=== PATIENT | female | born 1950 | race Caucasian/White ===

== ENCOUNTER 2020-04-13 10:09 | Outpatient (REF) | payer MEDICARE, SELFPAY ==
--- NOTE | 2020-04-13 10:16 | XR_ITS ---
EXAMINATION: KNEE X-RAY CLINICAL INFORMATION: Knee pain COMPARISON: Previous x-ray most recent June 2019 TECHNIQUE: Standing AP view of both knees and standing lateral view of the left knee FINDINGS: Left knee: There is a 3 component left knee replacement in satisfactory position. No fracture or dislocation is seen. There is a small joint effusion. There is a small soft tissue calcification over the inferior patella that is stable. Right knee: There is a right knee replacement in satisfactory position. XR/XR knee standing BI IMPRESSION: Left knee: Satisfactory appearance of knee replacement. Small joint effusion. Satisfactory appearance of right knee replacement.
--- NOTE | 2020-04-13 10:16 | XR_ITS ---
EXAMINATION: KNEE X-RAY CLINICAL INFORMATION: Knee pain COMPARISON: Previous x-ray most recent June 2019 TECHNIQUE: Standing AP view of both knees and standing lateral view of the left knee FINDINGS: Left knee: There is a 3 component left knee replacement in satisfactory position. No fracture or dislocation is seen. There is a small joint effusion. There is a small soft tissue calcification over the inferior patella that is stable. Right knee: There is a right knee replacement in satisfactory position. XR/XR knee LT 2V IMPRESSION: Left knee: Satisfactory appearance of knee replacement. Small joint effusion. Satisfactory appearance of right knee replacement.
== END 2020-04-13 10:10 | disposition home or self-care (01) ==
LOC: HO.HOSX 10:09
PROVIDERS: Visit Provider Orthopaedic Surgery
DX: M25.562 Pain in left knee (principal); M25.561 Pain in right knee
CPT/HCPCS: 73560; 73565; 99212

== ENCOUNTER 2020-12-09 06:40 | Emergency (ER) | payer MEDICARE, SELFPAY ==
--- NOTE | 2020-12-09 | ECG_ITS ---
Test Reason : CHEST PAIN Blood Pressure : / mmHG Vent. Rate : 052 BPM Atrial Rate : 052 BPM P-R Int : 168 ms QRS Dur : 084 ms QT Int : 448 ms P-R-T Axes : 057 020 056 degrees QTc Int : 416 ms Sinus bradycardia with Premature ventricular complexes Possible Anterior infarct (cited on or before 02-NOV-2018) Abnormal ECG When compared with ECG of 02-NOV-2018 13:35, Vent. rate has decreased BY 32 BPM QT has shortened Referred By: Generic ED Physician Electronically Signed By:MELCHOR AUSTIN MD
--- NOTE | ~2020-12-09 | XR_ITS ---
EXAMINATION: XR CHEST CLINICAL INFORMATION: Chest pain COMPARISON: None TECHNIQUE: 2 views of the chest were obtained. FINDINGS: There are patchy, streaky opacities in the left lower lobe or lingula with a trace left pleural effusion. Right lung appears clear. No pulmonary edema. Normal cardiomediastinal silhouette. XR/XR chest 2V IMPRESSION: Possible left lower lobe or lingular pneumonia with a trace left pleural effusion. Recommend short-term radiographic follow-up.
--- NOTE | ~2020-12-09 | CT_ITS ---
EXAMINATION: CT ANGIOGRAM OF THE CHEST WITH AND WITHOUT CONTRAST (CT PULMONARY ANGIOGRAM FOR PE) CLINICAL INFORMATION: Reason for Exam chest pain, elevated D-dimer, rule out PE COMPARISON: None TECHNIQUE: Prior to contrast administration, noncontrast localization images were obtained. Subsequently, multidetector volumetric imaging was performed from the thoracic inlet to below the diaphragms following the administration of 80 mL Omnipaque 350 intravenous contrast. No contrast reaction reported Sagittal, coronal, and MIP oblique sagittal reformatted images were obtained on the CT workstation, uploaded to PACS, and reviewed. This CT examination was performed using dose optimization techniques as appropriate, variously including the following: *Automated exposure control *Adjustment of mA and/or kV according to patient size (this includes techniques or standardized protocols for targeted exams where dose is matched to indication/reason for exam; i.e. extremities or head) *Use of iterative reconstruction technique Total exam dose-length product 247 mGy-cm FINDINGS: QUALITY OF STUDY/CONTRAST BOLUS: Satisfactory. PULMONARY ARTERIES: No central or segmental pulmonary emboli. THORACIC AORTA: There is no evidence of aneurysm. LUNG: There are reticular nodular changes and linear streaky changes in the right lower lobe. There is 8 mm nodule in the lingula axial image 32/6. Mild atelectatic changes seen in the anterobasal segment left lower lobe. There are multiple lung nodules seen largest measuring 6 mm right middle lobe axial image 28/5, 4 mm left lingula axial image 27/5. PLEURA: No pleural effusion or pneumothorax. MEDIASTINUM: Normal heart size. No pericardial effusion. No hilar or mediastinal lymphadenopathy. No evidence of septal bowing or right heart strain. CHEST WALL/AXILLA: No axillary or internal mammary lymphadenopathy. OSSEOUS STRUCTURES: There are multiple sclerotic lesions seen sternum, ribs and throughout dorsal spine involving T2, T4, T5 T9, T10 vertebra. UPPER ABDOMEN: There are small hypodense areas seen in the left hepatic lobe measuring 1.9 and 1.5 cm on axial image 46/5 and 48/5. No reflux of contrast into the hepatic veins to suggest elevated right heart pressures. CT/CT angio chest PE protocol IMPRESSION: No evidence of PE. No evidence aortic aneurysm. Multiple pulmonary nodules scattered throughout both lungs. In addition there is reticular nodular changes in the right lower lobe. Multiple sclerotic metastatic disease involving thoracic spine, sternum and ribs. VTE: negative
[2020-12-09 07:27] VITALS: BP 142/74; PULSE 55; RESP 18; TEMP 36.6; O2SAT 96; BMI 27.4
--- NOTE | 2020-12-09 08:08 | ED.CHESTPAIN ---
HPI - Chest Pain General Chief Complaint: Chest Pain Stated Complaint: chest pain Time Seen by Provider: 12/09/20 07:46 Source: patient Mode of arrival: ambulatory Limitations: no limitations History of Present Illness HPI narrative: 70-year-old female who presents emergency department for evaluation of chest pain. She states that the chest pain began yesterday at around 3:00 p.m. after she woke up from a nap. She states she fell asleep in a reclining chair and then woke up and had pain and the anterior chest. She points to her sternum and left chest when asked to localize the pain. She states the pain initially was mild and got worse early this morning. She describes the pain as a constant, dull ache which is currently 8/10. The pain is worse if she moves her left arm. She states she has some mild associated shortness of breath and did get clammy last night but attributes that to the heat. She states that she has had a cough for a couple of weeks secondary to pollen exposure. She denied radiation of the pain to her neck, jaw or back. She denied fever, chills, abdominal pain. She denied lightheadedness or dizziness. This is her 1st episode of this type of pain. She did not take any medications for the pain. The patient has not had a COVID-19 infection during this pandemic. She completed her 2 shot vaccination for COVID-19 (D-ÉG Thermoset) and received her 2nd vaccination in September 2020. Related Data Home Medications Medication Instructions Recorded Confirmed amlodipine 5 mg tablet 5 mg PO DAILY 04/13/20 atorvastatin 20 mg tablet 20 mg PO DAILY 04/13/20 hydrochlorothiazide 25 mg tablet 25 mg PO DAILY 04/13/20 metoprolol succinate 25 mg 12.5 mg PO DAILY 04/13/20 tablet,extended release 24 hr Previous Rx's Medication Instructions Recorded amoxicillin 500 mg tablet 2,000 mg PO ONCE 1 Days #4 tab 10/13/20 Allergies Allergy/AdvReac Type Severity Reaction Status Date / Time No Known Allergies Allergy Unverified 02/26/20 15:08 [No Known Allergies*] Review of Systems Review of Systems: Yes all other systems are reviewed and are negative [facility] Past Medical History [facility] Narrative: Past medical history: Hypertension, hyperlipidemia, right sided breast cancer 15 years prior treated with partial mastectomy and radiation therapy, skin cancer. Past surgical history: Bilateral knee replacements, x3, 2 hernia repairs, 1 ovary removed, right partial mastectomy, urethral cyst removed. Social history: The patient is a former smoker and quit in 1985, she smoked for 20 years, she drinks alcohol 2 times a month, she denies drug use. She is and her , Jose Raul, is here in the emergency department with her. Surgical History (Updated 04/13/20 @ 12:03 by Tiny Bunch MD) History of ovarian resection History of partial mastectomy History of tonsillectomy Social History Social History (Updated 04/12/20 @ 10:53 by Nata Bender CMA) Advance Directives: Yes Advance Directives Information Provided: Yes Advance Directives on File: No 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al status: retired 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: Right Handed Physical Exam Vital Signs: Vital Signs: Last Vital Signs Temp 98.4 F 12/09/20 08:57 Pulse 50 12/09/20 10:21 Resp 18 12/09/20 10:21 BP 166/58 H 12/09/20 10:21 Pulse Ox 96 12/09/20 10:21 Body Mass Index 27.4 Const: General: cooperative and healthy appearing Orientation/consciousness: oriented to person and oriented to place Limitations: no limitations HENMT: Head: Yes normal to inspection, Yes normocephalic and Yes atraumatic Ears: external ears normal General nose exam: Normal external nose present Face and sinus: Yes normal facial exam Mouth: Normal oral and palatal mucosa present Throat: Yes posterior oropharynx normal Eyes: Periorbital: periorbital findings normal Eyelids: Yes eyelids normal Conjunctivae: conjunctivae normal Sclerae: sclerae normal Corneas: corneas normal Pupils: Equal, round and reactive pupils present Direct Ophthalmoscopy: normal light reflex Neck: Neck: Yes full ROM, Yes no lymphadenopathy, Yes no meningeal signs, Yes trachea midline and Yes supple Chest: Chest palpation & inspection: normal inspection of the chest and tenderness ( [id number] tender sternum and left costal chondral joints) Resp: Effort & Inspection: normal respiratory effort and able to speak in complete sentences Auscultation: clear to auscultation bilaterally Cardio: Rate: regular rate Rhythm: regular rhythm Heart sounds: S1 normal heart sound present, S2 normal heart sound present and no murmurs GI: Inspection: Yes normal to inspection Palpation (GI): Soft to palpation, nontender, no guarding, not rigid and No hepatosplenomegaly present : General: Yes no CVA tenderness Back/Spine/Pelvis: Back: no CVA tenderness Cervical Spine: normal cervical lordosis Thoracic/Lumbar Spine: thoracic and lumbar spine normal to inspection Skin: Lesions: no lesions Rashes: no rashes Wounds: no wounds Neuro: General: oriented to person, oriented to place and no meningeal signs Cranial nerves: Yes CN's II-XII intact bilaterally and Yes Equal, round and reactive pupils present Cognition (Neuro): normal cognition Motor exam (neuro): 5/5 motor strength present throughout Extrem: General: Yes normal to inspection and Yes full ROM Psych: Appearance: well kempt Mental Status: mental status grossly normal Speech and movement: Normal speech and movement present Affect: normal affect Attitude: cooperative Thought process: Normal thought process present Thought content: Normal thought content present Course Course Course Narrative: 70-year-old female who presents emergency department for evaluation of gradual onset of left-sided chest pain which started around 3:00 p.m. yesterday after she woke up from a nap. The pain is been constant in got worse overnight and is currently 8/10. Vital signs revealed a slight elevation of blood pressure of 142/74 otherwise were unremarkable. Physical examination did reveal midsternal and left-sided chest wall tenderness. Differential includes but is not limited to acute coronary syndrome, costochondritis, pulmonary embolism, pneumothorax. Laboratory evaluation, chest x-ray and EKG will be obtained. Patient's pain will be treated with Toradol 30 mg IV. 1245: The patient's pain improved after receiving IV Toradol.The patient's initial high sensitivity troponin was detectable but not elevated, repeat high sensitivity troponin did not demonstrate a greater than 50% increased suggesting that she does not have myocardial injury is the cause of her pain. CT scan pulmonary angiogram of the chest to rule out pulmonary embolism revealed no PE however the patient does have reticulonodular changes of her lungs and several pulmonary nodules. Patient also has multiple sclerotic lesions involving her sternum, ribs and spine. The patient has a remote history of breast cancer, 15 years prior and was being treated by Dr. Tyler Camara at [facility]. I will contact Dr. Camara to discuss this incidental finding. MDM - Chest Pain Lab Data Result diagrams: 12/09/20 08:23 12/09/20 08:23 Labs: Lab Results 12/09/20 12/09/20 12/09/20 Range/Units 08:23 08:23 08:23 WBC 7.9 (4.8-10.8) X10*3/uL RBC 3.92 L (4.20-5.50) X10*6/uL Hgb 11.3 L (12.0-16.0) g/dl Hct 35.1 L (37-47) % MCV 89.5 (80-98) fL MCH 28.8 (27.0-33.0) pg MCHC 32.2 (31.0-35.0) g/dl RDW 12.9 (11.0-16.0) % Plt Count 249 (160-400) X10*3/uL MPV 10.3 (9.4-12.3) fL Immature Gran % (Auto) 0.4 (0.0-0.4) % Neut % (Auto) 71.5 (45-73) % Lymph % (Auto) 12.5 L (20-40) % Harlan % (Auto) 8.1 (2-11) % Eos % (Auto) 7.0 H (0-4) % Baso % (Auto) 0.5 (0-2) % Lymph # (Auto) 1.0 L (1.2-4.9) X10*3/uL Harlan # (Auto) 0.6 (0.1-1.2) X10*3/uL Eos # (Auto) 0.6 H (0.0-0.4) X10*3/uL Baso # (Auto) 0.0 (0.0-0.2) X10*3/uL Abs Immat Gran (auto) 0.03 (0.00-0.03) X10*3/uL Absolute Neuts (auto) 5.7 (2.0-8.3) X10*3/uL Absolute Nucleated RBC 0.000 (0.0-0.012) X10*3/uL Nucleated RBC % (auto) 0.0 (0.0-0.2) /100WBC D-Dimer 535 NG/ML Sodium 142 (135-145) mmol/L Potassium 3.6 (3.3-5.1) mmol/L Chloride 105 (96-108) mmol/L Carbon Dioxide 30 H (22-29) mmol/L Anion Gap 11 L (12-20) BUN 19 H (9-16) mg/dL Creatinine 1.27 (0.5-1.4) mg/dL Estim Creat Clear Calc 42.6 Estimated GFR 41 Random Glucose 109 (60-115) mg/dL Calcium 10.3 H (8.4-10.2) mg/dL Total Bilirubin 0.9 (0.0-1.0) mg/dL AST 22 (5-31) U/L ALT 10 (0-31) U/L Alkaline Phosphatase 124 H (39-117) U/L Troponin I High Sens (<3.5-17.0) ng/L Total Protein 6.5 (6.5-8.0) g/dL Albumin 3.9 (3.5-5.0) g/dL 12/09/20 12/09/20 Range/Units 08:23 11:37 WBC (4.8-10.8) X10*3/uL RBC (4.20-5.50) X10*6/uL Hgb (12.0-16.0) g/dl Hct (37-47) % MCV (80-98) fL MCH (27.0-33.0) pg MCHC (31.0-35.0) g/dl RDW (11.0-16.0) % Plt Count (160-400) X10*3/uL MPV (9.4-12.3) fL Immature Gran % (Auto) (0.0-0.4) % Neut % (Auto) (45-73) % Lymph % (Auto) (20-40) % Harlan % (Auto) (2-11) % Eos % (Auto) (0-4) % Baso % (Auto) (0-2) % Lymph # (Auto) (1.2-4.9) X10*3/uL Harlan # (Auto) (0.1-1.2) X10*3/uL Eos # (Auto) (0.0-0.4) X10*3/uL Baso # (Auto) (0.0-0.2) X10*3/uL Abs Immat Gran (auto) (0.00-0.03) X10*3/uL Absolute Neuts (auto) (2.0-8.3) X10*3/uL Absolute Nucleated RBC (0.0-0.012) X10*3/uL Nucleated RBC % (auto) (0.0-0.2) /100WBC D-Dimer NG/ML Sodium (135-145) mmol/L Potassium (3.3-5.1) mmol/L Chloride (96-108) mmol/L Carbon Dioxide (22-29) mmol/L Anion Gap (12-20) BUN (9-16) mg/dL Creatinine (0.5-1.4) mg/dL Estim Creat Clear Calc Estimated GFR Random Glucose (60-115) mg/dL Calcium (8.4-10.2) mg/dL Total Bilirubin (0.0-1.0) mg/dL AST (5-31) U/L ALT (0-31) U/L Alkaline Phosphatase (39-117) U/L Troponin I High Sens 6.4 6.9 (<3.5-17.0) ng/L Total Protein (6.5-8.0) g/dL Albumin (3.5-5.0) g/dL ABG Data Interpretation: 0734: Sinus bradycardia with a rate of 52, normal [place] interval, QRS duration and QTC interval, no ST segment elevation, no ST segment depression, no Q-waves, no PACs, no PVCs, no T-wave abnormalities, except for the bradycardia, this is a normal EKG. Discharge Plan Discharge Prescriptions: No Action amoxicillin 500 mg tablet 2,000 mg PO ONCE 1 Days Qty: 4 RF: 3
[2020-12-09 08:27] LABS: MANUAL DIFF FLAG NO
[2020-12-09 08:29] LABS: Basophils Percent Auto 0.5 % (0-2); Eosinophils Absolute Auto 0.6 X10*3/uL (0.0-0.4); Hematocrit 35.1 % (37-47); Hemoglobin 11.3 g/dl (12.0-16.0); Imm Gran Abs Auto 0.03 X10*3/uL (0.00-0.03); Imm Gran Pct Auto 0.4 % (0.0-0.4); Lymphocytes Percent Auto 12.5 % (20-40); Mean Corpuscular HGB Conc 32.2 g/dl (31.0-35.0); Mean Corpuscular Hemoglobin 28.8 pg (27.0-33.0); Mean Corpuscular Volume 89.5 fL (80-98); Mean Platelet Volume 10.3 fL (9.4-12.3); Monocytes Absolute Auto 0.6 X10*3/uL (0.1-1.2); Monocytes Percent Auto 8.1 % (2-11); Neutrophils Absolute Auto 5.7 X10*3/uL (2.0-8.3); Neutrophils Percent Auto 71.5 % (45-73); Platelet Count 249 X10*3/uL (160-400); Red Blood Count 3.92 X10*6/uL (4.20-5.50); Red Cell Distribution Width 12.9 % (11.0-16.0); White Blood Count 7.9 X10*3/uL (4.8-10.8)
[2020-12-09] MEDS: Ketorolac Tromethamine 30 MG/ML VIAL IVPUSH (08:29)
[2020-12-09 08:39] LABS: D Dimer 535 NG/ML
[2020-12-09 08:57] VITALS: BP 150/62; PULSE 45; RESP 17; TEMP 36.9; O2SAT 97
[2020-12-09 08:58] LABS: Alanine Aminotransferase 10 U/L (0-31); Albumin Level 3.9 g/dL (3.5-5.0); Alkaline Phosphatase 124 U/L (39-117); Anion Gap 11 (12-20); Aspartate Amino Transferase 22 U/L (5-31); Bilirubin Total 0.9 mg/dL (0.0-1.0); Blood Urea Nitrogen 19 mg/dL (9-16); Calcium 10.3 mg/dL (8.4-10.2); Carbon Dioxide 30 mmol/L (22-29); Chloride 105 mmol/L (96-108); Creatinine Clr Calc Pharmacy 42.6; Estimated Glomerular Filt Rate 41; Glucose Random 109 mg/dL (60-115); Potassium 3.6 mmol/L (3.3-5.1); Sodium 142 mmol/L (135-145); Total Protein 6.5 g/dL (6.5-8.0)
[2020-12-09 09:02] LABS: Troponin-I High Sensitivity 6.4 ng/L (<3.5-17.0)
[2020-12-09] MEDS: 0.9 % Sodium Chloride 1,000 ML 999 ML IV (10:12)
[2020-12-09 10:21] VITALS: BP 166/58; PULSE 50; RESP 18; O2SAT 96
[2020-12-09] MEDS: iohexoL 350 MG/ML 100 ML INFUS..BTL 63 ML IV (10:39)
[2020-12-09 12:14] LABS: Troponin-I High Sensitivity 6.9 ng/L (<3.5-17.0)
== END 2020-12-09 13:58 | disposition home or self-care (01) ==
PROVIDERS: Emergency Provider Emergency Medicine Emergency Medical Services; PCP Internal Medicine
DX: R07.9 Chest pain, unspecified (principal); I10 Essential (primary) hypertension; Z85.3 Personal history of malignant neoplasm of breast
CPT/HCPCS: 36415; 71046; 71275; 80053; 84484; 85025; 85379; 93005; 96361; 96374; 99285; J1885; Q9967

== ENCOUNTER → 2021-03-07 13:52 | Outpatient (BNV) | payer MEDICARE, SELFPAY | PROVIDERS: Visit Provider Internal Medicine | DX: C50.911 Malignant neoplasm of unspecified site of right female breast (principal); C79.51 Secondary malignant neoplasm of bone | CPT/HCPCS: 99204; 99213; 99214; 99215; G2211 ==

== ENCOUNTER 2021-03-15 11:34 | Outpatient (REF) | payer MEDICARE, SELFPAY ==
--- NOTE | ~2021-03-15 | PE_ITS ---
EXAMINATION: Fluorine-18 FDG PET/CT Scan CLINICAL INDICATION: Initial treatment management. Right lung nodule, history of right breast cancer. PROCEDURE: 58 minutes following the intravenous administration of 16.0 mCi of fluorine 18 FDG, images from the base of the skull to the mid thighs were obtained using a combined PET/CT scanner with CT scan based attenuation correction. No oral contrast was administered. No intravenous contrast was administered. Transverse, coronal, sagittal, and volume reconstruction projections were obtained. The patient's blood glucose as determined by a finger stick, was 90 mg/dl immediately prior to injection. Total CT exam dose-length product 506.68 mGy-cm * These CT images were obtained using dose optimization techniques as appropriate, variously including the following: Automated exposure control * Adjustment of mA and/or kV according to patient size (this includes techniques or standardized protocols for targeted exams where dose is matched to indication/reason for exam; i.e. extremities or head) * Use of iterative reconstruction technique COMPARISON: No previous PET/CT scan is available for comparison. CT angiogram of the chest dated 12/09/[address] scan of the abdomen done pelvis dated 11/02/2018 are available for comparison. FINDINGS: (Slice numbers described in this report are numbered superiorly to inferiorly with slice #1 in the head) NECK AND VISUALIZED HEAD: Other than osseous lesions subsequently described, there are no foci of abnormal FDG activity in the neck or visualized head. There is no cervical lymphadenopathy. Mild mucosal thickening in the right maxillary sinus is noted with no associated abnormal FDG activity. THORAX: Multiple FDG avid osseous lesions are subsequently discussed. There is an FDG avid 0.7 cm anterior pleural-based right middle lobe pulmonary nodule showing SUVmax 3.6, slice 101/311. There is mild FDG activity associated with a lingular opacity showing SUVmax 3.2, slice 122/311 and measuring approximately 2.0 x 1.0 cm in largest transverse mentions. There is an additional focus of mild FDG activity present in the right lower lobe showing SUVmax 2.5, slice 111/311. A nodular opacities probably present at this site but is not easily on these nondiagnostic CT images from adjacent vascular structures. No additional well delineated foci of abnormal FDG activity are present in the chest. Multiple additional pulmonary nodules visualized on the prior diagnostic CT angiogram of the chest dated 12/09/2020 are not as well delineated on these nondiagnostic CT images, and all of those nodules are too small to be characterized on the FDG PET images. There is no pleural or pericardial fluid, or pneumothorax. There is no mediastinal, supraclavicular, or axillary lymphadenopathy. ABDOMEN AND PELVIS: There is a focus of intense abnormal FDG activity present in liver Couinaud segment 7, SUVmax 11.0, slice 134/311. This corresponds to poorly delineated hypodensity on the corresponding CT images that was better visualized on the 12/09/[address] scan and measured approximately 2.8 cm on that study. There is an additional suspicious focus of increased FDG activity at the junctions of liver Couinaud segments 2 and 3 showing SUVmax 6.5, slice 143/311. This may represent physiological activity in the adjacent distal stomach. No definite additional foci of abnormal FDG activity are present in the liver. Several hypodensities are present in the liver and appear unchanged from prior studies and do not show abnormal FDG activity. The gallbladder and spleen are unremarkable. There is a hypodense cyst in the upper pole of the right kidney which is markedly FDG photopenic. There is an additional hypodense cysts medially in the upper pole of the left kidney. This is also FDG photopenic. The kidneys are otherwise unremarkable. The adrenal glands and pancreas are unremarkable. There is no retroperitoneal, mesenteric, pelvic or inguinal lymphadenopathy. There is diverticulosis without evidence of diverticulitis. The hollow viscera are otherwise unremarkable. There is a focus of intense FDG activity in the region of the cervix, SUVmax 10.4, slice 230/311. There are some soft tissue calcifications in this region but CT abnormality is otherwise not present. The pelvic organs are otherwise unremarkable. MUSCULOSKELETAL: Extensive FDG avid osseous lesions are present. P[employer] are extensive pelvic abnormalities, the most intense of which is in the posterior column of the left acetabulum showing SUVmax 10.1 associated with a mixed sclerotic and lytic focus at this site on the CT images, a lesion in the subtrochanteric proximal right femur showing SUVmax 7.5, slice 226/311 associated with subtle sclerotic changes on the CT images, and a focus in the L3 vertebral body showing SUVmax 7.9, slice 161/311 also associated with mixed sclerotic and lytic lesions on the CT images. The abnormalities are extensive throughout the spine the proximal humeri bilaterally in the glenoid fossa regions of both scapula. FDG avid mixed sclerotic and lytic lesions are also present in the sternum. VASCULAR: Diffuse vascular calcifications including coronary are noted. PET/PET CT fusion skull to thigh IMPRESSION: Widespread FDG avid metastatic lesions are present as described above. These are most extensive in the osseous structures, but FDG avid liver lesions and small FDG avid pulmonary lesions are also noted.
== END 2021-03-15 11:35 | disposition home or self-care (01) ==
LOC: HO.PET 11:34
PROVIDERS: Visit Provider Internal Medicine
DX: Z13.89 Encounter for screening for other disorder (principal)

== ENCOUNTER 2021-04-04 11:46 | Day surgery (SDC) | payer MEDICARE, SELFPAY ==
--- NOTE | ~2021-04-04 | CT_ITS ---
EXAMINATION: CT BONE MARROW ASPIRATION AND BIOPSY CLINICAL INFORMATION: Breast cancer, bone metastases. COMPARISON: None. TECHNIQUE: Following explaining CT-guided bone marrow biopsy and aspiration procedure, benefits and risks, a written consent was obtained. Patient was placed prone on fluoroscopy table and preliminary CT imaging was obtained through the pelvis. Lead markers were placed along the posterior skin and repeat CT imaging was performed. An optimal marker was selected and marked on the skin. The marked area was then cleaned and draped in the usual sterile manner. 1% lidocaine was injected at the puncture site. A spinal needle was then inserted from the skin to the posterior iliac spine and 1% lidocaine injected around the periosteum. Through a small skin incision, a 14-gauge guide needle was advanced from the skin to the posterior iliac spine. Coaxially, a 14-gauge needle attached to the drill was inserted into the right iliac bone marrow and a bone marrow biopsy was performed. Subsequently, bone marrow aspirations are performed with heparin and EDTA in two different syringes. After achieving adequate amount of biopsy material and bone marrow aspiration, the guide needle was withdrawn and complete hemostasis was achieved at the puncture site. Patient tolerated procedure extremely well. Conscious sedation and patient monitoring was performed during the exam. FINDINGS: On previous CT imaging, there are sclerotic bony changes involving both iliac bones and lower lumbar spine as well as sacrum. Unremarkable. The uterus is anteverted and appears unremarkable. The bowel gas pattern is nonspecific. CT fluoroscopy-guided left posterior iliac crest bone marrow biopsy, aspiration of bone marrow with heparin and EDTA were performed in separate syringes and sent to lab. CT/CT biopsy aspirate bone marrow IMPRESSION: Successful CT fluoroscopy-guided bone marrow biopsy and aspiration was performed of the left iliac bone.
[2021-04-04 12:23] LABS: MANUAL DIFF FLAG NO
[2021-04-04 12:26] LABS: Basophils Absolute Auto 0.1 X10*3/uL (0.0-0.2); Basophils Percent Auto 0.6 % (0-2); Eosinophils Absolute Auto 0.3 X10*3/uL (0.0-0.4); Eosinophils Percent Auto 2.6 % (0-4); Hematocrit 34.7 % (37-47); Hemoglobin 11.5 g/dl (12.0-16.0); Imm Gran Abs Auto 0.04 X10*3/uL (0.00-0.03); Imm Gran Pct Auto 0.4 % (0.0-0.4); Lymphocytes Absolute Auto 1.2 X10*3/uL (1.2-4.9); Lymphocytes Percent Auto 11.6 % (20-40); Mean Corpuscular HGB Conc 33.1 g/dl (31.0-35.0); Mean Corpuscular Hemoglobin 29.4 pg (27.0-33.0); Mean Corpuscular Volume 88.7 fL (80-98); Mean Platelet Volume 10.7 fL (9.4-12.3); Monocytes Absolute Auto 0.9 X10*3/uL (0.1-1.2); Monocytes Percent Auto 8.8 % (2-11); Neutrophils Absolute Auto 7.6 X10*3/uL (2.0-8.3); Platelet Count 282 X10*3/uL (160-400); Red Blood Count 3.91 X10*6/uL (4.20-5.50); Red Cell Distribution Width 12.9 % (11.0-16.0)
[2021-04-04 12:31] LABS: Prothrombin Time 11.8 SEC (9.9-13.0)
[2021-04-04 12:34] LABS: Partial Thromboplastin Time 32.9 SEC (24.1-38.0)
[2021-04-04 13:09] VITALS: BMI 29.0
[2021-04-04 15:45] VITALS: BP 117/57; PULSE 64; RESP 17; TEMP 37.2; O2SAT 98
[2021-04-04] MEDS: Lidocaine HCl 1 % MPF 5 ML VIAL 10 ML SUBCUT (15:59)
[2021-04-04 16:00] VITALS: BP 129/56; PULSE 71; RESP 18; O2SAT 98
[2021-04-04 16:15] VITALS: BP 132/54; PULSE 62; RESP 18; O2SAT 98
[2021-04-04 16:45] VITALS: BP 112/52; PULSE 68; RESP 18; O2SAT 97
[2021-04-04 17:00] VITALS: TEMP 36.8
== END 2021-04-04 17:13 | disposition home or self-care (01) ==
PROVIDERS: Radiology Diagnostic Radiology; PCP Internal Medicine; Visit Provider Internal Medicine
DX: C79.51 Secondary malignant neoplasm of bone (principal); Z85.3 Personal history of malignant neoplasm of breast; I10 Essential (primary) hypertension; Z87.891 Personal history of nicotine dependence
CPT/HCPCS: 36415; 38222; 85025; 85610; 85730; 88305; 88311; 88313; 88341; 88342; 88360; 99152; J1642; J2250; J3010

== ENCOUNTER 2021-04-13 09:57 | Outpatient (REF) | payer MEDICARE, SELFPAY ==
--- NOTE | ~2021-04-13 | XR_ITS ---
EXAMINATION: XR KNEE, RIGHT XR KNEE, LEFT XR KNEE STANDING, BILATERAL INDICATION: Pain. COMPARISON: Comparison is made to previous exam dated 06/25/2019, 01/29/2019 TECHNIQUE: Standing image of the knees with detailed imaging of the right and left knee. FINDINGS: The standing image shows no change from previous. Prosthesis bilaterally. No evidence for hardware failure. Two detailed images of the right knee are compared to previous dated 01/29/2019. Again no evidence for hardware failure. Alignment is felt to be within normal limits. Two detailed images of the left knee demonstrate again prosthesis in place. No acute finding. No evidence for hardware failure. XR/XR knee standing BI IMPRESSION: Hardware involving the right and left knee. No evidence for hardware failure. No acute finding. No bony erosion.
--- NOTE | ~2021-04-13 | XR_ITS ---
EXAMINATION: XR KNEE, RIGHT XR KNEE, LEFT XR KNEE STANDING, BILATERAL INDICATION: Pain. COMPARISON: Comparison is made to previous exam dated 06/25/2019, 01/29/2019 TECHNIQUE: Standing image of the knees with detailed imaging of the right and left knee. FINDINGS: The standing image shows no change from previous. Prosthesis bilaterally. No evidence for hardware failure. Two detailed images of the right knee are compared to previous dated 01/29/2019. Again no evidence for hardware failure. Alignment is felt to be within normal limits. Two detailed images of the left knee demonstrate again prosthesis in place. No acute finding. No evidence for hardware failure. XR/XR knee RT 2V IMPRESSION: Hardware involving the right and left knee. No evidence for hardware failure. No acute finding. No bony erosion.
--- NOTE | ~2021-04-13 | XR_ITS ---
EXAMINATION: XR KNEE, RIGHT XR KNEE, LEFT XR KNEE STANDING, BILATERAL INDICATION: Pain. COMPARISON: Comparison is made to previous exam dated 06/25/2019, 01/29/2019 TECHNIQUE: Standing image of the knees with detailed imaging of the right and left knee. FINDINGS: The standing image shows no change from previous. Prosthesis bilaterally. No evidence for hardware failure. Two detailed images of the right knee are compared to previous dated 01/29/2019. Again no evidence for hardware failure. Alignment is felt to be within normal limits. Two detailed images of the left knee demonstrate again prosthesis in place. No acute finding. No evidence for hardware failure. XR/XR knee LT 2V IMPRESSION: Hardware involving the right and left knee. No evidence for hardware failure. No acute finding. No bony erosion.
== END 2021-04-13 09:58 | disposition home or self-care (01) ==
LOC: HO.HOSX 09:57
PROVIDERS: PCP Internal Medicine; Referring Provider Internal Medicine; Visit Provider Physician Assistant
DX: T84.84XA Pain due to internal orthopedic prosthetic devices, implants and grafts, initial encounter (principal); Z96.651 Presence of right artificial knee joint; Z96.652 Presence of left artificial knee joint
CPT/HCPCS: 73560; 73565; 99212

== ENCOUNTER 2021-05-10 11:52 | Outpatient (REF) | payer MEDICARE, SELFPAY ==
--- NOTE | ~2021-05-10 | XR_ITS ---
EXAMINATION: XR PELVIS AND BILATERAL FEMURS CLINICAL INFORMATION: Secondary malignant neoplasm of bone. COMPARISON: PET/CT 03/15/2021. TECHNIQUE: Single view pelvis with 2 additional views each femur. FINDINGS: Single view pelvis demonstrates extensive sclerotic changes in the left iliac bone consistent with bony metastatic disease. Similar changes are present on the prior PET/CT from 03/15/2021. Other sclerotic lesions are present in the right hemipelvis in the medial inferior pubic ramus, also present previously. No pathologic pelvic fracture is seen. Right femur demonstrates a total knee prosthesis distally. Proximally, in the intertrochanteric region, there is an ill-defined lytic area with some surrounding sclerosis which correlates with a lesion seen on the 03/15/2021 PET/CT. No pathologic fracture is seen. Right femur demonstrates a total knee prosthesis distally. The left femur shows a lytic area in the intertrochanteric area with some surrounding sclerosis. An area of activity was seen on the PET/CT previously and this is consistent with a metastatic lesion. A pathologic fracture is not seen. XR/XR femur LT 2V IMPRESSION: Bony metastatic disease as described above with no pathologic fracture seen.
--- NOTE | ~2021-05-10 | XR_ITS ---
EXAMINATION: XR PELVIS AND BILATERAL FEMURS CLINICAL INFORMATION: Secondary malignant neoplasm of bone. COMPARISON: PET/CT 03/15/2021. TECHNIQUE: Single view pelvis with 2 additional views each femur. FINDINGS: Single view pelvis demonstrates extensive sclerotic changes in the left iliac bone consistent with bony metastatic disease. Similar changes are present on the prior PET/CT from 03/15/2021. Other sclerotic lesions are present in the right hemipelvis in the medial inferior pubic ramus, also present previously. No pathologic pelvic fracture is seen. Right femur demonstrates a total knee prosthesis distally. Proximally, in the intertrochanteric region, there is an ill-defined lytic area with some surrounding sclerosis which correlates with a lesion seen on the 03/15/2021 PET/CT. No pathologic fracture is seen. Right femur demonstrates a total knee prosthesis distally. The left femur shows a lytic area in the intertrochanteric area with some surrounding sclerosis. An area of activity was seen on the PET/CT previously and this is consistent with a metastatic lesion. A pathologic fracture is not seen. XR/XR femur RT 2V IMPRESSION: Bony metastatic disease as described above with no pathologic fracture seen.
--- NOTE | ~2021-05-10 | XR_ITS ---
EXAMINATION: XR PELVIS AND BILATERAL FEMURS CLINICAL INFORMATION: Secondary malignant neoplasm of bone. COMPARISON: PET/CT 03/15/2021. TECHNIQUE: Single view pelvis with 2 additional views each femur. FINDINGS: Single view pelvis demonstrates extensive sclerotic changes in the left iliac bone consistent with bony metastatic disease. Similar changes are present on the prior PET/CT from 03/15/2021. Other sclerotic lesions are present in the right hemipelvis in the medial inferior pubic ramus, also present previously. No pathologic pelvic fracture is seen. Right femur demonstrates a total knee prosthesis distally. Proximally, in the intertrochanteric region, there is an ill-defined lytic area with some surrounding sclerosis which correlates with a lesion seen on the 03/15/2021 PET/CT. No pathologic fracture is seen. Right femur demonstrates a total knee prosthesis distally. The left femur shows a lytic area in the intertrochanteric area with some surrounding sclerosis. An area of activity was seen on the PET/CT previously and this is consistent with a metastatic lesion. A pathologic fracture is not seen. XR/XR pelvis 1-2V IMPRESSION: Bony metastatic disease as described above with no pathologic fracture seen.
== END 2021-05-10 11:53 | disposition home or self-care (01) ==
LOC: HO.XRAY 11:52
PROVIDERS: PCP Internal Medicine; Visit Provider Internal Medicine
DX: C79.51 Secondary malignant neoplasm of bone (principal)
CPT/HCPCS: 72170; 73552

== ENCOUNTER → 2021-05-23 09:50 | Outpatient (BNVA) | payer MEDICARE, SELFPAY | PROVIDERS: PCP Internal Medicine; Visit Provider Physician Assistant | DX: C79.51 Secondary malignant neoplasm of bone (principal) | CPT/HCPCS: 99212 ==

== ENCOUNTER 2021-06-07 07:49 | Day surgery (SDC) | payer MEDICARE, SELFPAY ==
[2021-05-26 11:18] VITALS: BMI 28.1
[2021-06-07] VITALS (13 sets, daily range): BP systolic 107–151; BP diastolic 51–72; PULSE 55–85; RESP 16–22; TEMP 36.6–36.9; O2SAT 94–100
--- NOTE | ~2021-06-07 | XR_ITS ---
EXAMINATION: XR CHEST CLINICAL INFORMATION: Shortness of breath COMPARISON: 12/09/2020 TECHNIQUE: Frontal view of the chest was obtained. FINDINGS: Lung volumes are symmetric. There are patchy regions of bibasilar opacity, left greater than right. Small left and trace right pleural effusions are noted. No appreciable pneumothorax. Cardiac size is within normal limits. Calcification is present at the aortic arch. Degenerative changes are noted in the spine. Right axillary clips noted. XR/XR chest 1V IMPRESSION: Mild patchy bibasilar opacities which may be infectious/inflammatory in nature, though underlying nodularity in the setting of metastatic disease is difficult to exclude radiographically. Small left and trace right pleural effusions.
--- NOTE | ~2021-06-07 | FL_ITS ---
EXAMINATION: FL C-ARM IMAGES TAKEN IN THE OPERATING ROOM CLINICAL INFORMATION: Right femoral IM nail. COMPARISON: CT of 04/04/2021 and femoral study of 05/10/2021 TECHNIQUE: Fluoroscopy performed by Dr. Elvis Lamar. Fluoroscopy time: 1.6 minutes DAP: 0.666 mGy-cm2 Images: 5 FINDINGS: Patient is status post right total knee arthroplasty. Imaging demonstrates placement of compression screw and long intramedullary zainab within the right femur. No definite fractures identified on provided imaging. The known metastatic lesions are not well seen on these plain film studies. The central portion of the intramedullary zainab and femur are not imaged on this study. FL/FL guidance in OR IMPRESSION: C-arm imaging demonstrating placement of compression screw and long intramedullary zainab within the right femur.
[2021-06-07 08:56] LABS: COVID-19 Test Negative (Negative); IDNOW Serial# 08D9AD1C
--- NOTE | 2021-06-07 09:56 | MHC.SHP ---
Pre-Procedural Eval Section A Date of Service: 06/07/21 The patient is an INPATIENT: No Changes since office visit: Yes Patient answered all questions; No Cold of Flu in the past 2 weeks, No New Medical Problems and No Changes in Medication The History & Physical has been completed within 30 days and I have reviewed it.: Yes Section B Chief Complaint: mets to the bone Allergies: Allergies Allergy/AdvReac Type Severity Reaction Status Date / Time No Known Allergies Allergy Verified 06/07/21 08:07 [No Known Allergies*] Plan I have reviewed the history and physical and performed a pertinent physical examination on my patient. No changes have occurred unless specified.
--- NOTE | 2021-06-07 10:25 | HO.ANESPROP2 ---
HPI - Anesthesia Eval Consult details Narrative: 70 F for IM nailing . PMFSH Active Problems Active Problems: All Active Problems (Updated 05/26/21 @ 11:18 by Jenna Kelley RN) History of total left knee replacement (TKR) (Acute) History of total right knee replacement (TKR) (Acute) Bone metastases (Acute) Past Medical History Medical History Anemia Arthritis Breast cancer Cancer, metastatic to bone COVID-19 vaccine series completed Elevated cholesterol HTN (hypertension) Kidney stones On beta vanessa at home Family History Family History Maternal Aunt Ovarian cancer Father Heart attack Maternal Aunt Stroke Family history of problems with anesthesia: No Surgical History Surgical History History of appendectomy History of lithotripsy History of ovarian resection History of partial mastectomy History of tonsillectomy and adenoidectomy History of total left knee replacement History of total right knee replacement (TKR) History of umbilical hernia repair History of vulvectomy Hx of section Hx of hernia repair History of Problems with Anesthesia: No Social History Social History Are you a primary caregiver assisted living to a significant other at home: No Do you presently have visiting nurse or other home services: No Alcohol intake: current Alcohol intake frequency: a few times a month Patient Tobacco Use Status: Former Tobacco user Quit Date: 1985 Tobacco use type: Cigarette Cigarette Packs Per Day: 1 Use of substances other than those prescribed or required for medical reasons: No Have you been hit, kicked, punched, or otherwise hurt by someone within the past year? 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: Right Handed Meds Allergies Allergy/AdvReac Type Severity Reaction Status Date / Time No Known Allergies Allergy Verified 06/07/21 08:07 [No Known Allergies*] Home Medications Medication Instructions Recorded Confirmed Last Taken Type amlodipine 5 mg tablet 5 mg PO DAILY 04/13/20 05/25/21 06/07/21 07:20 History atorvastatin 20 mg tablet 20 mg PO DAILY 04/13/20 05/25/21 Unknown History multivitamin 1 tab PO DAILY 03/07/21 05/25/21 Unknown History calcium 600 mg capsule 600 mg PO DAILY 05/09/21 05/25/21 Unknown History denosumab 60 mg/mL subcutaneous 60 mg SUBCUT QMONTH 05/26/21 05/26/21 05/09/21 History syringe (Prolia) metoprolol succinate 200 mg 200 mg PO BID 05/26/21 05/26/21 06/07/21 07:20 History tablet,extended release 24 hr Exam Exam Date and Time: June 07, 2021 1025 Height,Weight and Vital Signs: Height 5 ft 5.5 in Weight 78.018 kg Last Vital Signs Temp 97.8 F 06/07/21 08:29 Pulse 55 06/07/21 08:29 Resp 16 06/07/21 08:29 BP 150/51 H 06/07/21 08:29 Pulse Ox 99 06/07/21 08:29 Pertinent Lab Results Pertinent Lab Results: Laboratory Tests 06/07/21 06/07/21 08:15 08:35 COVID-19 ([facility]) Negative COVID-19 Clin Com See Note Blood Type A Positive Antibody Screen NEGATIVE Airway Mallampati Class: II TM Dist: >3cm Neck ROM: Full Loose/Missing/Broken Teeth: Yes (Bridge upper front , poor dentation ) Heart: rrr Lungs: bl breath sounds Assessment and Plan Assessment Anesthesia Assessment: Anesthesia Plan Discussed Final Anesthetic Review Family History of Problems with Anesthesia: No History of Problems with Anesthesia: No NPO: Yes ASA Class: III Final Preanesthetic Review: Anes Risks/Benef Reviewed Patient Risk: Intermediate Procedure Risk: Intermediate Anesthetic Plan Anesthetic Plan: GA Disposition: Standard PACU
[2021-06-07] MEDS: Lactated Ringers 1,000 ML 80 ML IVCONT (10:39)
--- NOTE | 2021-06-07 12:48 | PM.OP ---
Brief Operative Note Date of Service: 06/07/21 Pre-op diagnosis: right femoral metastatic lesion Post-op diagnosis: same Procedure: imn right femur Implants: Molly [id number] deg with 85 mm hip screw and 45 mm distal interlock Surgeon: Elvis Lamar MD Anesthesia: GETA and local Was an Manager Reimbursement used for this Procedure?: Yes Manager Reimbursement: Lisa Armando Estimated blood loss (mL): 150 IV fluids (mL): 1,100 Pathology: none sent Condition: stable Disposition: PACU
[2021-06-07] MEDS: HYDROmorphone HCl 0.5 MG/0.5 ML SYRINGE 0.25 MG IVPUSH ×2 (12:55→13:00)
--- NOTE | 2021-06-07 15:20 | P.OP_ITS ---
Operative Note Operative Note Date of Service: 06/07/21 Narrative: Date of Service: 06/07/21 Pre-op diagnosis: right femoral metastatic lesion Post-op diagnosis: same Procedure: imn right femur Implants: Molly [id number] deg with 85 mm hip screw and 45 mm distal interlock Surgeon: Elvis Lamar MD Anesthesia: GETA and local Was an Sales Solutions Associate used for this Procedure?: Yes Sales Solutions Associate: Lisa Armando Estimated blood loss (mL): 150 IV fluids (mL): 1,100 Pathology: none sent Condition: stable Disposition: PACU Procedure in detail: Patient was brought to the operating room and prepped and draped in standard sterile fashion. Time-out was called to identify proper site procedure proper surgeon and IV antibiotics per weight were administered. I then made a stab incision proximal to the greater trochanter in using a guidewire made a entry point just lateral to the tip of the greater trochanter and placed a guidewire into the femoral metadiaphysis. I initially used an awl but was unable to penetrate the neoplasm in the proximal femur. I then over- reamed with 15 mm Reamer placed my ball-tip guidewire down distally in the femur and measured my length. I selected a [id number] deg mm nail and reamed up to a 13. I attempted to place in without reaming but it was too tight and the areas of metastasis would not allow passage so I was fored to ream. The distal aspect of the nail was placed as far as possible to prevent stress riser with the TKA. I then placed the nail. I then turned my attention to the hip screw where I used a guidewire and a tip apex distance of less than 1.5 measured my hip screw. I then pre drilled and placed an 85 mm hip screw using biplanar fluoroscopy. Once I was satisfied with the position of the hip screw I turned my attention to the distal aspect of the nail. Using perfect [place] technique I placed 1 static distal interlocking screw in standard AO technique. I then removed all extraneous instrumentation. Final biplanar radiographs were taken. I was satisfied with the position of the hardware. I think copiously irrigated closed with absorbable sutures blaire and injected 30 mL of into the area of the incisions. Traction was let down patient was placed in sterile dressing awakened from anesthesia brought to recovery room stable condition there were no known complications.
[2021-06-07] MEDS: Dextrose 5 % and 0.45 % NaCl 1,000 ML 80 ML IVCONT (17:19)
[2021-06-07] MEDS: oxyCODONE HCl Immed Release 5 MG TABLET PO (20:20)
[2021-06-07] MEDS: Celecoxib 200 MG CAPSULE PO (20:20)
[2021-06-07] MEDS: Docusate Sodium 100 MG CAPSULE PO (20:20)
[2021-06-07] MEDS: 0.9 % Sodium Chloride Flush 3 ML SYRINGE IVFLUSH (20:21)
[2021-06-08] VITALS (8 sets, daily range): BP systolic 103–128; BP diastolic 51–61; PULSE 72–91; RESP 17–20; TEMP 36.2–37; O2SAT 90–98; BMI 28.1
[2021-06-08] MEDS: Dextrose 5 % and 0.45 % NaCl 1,000 ML 80 ML IVCONT ×2 (04:07→17:26)
[2021-06-08] MEDS: oxyCODONE HCl Immed Release 5 MG TABLET PO ×3 (04:22→21:23)
[2021-06-08 06:31] LABS: MANUAL DIFF FLAG NO
[2021-06-08 06:46] LABS: Basophils Percent Auto 0.6 % (0-2); Eosinophils Absolute Auto 0.2 X10*3/uL (0.0-0.4); Eosinophils Percent Auto 2.6 % (0-4); Hemoglobin 8.3 g/dl (12.0-16.0); Imm Gran Abs Auto 0.04 X10*3/uL (0.00-0.03); Imm Gran Pct Auto 0.6 % (0.0-0.4); Lymphocytes Absolute Auto 0.7 X10*3/uL (1.2-4.9); Lymphocytes Percent Auto 10.5 % (20-40); Mean Corpuscular HGB Conc 33.2 g/dl (31.0-35.0); Mean Corpuscular Hemoglobin 31.2 pg (27.0-33.0); Mean Platelet Volume 10.7 fL (9.4-12.3); Monocytes Absolute Auto 0.3 X10*3/uL (0.1-1.2); Monocytes Percent Auto 5.4 % (2-11); Neutrophils Percent Auto 80.3 % (45-73); Platelet Count 205 X10*3/uL (160-400); Red Blood Count 2.66 X10*6/uL (4.20-5.50); White Blood Count 6.3 X10*3/uL (4.8-10.8)
[2021-06-08 07:03] LABS: Anion Gap 11 (12-20); Blood Urea Nitrogen 20 mg/dL (9-16); Calcium 7.9 mg/dL (8.4-10.2); Carbon Dioxide 25 mmol/L (22-29); Chloride 103 mmol/L (96-108); Creatinine Clr Calc Pharmacy 48.4; Estimated Glomerular Filt Rate 49; Glucose Fasting 135 mg/dL (60-99); Potassium 3.8 mmol/L (3.3-5.1); Sodium 135 mmol/L (135-145)
[2021-06-08] MEDS: Celecoxib 200 MG CAPSULE PO ×2 (08:47→21:23)
[2021-06-08] MEDS: Docusate Sodium 100 MG CAPSULE PO ×2 (08:47→21:23)
--- NOTE | 2021-06-08 09:59 | PM.PNORT ---
Subjective Subjective Date of Service: 06/08/21 Interval history: POD 1 s/p Right hip IMN No overnight events resting in bed, comfortable with pain. Physical Exam Vital Signs: Vital Signs: Last Vital Signs Temp 98.5 F 06/08/21 08:00 Pulse 75 06/08/21 08:49 Resp 18 06/08/21 08:00 BP 103/58 L 06/08/21 08:49 Pulse Ox 94 06/08/21 08:49 BMI result Body Mass Index 28.1 Const: General: cooperative, healthy appearing and no acute distress Resp: Effort & Inspection: normal respiratory effort and able to speak in complete sentences Cardio: Rate: regular rate Peripheral pulses: Peripheral pulses 2+ throughout GI: Palpation (GI): Soft to palpation Skin: General skin exam: no rashes or lesions noted Extrem: Other: incision clean dry and intact. [place] intact. No erythema or effusion. Calf supple nontender. Neurovascularly intact. Procedures Date of Service Date of Service: 06/08/21 Progress Note: A&P Assessment and plan (1) Bone metastases: Status: Acute Assessment and Plan: Continue pain mgmnt Begin lovenox for dvt ppx begin PT /OT for RIght IMN Dispo planning-Pending PT eval, pain mgmnt Fall Risk Details Current Medications: Current Medications Acetaminophen (Acetaminophen 325 Mg Tablet) 650 mg PO Q6H PRN PRN Reason: Pain, Mild (Pain Scale 1-3) Celecoxib (Celecoxib 200 Mg Capsule) 200 mg PO BID [facility] Last Admin: 06/08/21 08:47 Dose: 200 mg Documented by: Docusate Sodium (Docusate Sodium 100 Mg Capsule) 100 mg PO BID [facility] Last Admin: 06/08/21 08:47 Dose: 100 mg Documented by: Enoxaparin Sodium (Enoxaparin Sodium 40 Mg/0.4 Ml Syringe) 40 mg SUBCUT Q24H [facility] Hydromorphone HCl (Hydromorphone Hcl 0.5 Mg/0.5 Ml Syringe) 0.5 mg IVPUSH Q5M PRN; Protocol PRN Reason: Pain, Severe (Pain Scale 7-10) Hydromorphone HCl (Hydromorphone Hcl 0.5 Mg/0.5 Ml Syringe) 0.25 mg IVPUSH Q4H PRN; Protocol PRN Reason: Pain, Severe (Pain Scale 7-10) Lactated Ringer's (Lr) 1,000 mls @ 80 mls/hr IVCONT .[id number] [facility] Last Admin: 06/08/21 00:15 Dose: Not Given Documented by: Dextrose/Sodium Chloride (D51/2ns) 1,000 mls @ 80 mls/hr IVCONT .[id number] [facility] Last Admin: 06/08/21 04:07 Dose: 80 mls/hr Documented by: Cefazolin Sodium/Dextrose (Ancef) 2 gm in 50 mls @ 100 mls/hr IV POSTOP PARVEEN Ondansetron HCl (Ondansetron Hcl 4 Mg/2 Ml Vial) 4 mg IVPUSH ONCE PRN PRN Reason: Nausea and Vomiting Ondansetron HCl (Ondansetron Hcl 4 Mg/2 Ml Vial) 4 mg IVPUSH Q8H PRN PRN Reason: Nausea and Vomiting Oxycodone HCl (Oxycodone Hcl Immed Release 5 Mg Tablet) 5 mg PO ONCE PRN PRN Reason: Pain, Severe (Pain Scale 7-10) Oxycodone HCl (Oxycodone Hcl Immed Release 5 Mg Tablet) 5 mg PO Q4H PRN PRN Reason: Pain, Moderate (Pain Scale 4-6 Last Admin: 06/08/21 08:47 Dose: 5 mg Documented by: Pharmacy Consult (Consult Rx Perform Med Rec) 1 each MISCELLANE ONCE PRN PRN Reason: Consult order Sodium Chloride (0.9 % Sodium Chloride Flush 3 Ml Syringe) 3 ml IVFLUSH QSHIFT [facility] Last Admin: 06/08/21 08:47 Dose: Not Given Documented by: Time Spent With Patient Time: Total time spent is greater than 50% in coordination of care (as documented) at patient's floor/unit and/or counseling patient: Time with patient: less than 15 minutes Quality Stroke Does the patient have a stroke diagnosis?: No VTE Prior VTE?: No VTE Risk Level:: Surgical - very high VTE Device Contraindication: N/A - Device Ordered VTE Drug Contraindication: N/A - Med Ordered
--- NOTE | 2021-06-08 10:03 | HO.POSTANES ---
Post Anesthesia Evaluation Post Anesthesia Evaluation Vital Signs: Vital Signs Temp Pulse Resp BP Pulse Ox 06/08/21 08:49 75 103/58 L 94 06/08/21 08:00 98.5 F 75 18 103/58 L 94 06/08/21 03:59 97.1 F 72 17 107/51 L 95 06/07/21 23:38 98.4 F 75 17 116/62 95 Anesthesia: General LMA Mental Status: Awake Pain Control: Satisfactory Nausea/Vomiting: None Hydration: Adequate Anesthesia-Related Issues: No Anes. Related Issues
[2021-06-08] MEDS: Enoxaparin Sodium 40 MG/0.4 ML SYRINGE SUBCUT (12:22)
--- NOTE | 2021-06-08 13:45 | MHC.CM.PN ---
Addendum entered by Anu Mcarthur 06/08/21 16:19: [facility] reviewing for Acute rehab. Original Note: IMM 06/08/21 Female 70 S/P BHUPINDER She lives with her . She has been using a walker for ambulation. She is independent with equipment ADLs. DP Acute rehab. Pt preferences ontained. The 3 acute rehab facilities have been referred. The Pts 1st choice is [facility]. She will transport via BLS.
[2021-06-09] VITALS (17 sets, daily range): BP systolic 105–141; BP diastolic 57–73; PULSE 76–98; RESP 18–20; TEMP 36–37.3; O2SAT 91–100
[2021-06-09] MEDS: 0.9 % Sodium Chloride Flush 3 ML SYRINGE IVFLUSH ×2 (01:58→17:09)
[2021-06-09] MEDS: oxyCODONE HCl Immed Release 5 MG TABLET PO ×3 (04:25→12:52)
[2021-06-09] MEDS: Dextrose 5 % and 0.45 % NaCl 1,000 ML 80 ML IVCONT (05:40)
--- NOTE | 2021-06-09 05:48 | P.DS_ITS ---
DS: Providers Provider Date of Service: 06/10/21 Primary care physician: Renny Chrisite MD DS: Diagnosis Discharge Diagnosis (1) Bone metastases: Status: Acute DS: Summary Hospital Course Hospital Course: Follow up with [facility] on 06/16/20 @ 11:30am The patient underwent a successful Right hip intramedullary nailing, was transferred to PACU and then to the floor to recover. During their stay, their vitals were stable, afebrile at 98.0. POD2 her h/h dropped to 7.9/23.8, she was transfused with 2 units of PRBCs and on POD 3 her h/h nichol to 10.0/28.8 . POD 1 she was started on lovenox for DVT ppx, she also received PT/OT services to work on gait training, glute strengthening and core stabilization. Prior to discharge, dressing clean dry and intact and the plan was to be discharged to Acute Rehab. Time Spent with Patient Time attestation: Total time spent providing and/or coordinating discharge services: Discharge coordination time: Less than 30 minutes Quality: Stroke Does the patient have a stroke diagnosis?: No Physical Exam Vital Signs: Vital Signs: Last Vital Signs Temp 97.6 F 06/09/21 04:00 Pulse 85 06/09/21 04:00 Resp 18 06/09/21 04:00 BP 127/61 06/09/21 04:00 Pulse Ox 97 06/09/21 05:13 Oxygen Flow Rate 8.0 06/08/21 13:05 BMI result Body Mass Index 28.1 Const: General: cooperative, healthy appearing and no acute distress Resp: Effort & Inspection: normal respiratory effort and able to speak in complete sentences Cardio: Rate: regular rate Peripheral pulses: Peripheral pulses 2+ throughout GI: Palpation (GI): Soft to palpation Skin: General skin exam: no rashes or lesions noted Extrem: Other: incision clean dry and intact. [place] intact. No erythema or effusion. Calf supple nontender. Neurovascularly intact. DS: Data Data Completed and Pending Labs on day of discharge: Laboratory Results - last 24 hr 06/08/21 06/08/21 05:48 05:48 WBC 6.3 RBC 2.66 L Hgb 8.3 L Hct 25.0 L MCV 94.0 MCH 31.2 MCHC 33.2 RDW 18.0 H Plt Count 205 MPV 10.7 Immature Gran % (Auto) 0.6 H Neut % (Auto) 80.3 H Lymph % (Auto) 10.5 L [place] % (Auto) 5.4 Eos % (Auto) 2.6 Baso % (Auto) 0.6 Lymph # (Auto) 0.7 L [place] # (Auto) 0.3 Eos # (Auto) 0.2 Baso # (Auto) 0.0 Abs Immat Gran (auto) 0.04 H Absolute Neuts (auto) 5.0 Absolute Nucleated RBC 0.000 Nucleated RBC % (auto) 0.0 Sodium 135 Potassium 3.8 Chloride 103 Carbon Dioxide 25 Anion Gap 11 L BUN 20 H Creatinine 1.10 Estim Creat Clear Calc 48.4 Estimated GFR 49 Fasting Glucose 135 H Calcium 7.9 L D Discharge Plan Discharge Patient Disposition: Home, Self-Care Referrals: Renny Christie MD [Primary Care Provider] - 1 Week Lisa Armando PA-C [Physician Tooth Cutter] - 06/16/21 11:30 am (06/16/21 11:30 [facility] [place] [facility] Lisa Armando PA-C[place] Discharge Medications: New oxycodone 5 mg Tablet 5 mg PO Q4H PRN (Reason: Pain, Moderate (Pain Scale 4-6) 7 Days Qty: 42 RF: 0 No Action multivitamin Tablet 1 tab PO DAILY RF: 0 Ibrance 125 mg Capsule 125 mg PO DAILY Qty: 21 RF: 6 ondansetron 4 mg Tablet,Disintegrating 4 mg PO Q6H PRN (Reason: Nausea) Qty: 30 RF: 3 calcium 600 mg Capsule 600 mg PO DAILY RF: 0 letrozole 2.5 mg Tablet 2.5 mg PO DAILY Qty: 30 RF: 3 tramadol 50 mg Tablet 50 mg PO Q8H PRN (Reason: Pain) Qty: 30 RF: 0 metoprolol succinate 200 mg Tablet Extended Release 24 Hr 200 mg PO BID RF: 0 irbesartan 300 mg tablet 1 tab PO DAILY RF: 0 Xgeva 120 mg/1.7 mL (70 mg/mL) Solution 120 mg SUBCUT Q4W RF: 0 amlodipine 5 mg tablet 5 mg PO DAILY RF: 0 atorvastatin 20 mg tablet 20 mg PO DAILY RF: 0 Activity Restrictions/Additional Instructions: Gait training, strengthening, ADLs Continue Lovenox for dvt ppx x6 weeks Keep dressing clean,dry and intact-no showering or tub baths Follow up with Orthopedics in 2 weeks-06/16/20 @ 11:30am
[2021-06-09 08:30] LABS: MANUAL DIFF FLAG NO
[2021-06-09 08:34] LABS: Basophils Absolute Auto 0.1 X10*3/uL (0.0-0.2); Basophils Percent Auto 1.1 % (0-2); Eosinophils Absolute Auto 0.4 X10*3/uL (0.0-0.4); Eosinophils Percent Auto 5.5 % (0-4); Hematocrit 23.8 % (37.0-47.0); Hemoglobin 7.9 g/dl (12.0-16.0); Imm Gran Abs Auto 0.06 X10*3/uL (0.00-0.03); Imm Gran Pct Auto 0.8 % (0.0-0.4); Lymphocytes Absolute Auto 1.4 X10*3/uL (1.2-4.9); Mean Corpuscular HGB Conc 33.2 g/dl (31.0-35.0); Mean Corpuscular Hemoglobin 31.2 pg (27.0-33.0); Mean Corpuscular Volume 94.1 fL (80.0-98.0); Mean Platelet Volume 10.9 fL (9.4-12.3); Monocytes Absolute Auto 0.6 X10*3/uL (0.1-1.2); Monocytes Percent Auto 8.2 % (2-11); Neutrophils Percent Auto 66.4 % (45-73); Platelet Count 163 X10*3/uL (160-400); Red Blood Count 2.53 X10*6/uL (4.20-5.50); Red Cell Distribution Width 17.9 % (11.0-16.0); White Blood Count 7.6 X10*3/uL (4.8-10.8)
[2021-06-09] MEDS: Celecoxib 200 MG CAPSULE PO ×2 (08:34→19:44)
[2021-06-09] MEDS: Docusate Sodium 100 MG CAPSULE PO ×2 (08:34→19:44)
--- NOTE | 2021-06-09 09:39 | P.CONHOSP_ITS ---
History of Present Illness Data of Consult Service Date: 06/09/21 Primary Care Provider: Renny Christie MD [facility] Reason for consult: Medical management 70 year old female with HTN that is controlled on meds, HLD on Lipitor, history of breat cancer with bony mets including right hip bone for which the patient underwent IM nailing of the right femur on 06/07. She presently complaining of normal pain in the area. She has some cough since the operation but no fever or sob, and normal WBC. She is more anemic than usual, her present hemoglobin is 7.9 and hematocrit is 23. Baseline h/h is around 04/09. Review of Systems Review of Systems: Gen: no fever, generalized fatigue Resp: no sob, + cough CV: no chest, no HARO, no leg edema GI: No n/v, no abd pain Neuro: No confusion Yes all other systems are reviewed and are negative [facility] Medical History (Updated 06/09/21 @ 10:03 by Stoney Amador MD) Anemia Arthritis Breast cancer Cancer, metastatic to bone COVID-19 vaccine series completed Elevated cholesterol HLD (hyperlipidemia) HTN (hypertension) Kidney stones On beta vanessa at home Family History Maternal Aunt Ovarian cancer Father Heart attack Maternal Aunt Stroke Surgical History History of appendectomy History of lithotripsy History of ovarian resection History of partial mastectomy History of tonsillectomy and adenoidectomy History of total left knee replacement History of total right knee replacement (TKR) History of umbilical hernia repair History of vulvectomy Hx of section Hx of hernia repair Social History Household Members: Spouse Housing: House Are you a primary medical care administrator to a significant other at home: No Do you presently have visiting nurse or other home services: No Alcohol intake: current Alcohol intake frequency: a few times a month Patient Tobacco Use Status: Former Tobacco user Quit Date: 1985 Tobacco use type: Cigarette Cigarette Packs Per Day: 1 Use of substances other than those prescribed or required for medical reasons: No Currently Displaying Signs/Symptoms of Drug Intoxication Withdrawal: No Have you been hit, kicked, punched, or otherwise hurt by someone within the past year? If so, by whom?: No Do you feel safe in your current relationship?: Yes Is there a partner from a previous relationship who is making you feel unsafe now?: No Are you made to feel afraid or neglected: No Are you DNR?: No Advance Directives: No Advance Directives Information Provided: Yes (Mailed to patient w/ pre-op instructions) Advance Directives on File: No Do you have thoughts of harming others: None Do you have a plan to hurt others: No Plan Recently lost weight without trying: No Eating poorly because of decreased appetite: No Nutrition Risks: No Nutritional Risk Patient : No service: No 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al status: retired 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: Right [employer] Allergies Allergy/AdvReac Type Severity Reaction Status Date / Time No Known Allergies Allergy Verified 06/07/21 08:07 [No Known Allergies*] Active Medications: Current Medications Acetaminophen (Acetaminophen 325 Mg Tablet) 650 mg PO Q6H PRN PRN Reason: Pain, Mild (Pain Scale 1-3) Celecoxib (Celecoxib 200 Mg Capsule) 200 mg PO BID [facility] Last Admin: 06/09/21 08:34 Dose: 200 mg Documented by: Docusate Sodium (Docusate Sodium 100 Mg Capsule) 100 mg PO BID [facility] Last Admin: 06/09/21 08:34 Dose: 100 mg Documented by: Enoxaparin Sodium (Enoxaparin Sodium 40 Mg/0.4 Ml Syringe) 40 mg SUBCUT Q24H [facility] Last Admin: 06/08/21 12:22 Dose: 40 mg Documented by: Hydromorphone HCl (Hydromorphone Hcl 0.5 Mg/0.5 Ml Syringe) 0.5 mg IVPUSH Q5M PRN; Protocol PRN Reason: Pain, Severe (Pain Scale 7-10) Hydromorphone HCl (Hydromorphone Hcl 0.5 Mg/0.5 Ml Syringe) 0.25 mg IVPUSH Q4H PRN; Protocol PRN Reason: Pain, Severe (Pain Scale 7-10) Dextrose/Sodium Chloride (D51/2ns) 1,000 mls @ 80 mls/hr IVCONT .[id number] [facility] Last Admin: 06/09/21 05:40 Dose: 80 mls/hr Documented by: Cefazolin Sodium/Dextrose (Ancef) 2 gm in 50 mls @ 100 mls/hr IV POSTOP [facility] Ondansetron HCl (Ondansetron Hcl 4 Mg/2 Ml Vial) 4 mg IVPUSH ONCE PRN PRN Reason: Nausea and Vomiting Ondansetron HCl (Ondansetron Hcl 4 Mg/2 Ml Vial) 4 mg IVPUSH Q8H PRN PRN Reason: Nausea and Vomiting Oxycodone HCl (Oxycodone Hcl Immed Release 5 Mg Tablet) 5 mg PO Q4H PRN PRN Reason: Pain, Moderate (Pain Scale 4-6 Last Admin: 06/09/21 04:25 Dose: 5 mg Documented by: Pharmacy Consult (Consult Rx Perform Med Rec) 1 each MISCELLANE ONCE PRN PRN Reason: Consult order Sodium Chloride (0.9 % Sodium Chloride Flush 3 Ml Syringe) 3 [facility] Last Admin: 06/09/21 08:35 Dose: Not Given Documented by: Home Medications Medication Instructions Recorded Confirmed Last Taken Type amlodipine 5 mg tablet 5 mg PO DAILY 04/13/20 05/25/21 06/07/21 07:20 History atorvastatin 20 mg tablet 20 mg PO DAILY 04/13/20 06/07/21 Unknown History multivitamin 1 tab PO DAILY 03/07/21 06/07/21 Unknown History calcium 600 mg capsule 600 mg PO DAILY 05/09/21 06/07/21 Unknown History denosumab 60 mg/mL subcutaneous 60 mg SUBCUT QMONTH 05/26/21 05/26/21 05/09/21 History syringe (Prolia) metoprolol succinate 200 mg 200 mg PO BID 05/26/21 05/26/21 06/07/21 07:20 History tablet,extended release 24 hr irbesartan 300 mg tablet 1 tab PO DAILY 06/07/21 06/07/21 Unknown History Physical Exam Vital Signs and Narrative: Vital Signs: Last Vital Signs Temp 96.8 F 06/09/21 07:28 Pulse 76 06/09/21 08:50 Resp 18 06/09/21 07:28 BP 130/65 06/09/21 08:50 Pulse Ox 95 06/09/21 08:50 Oxygen Flow Rate 8.0 06/08/21 13:05 BMI result Body Mass Index 28.1 Const: Other: Constitutional: Alert, in no distress Mental Status: Oriented to person, place and time. Eyes: Pupils are equal, round and reactive to light. Ear, Nose and Throat: Oropharynx clear, mucous membranes moist. Ears and nose without eformities. Trachea midline. Respiratory: Clear to auscultation. No wheezing, rales or rhonchi. Cardiovascular: S1 S2 regular. No murmurs, rubs or gallops. Gastrointestinal: Abdomen soft, non-tender, non-distended. Normal bowel sounds.? Neurologic: Cranial nerves II-XII grossly intact. No focal neurological de ficits. Moves all extremities spontaneously.? Skin: No rashes or lesions, incicision area is dry, clean and itact Musculoskeletal: No cyanosis or clubbing. Psychiatric: Normal mood and affect? Results Labs CBC and Chem 7: 06/09/21 07:43 06/08/21 05:48 Labs: Laboratory Results - last 24 hr 06/09/21 07:43 MCV 94.1 MCH 31.2 MCHC 33.2 RDW 17.9 H Plt Count 163 MPV 10.9 Immature Gran % (Auto) 0.8 H Neut % (Auto) 66.4 Lymph % (Auto) 18.0 L [place] % (Auto) 8.2 Eos % (Auto) 5.5 H Baso % (Auto) 1.1 Lymph # (Auto) 1.4 [place] # (Auto) 0.6 Eos # (Auto) 0.4 Baso # (Auto) 0.1 Abs Immat Gran (auto) 0.06 H Absolute Neuts (auto) 5.0 Absolute Nucleated RBC 0.000 Nucleated RBC % (auto) 0.0 Assessment and Plan (1) HLD (hyperlipidemia): Status: Acute (2) HTN (hypertension): Status: Acute 70 year female with HTN, HLD, history of breast cancer with bony mets including right femoral lesion for which she underwent IM nailing on 06/07 and is now more anemic than usual 1/HTN--her BP meds have been on hold and BP on lower side or normal, I suggest continue holding Norvasc and Irbersartan at this time. 2/HLD continue Lipitor 3/Chronic anemia with acute blood loss compoment, will probably benefit from tarnsfusion to improve her energy 4/Cough--suspect throat iritation, has no fever, and normal WBC and not hypoxic if hyoxic, fever or increasing WBC get xray 5/ Cancer--to follow up on outpatient basis
[2021-06-09] MEDS: Enoxaparin Sodium 40 MG/0.4 ML SYRINGE SUBCUT (11:28)
[2021-06-09] MEDS: Letrozole 2.5 MG TABLET PO (12:51)
[2021-06-09] MEDS: Acetaminophen 325 MG TABLET 650 MG PO (12:52)
--- NOTE | 2021-06-09 14:45 | MHC.CM.PN ---
PT WAS INFORMED BOTH [facility] ARE OFFERING BEDS AT DC SHE REPORTS SHE WOULD PREFER TO GO TO [facility] AR DC PLAN IS AR AT [facility] POSSIBLY TOMORROW PT WILL NEED A COVID TEST THE DAY OF DC
[2021-06-09] MEDS: Atorvastatin Calcium 20 MG TABLET PO (19:44)
[2021-06-10] VITALS (8 sets, daily range): BP systolic 137–148; BP diastolic 63–71; PULSE 68–99; RESP 16–18; TEMP 36.1–36.9; O2SAT 93–97
--- NOTE | 2021-06-10 02:00 | PC.NURSE ---
Pt received second unit of RBC's earlier in the shift and tolerated well. Around midnight, while getting up to use BSC, pt experienced an episode of OB that resolved on own. O2 sat at that time was 92-93% on 2L. Around 0130, pt c/o SOB. O2 sat 94% on 2L NC. Non-productive, wet cough. Audible wheezes and heard in LLL. Dr Saab notified. D/C'd IV fluids. Ordered chest X-ray, resp treatment, labs. Resp heard faint crackles BLL-gave treatment and increased O2 to 3L NC. After treatment, pt resting comfortably in bed with eyes closed. Will continue to monitor.
[2021-06-10] MEDS: Albuterol/Iprat 2.5/0.5MG 3 ML AMPUL.NEB INHALE (02:03)
[2021-06-10 02:29] LABS: B Type Natriuretic Peptide 674 pg/mL (<100)
[2021-06-10 06:24] LABS: MANUAL DIFF FLAG NO
[2021-06-10 06:38] LABS: Basophils Absolute Auto 0.1 X10*3/uL (0.0-0.2); Basophils Percent Auto 0.9 % (0-2); Eosinophils Absolute Auto 0.4 X10*3/uL (0.0-0.4); Eosinophils Percent Auto 5.4 % (0-4); Hematocrit 28.8 % (37.0-47.0); Imm Gran Pct Auto 1.4 % (0.0-0.4); Lymphocytes Absolute Auto 0.7 X10*3/uL (1.2-4.9); Lymphocytes Percent Auto 9.3 % (20-40); Mean Corpuscular HGB Conc 34.7 g/dl (31.0-35.0); Mean Corpuscular Hemoglobin 30.6 pg (27.0-33.0); Mean Corpuscular Volume 88.1 fL (80.0-98.0); Monocytes Absolute Auto 0.7 X10*3/uL (0.1-1.2); Monocytes Percent Auto 9.7 % (2-11); NRBC Pct Auto 0.3 /100WBC (0.0-0.2); Neutrophils Absolute Auto 5.1 x10*3/uL (2.0-8.3); Neutrophils Percent Auto 73.3 % (45-73); Platelet Count 167 X10*3/uL (160-400); Red Blood Count 3.27 X10*6/uL (4.20-5.50)
--- NOTE | 2021-06-10 08:17 | P.PNOP_ITS ---
Subjective Subjective Date of Service: 06/09/21 Interval history: POD 2 s/p Rt hip IMN no overnight events patient experiencin some weakness and a cough denies fever or sob denies palpitations Physical Exam Vital Signs: Vital Signs: Last Vital Signs Temp 98.0 F 06/10/21 07:52 Pulse 99 06/10/21 07:52 Resp 17 06/10/21 07:52 BP 145/69 H 06/10/21 07:52 Pulse Ox 94 06/10/21 07:52 Oxygen Flow Rate 8.0 06/08/21 13:05 BMI result Body Mass Index 28.1 Const: General: cooperative, healthy appearing and no acute distress Resp: Effort & Inspection: normal respiratory effort and able to speak in complete sentences Cardio: Rate: regular rate Peripheral pulses: Peripheral pulses 2+ throughout GI: Palpation (GI): Soft to palpation Skin: General skin exam: no rashes or lesions noted Extrem: Other: incision clean dry and intact. Dexter intact. No erythema or effusion. Calf supple nontender. Neurovascularly intact. Procedures Date of Service Date of Service: 06/09/21 Progress Note: A&P Assessment and plan (1) Bone metastases: Status: Acute Assessment and Plan: * Continue pain mgmnt * continue lovenox x 6 weeks * transfuse 2 units PRBCs and monitor h/h * Dispo planning-pending transfusion and medical clearance Fall Risk Details Current Medications: Current Medications Acetaminophen (Acetaminophen 325 Mg Tablet) 650 mg PO Q6H PRN PRN Reason: Pain, Mild (Pain Scale 1-3) Last Admin: 06/09/21 12:52 Dose: 650 mg Documented by: Albuterol/Ipratropium (Albuterol/Iprat 2.5/0.5mg 3 Ml Ampul.Neb) 3 ml INHALE RQ4H PRN PRN Reason: Shortness of Breath/Wheezing Last Admin: 06/10/21 02:03 Dose: 3 ml Documented by: Atorvastatin Calcium (Atorvastatin Calcium 20 Mg Tablet) 20 mg PO BEDTIME [facility] Last Admin: 06/09/21 19:44 Dose: 20 mg Documented by: Calcium Carbonate (Calcium Carbonate 500 Mg Tablet) 500 mg PO DAILY [facility] Last Admin: 06/09/21 11:28 Dose: 500 mg Documented by: Celecoxib (Celecoxib 200 Mg Capsule) 200 mg PO BID [facility] Last Admin: 06/09/21 19:44 Dose: 200 mg Documented by: Docusate Sodium (Docusate Sodium 100 Mg Capsule) 100 mg PO BID [facility] Last Admin: 06/09/21 19:44 Dose: 100 mg Documented by: Enoxaparin Sodium (Enoxaparin Sodium 40 Mg/0.4 Ml Syringe) 40 mg SUBCUT Q24H [facility] Last Admin: 06/09/21 11:28 Dose: 40 mg Documented by: Hydromorphone HCl (Hydromorphone Hcl 0.5 Mg/0.5 Ml Syringe) 0.5 mg IVPUSH Q5M PRN; Protocol PRN Reason: Pain, Severe (Pain Scale 7-10) Hydromorphone HCl (Hydromorphone Hcl 0.5 Mg/0.5 Ml Syringe) 0.25 mg IVPUSH Q4H PRN; Protocol PRN Reason: Pain, Severe (Pain Scale 7-10) Dextrose/Sodium Chloride (D51/2ns) 1,000 mls @ 80 mls/hr IVCONT .[id number] [facility] Last Admin: 06/09/21 05:40 Dose: 80 mls/hr Documented by: Cefazolin Sodium/Dextrose (Ancef) 2 gm in 50 mls @ 100 mls/hr IV POSTOP [facility] Letrozole (Letrozole 2.5 Mg Tablet) 2.5 mg PO DAILY [facility] Last Admin: 06/09/21 12:51 Dose: 2.5 mg Documented by: Metoprolol Succinate (Metoprolol Succinate Er 100 Mg Tab.Er.24h) 200 mg PO BID [facility]; Protocol Multivitamins/Vitamin C (Multivitamin Tablet) 1 tab PO DAILY [facility] Patient Own Med ( Palbociclib [Ibrance ] 125 Mg Capsule) 1 each PO DAILY [facility] Ondansetron HCl (Ondansetron Hcl 4 Mg/2 Ml Vial) 4 mg IVPUSH ONCE PRN PRN Reason: Nausea and Vomiting Ondansetron HCl (Ondansetron Hcl 4 Mg/2 Ml Vial) 4 mg IVPUSH Q8H PRN PRN Reason: Nausea and Vomiting Oxycodone HCl (Oxycodone Hcl Immed Release 5 Mg Tablet) 5 mg PO Q4H PRN PRN Reason: Pain, Moderate (Pain Scale 4-6 Last Admin: 06/09/21 12:52 Dose: 5 mg Documented by: Pharmacy Consult (Consult Rx Perform Med Rec) 1 each MISCELLANE ONCE PRN PRN Reason: Consult order Sodium Chloride (0.9 % Sodium Chloride Flush 3 Ml Syringe) 3 ml IVFLUSH [facility] Last Admin: 06/10/21 02:33 Dose: Not Given Documented by: Time Spent With Patient Time: Total time spent is greater than 50% in coordination of care (as documented) at patient's floor/unit and/or counseling patient: Time with patient: 15 - 24 minutes Quality Stroke Does the patient have a stroke diagnosis?: No VTE Prior VTE?: No VTE Risk Level:: Surgical - very high VTE Device Contraindication: N/A - Device Ordered VTE Drug Contraindication: N/A - Med Ordered
--- NOTE | 2021-06-10 08:21 | HO.PM.IMPN ---
Subjective Subjective Date of Service: 06/10/21 Interval History: Seen in f/u for med consult, HTN, anemia managment. Pt states that she was sob overnight, CXR show no infiltrate, she is more comfotable this morning. I suspect sob was due to fluid and blood Review of Systems gen weakness no sob no fever Physical Exam Vital Signs: Vital Signs: Last Vital Signs Temp 98.0 F 06/10/21 07:52 Pulse 99 06/10/21 07:52 Resp 17 06/10/21 07:52 BP 145/69 H 06/10/21 07:52 Pulse Ox 94 06/10/21 07:52 Oxygen Flow Rate 8.0 06/08/21 13:05 BMI result Body Mass Index 28.1 Const: Other: General: AO X 3, no acute distress Resp: rhonchi CVS: S1,S2,RRR GI: +BS, NT, no distention Skin: No rash Neuro: motor grossly intact Psych: appropriate affect Objective Data Active Medications Acetaminophen (Acetaminophen 325 Mg Tablet) 650 mg PO Q6H PRN PRN Reason: Pain, Mild (Pain Scale 1-3) Last Admin: 06/09/21 12:52 Dose: 650 mg Documented by: ALAN Albuterol/Ipratropium (Albuterol/Iprat 2.5/0.5mg 3 Ml Ampul.Neb) 3 ml INHALE RQ4H PRN PRN Reason: Shortness of Breath/Wheezing Last Admin: 06/10/21 02:03 Dose: 3 ml Documented by: JASE Atorvastatin Calcium (Atorvastatin Calcium 20 Mg Tablet) 20 mg PO BEDTIME [facility] Last Admin: 06/09/21 19:44 Dose: 20 mg Documented by: NELLI Calcium Carbonate (Calcium Carbonate 500 Mg Tablet) 500 mg PO DAILY [facility] Last Admin: 06/09/21 11:28 Dose: 500 mg Documented by: ALAN Celecoxib (Celecoxib 200 Mg Capsule) 200 mg PO BID [facility] Last Admin: 06/09/21 19:44 Dose: 200 mg Documented by: NELLI Docusate Sodium (Docusate Sodium 100 Mg Capsule) 100 mg PO BID [facility] Last Admin: 06/09/21 19:44 Dose: 100 mg Documented by: NELLI Enoxaparin Sodium (Enoxaparin Sodium 40 Mg/0.4 Ml Syringe) 40 mg SUBCUT Q24H [facility] Last Admin: 06/09/21 11:28 Dose: 40 mg Documented by: ALAN Hydromorphone HCl (Hydromorphone Hcl 0.5 Mg/0.5 Ml Syringe) 0.5 mg IVPUSH Q5M PRN; Protocol PRN Reason: Pain, Severe (Pain Scale 7-10) Hydromorphone HCl (Hydromorphone Hcl 0.5 Mg/0.5 Ml Syringe) 0.25 mg IVPUSH Q4H PRN; Protocol PRN Reason: Pain, Severe (Pain Scale 7-10) Dextrose/Sodium Chloride (D51/2ns) 1,000 mls @ 80 mls/hr IVCONT .[id number] [facility] Last Admin: 06/09/21 05:40 Dose: 80 mls/hr Documented by: THOMPSON Cefazolin Sodium/Dextrose (Ancef) 2 gm in 50 mls @ 100 mls/hr IV POSTOP [facility] Letrozole (Letrozole 2.5 Mg Tablet) 2.5 mg PO DAILY [facility] Last Admin: 06/09/21 12:51 Dose: 2.5 mg Documented by: ALAN Metoprolol Succinate (Metoprolol Succinate Er 100 Mg Tab.Er.24h) 200 mg PO BID [facility]; Protocol Multivitamins/Vitamin C (Multivitamin Tablet) 1 tab PO DAILY [facility] Patient Own Med ( Palbociclib [Ibrance ] 125 Mg Capsule) 1 each PO DAILY [facility] Ondansetron HCl (Ondansetron Hcl 4 Mg/2 Ml Vial) 4 mg IVPUSH ONCE PRN PRN Reason: Nausea and Vomiting Ondansetron HCl (Ondansetron Hcl 4 Mg/2 Ml Vial) 4 mg IVPUSH Q8H PRN PRN Reason: Nausea and Vomiting Oxycodone HCl (Oxycodone Hcl Immed Release 5 Mg Tablet) 5 mg PO Q4H PRN PRN Reason: Pain, Moderate (Pain Scale 4-6 Last Admin: 06/09/21 12:52 Dose: 5 mg Documented by: ALAN Pharmacy Consult (Consult Rx Perform Med Rec) 1 each MISCELLANE ONCE PRN PRN Reason: Consult order Sodium Chloride (0.9 % Sodium Chloride Flush 3 Ml Syringe) 3 ml IVFLUSH QSHIFT [facility] Last Admin: 06/10/21 02:33 Dose: Not Given Documented by: NELLI Non-Admin Reason: IV Running Labs CBC & Chem 7: 06/10/21 06:05 06/08/21 05:48 Labs: Laboratory Results - last 24 hr 06/07/21 06/09/21 06/10/21 08:35 07:43 02:00 MCV 94.1 MCH 31.2 MCHC 33.2 RDW 17.9 H Plt Count 163 MPV 10.9 Immature Gran % (Auto) 0.8 H Neut % (Auto) 66.4 Lymph % (Auto) 18.0 L [place] % (Auto) 8.2 Eos % (Auto) 5.5 H Baso % (Auto) 1.1 Lymph # (Auto) 1.4 [place] # (Auto) 0.6 Eos # (Auto) 0.4 Baso # (Auto) 0.1 Abs Immat Gran (auto) 0.06 H Absolute Neuts (auto) 5.0 Absolute Nucleated RBC 0.000 Nucleated RBC % (auto) 0.0 B-Natriuretic Peptide 674 H Blood Type A Positive Antibody Screen NEGATIVE Crossmatch See Detail 06/10/21 06:05 MCV 88.1 D MCH 30.6 MCHC 34.7 RDW 18.0 H Plt Count 167 MPV 11.0 Immature Gran % (Auto) 1.4 H Neut % (Auto) 73.3 H Lymph % (Auto) 9.3 L [place] % (Auto) 9.7 Eos % (Auto) 5.4 H Baso % (Auto) 0.9 Lymph # (Auto) 0.7 L [place] # (Auto) 0.7 Eos # (Auto) 0.4 Baso # (Auto) 0.1 Abs Immat Gran (auto) 0.10 H Absolute Neuts (auto) 5.1 Absolute Nucleated RBC 0.020 H Nucleated RBC % (auto) 0.3 H B-Natriuretic Peptide Blood Type Antibody Screen Crossmatch Assessment and Plan (1) HLD (hyperlipidemia): Status: Acute (2) HTN (hypertension): Status: Acute (3) History of total left knee replacement (TKR): Status: Acute (4) History of total right knee replacement (TKR): Status: Acute Assessment and Plan: ??70 year female with HTN, HLD, history of breast cancer? with bony mets including right femoral lesion for which she underwent IM nailing on 06/07 and is now more anemic than usual 1/HTN--her BP meds have been on hold and BP higher now, will restart med with Metoprolol first 2/HLD continue Lipitor 3/Chronic anemia with acute blood loss compoment, s/p transfusion on 06/09 with good effect 4/Cough--suspect throat iritation, has no fever, and normal WBC and not hypoxic if hyoxic, fever or increasing WBC, CXR overnight show no infiltrate 5/ Cancer--to follow up on outpatient basis DVT prophylaxis--Lovenox Quality Stroke Does the patient have a stroke diagnosis?: No VTE Prior VTE?: No VTE Risk Level:: Surgical - very high VTE Device Contraindication: N/A - Device Ordered VTE Drug Contraindication: N/A - Med Ordered
[2021-06-10] MEDS: Celecoxib 200 MG CAPSULE PO ×2 (08:27→20:00)
[2021-06-10] MEDS: Metoprolol Succinate ER 100 MG TAB.ER.24H 200 MG PO ×2 (08:27→20:00)
[2021-06-10] MEDS: Multivitamin TABLET 1 TAB PO (08:27)
[2021-06-10] MEDS: Docusate Sodium 100 MG CAPSULE PO ×2 (08:27→20:00)
[2021-06-10] MEDS: 0.9 % Sodium Chloride Flush 3 ML SYRINGE IVFLUSH ×3 (08:28→20:01)
[2021-06-10] MEDS: Letrozole 2.5 MG TABLET PO (08:28)
[2021-06-10] MEDS: Furosemide 40 MG/4 ML VIAL IVPUSH (10:38)
[2021-06-10] MEDS: Enoxaparin Sodium 40 MG/0.4 ML SYRINGE SUBCUT (10:38)
[2021-06-10] MEDS: Milk of Magnesia 30 ML ORAL.SUSP PO (10:39)
--- NOTE | 2021-06-10 12:58 | MHC.CM.PN ---
NURS [employer]ASE [employer] TECHNOLOGIST NOTE ELECTRONIC MEDICAL RECORD REVIEWED ALONG WITH CASE DISCUSSED WITH STAFF NURSE , (TIGER TEXT TO [facility] PA AND DR DIAS- PATIENT NOW WITH NEW OXYGEN NEEDS , SHORTNESS OF BREATH AND WEAKNESS- DISCUSSED WITH H[facility]LAS[facility] ,- PATIENT WILL REMAIN TODAY AND BE OBSERVCED AND PLAN FOR DISCHARGE TOMORROW TO [facility] WILL NEED ACTION [facility] TRANSPORTATION DISCHARGE PLAN -[facility] 06/11/2021 TO [facility] TRANSPORTATION ACTION [facility] MEDICARE IMM UPDATED 06/10/2021
[2021-06-10] MEDS: oxyCODONE HCl Immed Release 5 MG TABLET PO (13:17)
--- NOTE | 2021-06-10 15:16 | MHC.CLN ---
F/U INTAKE VARIABLE WITH SOME MEALS 100%. CONTINUE TO FOLLOW.
[2021-06-10] MEDS: Atorvastatin Calcium 20 MG TABLET PO (20:00)
[2021-06-11] VITALS: BP 136/61; PULSE 79; RESP 17; TEMP 36.9; O2SAT 94
[2021-06-11 03:35] VITALS: BP 142/71; PULSE 77; RESP 17; TEMP 36.1; O2SAT 94
[2021-06-11 07:09] LABS: MANUAL DIFF FLAG NO
[2021-06-11 07:19] LABS: Basophils Absolute Auto 0.1 X10*3/uL (0.0-0.2); Basophils Percent Auto 1.2 % (0-2); Eosinophils Absolute Auto 0.5 X10*3/uL (0.0-0.4); Hematocrit 30.9 % (37.0-47.0); Hemoglobin 10.3 g/dl (12.0-16.0); Imm Gran Abs Auto 0.11 X10*3/uL (0.00-0.03); Imm Gran Pct Auto 1.8 % (0.0-0.4); Lymphocytes Absolute Auto 0.8 X10*3/uL (1.2-4.9); Lymphocytes Percent Auto 13.9 % (20-40); Mean Corpuscular HGB Conc 33.3 g/dl (31.0-35.0); Mean Corpuscular Hemoglobin 29.6 pg (27.0-33.0); Mean Corpuscular Volume 88.8 fL (80.0-98.0); Mean Platelet Volume 11.2 fL (9.4-12.3); Monocytes Absolute Auto 0.7 X10*3/uL (0.1-1.2); Monocytes Percent Auto 11.9 % (2-11); Neutrophils Absolute Auto 3.7 x10*3/uL (2.0-8.3); Neutrophils Percent Auto 62.2 % (45-73); Platelet Count 214 X10*3/uL (160-400); Red Blood Count 3.48 X10*6/uL (4.20-5.50); Red Cell Distribution Width 18.2 % (11.0-16.0)
[2021-06-11 08:00] VITALS: BP 145/65; PULSE 67; RESP 18; TEMP 36.5; O2SAT 95
[2021-06-11 08:03] VITALS: BP 145/65; PULSE 67
[2021-06-11] MEDS: Docusate Sodium 100 MG CAPSULE PO (08:03)
[2021-06-11] MEDS: Multivitamin TABLET 1 TAB PO (08:03)
[2021-06-11] MEDS: Celecoxib 200 MG CAPSULE PO (08:03)
[2021-06-11] MEDS: Letrozole 2.5 MG TABLET PO (08:03)
[2021-06-11] MEDS: 0.9 % Sodium Chloride Flush 3 ML SYRINGE IVFLUSH (08:03)
[2021-06-11] MEDS: Metoprolol Succinate ER 100 MG TAB.ER.24H 200 MG PO (08:03)
--- NOTE | 2021-06-11 08:34 | P.PNIM_ITS ---
Subjective Subjective Date of Service: 06/11/21 Interval History: Seen in f/u for med consult, HTN, anemia managment. No longer sob and feels much better Review of Systems gen weakness no sob no fever Physical Exam Vital Signs: Vital Signs: Last Vital Signs Temp 97.7 F 06/11/21 08:00 Pulse 67 06/11/21 08:03 Resp 18 06/11/21 08:00 BP 145/65 H 06/11/21 08:03 Pulse Ox 95 06/11/21 08:00 Oxygen Flow Rate 8.0 06/08/21 13:05 BMI result Body Mass Index 28.1 Const: Other: General: AO X 3, no acute distress Resp: rhonchi CVS: S1,S2,RRR GI: +BS, NT, no distention Skin: No rash Neuro: motor grossly intact Psych: appropriate affect Objective Data Active Medications Acetaminophen (Acetaminophen 325 Mg Tablet) 650 mg PO Q6H PRN PRN Reason: Pain, Mild (Pain Scale 1-3) Last Admin: 06/09/21 12:52 Dose: 650 mg Documented by: ALAN Albuterol/Ipratropium (Albuterol/Iprat 2.5/0.5mg 3 Ml Ampul.Neb) 3 ml INHALE RQ4H PRN PRN Reason: Shortness of Breath/Wheezing Last Admin: 06/10/21 02:03 Dose: 3 ml Documented by: JASE Atorvastatin Calcium (Atorvastatin Calcium 20 Mg Tablet) [address] [facility] Last Admin: 06/10/21 20:00 Dose: 20 mg Documented by: ANTOIC Calcium Carbonate (Calcium Carbonate 500 Mg Tablet) [address] [facility] Last Admin: 06/11/21 08:03 Dose: 500 mg Documented by: OLGA Celecoxib (Celecoxib 200 Mg Capsule) [address] [facility] Last Admin: 06/11/21 08:03 Dose: 200 mg Documented by: OLGA Docusate Sodium (Docusate Sodium 100 Mg Capsule) [address] [facility] Last Admin: 06/11/21 08:03 Dose: 100 mg Documented by: OLGA Enoxaparin Sodium (Enoxaparin Sodium 40 Mg/0.4 Ml Syringe) [address] [facility] Last Admin: 06/10/21 10:38 Dose: 40 mg Documented by: ALAN Hydromorphone HCl (Hydromorphone Hcl 0.5 Mg/0.5 Ml Syringe) 0.5 mg IVPUSH Q5M PRN; Protocol PRN Reason: Pain, Severe (Pain Scale 7-10) Hydromorphone HCl (Hydromorphone Hcl 0.5 Mg/0.5 Ml Syringe) 0.25 mg IVPUSH Q4H PRN; Protocol PRN Reason: Pain, Severe (Pain Scale 7-10) Cefazolin Sodium/Dextrose (Ancef) 2 gm in 50 mls @ 100 mls/hr IV POSTOP [facility] Letrozole (Letrozole 2.5 Mg Tablet) 2.[address] [facility] Last Admin: 06/11/21 08:03 Dose: 2.5 mg Documented by: OLGA Metoprolol Succinate (Metoprolol Succinate Er 100 Mg Tab.Er.24h) [address] [facility]; Protocol Last Admin: 06/11/21 08:03 Dose: 200 mg Documented by: OLGA Multivitamins/Vitamin C (Multivitamin Tablet) [address] [facility] Last Admin: 06/11/21 08:03 Dose: 1 tab Documented by: OLGA Patient Own Med ( Palbociclib [Ibrance ] 125 Mg Capsule) [address] [facility] Last Admin: 06/11/21 08:11 Dose: 1 each Documented by: OLGA Ondansetron HCl (Ondansetron Hcl 4 Mg/2 Ml Vial) 4 mg IVPUSH ONCE PRN PRN Reason: Nausea and Vomiting Ondansetron HCl (Ondansetron Hcl 4 Mg/2 Ml Vial) 4 mg IVPUSH Q8H PRN PRN Reason: Nausea and Vomiting Oxycodone HCl (Oxycodone Hcl Immed Release 5 Mg Tablet) 5 mg PO Q4H PRN PRN Reason: Pain, Moderate (Pain Scale 4-6 Last Admin: 06/10/21 13:17 Dose: 5 mg Documented by: ALAN Pharmacy Consult (Consult Rx Perform Med Rec) 1 each MISCELLANE ONCE PRN PRN Reason: Consult order Polyethylene Glycol (Polyethylene Glycol 3350 17 Gm Powd.Pack) 17 gm PO DAILY PRN PRN Reason: constipation Sodium Chloride (0.9 % Sodium Chloride Flush 3 Ml Syringe) 3 ml IVFLUSH QSHIFT [facility]VE[facility] Last Admin: 06/11/21 08:03 Dose: 3 ml Documented by: OLGA Labs CBC & Chem 7: 06/11/21 06:13 06/08/21 05:48 Labs: Laboratory Results - last 24 hr 06/11/21 06:13 MCV 88.8 MCH 29.6 MCHC 33.3 RDW 18.2 H Plt Count 214 D MPV 11.2 Immature Gran % (Auto) 1.8 H Neut % (Auto) 62.2 Lymph % (Auto) 13.9 L Angelina % (Auto) 11.9 H Eos % (Auto) 9.0 H Baso % (Auto) 1.2 Lymph # (Auto) 0.8 L Angelina # (Auto) 0.7 Eos # (Auto) 0.5 H Baso # (Auto) 0.1 Abs Immat Gran (auto) 0.11 H Absolute Neuts (auto) 3.7 Absolute Nucleated RBC 0.000 Nucleated RBC % (auto) 0.0 Assessment and Plan (1) HLD (hyperlipidemia): Status: Acute (2) HTN (hypertension): Status: Acute (3) History of total left knee replacement (TKR): Status: Acute (4) History of total right knee replacement (TKR): Status: Acute Assessment and Plan: ??70 year female with HTN, HLD, history of breast cancer? with bony mets including right femoral lesion for which she underwent IM nailing on 06/07 and is now more anemic than usual 1/HTN--BP is high now so we can continue all home meds 2/HLD continue Lipitor 3/Chronic anemia with acute blood loss compoment, s/p transfusion on 06/09 with good effect 4/Cough--suspect throat iritation, resolved. 5/resolved, likely from fluid overload from IV and blood, improved after a dose of lasix 6/Anemaia--H/H is better since transfusion on 06/09 5/ Cancer--to follow up on outpatient basis DVT prophylaxis--Lovenox medically ok to discharge Quality Stroke Does the patient have a stroke diagnosis?: No VTE Prior VTE?: No VTE Risk Level:: Surgical - very high VTE Device Contraindication: N/A - Device Ordered VTE Drug Contraindication: N/A - Med Ordered
[2021-06-11 10:56] LABS: COVID-19 Test Negative (Negative)
[2021-06-11 11:57] VITALS: BP 140/65; PULSE 65; RESP 17; TEMP 36.5; O2SAT 96
[2021-06-11] MEDS: Enoxaparin Sodium 40 MG/0.4 ML SYRINGE SUBCUT (12:36)
[2021-06-11 16:00] VITALS: BP 141/65; PULSE 75; RESP 17; TEMP 36.4; O2SAT 95
== END 2021-06-11 18:43 | disposition other institution (70) ==
LOC: HO.SSS 07:49 → HO.S3 14:41
PROVIDERS: Internal Medicine; Physician Assistant; Physician Assistant Medical; PCP Internal Medicine; Visit Provider Orthopaedic Surgery
PROC: (CPT 27495; principal; 2021-06-07 09:40)
DX: C79.51 Secondary malignant neoplasm of bone (principal); C50.911 Malignant neoplasm of unspecified site of right female breast; Z90.11 Acquired absence of right breast and nipple; J90 Pleural effusion, not elsewhere classified; R05.9 Cough, unspecified; R53.83 Other fatigue; I10 Essential (primary) hypertension; E78.5 Hyperlipidemia, unspecified; D50.0 Iron deficiency anemia secondary to blood loss (chronic); Z92.22 Personal history of monoclonal drug therapy; Z79.899 Other long term (current) drug therapy; Z79.811 Long term (current) use of aromatase inhibitors; Z87.891 Personal history of nicotine dependence; Z96.653 Presence of artificial knee joint, bilateral; Z20.822 Contact with and (suspected) exposure to COVID-19
CPT/HCPCS: 27495; 36415; 71045; 80048; 83880; 85025; 86850; 86900; 86901; 86923; 87635; 94640; 97110; 97116; 97162; 97166; 97535; C1713; C1769; J0131; J0690; J1100; J1170; J1650; J1940; J2405; J3010; P9016

== ENCOUNTER → 2021-06-20 12:57 | Outpatient (BNVA) | payer OTHER, MEDICARE, SELFPAY | PROVIDERS: Visit Provider Physician Assistant | DX: C79.51 Secondary malignant neoplasm of bone (principal) | CPT/HCPCS: 99212 ==

== ENCOUNTER 2021-06-24 11:55 | Outpatient (REF) | payer MEDICARE, SELFPAY ==
--- NOTE | ~2021-06-24 | US_ITS ---
EXAMINATION: US VENOUS ULTRASOUND WITH DOPPLER LOWER EXTREMITY, RIGHT CLINICAL INFORMATION: Status post hip surgery with right lower extremity pain and swelling COMPARISON: None TECHNIQUE: Ultrasound of the deep veins is performed from the hip to the calf with compression sonography and color and pulse Doppler assessment. Spectral analysis with color-flow imaging is performed. FINDINGS: There is normal venous compression and respiratory variation and augmented flow. The visualized common femoral vein, superficial femoral vein, profunda femoral vein, popliteal vein, and the trifurcation region shows no evidence of deep venous thrombosis. There is no significant popliteal fossa cyst. No popliteal artery aneurysm. US/US venous duplex LE RT IMPRESSION: No acute DVT demonstrated in the right lower extremity.
== END 2021-06-24 11:56 | disposition home or self-care (01) ==
LOC: HO.US 11:55
PROVIDERS: PCP Internal Medicine; Visit Provider Internal Medicine
DX: R60.9 Edema, unspecified (principal); M79.604 Pain in right leg; Z98.890 Other specified postprocedural states
CPT/HCPCS: 93971

== ENCOUNTER 2021-07-21 06:36 | Outpatient (REF) | payer MEDICARE, SELFPAY ==
--- NOTE | ~2021-07-21 | XR_ITS ---
EXAMINATION: XR RIGHT HIP XR PELVIS CLINICAL INFORMATION: Pain in right hip. COMPARISON: 05/10/2021 TECHNIQUE: 2 views of the right hip and AP view of the pelvis. FINDINGS: Diffuse sclerosis throughout the left hemipelvis consistent with metastatic disease. Moderate degenerative changes in the visualized left hip without displaced fracture. There is an intramedullary zainab with dynamic right hip screw in place. Hypertrophic changes overlying the caudal aspect of the right hip. The femoral head appears well-seated within the acetabulum. Sclerosis in the pubic rami consistent with metastatic disease. XR/XR pelvis 1-2V IMPRESSION: Findings consistent with diffuse bony metastatic disease in the pelvis. No evidence for displaced fracture. Right hip orthopedic hardware appears intact
--- NOTE | ~2021-07-21 | XR_ITS ---
EXAMINATION: XR RIGHT HIP XR PELVIS CLINICAL INFORMATION: Pain in right hip. COMPARISON: 05/10/2021 TECHNIQUE: 2 views of the right hip and AP view of the pelvis. FINDINGS: Diffuse sclerosis throughout the left hemipelvis consistent with metastatic disease. Moderate degenerative changes in the visualized left hip without displaced fracture. There is an intramedullary zainab with dynamic right hip screw in place. Hypertrophic changes overlying the caudal aspect of the right hip. The femoral head appears well-seated within the acetabulum. Sclerosis in the pubic rami consistent with metastatic disease. XR/XR hip RT min 2V IMPRESSION: Findings consistent with diffuse bony metastatic disease in the pelvis. No evidence for displaced fracture. Right hip orthopedic hardware appears intact
== END 2021-07-21 06:37 | disposition home or self-care (01) ==
LOC: HO.HOSX 06:36
PROVIDERS: Visit Provider Physician Assistant
DX: C79.51 Secondary malignant neoplasm of bone (principal); M25.551 Pain in right hip
CPT/HCPCS: 72170; 73502; 99212

== ENCOUNTER 2021-08-30 11:37 | Outpatient (REF) | payer MEDICARE, SELFPAY ==
--- NOTE | ~2021-08-30 | PE_ITS ---
EXAMINATION: Fluorine-18 FDG PET/CT Scan CLINICAL INDICATION: No significant treatment management. Right breast cancer, restaging. PROCEDURE: 69 minutes following the intravenous administration of 13.6 mCi of fluorine 18 FDG, images from the base of the skull to the mid thighs were obtained using a combined PET/CT scanner with CT scan based attenuation correction. No oral contrast was administered. No intravenous contrast was administered. Transverse, coronal, sagittal, and volume reconstruction projections were obtained. The patient's blood glucose as determined by a finger stick, was 93 mg/dl immediately prior to injection. Total CT exam dose-length product 441.44 mGy-cm * These CT images were obtained using dose optimization techniques as appropriate, variously including the following: Automated exposure control * Adjustment of mA and/or kV according to patient size (this includes techniques or standardized protocols for targeted exams where dose is matched to indication/reason for exam; i.e. extremities or head) * Use of iterative reconstruction technique COMPARISON: The previous PET CT scan dated 03/15/2021 is available for comparison. FINDINGS: (Slice numbers described in this report are numbered superiorly to inferiorly with slice #1 in the head) NECK AND VISUALIZED HEAD: No foci of abnormal FDG activity are noted. The distribution of FDG activity is physiological. There is no cervical lymphadenopathy. THORAX: Other than osseous lesion subsequently described, there are no foci of abnormal FDG activity present in the chest. An FDG avid right middle lobe subcentimeter nodule present on the prior 03/15/[address] scan now shows no abnormal FDG activity and is slightly smaller in size, now measuring 0.6 cm versus 0.7 cm previously. There is weak FDG activity, SUVmax 1.6 which is less intense than the mediastinal blood pool associated with a more intensely FDG avid right lower lobe nodule present on 03/15/2021 when this showed SUVmax 2.5. An opacity in the lingula there is also mildly FDG avid now shows no abnormal FDG activity in the opacity appears slightly smaller on the CT images. Additional scattered subcentimeter pulmonary nodules are present, all too small to be characterized on the FDG PET images and all similar or slightly smaller than on the 03/15/2021 study. Trace left-sided pleural fluid is noted with no associated abnormal FDG activity. There is no right-sided pleural fluid or pericardial fluid, or pneumothorax. There is no mediastinal, supraclavicular, or axillary lymphadenopathy. Postsurgical clips or dense calcifications are present posterior and lateral to the nipple in the right breast with no associated abnormal FDG activity. ABDOMEN AND PELVIS: There is an FDG avid CT hypodensity present posteriorly in liver Couinaud segment 7, now showing SUVmax 4.0, slice 137/311 versus SUVmax 11.0 previously. An additional FDG avid hypodensity in liver Couinaud segment 3 there is also less intensely FDG avid, now showing SUVmax 4.0, slice 146/311 versus SUVmax 6.5 previously. There are no additional foci of abnormally increased FDG activity present in the liver. There is a stable 1.1 cm hypodense simple cyst anteriorly in liver Couinaud segment 5 with no abnormal FDG activity. The gallbladder and spleen are unremarkable. Hypodense cysts are present and stable in appearance in both kidneys and show no abnormal FDG activity. The adrenal glands and pancreas are unremarkable. There is mild FDG activity throughout the gastrointestinal tract without a suspicious focal component. There is diverticulosis without evidence of diverticulitis. The hollow viscera are otherwise unremarkable. There is mildly increased FDG activity in the cervix, SUVmax 5.1 versus SUVmax 10.1 on the prior study. There is no retroperitoneal, mesenteric, pelvic or inguinal lymphadenopathy. MUSCULOSKELETAL: Multiple predominantly sclerotic metastases are present on the CT images, predominantly in the spine, pelvis, and sternum. Some of these continue to show mild abnormal FDG activity, but some abnormal FDG activity previously present has resolved. Materials Clerk is a focus in the L3 vertebral body, previously showing SUVmax 7.9 now showing SUVmax 3.4, slice 163/311, and extensive left acetabular lesion that now shows SUVmax 4.0, Parvez slice 217/311, previously SUVmax 10.1. No new FDG avid osseous lesions are present. There is a new right femoral intramedullary zainab and intertrochanteric compression screw not present on the prior study and in the intertrochanteric region of the right femur there is now mild FDG activity, SUVmax 2.9, versus SUVmax 7.5 on the prior 03/15/[address] scan. VASCULAR: Diffuse vascular calcifications including coronary are noted. PET/PET CT fusion skull to thigh IMPRESSION: 1. There has been a significant partial metabolic response to therapy of multiple metastatic lesions visualized on the prior 03/15/2021 PET/CT scan. Multiple osseous lesions which are predominantly sclerotic on the CT images show significantly diminished FDG activity. FDG avid liver lesions previously present are still visualized but are much less intensely FDG avid, and several previously FDG avid pulmonary metastases now show no abnormal FDG activity. 2. A left femoral intramedullary zainab and intertrochanteric compression screw have been placed since 03/15/2021. 3. A small left pleural effusion has developed since 03/15/2021. 4. Diffuse vascular calcifications including coronary calcifications are again noted.
== END 2021-08-30 11:38 | disposition home or self-care (01) ==
LOC: HO.PET 11:37
PROVIDERS: Visit Provider Internal Medicine
DX: Z13.89 Encounter for screening for other disorder (principal)

== ENCOUNTER 2021-09-01 08:16 | Outpatient (REF) | payer MEDICARE, SELFPAY ==
--- NOTE | ~2021-09-01 | XR_ITS ---
EXAMINATION: XR PELVIS XR HIP, RIGHT CLINICAL INFORMATION: Pain. COMPARISON: Radiographs dated 07/21/2021. TECHNIQUE: AP view of the pelvis. AP upright, AP supine, and frog-leg lateral views of the right hip. FINDINGS: Previously noted sclerosis is redemonstrated within the left ilium, left acetabulum, and the left superior and inferior pubic rami, consistent with metastatic disease. There is further patchy sclerotic density seen within the right ilium and the right inferior and possibly superior pubic rami, suggesting further metastasis. There is an intramedullary nail situated within the right femoral shaft, with intact femoral neck compression screw and distal femoral shaft fixator screw. A right knee arthroplasty is incompletely included in the [id number] but shows no obvious loosening of the proximal and patellar components. No hardware failure or loosening is seen. There are stable, effusion fragments arising from the greater trochanter of the proximal right femur. There is mild to moderate narrowing of the medial aspect of the left acetabular joint space. The sacroiliac joints are symmetric and well-maintained. The pubic symphysis is intact. There are numerous pelvic phleboliths. XR/XR pelvis 1-2V IMPRESSION: 1. There is intact right femoral orthopedic hardware. 2. Multi-focal pelvic sclerotic metastases are redemonstrated. No fracture of pathologic bone is noted. 3. There is moderate osteoarthritic change of the left hip joint.
--- NOTE | ~2021-09-01 | XR_ITS ---
EXAMINATION: XR PELVIS XR HIP, RIGHT CLINICAL INFORMATION: Pain. COMPARISON: Radiographs dated 07/21/2021. TECHNIQUE: AP view of the pelvis. AP upright, AP supine, and frog-leg lateral views of the right hip. FINDINGS: Previously noted sclerosis is redemonstrated within the left ilium, left acetabulum, and the left superior and inferior pubic rami, consistent with metastatic disease. There is further patchy sclerotic density seen within the right ilium and the right inferior and possibly superior pubic rami, suggesting further metastasis. There is an intramedullary nail situated within the right femoral shaft, with intact femoral neck compression screw and distal femoral shaft fixator screw. A right knee arthroplasty is incompletely included in the [id number] but shows no obvious loosening of the proximal and patellar components. No hardware failure or loosening is seen. There are stable, effusion fragments arising from the greater trochanter of the proximal right femur. There is mild to moderate narrowing of the medial aspect of the left acetabular joint space. The sacroiliac joints are symmetric and well-maintained. The pubic symphysis is intact. There are numerous pelvic phleboliths. XR/XR hip RT min 2V IMPRESSION: 1. There is intact right femoral orthopedic hardware. 2. Multi-focal pelvic sclerotic metastases are redemonstrated. No fracture of pathologic bone is noted. 3. There is moderate osteoarthritic change of the left hip joint.
== END 2021-09-01 08:17 | disposition home or self-care (01) ==
LOC: HO.HOSX 08:16
PROVIDERS: Visit Provider Physician Assistant
DX: M25.551 Pain in right hip (principal); C79.51 Secondary malignant neoplasm of bone; Z87.891 Personal history of nicotine dependence
CPT/HCPCS: 72170; 73502; 99212

== ENCOUNTER 2021-09-19 14:12 | Emergency (ER) | payer MEDICARE, SELFPAY ==
--- NOTE | ~2021-09-19 | CT_ITS ---
EXAMINATION: CT HIP WITHOUT CONTRAST, RIGHT CLINICAL INFORMATION: Pain, history of bone metastasis. COMPARISON: X-ray of the pelvis and right hip August 2021. Right femur April 2021. TECHNIQUE: CT scan of the right hip was performed with reconstruction imaging performed at the acquisition workstation. [id number] is increased in size to include the proximal 30 cm of the femur to the level of the distal diametaphysis. This CT examination was performed using dose optimization techniques as appropriate, variously including the following: *Automated exposure control *Adjustment of mA and/or kV according to patient size (this includes techniques or standardized protocols for targeted exams where dose is matched to indication/reason for exam; i.e. extremities or head) *Use of iterative reconstruction technique DLP: 764 mGy-cm FINDINGS: Antegrade zainab with the proximal interlocking screw extending through the femoral neck into the head. Distal interlocking screw outside the [id number] the exam. There is osseous fragmentation of the greater trochanter most evident posteriorly adjacent to the proximal end of the femoral zainab. This could reflect postsurgical change or fractures related or unrelated to the placement of the zainab. This is unchanged compared with multiple prior radiographs dating back to July 2021 and similar to that noted on the prior PET/CT 08/30/2021. There is additional more amorphous appearing calcific density adjacent to the more distal proximal femur in the subtrochanteric region compatible with heterotopic ossification just lateral to the placement of the proximal screw. The femoral bone is otherwise unremarkable. There is ossification in the ischium and posterior acetabular region and left symphysis pubis and superior ramus and sacrum as seen previously compatible with sclerotic metastases. Postsurgical changes present in the subcutaneous soft tissues laterally. Some calcification along the surgical tract. CT/CT hip RT wo con IMPRESSION: Postoperative changes with femoral zainab in place. There is fragmentation of the greater trochanter unchanged compared to prior which could reflect postsurgical change or multiple fractures. Sclerotic metastases, unchanged in the pelvis.
--- NOTE | ~2021-09-19 | CT_ITS ---
CT LUMBAR SPINE WITHOUT CONTRAST CLINICAL INFORMATION: History of bone metastases with pain. COMPARISON: Head CT August 30, 2021. TECHNIQUE: Multidetector CT acquisition of the lumbar spine is obtained without contrast. Multiplanar reformats are acquired. This CT examination was performed using dose optimization techniques as appropriate, variously including the following: *Automated exposure control *Adjustment of mA and/or kV according to patient size (this includes techniques or standardized protocols for targeted exams where dose is matched to indication/reason for exam; i.e. 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 Nondiagnostic assessment for epidural disease on this artifactually degraded CT study. Consider a lumbar spine MRI with and without contrast as clinically indicated. There is grade 1 degenerative anterolisthesis of L3 on L4. Vertebral body heights overall maintained. Severe disc volume loss with the lower thoracic levels and at the L1-L2 and L2-L3 levels. Vacuum phenomenon at L1-L2, L2-L3, and L5-S1. Multilevel endplate osteophytes. Partially imaged small left pleural effusion. Aortoiliac atherosclerotic calcification. Colonic diverticulosis. L1-L2: Diffuse annular disc bulges in part disc osteophyte eccentric to the left side resulting in moderate to severe left foraminal stenosis with probable mass effect on the exiting left L1 nerve root. Central canal not well assessed on CT that was likely patent. L2-L3: Diffuse annular disc bulge and is in part disc osteophyte and severe bilateral facet arthropathy and ligamentum flavum thickening. Findings in concert likely result in mild central canal stenosis, bilateral subarticular zone stenosis, and moderate to severe bilateral foraminal stenosis with mass effect on the exiting nerve roots bilaterally. L3-L4: Grade 1 degenerative anterolisthesis. Severe bilateral facet arthropathy and ligamentum flavum thickening. Findings in concert result in suspected moderate to severe central canal stenosis, severe bilateral subarticular zone stenosis with compression of the traversing L4 nerve roots bilaterally, and moderate to severe bilateral foraminal stenosis with compression of the exiting L3 nerve roots bilaterally. L4-L5: Diffuse annular disc bulge and severe bilateral facet arthropathy and ligamentum flavum thickening. Findings in concert result in mild central canal stenosis, bilateral subarticular zone stenosis with probable mass effect on the traversing L5 nerve roots bilaterally, and severe right-sided foraminal stenosis with mass effect on the exiting right L4 nerve root. L5-S1: there is right lateral soft tissue density that could reflect a disc herniation or soft tissue tumor which results in severe right-sided foraminal stenosis and compression of the the foraminal and extraforaminal segments of the exiting right L5 nerve root. Lumbar spine MRI with and without IV contrast would be helpful in further assessment. Shallow central disc protrusion indents the ventral thecal sac. Disc osteophyte and facet arthropathy result in mild left-sided foraminal encroachment. Abnormal soft tissue density within the right S1 lateral recess and right S1-S2 neural foramen inseparable from the right S1 nerve root, highly concerning for malignancy given the history. Lumbosacral MRI with and without IV contrast recommended for further assessment. 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 Nondiagnostic assessment for epidural disease on this artifactually degraded CT study. Consider a lumbar spine MRI with and without contrast as clinically indicated. - Abnormal soft tissue density within the right S1 lateral recess and right S1-S2 neural foramen inseparable from the right S1 nerve root, highly concerning for malignancy given the history. Lumbosacral MRI with and without IV contrast recommended for further assessment. - At L5-S1, there is right lateral soft tissue density that could reflect a disc herniation or soft tissue tumor which results in severe right-sided foraminal stenosis and compression of the the foraminal and extraforaminal segments of the exiting right L5 nerve root. Lumbar spine MRI with and without IV contrast would be helpful in further assessment. - Advanced multilevel lumbar spondylosis. At L3-L4, grade 1 degenerative anterolisthesis and advanced spondylitic changes result in suspected moderate to severe central canal stenosis. Severe multilevel foraminal and multilevel subarticular zone stenosis with suspected mass effect on multiple traversing and exiting nerve roots as discussed above. Findings are recommendations discussed with Brisa HARO at 4:04 PM on September 19, 2021.
--- NOTE | ~2021-09-19 | MR_ITS ---
EXAMINATION: MR LUMBAR SPINE WITHOUT AND WITH CONTRAST CLINICAL INFORMATION: Low back pain on the right side. COMPARISON: Lumbar spine CT 09/19/2021. TECHNIQUE: MRI of the lumbar spine was obtained using routine sequences with and without contrast. Intravenous contrast: Gadavist 7.5 mL FINDINGS: Extensive heterogeneously enhancing osseous metastatic disease throughout the anterior and posterior elements of the entire lumbar spine, imaged lower thoracic spine, the sacrum, and the partially imaged bony pelvis. The right paravertebral soft tissue at L5-S1 extending into the right L5-S1 neural foramen and soft tissue within the right L5 and S1 lateral recess tracking along the right S1-S2 neural foramen on the prior CT does exhibit partial enhancement on MRI, raising the concern for right L5-S1/S1-S2 foraminal/right L5-S1 paravertebral/right S1 lateral recess soft tissue tumor which contributes to compression of the right L5 and S1 nerve roots. No additional evidence of epidural disease within the lumbar spine. There is no pathologic enhancement along the cauda equina nerve roots superior to L5-S1. Vertebral body heights are overall maintained. Spinal alignment is stable. Left renal cysts. L1-L2: Left paracentral/left lateral disc osteophyte complex resulting in compression of the traversing left L2 nerve root within the left subarticular zone and severe left foraminal stenosis with compression of the exiting left L1 nerve root. Findings unchanged. L2-L3: Disc osteophyte and severe bilateral facet arthropathy and ligamentum flavum thickening. No central canal stenosis. Moderate to severe bilateral foraminal stenosis with mass effect on the exiting L2 nerve roots bilaterally. L3-L4: Grade 1 anterolisthesis. Uncovered disc osteophyte and severe bilateral facet arthropathy and ligamentum flavum thickening. Findings in concert result in moderate to severe central canal stenosis, severe bilateral subarticular zone stenosis with mass effect on the traversing L4 nerve roots bilaterally, as well as moderate to severe right and moderate left foraminal stenosis with mass effect on the exiting right greater than left L3 nerve roots. L4-L5: Diffuse disc osteophyte complex and severe bilateral facet arthropathy and ligamentum flavum thickening. Findings in concert result in mild narrowing of the central canal as well as moderate right foraminal stenosis with mass effect on the exiting right L4 nerve root. L5-S1: Diffuse disc osteophyte. As discussed above, there is enhancing soft tissue tumor within the right L5 and right S1 lateral recess is, tracking through the right L5-S1 and right S1-S2 neural foramen. MR/MR lumbar spine wo/w con IMPRESSION: - Extensive heterogeneously enhancing osseous metastatic disease throughout the anterior and posterior elements of the entire lumbar spine, imaged lower thoracic spine, the sacrum, and the partially imaged bony pelvis. The right paravertebral soft tissue at L5-S1 extending into the right L5-S1 neural foramen and soft tissue within the right S1 lateral recess tracking along the right S1-S2 neural foramen on the prior CT does exhibit partial enhancement on MRI, raising the concern for right L5-S1/S1-S2 foraminal/right L5-S1 paravertebral/right L5 and S1 lateral recess soft tissue tumor which contributes to compression of the right L5 and S1 nerve roots. No additional evidence of epidural disease within the lumbar spine. - Advanced lumbar spondylosis, greatest at L3-L4 where grade 1 degenerative anterolisthesis and advanced multifactorial degenerative changes result in moderate to severe central canal stenosis, severe bilateral subarticular zone stenosis with mass effect on the traversing L4 nerve roots bilaterally, as well as moderate to severe right and moderate left foraminal stenosis with mass effect on the exiting right greater than left L3 nerve roots. Additional multilevel foraminal stenosis with mass effect on multiple additional exiting nerve roots as discussed above.
--- NOTE | 2021-09-19 14:19 | ED.NEUROSD ---
HPI - Neuro Symptoms/Deficit General Chief Complaint: Back Pain/Injury Stated Complaint: sent down from oncology Time Seen by Provider: 09/19/21 14:19 Source: patient, family and other (sent from Dr. Nichole's office) Mode of arrival: wheelchair Limitations: no limitations History of Present Illness HPI Narrative: 71 yo female with hx of breast cancer and bone mets. She has been managed with hormone therapy and had what she reports prophylactic R femur IMN to prevent pathologic fracture. She walked a lot on Sunday due to a used her cane and for support she notes pain in R buttock area upon waking Sunday morning making it very painful to walk. She denies any known injury. She has no numbness or tingling. Her leg is not weak but it is painful to walk at this time. She was sent by Oncology for further workup of R leg pain. Labs drawn in oncology clinic stable today. Onset (ago): day(s) (2) Location: right leg (R buttocks is painful) History of same: No Severity: moderate Quality: other (sharp) Relieving factors: none Exacerbating factors: other (walking or moving) Context: sudden onset On Anticoagulants: No Associated symptoms: denies other symptoms Treatments Prior to Arrival: none Related Data Home Medications Medication Instructions Recorded Confirmed amlodipine 5 mg tablet 5 mg PO DAILY 04/13/20 09/19/21 atorvastatin 20 mg tablet 20 mg PO DAILY 04/13/20 09/19/21 multivitamin 1 tab PO DAILY 03/07/21 09/19/21 calcium 600 mg capsule 600 mg PO DAILY 05/09/21 09/19/21 metoprolol succinate 200 mg 200 mg PO BID 05/26/21 09/19/21 tablet,extended release 24 hr denosumab 120 mg/1.7 mL (70 mg/mL) 120 mg SUBCUT Q4W 06/09/21 09/19/21 subcutaneous solution (Xgeva) losartan 50 mg tablet 50 mg PO DAILY 06/24/21 09/19/21 Previous Rx's Medication Instructions Recorded palbociclib 125 mg capsule 125 mg PO DAILY #21 cap 04/11/21 (Ibrance) letrozole 2.5 mg tablet 2.5 mg PO DAILY #30 tab 05/20/21 tramadol 50 mg tablet 50 mg PO Q8H PRN #30 tab 05/24/21 oxycodone 5 mg tablet 5 mg PO Q4H PRN 7 Days #42 tab 06/09/21 acetaminophen 325 mg tablet 650 mg PO Q6H PRN 30 Days #240 tab 06/10/21 Allergies Allergy/AdvReac Type Severity Reaction Status Date / Time No Known Allergies Allergy Verified 09/01/21 11:05 [No Known Allergies*] Review of Systems Review of Systems: Constitutional : No Weight loss, No Fever, No Chills, ENT/Mouth : No Hearing loss, No Ear Pain, No Nasal Congestion, No Sinus Pain, No Hoarseness, No sore throat, No Rhinorrhea, No Swallowing Difficulty Cardiovascular : No Chest Pain, No SOB Respiratory : No Cough, No Dyspnea Gastrointestinal : No Nausea, No Vomiting, No Diarrhea, No abdominal Pain, No Hematochezia, No Melena Genitourinary : No Dysuria, No Urinary Frequency, No Hematuria, No Urinary Incontinence, Musculoskeletal : positive R buttock pain, no joint pain Skin : No Skin Lesions, No rash Neuro : No Weakness, No Numbness, No Paresthesias, no loss of bowel or bladder incontinence, no saddle anesthesia All other systems reviewed and are negative [facility] Past Medical History Medical History Anemia Arthritis Breast cancer Cancer, metastatic to bone COVID-19 vaccine series completed Elevated cholesterol HLD (hyperlipidemia) HTN (hypertension) Kidney stones On beta vanessa at home Surgical History History of appendectomy History of lithotripsy History of ovarian resection History of partial mastectomy History of tonsillectomy and adenoidectomy History of total left knee replacement History of total left knee replacement (TKR) History of total right knee replacement (TKR) History of total right knee replacement (TKR) History of umbilical hernia repair History of vulvectomy Hx of section Hx of hernia repair Family History Family History Maternal Aunt Ovarian cancer Father Heart attack Maternal Aunt Stroke Social History Social History Household Members: Spouse Housing: House Are you a primary acute care nurse practitioner to a significant other at home: No Do you presently have visiting nurse or other home services: No Alcohol intake: current Alcohol intake frequency: a few times a month Patient Tobacco Use Status: Former Tobacco user Quit Date: 1985 Tobacco use type: Cigarette Cigarette Packs Per Day: 1 Advance Directives: Yes Advance Directives Information Provided: No Advance Directives on File: No service: No 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al status: retired 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: Right Handed Physical Exam Vital Signs: Vital Signs: Last Vital Signs Temp 98.1 F 09/19/21 14:44 Pulse 59 09/19/21 14:44 Resp 18 09/19/21 14:44 BP 149/46 H 09/19/21 14:44 Pulse Ox 98 09/19/21 14:44 BMI result Body Mass Index 26.9 Appearance: Alert. Oriented X3. No acute distress. Eyes: Pupils equal, round and reactive to light. ENT: Pharynx normal. Neck: Normal inspection. Neck supple. CVS: Normal heart rate and rhythm. Pulses normal. Respiratory: No respiratory distress. Breath sounds normal. Abdomen: Soft and non-tender. Buttock: pain in R buttock area - tight band felt no rash reproduces pain Skin: Skin warm and dry. Normal skin color. Normal skin turgor. Extremities: No lower extremity edema. No calf ttp Neuro: Oriented X 3. No motor deficit. No sensory deficit. no clonus, SILT throughout LE, 2+ DTR in patella, L5 5/5 bilaterally Course Course Course Narrative: Radiology recommends MRI for possible L5-S1 abnormal soft tissue density, she has no radicular symptoms, signed out to Alicia Ghosh FEATHER SEPARATOR pending MRI patient and aware MDM - Neuro Symptoms/Deficit MDM Narrative Medical decision making narrative: 71 yo female with hx of breast cancer with bony mets managed on hormone therapy, HTN, HLD, here with c/o R buttock pain without known trauma since Sunday AM. She did walk a lot more on Sunday due to services. She is neurologically intact and has no numbness, weakness, incontinence to suggest spinal cord pathology. The pain is localized to the right buttock. She has no pain with ROM of the R hip or axial loading. At this time seems like sciatica. I do not suspect SC involvement given her lack of neuro findings. Will obtain CT scan of lumbar spine/R hip and PO medications. Dispo per results and findings. Discharge Plan Discharge Clinical Impression: Sciatica, Bone metastases Patient Disposition: Still a Patient Prescriptions: No Action multivitamin Tablet 1 tab PO DAILY 0RF Ibrance 125 mg Capsule 125 mg PO DAILY Qty: 21 6RF Label Comments: Pt ws instructed to hold Ibrance After blood work of 05/20/21 Rx Instructions: administer on days 1 through 21 of a 28-day treatment cycle calcium 600 mg Capsule 600 mg PO DAILY 0RF letrozole 2.5 mg Tablet 2.5 mg PO DAILY Qty: 30 3RF tramadol 50 mg Tablet 50 mg PO Q8H PRN (Reason: Pain) Qty: 30 0RF losartan 50 mg Tablet 50 mg PO DAILY 0RF metoprolol succinate 200 mg Tablet Extended Release 24 Hr 200 mg PO BID 0RF oxycodone 5 mg Tablet 5 mg PO Q4H PRN (Reason: Pain, Moderate (Pain Scale 4-6) 7 Days Qty: 42 0RF Xgeva 120 mg/1.7 mL (70 mg/mL) Solution 120 mg SUBCUT Q4W 0RF acetaminophen 325 mg Tablet 650 mg PO Q6H PRN (Reason: Pain, Mild (Pain Scale 1-3)) 30 Days Qty: 240 0RF amlodipine 5 mg tablet 5 mg PO DAILY 0RF atorvastatin 20 mg tablet 20 mg PO DAILY 0RF
[2021-09-19 14:44] VITALS: BP 149/46; PULSE 59; RESP 18; TEMP 36.7; O2SAT 98; BMI 26.9
[2021-09-19] MEDS: diazePAM 2 MG TABLET PO ×2 (14:45→16:43)
[2021-09-19] MEDS: oxyCODONE HCl Immed Release 5 MG TABLET PO ×2 (14:45→17:02)
[2021-09-19 16:10] VITALS: BP 156/46; PULSE 59; RESP 16; TEMP 36.8; O2SAT 99
[2021-09-19] MEDS: dexAMETHasone sod phosphate 10 MG/ML VIAL IVPUSH (20:54)
== END 2021-09-19 21:15 | disposition left against medical advice (07) ==
PROVIDERS: Emergency Provider Emergency Medicine; PCP Internal Medicine
DX: M54.41 Lumbago with sciatica, right side (principal); C50.919 Malignant neoplasm of unspecified site of unspecified female breast; C79.51 Secondary malignant neoplasm of bone; I10 Essential (primary) hypertension; E78.5 Hyperlipidemia, unspecified; Z87.891 Personal history of nicotine dependence; Z79.02 Long term (current) use of antithrombotics/antiplatelets; Z79.899 Other long term (current) drug therapy
CPT/HCPCS: 72131; 72158; 73700; 96374; 96375; 99284; 99285; A9585; J1100

== ENCOUNTER 2021-10-07 14:00 | Outpatient (RCR) | payer MEDICARE, SELFPAY | END 2022-03-10 13:40 | disposition home or self-care (01) | LOC: HO.PTCHIC 14:00 | PROVIDERS: PCP Internal Medicine; Visit Provider Internal Medicine | DX: M25.551 Pain in right hip (principal) | CPT/HCPCS: 97110; 97112; 97140; 97163; 97530 ==

== ENCOUNTER 2021-11-04 10:51 | Outpatient (REF) | payer MEDICARE, SELFPAY ==
--- NOTE | ~2021-11-04 | XR_ITS ---
EXAMINATION: XR PELVIS CLINICAL INFORMATION: Pain. Right lower extremity surgery. Follow-up. History breast cancer with osseous metastases. COMPARISON: Radiographs pelvis and right hip 09/01/2021, CT right hip 09/19/2021 TECHNIQUE: AP view pelvis is performed along with AP and crosstable lateral views right hip. FINDINGS: Osseous structures are similar to prior studies. Again, there are degenerative changes lumbosacral spine. Scattered sclerotic metastases are again noted, greater on left hemipelvis. There is no interval pelvic fracture, dislocation, or destructive process. No diastases SI joints or pubis. There are postsurgical changes right hip with gamma nail and intramedullary zainab. Some minor fragmentation superior aspect greater trochanter is stable. 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 Bowel gas unremarkable. XR/XR pelvis 1-2V IMPRESSION: -Postoperative changes right femur. Hardware intact. Superior greater trochanter fragments stable. -Sclerotic lesions pelvis, stable. No destructive process.
--- NOTE | ~2021-11-04 | XR_ITS ---
EXAMINATION: XR HIP, RIGHT CLINICAL INFORMATION: Pain right hip. COMPARISON: Pelvis 07/21/2021 TECHNIQUE: Two views of the right hip. FINDINGS: There is a right hip intramedullary femoral zainab and screw stabilizing right hip in alignment. The right hip joint space is maintained normal. There is sclerotic lesion involving the left hemipelvis and right ischium.. XR/XR hip RT min 2V IMPRESSION: Intramedullary femoral zainab and right hip nail stabilizing the right hip. There is no hardware loosening or fracture visualized. Sclerotic metastatic bone disease left pelvis and right ischium appears stable when compared to 07/21/2021.
== END 2021-11-04 10:52 | disposition home or self-care (01) ==
LOC: HO.HOSX 10:51
PROVIDERS: Visit Provider Physician Assistant
DX: C79.51 Secondary malignant neoplasm of bone (principal); M25.551 Pain in right hip
CPT/HCPCS: 72170; 73502; 99212

== ENCOUNTER 2022-03-21 10:00 | Outpatient (REF) | payer MEDICARE, SELFPAY ==
--- NOTE | ~2022-03-21 | PE_ITS ---
EXAMINATION: Fluorine-18 FDG PET/CT Scan CLINICAL INDICATION: Subsequent treatment management. Right breast cancer, restaging. PROCEDURE: 72 minutes following the intravenous administration of 15.1 mCi of fluorine 18 FDG, images from the base of the skull to the mid thighs were obtained using a combined PET/CT scanner with CT scan based attenuation correction. No intravenous contrast was administered. Transverse, coronal, sagittal, and volume reconstruction projections were obtained. The patient's blood glucose as determined by a finger stick, was 80 mg/dl immediately prior to injection. The radiotracer was injected intravenously through left antecubital superficial vein, without any complications. Total CT exam dose-length product 606.96 mGy-cm * These CT images were obtained using dose optimization techniques as appropriate, variously including the following: Automated exposure control * Adjustment of mA and/or kV according to patient size (this includes techniques or standardized protocols for targeted exams where dose is matched to indication/reason for exam; i.e. extremities or head) * Use of iterative reconstruction technique COMPARISON: Most recent prior PET CT study done on 08/30/2021. FINDINGS: NECK AND VISUALIZED HEAD: No FDG avid disease is present. No significant change. THORAX: No FDG avid disease. Note is however made of multiple ill-defined bilateral, predominantly left upper and right lower lobar as well as the right middle lobe lobar lung nodules, appears similar to prior study, without any concordant increased FDG avidity. These are not optimally characterized on this nondiagnostic CT study. Dedicated follow-up CT scan of the chest accordingly is recommended for further full detail evaluation. Previously documented small left-sided pleural effusion shows interval resolution. There are no FDG avid mediastinal or hilar lymphadenopathy present, unchanged. Postsurgical changes are noted within the right breast and right axilla, without any features of local disease recurrence. ABDOMEN AND PELVIS: No FDG avid disease is noted. Incidental note is made of hepatic as well as bilateral renal cysts, unchanged. Specifically, no FDG avid disease is present within the liver and adrenal glands, unchanged. Colonic diverticulosis is present without any CT features of superimposed acute diverticulitis. MUSCULOSKELETAL: Previously documented, clinically known extensive diffuse non-FDG avid metastatic disease involving the pelvis, the thoracolumbar spine, the ribs, the sternum and the visualized proximal femur appear stable, unchanged since prior study dated 08/30/2021. Note is made of a pathological fracture with ORIF at the proximal right femur associated with mild increased FDG avidity at the site of the pathological fracture, appear similar to prior study dated 08/30/2021. The visualized hardware appears intact. VASCULAR: Atherosclerotic disease of the aorta and its branches, without aneurysm formation. PET/PET CT fusion skull to thigh IMPRESSION: 1. Previously documented, clinically known extensive non-FDG avid osseous metastatic disease within the visualized axial and appendicular skeleton including a pathological fracture within the right proximal femur and ORIF at the site of the pathological fracture appear unchanged since 08/30/2021. 2. Interval resolution of trace amount of left-sided pleural effusion since the prior study. 3. Persistent stable non-FDG avid multifocal bilateral ill-defined pulmonary nodules, not optimally characterized on this nondiagnostic study however, appears similar to prior study dated 08/30/2021. Follow-up CT scan of the chest may be considered for further full detail evaluation. 4. No evidence of any disease recurrence within the right breast and right axilla, unchanged. 5. Specifically, no new abnormalities since the prior study dated 08/30/2021.
== END 2022-03-21 10:01 | disposition home or self-care (01) ==
LOC: HO.PET 10:00
PROVIDERS: Visit Provider Internal Medicine
DX: Z13.89 Encounter for screening for other disorder (principal)

== ENCOUNTER 2022-04-27 11:00 | Outpatient (RCR) | payer MEDICARE, SELFPAY | END 2022-04-27 12:47 | disposition home or self-care (01) | LOC: HO.PTCHIC 11:00 | PROVIDERS: Visit Provider Internal Medicine | DX: M25.551 Pain in right hip (principal) | CPT/HCPCS: 97110; 97112; 97163; 97530 ==

== ENCOUNTER → 2022-08-09 10:46 | Outpatient (REF) | payer MEDICARE, SELFPAY ==
--- NOTE | ~2022-08-09 | NM_ITS ---
EXAMINATION: NM BONE SCAN OF THE WHOLE BODY CLINICAL INFORMATION: Breast cancer, right. Back pain, bone metastases. Right partial mastectomy 2005, bilateral knee replacements 2019. COMPARISON: No previous bone scan is available for comparison. An FDG PET scan dated 03/21/2022 is available for comparison. No recent radiographs are available for comparison. TECHNIQUE: Multiple gamma scintillation camera images of the whole body were performed 3 hours following the intravenous administration of 25 mCi Tc-99m MDP. FINDINGS: In the head, there is abnormally increased activity of mild intensity present in a large region in the left frontoparietal calvarium and some mild right-sided abnormalities are also present. Abnormalities are probably present in the base of the skull also, but these are considered equivocal. There is mildly increased activity in the left multiple region of the mandible, probably due to dental disease. In the thoracic cage and upper extremities, there are multiple mild focal abnormalities present of varying sizes throughout the ribs. There are subtle abnormalities in the distal shaft of the right humerus and in a small mild foci in the mid in the distal left humerus an abnormal activity is also present in both humeral heads. In the spine, there are diffuse abnormalities present throughout the thoracic and lumbar spine. A mild thoracolumbar scoliosis with lumbar convexity to the right is noted. In the pelvis, there are diffuse moderately intense abnormalities in the posterior pelvis, left acetabulum and probably both ischia. In the lower extremities, there is mildly increased activity in the intertrochanteric region diffusely in the right femur an there are additional small foci of mildly increased activity present at several sites in both femurs. Photopenic defects from bilateral well-healed total knee prostheses are noted. There is a small focus of mildly increased activity just distal to the right tibial stem which is probably not due to the prosthesis. No other definite bony abnormalities are noted. The urinary bladder and faint visualization of both kidneys are noted. The PET CT scan dated 03/21/2022 showed extensive mixed sclerotic and lytic metastases throughout the visualized osseous structures. However, these showed no significant abnormal FDG activity. NM/NM bone scan whole body IMPRESSION: Diffuse metastatic tumor involvement of bone is present. The uptake on this bone scan suggests this represents active malignant disease, but continued bone remodeling and ongoing healing is a possible alternate explanation. Although the prior 03/21/[address] scan showed little FDG uptake, a less recent 03/15/[address] scan showed extensive FDG uptake throughout the osseous structures, indicating metabolically active metastases on that date.
== END ==
LOC: HO.NUCMED 10:46
PROVIDERS: PCP Internal Medicine; Visit Provider Internal Medicine
DX: C79.51 Secondary malignant neoplasm of bone (principal)
CPT/HCPCS: 78306; A9503

== ENCOUNTER 2022-09-18 10:18 | Outpatient (REF) | payer MEDICARE, SELFPAY ==
--- NOTE | ~2022-09-18 | CT_ITS ---
EXAMINATION: CT CHEST, ABDOMEN AND PELVIS WITH CONTRAST CLINICAL INFORMATION: History of breast cancer, evaluate for disease progression COMPARISON: PET/CT dated 03/21/2022 TECHNIQUE: Multidetector volumetric imaging was performed of the chest, abdomen and pelvis following administration of oral and 85 mL Omnipaque 300 intravenous contrast. Sagittal and coronal reformatted images were obtained on the technologist's workstation. This CT examination was performed using dose optimization techniques as appropriate, variously including the following: *Automated exposure control *Adjustment of mA and/or kV according to patient size (this includes techniques or standardized protocols for targeted exams where dose is matched to indication/reason for exam; i.e. extremities or head) *Use of iterative reconstruction technique DLP: 148 mGy-cm FINDINGS: CHEST, ABDOMINAL AND PELVIC WALL: Unremarkable LUNGS: Interval increase in right lower lobe nodules. A subpleural nodule measures 1.2 x 0.7 cm (7:457). A 0.9 x 0.8 cm (7:466) nodule has increased from prior study. A 7 mm nodule right lower lobe (7:460) is not significantly changed from prior study. Additional nodules are seen in the inferior aspect of the right lower lobe. Left upper lobe lingular fissural nodule measuring 7 mm (7:408), unchanged. Central airways are patent. MEDIASTINUM: Left thyroid lobe 1.9 x 1.4 cm hypoattenuating nodule. Mild cardiomegaly. No mediastinal adenopathy. No hilar adenopathy. Coronary artery atherosclerotic calcifications. Main pulmonary artery is enlarged measuring 3.5 cm, likely secondary to pulmonary arterial hypertension. PLEURA: There is no pleural effusion. No pleural mass or thickening. AXILLA: No axillary adenopathy. LIVER AND BILIARY TREE: Redemonstration of left hepatic lobe hypoattenuating lesions measuring 1.4-1.7 cm, water density, likely reflect benign cysts. Additional hypoattenuating subcentimeter liver lesions are too small to characterize. No suspicious liver lesions. GALLBLADDER: Gallbladder is unremarkable. PANCREAS: Unremarkable SPLEEN: Unremarkable ADRENAL GLANDS: Unremarkable. KIDNEYS AND URETERS: Bilateral benign-appearing renal cysts. Additional subcentimeter renal cysts are too small to characterize. GASTROINTESTINAL TRACT: Colonic diverticulosis, no CT findings of diverticulitis. The small and large bowel are unremarkable. Appendix is not identified. No inflammatory changes in the right lower quadrant to suggest appendicitis. VASCULAR: Unremarkable. LYMPH NODES: No internal mammary adenopathy. FREE FLUID: No free fluid. BLADDER: Unremarkable PELVIC VISCERA: Unremarkable OSSEOUS STRUCTURES: There is diffuse osseous metastatic disease throughout the axial and appendicular skeleton. Right hip orthopedic hardware is noted. CT/CT abdomen pelvis w IV con IMPRESSION: 1. Interval increase in right lower lobe nodules measuring up to 1.2 cm. 2. Diffuse osseous metastatic disease throughout the axial and appendicular skeleton. 3. Left thyroid lobe 1.9 cm hypoattenuating nodule.
[2022-09-18] MEDS: iohexoL 350 MG/ML 100 ML INFUS..BTL IV (11:10)
== END 2022-09-18 10:19 | disposition home or self-care (01) ==
LOC: HO.CT 10:18
PROVIDERS: PCP Internal Medicine; Visit Provider Internal Medicine
DX: C79.51 Secondary malignant neoplasm of bone (principal)
CPT/HCPCS: 71260; 74177; Q9967

== ENCOUNTER 2022-10-11 11:49 | Day surgery (SDC) | payer MEDICARE, SELFPAY ==
--- NOTE | ~2022-10-11 | XR_ITS ---
EXAMINATION: XR CHEST CLINICAL INFORMATION: Post lung biopsy COMPARISON: Previous chest x-ray May 2021 TECHNIQUE: Frontal view of the chest was obtained. FINDINGS: The cardiac and mediastinal contours are stable. Known right lower lobe lung nodules are not appreciated. The lungs are clear. There is no pleural effusion or pneumothorax. There are surgical clips in the right axilla. There are degenerative changes of the spine. XR/XR chest 1V IMPRESSION: No pneumothorax post right lung biopsy.
--- NOTE | ~2022-10-11 | CT_ITS ---
PROCEDURE: CT GUIDED ASPIRATION, FINE NEEDLE, WITH IMAGE GUIDANCE CLINICAL INFORMATION: Breast cancer. Right lower lobe nodules. COMPARISON: Previous chest CT 09/18/2022 TECHNIQUE: Procedure and risks and benefits including bleeding, infection and pneumothorax were discussed with the patient and informed consent was obtained. Supine/slight left decubitus position. Limited axial images through the chest were performed. CT guidance and a 21-gauge and subsequently 22-gauge needle, access to a peripheral right lower lobe nodule was obtained. 2 FNA specimens were obtained and submitted for cytology and microbiology studies. Thorax. Conscious sedation was provided by registered nurse under my direct supervision. The patient received Versed 1.5 mg and femoral 75 mcg intravenously during the procedure. Continuous hemodynamic monitoring under my direct supervision was performed. Face to face patient contact time was [address] examination was performed using dose optimization techniques as appropriate, variously including the following: *Automated exposure control *Adjustment of mA and/or kV according to patient size (this includes techniques or standardized protocols for targeted exams where dose is matched to indication/reason for exam; i.e. extremities or head) *Use of iterative reconstruction technique DLP: 192 mGy-cm FINDINGS: There are 2 adjacent peripheral or subpleural right lower lobe nodules measuring 0.7 and 1 cm. The larger nodule was targeted for fine-needle aspiration. Postbiopsy images demonstrate no pneumothorax. CT/CT guided FNA IMPRESSION: CT-guided right lower lobe nodule fine-needle aspiration.
[2022-10-11 12:23] LABS: Basophils Percent Auto 0.8 % (0-2); Eosinophils Absolute Auto 0.3 X10*3/uL (0.0-0.4); Eosinophils Percent Auto 10.5 % (0-4); Hematocrit 30.1 % (37.0-47.0); Hemoglobin 10.3 g/dl (12.0-16.0); Imm Gran Abs Auto 0.01 X10*3/uL (0.00-0.03); Imm Gran Pct Auto 0.4 % (0.0-0.4); Lymphocytes Absolute Auto 0.4 X10*3/uL (1.2-4.9); Lymphocytes Percent Auto 16.8 % (20-40); MANUAL DIFF FLAG SCAN; Mean Corpuscular HGB Conc 34.2 g/dl (31.0-35.0); Mean Corpuscular Hemoglobin 34.1 pg (27.0-33.0); Mean Corpuscular Volume 99.7 fL (80.0-98.0); Mean Platelet Volume 10.1 fL (9.4-12.3); Monocytes Absolute Auto 0.1 X10*3/uL (0.1-1.2); Monocytes Percent Auto 3.9 % (2-11); Neutrophils Absolute Auto 1.7 x10*3/uL (2.0-8.3); Neutrophils Percent Auto 67.6 % (45-73); Platelet Count 140 X10*3/uL (160-400); Red Blood Count 3.02 X10*6/uL (4.20-5.50); Red Cell Distribution Width 12.5 % (11.0-16.0); SCAN SMEAR FLAG 1; White Blood Count 2.6 X10*3/uL (4.8-10.8)
[2022-10-11 12:31] LABS: Prothrombin Time 11.4 SEC (10.0-13.1)
[2022-10-11 12:33] VITALS: BMI 26.9
[2022-10-11 12:34] LABS: Anion Gap 11 (12-20); Carbon Dioxide 27 mmol/L (22-29); Chloride 109 mmol/L (96-108); Potassium 3.9 mmol/L (3.3-5.1); Sodium 143 mmol/L (135-145)
[2022-10-11 12:55] LABS: SLIDE REVIEW VERIFIED
--- NOTE | 2022-10-11 15:27 | HO.RADPN ---
RADIOLOGY Narrative Narrative: RLL lung nodule FNA. Two 21 and 22 g specimens. Sent for cytology and micro studies. No pneumothorax.
[2022-10-11 15:40] VITALS: BP 106/48; PULSE 58; RESP 20; TEMP 36.7; O2SAT 98
[2022-10-11 15:55] VITALS: BP 116/40; PULSE 62; RESP 18; O2SAT 96
[2022-10-11 16:15] VITALS: BP 108/45; PULSE 55; RESP 18; O2SAT 96
[2022-10-11 16:45] VITALS: BP 112/43; PULSE 58; RESP 18; O2SAT 97
[2022-10-11 17:15] VITALS: BP 102/45; PULSE 55; RESP 18; O2SAT 98
== END 2022-10-11 17:59 | disposition home or self-care (01) ==
LOC: HO.SSS 11:50
PROVIDERS: Radiology Diagnostic Radiology; PCP Internal Medicine; Visit Provider Internal Medicine
DX: R91.1 Solitary pulmonary nodule (principal); C50.911 Malignant neoplasm of unspecified site of right female breast; Z17.0 Estrogen receptor positive status [ER+]; C79.51 Secondary malignant neoplasm of bone; I10 Essential (primary) hypertension; Z79.811 Long term (current) use of aromatase inhibitors; Z79.899 Other long term (current) drug therapy; Z92.3 Personal history of irradiation
CPT/HCPCS: 10009; 36415; 71045; 80051; 85025; 85610; 85730; 87070; 87073; 87102; 87116; 87205; 87206; 88173; 88305; 88341; 88342; J2250; J3010

== ENCOUNTER 2022-10-22 11:03 | Emergency (ER) | payer MEDICARE, SELFPAY ==
[2022-10-22 11:07] VITALS: BP 136/88; PULSE 73; RESP 16; TEMP 36.3; O2SAT 99; BMI 27.1
--- NOTE | 2022-10-22 11:28 | ED_ITS ---
HPI - General Adult General Chief complaint: Skin/Abscess/Foreign Body Stated complaint: shingles Time Seen by Provider: 10/22/22 11:11 Source: patient Mode of arrival: ambulatory Limitations: no limitations History of Present Illness HPI narrative: Patient is a 72 yo female with a PMH of metastatic breast cancer. She presented with a right sided facial rash with ocular involvement. The rash developed yesterday 10/21, but she developed facial pain 10/20. She saw her primary care on 10/20 for her facial pain. Yesterday when her rash developed, she telephoned her primary who prescribed tramadol. She has not used any other medications or creams for the rash.The rash is painful and itchy. She has no loss of vision. She states her right eye is tearing, but no other discharge. She states she has headache like pain at the site of the rash. She does not endorse any chest pain or SOB. MD complaint: facial rash Onset (ago): day(s) (2) Location: head, face and eyes Severity: moderate Quality: burning Pain Consistency: constant Relieving factors: none Exacerbating factors: none Associated symptoms: rash Treatments prior to arrival: other (tramadol) Related Data Home Medications Medication Instructions Recorded Confirmed amlodipine 5 mg tablet 5 mg PO DAILY 04/13/20 10/20/22 atorvastatin 20 mg tablet 20 mg PO DAILY 04/13/20 10/20/22 multivitamin 1 tab PO DAILY 03/07/21 10/20/22 calcium 600 mg capsule 600 mg PO DAILY 05/09/21 10/20/22 metoprolol succinate 200 mg 200 mg PO BID 05/26/21 10/20/22 tablet,extended release 24 hr denosumab 120 mg/1.7 mL (70 mg/mL) 120 mg subcut Q4W 06/09/21 10/20/22 subcutaneous solution (Xgeva) losartan 50 mg tablet 50 mg PO DAILY 06/24/21 10/20/22 Previous Rx's Medication Instructions Recorded oxycodone 5 mg tablet 5 mg PO Q4H PRN Pain, Moderate 06/09/21 (Pain Scale 4-6 7 days #42 tabs acetaminophen 325 mg tablet 650 mg PO Q6H PRN Pain, Mild (Pain 06/10/21 Scale 1-3) 30 days #240 tabs ribociclib 600 mg/day (200 mg x 3) 600 mg PO DAILY #21 tabs 08/29/22 tablets (Kisqali) letrozole 2.5 mg tablet 2.5 mg PO DAILY #30 tabs 10/02/22 tramadol 50 mg tablet 50 mg PO Q8H PRN Pain #30 tabs 10/21/22 valacyclovir 1 gram tablet 1,000 mg PO TID herpes zoster #20 10/22/22 tabs Allergies Allergy/AdvReac Type Severity Reaction Status Date / Time No Known Allergies Allergy Verified 10/11/22 12:33 [No Known Allergies*] Review of Systems Review of Systems: Yes all other systems are reviewed and are negative [facility] Past Medical History Medical History Anemia Arthritis Breast cancer Cancer, metastatic to bone COVID-19 vaccine series completed Elevated cholesterol HLD (hyperlipidemia) HTN (hypertension) Kidney stones On beta vanessa at home Surgical History History of appendectomy History of lithotripsy History of ovarian resection History of partial mastectomy History of tonsillectomy and adenoidectomy History of total left knee replacement History of total left knee replacement (TKR) History of total right knee replacement (TKR) History of total right knee replacement (TKR) History of umbilical hernia repair History of vulvectomy Hx of section Hx of hernia repair Family History Family History Maternal Aunt Ovarian cancer Father Heart attack Maternal Aunt Stroke Social History Social History Household Members: Spouse Housing: House Are you a primary home health care social worker to a significant other at home: No Do you presently have visiting nurse or other home services: No Alcohol intake: current Alcohol intake frequency: holidays/special occasions only Patient Tobacco Use Status: Former Tobacco user Quit Date: 1985 Tobacco use type: Cigarette Cigarette Packs Per Day: 1 Smoked in Last 30 Days: No Use of substances other than those prescribed or required for medical reasons: No Advance Directives: Yes Advance Directives Information Provided: Yes Advance Directives on File: No service: No 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al status: retired 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: Right Handed Physical Exam ED Vital Signs: Vital Signs - 24 hr 10/22/22 11:07 10/22/22 12:58 Temperature 97.4 F Pulse Rate 73 79 Respiratory Rate 16 18 Blood Pressure 136/88 130/79 Pulse Oximetry 99 98 Oxygen Delivery Method Room Air Room Air BMI result Body Mass Index 27.1 Appearance: Alert. Oriented X3. No acute distress. Head: Vesicular pustule erythematous rash across the ocular branch of the trigeminal nerve. Eyes: Pupils equal, round and reactive to light. Right eye is erythemtous and tearing. Right upper eyelid is red and has a vesicle of the outer lid. Fluoroscene exam without dendritic lesions or uptake. IOP 13 in the left and 14 in the right. ENT: Pharynx normal. No tonsillar swelling or exudate. Neck: Normal inspection. Neck supple. CVS: Normal heart rate and rhythm. Pulses normal. Respiratory: No respiratory distress. Breath sounds normal. Abdomen: Soft and nontender. +BS x4 Skin: Skin warm and dry. Normal skin color. Normal skin turgor. No rashes. Extremities: No lower extremity edema. No joint swelling. Neuro/psych: Oriented X 3. No motor deficit. No sensory deficit. CN II-XII intact. Normal speech and cognition. Eyes Other: Appearance: Alert. Oriented X3. No acute distress. Eyes: Pupils equal, round and reactive to light. EOMI. Erythematous conjunctiva on right eye. No dendritic branches noted on fluorescein exam. Topometric pressure is 13 in the left eye and 14 in the right eye. Skin: Vesicular rash throughout opthalmic branch of trigeminal nerve Neuro/psych: Oriented X 3. Normal speech and cognition. Eyelids: Yes eyelid abnormality Conjunctivae: conjunctival abnormal Corneas: fluorescein used Pupils: Equal, round and reactive pupils present EOM: EOMs intact bilaterally Skin Rashes: rashes noted Neuro Cranial nerves: Yes Equal, round and reactive pupils present Medications Administered Discontinued Medications Generic Name Dose Route Start Last Admin Trade Name Aronq PRN Reason Stop Dose Admin Fluorescein Sodium 1 strip 10/22/22 11:12 10/22/22 12:09 Fluorescein Sodium Strip EYE-RIGHT 10/22/22 11:13 1 strip ONCE ONE Administration Tetracaine HCl 1 drop 10/22/22 11:12 10/22/22 12:10 Tetracaine Hcl/Pf 0.5% Oph Dominga 4 Ml Drops EYE-RIGHT 10/22/22 11:13 1 drop ONCE ONE Administration Tetracaine HCl 1 drop 10/22/22 11:54 10/22/22 12:10 Tetracaine Hcl/Pf 0.5% Oph Dominga 4 Ml Drops EYE-BOTH 10/22/22 11:55 1 drop ONCE ONE Administration Valacyclovir HCl 1,000 mg 10/22/22 11:15 10/22/22 12:10 Valacyclovir Hcl 1,000 Mg Tablet PO 10/22/22 11:16 1,000 mg ONCE ONE Administration Medical Decision Making Medical Decision Making MDM Narrative: 72 yo patient has a vesicular rash across the opthalmic branch of the trigmemi nal nerve consitent with herpes zoster. Due to right eyelid involvement, tearing, and red conjunctiva we used a flurescein stain and tonometry testing to rule out Zoster opthalmicus, all of which were reassuring. Patient will follow up with ophthalmology tomorrow. Patient will also take valycyclovir for 7 days. Rash is less consistent with an infection or eczema. case d/w Dr. Slaughter who will see her in the office tomorrow. does not recommend steroid drops at this time. Differential Diagnosis Differential Diagnoses: The differential diagnosis associated with the presentation includes Herpes Zoster Zoster opthalmicus Cellulitis Eczema Consult Healthcare Provider Management of the patient was discussed with: [facility] [employer] Manager dr. slaughter Independent Historian Clinical information obtained from an independent historian. History obtained from or confirmed by: Spouse External Record Review External record reviewed: Outpatient record and Prior outpatient labs Prescription Management I considered prescription management with: Antiviral Chronic Conditions Patient?s care impacted by: Other (breast cancer) Critical Care Time Critical Care Time Critical Care Time: No Discharge Plan Discharge Clinical Impression: Herpes zoster Patient Disposition: Home, Self-Care Instructions: Shingles (ED) Additional Instructions: You have been diagnosed with Shingles.Please follow up with [facility] to set-up an appointment for tomorrow 10/23. Please start taking Valcyclovir 1000mg every 8 hours. Take the first dose at 8pm tonight. Return to the ED for any loss of vision or severe eye pain. Prescriptions: New valacyclovir 1 gram tablet 1,000 mg PO TID Qty: 20 0RF Rx Instructions: Please take one 1,000 mg tablet 3x a day for 7 days. Take the first dose at 8pm tonight. No Action multivitamin Tablet 1 tab PO DAILY calcium 600 mg Capsule 600 mg PO DAILY losartan 50 mg Tablet 50 mg PO DAILY Kisqali 600 mg/day (200 mg x 3) Tablet 600 mg PO DAILY Qty: 21 3RF Rx Instructions: administer for 21 days; off 7 days per 28-day cycle tramadol 50 mg Tablet 50 mg PO Q8H PRN (Reason: Pain) Qty: 30 0RF metoprolol succinate 200 mg Tablet Extended Release 24 Hr 200 mg PO BID oxycodone 5 mg Tablet 5 mg PO Q4H PRN (Reason: Pain, Moderate (Pain Scale 4-6) 7 Days Qty: 42 0RF Xgeva 120 mg/1.7 mL (70 mg/mL) Solution 120 mg SUBCUT Q4W acetaminophen 325 mg Tablet 650 mg PO Q6H PRN (Reason: Pain, Mild (Pain Scale 1-3)) 30 Days Qty: 240 0RF letrozole 2.5 mg Tablet 2.5 mg PO DAILY Qty: 30 3RF amlodipine 5 mg tablet 5 mg PO DAILY atorvastatin 20 mg tablet 20 mg PO DAILY Referrals: Rashid Slaughter [Physician] - (Facial zoster with upper eyelid involvment) Interventions: ED Discharge Assessment Last Done: 10/22/22 12:59 Discharge Date/Time: 10/22/22 13:01
[2022-10-22] MEDS: Fluorescein Sodium STRIP 1 STRIP EYE-RIGHT (12:09)
[2022-10-22] MEDS: Tetracaine HCl/PF 0.5% Oph Sol 4 ML DROPS 1 DROP EYE-BOTH (12:10)
[2022-10-22] MEDS: Tetracaine HCl/PF 0.5% Oph Sol 4 ML DROPS 1 DROP EYE-RIGHT (12:10)
[2022-10-22] MEDS: valACYclovir HCL 1,000 MG TABLET 1000 MG PO (12:10)
[2022-10-22 12:58] VITALS: BP 130/79; PULSE 79; RESP 18; O2SAT 98
--- NOTE | 2022-10-22 12:58 | PC.NURSE ---
Patient with rash around right eye. Patient denies vision changes. patient calm and coperative at this time.
== END 2022-10-22 13:01 | disposition home or self-care (01) ==
PROVIDERS: Emergency Provider Emergency Medicine; PCP Internal Medicine
DX: B02.9 Zoster without complications (principal); R21 Rash and other nonspecific skin eruption; Z87.891 Personal history of nicotine dependence; Z79.899 Other long term (current) drug therapy
CPT/HCPCS: 99283; 99284

== ENCOUNTER 2023-02-02 15:22 | Outpatient (REF) | payer MEDICARE, SELFPAY ==
--- NOTE | ~2023-02-02 | US_ITS ---
EXAMINATION: US VENOUS ULTRASOUND WITH DOPPLER LOWER EXTREMITY, LEFT CLINICAL INFORMATION: Redness and swelling. Edema. COMPARISON: None available. TECHNIQUE: Ultrasound of the deep veins is performed from the hip to the calf with compression sonography and color and pulse Doppler assessment. Spectral analysis with color-flow imaging is performed. FINDINGS: There is normal venous compression and respiratory variation and augmented flow. The visualized common femoral vein, superficial femoral vein, profunda femoral vein, popliteal vein, and the trifurcation region shows no evidence of deep venous thrombosis. There is no significant popliteal fossa cyst. If the patient's symptoms persist, followup ultrasound in 5 days 7 days might be of value to exclude proximal propagation from a non-visualized calf vein. US/US venous duplex LE LT IMPRESSION: No DVT demonstrated in the left lower extremity.
[2023-02-02] MEDS: Lidocaine HCl 1 % MPF 5 ML VIAL 10 ML SUBCUT (15:31)
== END 2023-02-02 15:23 | disposition home or self-care (01) ==
LOC: HO.US 15:22
PROVIDERS: PCP Internal Medicine; Visit Provider Internal Medicine
DX: C79.51 Secondary malignant neoplasm of bone (principal); R60.0 Localized edema
CPT/HCPCS: 93971

== ENCOUNTER 2023-03-20 09:09 | Outpatient (REF) | payer MEDICARE, SELFPAY ==
--- NOTE | ~2023-03-20 | PE_ITS ---
EXAMINATION: Fluorine-18 FDG PET/CT Scan CLINICAL INDICATION: Subsequent treatment management. Malignant neoplasm of bilateral breast. PROCEDURE: 59 minutes following the intravenous administration of 15.9 mCi of fluorine 18 FDG, images from the base of the skull to the mid thighs were obtained using a combined PET/CT scanner with CT scan based attenuation correction. No oral contrast was administered. No intravenous contrast was administered. Transverse, coronal, sagittal, and volume reconstruction projections were obtained. The patient's blood glucose as determined by a finger stick, was 91 mg/dl immediately prior to injection. Total CT exam dose-length product 599.75 mGy-cm * These CT images were obtained using dose optimization techniques as appropriate, variously including the following: Automated exposure control * Adjustment of mA and/or kV according to patient size (this includes techniques or standardized protocols for targeted exams where dose is matched to indication/reason for exam; i.e. extremities or head) * Use of iterative reconstruction technique COMPARISON: Several prior PET/CT scans are available for comparison, the most recent dated 03/21/2022. A more recent CT scan of the chest, abdomen, and pelvis dated 09/18/2022 is also available for comparison. FINDINGS: (Slice numbers described in this report are numbered superiorly to inferiorly with slice #1 in the head) NECK AND VISUALIZED HEAD: No foci of abnormal FDG activity are noted. The distribution of FDG activity is physiological. There is no cervical lymphadenopathy. Bilateral maxillary sinus mucosal thickening is noted with no associated abnormal FDG activity, similar to prior studies. THORAX: A few small subcentimeter nodular opacities are present, including a left 0.6 cm solid nodule in the inferior lingular segment abutting the interlobar fissure, slice 126/349 and a subpleural 0.4 anterolateral left upper lobe nodule, slice 108/349. Both of these are too small to be characterized on the FDG PET images and are smaller than nodular opacities at these sites on the prior PET CT scan dated 03/25/2021 and are smaller the nodular opacities at these sites on the more recent 09/18/[address] scan. There has also been almost complete resolution of multiple posterolateral right lower lobe pleural based nodular opacities on the 09/18/2022 CT scan, with only some curvilinear scarring or atelectasis now present in this region on the current CT images. There is no abnormal FDG activity at any site in the lungs. There is no pleural or pericardial fluid, or pneumothorax. There is no mediastinal, supraclavicular, or axillary lymphadenopathy. Several metallic surgical clips are present in the upper outer quadrant of the right breast an the right axilla with no associated abnormal FDG activity. ABDOMEN AND PELVIS: There are no foci of abnormal FDG activity in the abdomen or pelvis. There is mild FDG activity throughout the gastrointestinal tract without a suspicious focal component. Scattered hypodense liver and several hypodense renal cysts are present, the larger of the latter markedly FDG photopenic but the smaller are too small to be characterized on the FDG PET images. These are unchanged from prior studies. The liver and kidneys are otherwise unremarkable. The gallbladder, spleen, adrenal glands, and pancreas are unremarkable. There is no retroperitoneal, mesenteric, pelvic or inguinal lymphadenopathy. There is very mild FDG activity present throughout the gastrointestinal tract without a suspicious focal component. There is diverticulosis without evidence of diverticulitis. The hollow viscera are otherwise unremarkable. The pelvic organs are unremarkable. MUSCULOSKELETAL: There are diffuse sclerotic lesions throughout the visualized osseous structures, most prominently in the spine and pelvis, but also involving the sternum and multiple ribs. These are now not associated with abnormal FDG activity. There has not been a significant change in the CT appearance since the most recent PET CT scan dated 03/21/2022 and these continue to be non-FDG avid. On the earliest available PET CT scan dated 03/15/2021, there is extensive abnormal FDG activity present throughout the spine and pelvis with additional FDG avid foci are present in the extremities, most prominently in the right proximal femur. These foci are now show non-FDG avid sclerotic lesions. A stable appearing intramedullary zainab and compression screw are present in the right femur with no associated abnormal FDG activity. VASCULAR: Diffuse vascular calcifications including coronary are noted. Reference SUVmax Levels: Mediastinal Blood Pool: 2.8, Slice 79/267 Liver: 3.4, Slice 109/267 PET/PET CT fusion skull to thigh IMPRESSION: 1. Diffuse sclerotic osseous lesions are unchanged from the most recent prior PET CT scan and continue to show no abnormal FDG activity. These findings are most consistent with healed metastases. 2. A few subcentimeter pulmonary nodules are present, too small to be characterized on the FDG PET images. These are smaller than on prior studies, and there has been almost complete resolution of several nodular opacities previously present posteriorly in the right lower lobe. 3. No additional abnormalities suspicious for metastatic or other malignant lesions are noted. 4. Vascular calcifications including coronary.
== END 2023-03-20 09:10 | disposition home or self-care (01) ==
LOC: HO.PET 09:09
PROVIDERS: PCP Internal Medicine; Visit Provider Internal Medicine
DX: Z13.89 Encounter for screening for other disorder (principal)

== ENCOUNTER → 2023-09-25 12:23 | Outpatient (BNV) | payer MEDICARE, SELFPAY | PROVIDERS: PCP Internal Medicine; Visit Provider Internal Medicine | DX: R94.31 Abnormal electrocardiogram [ECG] [EKG] (principal) | CPT/HCPCS: 93010 ==

== ENCOUNTER 2023-09-25 12:56 | Outpatient (REF) | payer MEDICARE, SELFPAY ==
--- NOTE | ~2023-09-25 | XR_ITS ---
EXAMINATION: XR CHEST CLINICAL INFORMATION: Cough. COMPARISON: 10/11/2022. TECHNIQUE: 3 views of the chest. FINDINGS: There is no gross pneumothorax. Heart size is normal. Surgical clips right axilla. Small left pleural effusion. Lungs are well-inflated. Patchy left lower lung opacities may represent an infectious/inflammatory process. Multiple small right lower lung nodules, better characterized on chest CT scan of 09/18/2022. Bony lesions felt to represent diffuse osseous metastatic disease better characterized on CT scan. Degenerative changes in the thoracic spine. XR/XR chest 2V IMPRESSION: 1. Patchy left lower lung opacities may represent an infectious/inflammatory process. 2. Multiple small right lower lung nodules, better characterized on chest CT scan of 09/18/2022. 3. Bony lesions felt to represent diffuse osseous metastatic disease better characterized on CT scan. This study was presented today October 02, 2023 for interpretation. PSA staff will provide results to referring provider at this time.
== END 2023-09-25 12:57 | disposition home or self-care (01) ==
LOC: HO.XRAY 12:56
PROVIDERS: Visit Provider Internal Medicine
DX: R05.9 Cough, unspecified (principal); C79.51 Secondary malignant neoplasm of bone
CPT/HCPCS: 71046

== ENCOUNTER 2023-10-08 09:05 | Day surgery (SDC) | payer MEDICARE, SELFPAY ==
[2023-10-03 10:58] VITALS: BMI 26.5
--- NOTE | 2023-10-04 15:01 | P.CONAN_ITS ---
Documented by User: Avelina Castro NP 10/04/23 15:02 HPI - Anesthesia Eval Consult details Narrative: 73yo F for Right Cataract Extraction IOL Insertion Medically Cleared No previous cataract on record PMFSH Active Problems Active Problems: All Active Problems Bone metastases (Chronic) Past Medical History Medical History Osteoarthritis Chronic kidney disease Hearing loss Vitreous floaters Strabismus Amblyopia Cataract Insomnia Neoplasm of hip region Tubular adenoma Basal cell carcinoma (BCC) in situ of skin Extraction of tooth needed Zoster conjunctivitis HLD (hyperlipidemia) COVID-19 vaccine series completed Cancer, metastatic to bone Arthritis Anemia Kidney stones On beta vanessa at home Elevated cholesterol HTN (hypertension) Breast cancer Family History Family History Maternal Aunt Ovarian cancer Father Heart attack Maternal Aunt Stroke Family history of problems with anesthesia: No Surgical History Surgical History Hx of eye surgery H/O colonoscopy History of surgery on lower extremity Hx of section History of vulvectomy History of tonsillectomy and adenoidectomy History of lithotripsy History of appendectomy History of umbilical hernia repair History of total left knee replacement History of total right knee replacement (TKR) Hx of hernia repair History of ovarian resection History of partial mastectomy History of Problems with Anesthesia: No Social History Social History Household Members: Spouse Housing: House Are you a primary care director to a significant other at home: No Do you presently have visiting nurse or other home services: No Alcohol intake: current Alcohol intake frequency: holidays/special occasions only Patient Tobacco Use Status: Former Tobacco user Quit Date: 1985 Tobacco use type: Cigarette Cigarette Packs Per Day: 1 Use of substances other than those prescribed or required for medical reasons: No Have you been hit, kicked, punched, or otherwise hurt by someone within the past year? 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 Allergies Allergy/AdvReac Type Severity Reaction Status Date / Time No Known Allergies Allergy Verified 08/27/23 11:16 [No Known Allergies*] Home Medications ?Medication ?Instructions ?Recorded ?Confirmed ?Last Taken ?Type amlodipine 5 mg tablet 5 mg PO DAILY 04/13/20 10/03/23 06/07/21 07:20 History atorvastatin 20 mg tablet 20 mg PO DAILY 04/13/20 10/03/23 Unknown History multivitamin 1 tab PO DAILY 03/07/21 10/03/23 Unknown History metoprolol succinate 200 mg 200 mg PO BID 05/26/21 10/03/23 06/07/21 07:20 History tablet,extended release 24 hr losartan 50 mg tablet 100 mg PO DAILY 06/24/21 10/03/23 Unknown History betamethasone, augmented 0.05 % 1 appl topical DAILY 10/03/23 10/03/23 Unknown History topical cream calcium carbonate 600 mg-vitamin 1 tab PO Q OTHER DAY 10/03/23 10/03/23 Unknown History D3 10 mcg (400 unit) tablet (Calcium 600 + D(3)) denosumab 120 mg/1.7 mL (70 mg/mL) 120 mg subcut Q4W 10/03/23 10/03/23 Unknown History subcutaneous solution denosumab 60 mg/mL subcutaneous 60 mg subcut QMONTH 10/03/23 10/03/23 Unknown History syringe (Prolia) fulvestrant 500 ml Q4W 10/03/23 10/03/23 Unknown History fulvestrant 250 mg/5 mL 500 mg IM QMONTH 10/03/23 10/03/23 Unknown History intramuscular syringe magnesium hydroxide 400 mg/5 mL 400 mg PO DAILY PRN Constipation 10/03/23 10/03/23 Unknown History oral suspension (Milk of Magnesia) melatonin 10/03/23 Unknown History ribociclib 200 mg/day (200 mg x 1) 600 mg PO DAILY 10/03/23 10/03/23 Unknown History tablet (Kisqali) Exam Height,Weight and Vital Signs: Height 5 ft 5 in Weight 72.121 kg Assessment and Plan Assessment Anesthesia Assessment: Chart Reviewed Final Anesthetic Review Family History of Problems with Anesthesia: No History of Problems with Anesthesia: No Documented by User: Sara Monet MD 10/08/23 12:48 [facility] Past Medical History Medical History Osteoarthritis Chronic kidney disease Hearing loss Vitreous floaters Strabismus Amblyopia Cataract Insomnia Neoplasm of hip region Tubular adenoma Basal cell carcinoma (BCC) in situ of skin Extraction of tooth needed Zoster conjunctivitis HLD (hyperlipidemia) COVID-19 vaccine series completed Cancer, metastatic to bone Arthritis Anemia Kidney stones On beta vanessa at home Elevated cholesterol HTN (hypertension) Breast cancer Family History Family History Maternal Aunt Ovarian cancer Father Heart attack Maternal Aunt Stroke Surgical History Surgical History Hx of eye surgery H/O colonoscopy History of surgery on lower extremity Hx of section History of vulvectomy History of tonsillectomy and adenoidectomy History of lithotripsy History of appendectomy History of umbilical hernia repair History of total left knee replacement History of total right knee replacement (TKR) Hx of hernia repair History of ovarian resection History of partial mastectomy Social History Social History Household Members: Spouse Housing: House Are you a primary care director to a significant other at home: No Do you presently have visiting nurse or other home services: No Alcohol intake: current Alcohol intake frequency: holidays/special occasions only Patient Tobacco Use Status: Former Tobacco user Quit Date: 1985 Tobacco use type: Cigarette Cigarette Packs Per Day: 1 Use of substances other than those prescribed or required for medical reasons: No Have you been hit, kicked, punched, or otherwise hurt by someone within the past year? 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 Allergies Allergy/AdvReac Type Severity Reaction Status Date / Time No Known Allergies Allergy Verified 08/27/23 11:16 [No Known Allergies*] Home Medications ?Medication ?Instructions ?Recorded ?Confirmed ?Last Taken ?Type amlodipine 5 mg tablet 5 mg PO DAILY 04/13/20 10/03/23 06/07/21 07:20 History atorvastatin 20 mg tablet 20 mg PO DAILY 04/13/20 10/03/23 Unknown History multivitamin 1 tab PO DAILY 03/07/21 10/03/23 Unknown History metoprolol succinate 200 mg 200 mg PO BID 05/26/21 10/03/23 06/07/21 07:20 History tablet,extended release 24 hr losartan 50 mg tablet 100 mg PO DAILY 06/24/21 10/03/23 Unknown History betamethasone, augmented 0.05 % 1 appl topical DAILY 10/03/23 10/03/23 Unknown History topical cream calcium carbonate 600 mg-vitamin 1 tab PO Q OTHER DAY 10/03/23 10/03/23 Unknown History D3 10 mcg (400 unit) tablet (Calcium 600 + D(3)) denosumab 120 mg/1.7 mL (70 mg/mL) 120 mg subcut Q4W 10/03/23 10/03/23 Unknown History subcutaneous solution denosumab 60 mg/mL subcutaneous 60 mg subcut QMONTH 10/03/23 10/03/23 Unknown History syringe (Prolia) fulvestrant 500 ml Q4W 10/03/23 10/03/23 Unknown History fulvestrant 250 mg/5 mL 500 mg IM QMONTH 10/03/23 10/03/23 Unknown History intramuscular syringe magnesium hydroxide 400 mg/5 mL 400 mg PO DAILY PRN Constipation 10/03/23 10/03/23 Unknown History oral suspension (Milk of Magnesia) melatonin 10/03/23 Unknown History ribociclib 200 mg/day (200 mg x 1) 600 mg PO DAILY 10/03/23 10/03/23 Unknown History tablet (Kisqali) Exam Airway Mallampati Class: II TM Dist: >3cm Neck ROM: Limited Loose/Missing/Broken Teeth: No Heart: RRR Lungs: CTA Assessment and Plan Assessment Anesthesia Assessment: Anesthesia Plan Discussed Final Anesthetic Review NPO: Yes ASA Class: III Final Preanesthetic Review: Meds/Allgs Chart Reviewed, Consent Obtained/Reviewed and Anes Risks/Benef Reviewed Patient Risk: Intermediate Procedure Risk: Low Anesthetic Plan Anesthetic Plan: MAC: Disposition: Standard PACU
[2023-10-08] MEDS: Tetracaine HCl/PF 0.5% Oph Sol 4 ML DROPS 1 DROP EYE-RIGHT (12:40)
[2023-10-08] MEDS: Lactated Ringers 500 ML 50 ML IV (12:41)
[2023-10-08] MEDS: Tropicamide 1 % Ophth Sol 3 ML BTL 1 DROP EYE-RIGHT ×3 (12:41→12:49)
[2023-10-08] MEDS: Phenylephrine HCL 2.5% Oph SoL 2 ML BOTTLE 1 DROP EYE-RIGHT ×3 (12:41→12:49)
[2023-10-08] MEDS: Ketorolac Tromethamine 0.5% Op 10 ML DROPS 1 DROP EYE-RIGHT ×3 (12:41→12:49)
--- NOTE | 2023-10-08 12:42 | PC.NURSE ---
patient has right limb restriction
[2023-10-08 12:43] VITALS: BP 145/57; PULSE 60; RESP 18; TEMP 36.7; O2SAT 99
--- NOTE | 2023-10-08 13:57 | P.PCNO_ITS ---
Ophthalmology Procedure Procedure Date of Service: 10/08/23 Ophthalmology Viscoelastic: Healon Duet Dual Pack Pro Ophthalmology Lenses: IOL Acrysof MP - MA60AC (23) Procedure Notes: PREOPERATIVE DIAGNOSIS: Decreased visual acuity right eye secondary to cataract POSTOPERATIVE DIAGNOSIS: Same PROCEDURE: Right cataract extraction with intraocular lens insertion SURGEON: Rashid Slaughter M.D. ANESTHESIA: Topical/MAC ESTIMATED BLOOD LOSS: None COMPLICATIONS: None After obtaining informed consent, the patient was brought to the operating room suite and placed in the supine position. After adequate sedation per anesthesia, topical drops of Tetracaine were given to the right eye. The eye was then prepped and draped in the usual sterile fashion. The operating room microscope was then positioned over the operative eye and a lid speculum placed. A paracentesis was created. Viscoelastic was then instilled into the anterior chamber. A three plane incision was then created temporally, utilizing a 2.85 mm keratome. Capsulotomy forceps were then utilized to create a circular tear capsulotomy. Hydrodissection and hydrodelineation were carried out until adequate mobilization of the nucleus occurred. Phacoemulsification was then utilized to remove the dense central nucl eus followed by removal of the cortical material utilizing the automated aspiration irrigation unit. Viscoelastic was instilled into the posterior capsular bag followed by placement of a posterior chamber intraocular lens without difficulty. The residual Viscoelastic was then removed utilizing the automated IA machine. The wound was checked and found to be watertight. The patient tolerated the procedure well and the lid speculum was removed. Intracameral injection of Vigamox 0.1 mL followed by a subtenon injection of Kenalog-40 0.2 mL were administered. The patient will be seen in the a.m.
--- NOTE | 2023-10-08 13:57 | MHC.SHP ---
Pre-Procedural Eval Section A - 24 Hr Update-Section A only Date of Service: 10/08/23 The patient is an INPATIENT: No Changes since office visit: No Cold of Flu in the past 2 weeks, No New Medical Problems, No Changes in Medication and No Patient answered all questions The patient has been examined within 24 hours of the surgical procedure. The History & Physical has been completed within 30 days and I have reviewed it.: Yes Section B - Complete if H&P > 30 days Chief Complaint: Age-related nuclear cataract, right eye Allergies: Allergies Allergy/AdvReac Type Severity Reaction Status Date / Time No Known Allergies Allergy Verified 08/27/23 11:16 [No Known Allergies*] Plan Diagnosis/Plan: Unchanged I have reviewed the history and physical and performed a pertinent physical examination on my patient. No changes have occurred unless specified. Time Spent With Patient Time: Total time managing care of this patient today ____ minutes.
[2023-10-08 14:40] VITALS: BP 123/64; PULSE 61; RESP 18; TEMP 36.3; O2SAT 97
== END 2023-10-08 14:42 | disposition home or self-care (01) ==
PROVIDERS: PCP Internal Medicine; Visit Provider Ophthalmology
PROC: (CPT 66985; principal; 2023-10-08 12:10)
DX: H25.11 Age-related nuclear cataract, right eye (principal); H52.4 Presbyopia; H35.09 Other intraretinal microvascular abnormalities; H18.413 Arcus senilis, bilateral; H11.153 Pinguecula, bilateral; C50.919 Malignant neoplasm of unspecified site of unspecified female breast; C79.51 Secondary malignant neoplasm of bone; Z79.811 Long term (current) use of aromatase inhibitors; I10 Essential (primary) hypertension; E78.00 Pure hypercholesterolemia, unspecified; D64.9 Anemia, unspecified; Z87.442 Personal history of urinary calculi; Z85.3 Personal history of malignant neoplasm of breast; Z79.899 Other long term (current) drug therapy; Z87.891 Personal history of nicotine dependence
CPT/HCPCS: 66984; J2250; J3010; J3301; V2630

== ENCOUNTER 2023-10-22 08:17 | Day surgery (SDC) | payer MEDICARE, SELFPAY ==
[2023-10-03 11:07] VITALS: BMI 26.5
--- NOTE | 2023-10-18 15:17 | HO.ANESPROP2 ---
Documented by User: Avelina Castro NP 10/18/23 15:17 HPI - Anesthesia Eval Consult details Narrative: 73yo F for Left Cataract Extraction IOL Insertion s/p Right eye 10/08/23: Fent 49, Midaz 1 PMFSH Active Problems Active Problems: All Active Problems Breast cancer (Acute) Bone metastases (Chronic) Past Medical History Medical History Osteoarthritis Chronic kidney disease Hearing loss Vitreous floaters Strabismus Amblyopia Cataract Insomnia Neoplasm of hip region Tubular adenoma Basal cell carcinoma (BCC) in situ of skin Extraction of tooth needed Zoster conjunctivitis HLD (hyperlipidemia) COVID-19 vaccine series completed Cancer, metastatic to bone Arthritis Anemia Kidney stones On beta vanessa at home Elevated cholesterol HTN (hypertension) Breast cancer Family History Family History Maternal Aunt Ovarian cancer Father Heart attack Maternal Aunt Stroke Family history of problems with anesthesia: No Surgical History Surgical History Hx of eye surgery H/O colonoscopy History of surgery on lower extremity Hx of section History of vulvectomy History of tonsillectomy and adenoidectomy History of lithotripsy History of appendectomy History of umbilical hernia repair History of total left knee replacement History of total right knee replacement (TKR) Hx of hernia repair History of ovarian resection History of partial mastectomy History of Problems with Anesthesia: No Social History Social History Household Members: Spouse Housing: House Are you a primary manager care management to a significant other at home: No Do you presently have visiting nurse or other home services: No Alcohol intake: current Alcohol intake frequency: holidays/special occasions only Patient Tobacco Use Status: Former Tobacco user Quit Date: 1985 Tobacco use type: Cigarette Cigarette Packs Per Day: 1 Use of substances other than those prescribed or required for medical reasons: No Advance Directives: No Advance Directives Information Provided: Yes Advance Directives on File: No Patient : No : No service: No 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al status: retired 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: Right 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 Allergies Allergy/AdvReac Type Severity Reaction Status Date / Time No Known Allergies Allergy Verified 08/27/23 11:16 [No Known Allergies*] Home Medications ?Medication ?Instructions ?Recorded ?Confirmed ?Last Taken ?Type amlodipine 5 mg tablet 5 mg PO DAILY 04/13/20 10/03/23 06/07/21 07:20 History atorvastatin 20 mg tablet 20 mg PO DAILY 04/13/20 10/03/23 Unknown History multivitamin 1 tab PO DAILY 03/07/21 10/03/23 Unknown History metoprolol succinate 200 mg 200 mg PO BID 05/26/21 10/03/23 06/07/21 07:20 History tablet,extended release 24 hr losartan 50 mg tablet 100 mg PO DAILY 06/24/21 10/03/23 Unknown History betamethasone, augmented 0.05 % 1 appl topical DAILY 10/03/23 10/03/23 Unknown History topical cream calcium carbonate 600 mg-vitamin 1 tab PO Q OTHER DAY 10/03/23 10/03/23 Unknown History D3 10 mcg (400 unit) tablet (Calcium 600 + D(3)) denosumab 120 mg/1.7 mL (70 mg/mL) 120 mg subcut Q4W 10/03/23 10/03/23 Unknown History subcutaneous solution denosumab 60 mg/mL subcutaneous 60 mg subcut QMONTH 10/03/23 10/03/23 Unknown History syringe (Prolia) fulvestrant 500 ml Q4W 10/03/23 10/03/23 Unknown History fulvestrant 250 mg/5 mL 500 mg IM QMONTH 10/03/23 10/03/23 Unknown History intramuscular syringe magnesium hydroxide 400 mg/5 mL 400 mg PO DAILY PRN Constipation 10/03/23 10/03/23 Unknown History oral suspension (Milk of Magnesia) melatonin 10/03/23 Unknown History ribociclib 200 mg/day (200 mg x 1) 600 mg PO DAILY 10/03/23 10/03/23 Unknown History tablet (Kisqali) Exam Height,Weight and Vital Signs: Height 5 ft 5 in Weight 72.121 kg Assessment and Plan Final Anesthetic Review Family History of Problems with Anesthesia: No History of Problems with Anesthesia: No Documented by User: Sara Monet MD 10/22/23 08:53 [facility] Past Medical History Medical History Osteoarthritis Chronic kidney disease Hearing loss Vitreous floaters Strabismus Amblyopia Cataract Insomnia Neoplasm of hip region Tubular adenoma Basal cell carcinoma (BCC) in situ of skin Extraction of tooth needed Zoster conjunctivitis HLD (hyperlipidemia) COVID-19 vaccine series completed Cancer, metastatic to bone Arthritis Anemia Kidney stones On beta vanessa at home Elevated cholesterol HTN (hypertension) Breast cancer Family History Family History Maternal Aunt Ovarian cancer Father Heart attack Maternal Aunt Stroke Surgical History Surgical History Hx of eye surgery H/O colonoscopy History of surgery on lower extremity Hx of section History of vulvectomy History of tonsillectomy and adenoidectomy History of lithotripsy History of appendectomy History of umbilical hernia repair History of total left knee replacement History of total right knee replacement (TKR) Hx of hernia repair History of ovarian resection History of partial mastectomy Social History Social History Household Members: Spouse Housing: House Are you a primary manager care management to a significant other at home: No Do you presently have visiting nurse or other home services: No Alcohol intake: current Alcohol intake frequency: holidays/special occasions only Patient Tobacco Use Status: Former Tobacco user Quit Date: 1985 Tobacco use type: Cigarette Cigarette Packs Per Day: 1 Use of substances other than those prescribed or required for medical reasons: No Advance Directives: No Advance Directives Information Provided: Yes Advance Directives on File: No Patient : No : No service: No 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al status: retired 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: Right 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 Allergies Allergy/AdvReac Type Severity Reaction Status Date / Time No Known Allergies Allergy Verified 08/27/23 11:16 [No Known Allergies*] Home Medications ?Medication ?Instructions ?Recorded ?Confirmed ?Last Taken ?Type amlodipine 5 mg tablet 5 mg PO DAILY 04/13/20 10/03/23 06/07/21 07:20 History atorvastatin 20 mg tablet 20 mg PO DAILY 04/13/20 10/03/23 Unknown History multivitamin 1 tab PO DAILY 03/07/21 10/03/23 Unknown History metoprolol succinate 200 mg 200 mg PO BID 05/26/21 10/03/23 06/07/21 07:20 History tablet,extended release 24 hr losartan 50 mg tablet 100 mg PO DAILY 06/24/21 10/03/23 Unknown History betamethasone, augmented 0.05 % 1 appl topical DAILY 10/03/23 10/03/23 Unknown History topical cream calcium carbonate 600 mg-vitamin 1 tab PO Q OTHER DAY 10/03/23 10/03/23 Unknown History D3 10 mcg (400 unit) tablet (Calcium 600 + D(3)) denosumab 120 mg/1.7 mL (70 mg/mL) 120 mg subcut Q4W 10/03/23 10/03/23 Unknown History subcutaneous solution denosumab 60 mg/mL subcutaneous 60 mg subcut QMONTH 10/03/23 10/03/23 Unknown History syringe (Prolia) fulvestrant 500 ml Q4W 10/03/23 10/03/23 Unknown History fulvestrant 250 mg/5 mL 500 mg IM QMONTH 10/03/23 10/03/23 Unknown History intramuscular syringe magnesium hydroxide 400 mg/5 mL 400 mg PO DAILY PRN Constipation 10/03/23 10/03/23 Unknown History oral suspension (Milk of Magnesia) melatonin 10/03/23 Unknown History ribociclib 200 mg/day (200 mg x 1) 600 mg PO DAILY 10/03/23 10/03/23 Unknown History tablet (Kisqali) Exam Airway Mallampati Class: III TM Dist: >3cm Neck ROM: Limited Loose/Missing/Broken Teeth: No Heart: RRR Lungs: CTA Assessment and Plan Assessment Anesthesia Assessment: Anesthesia Plan Discussed and Chart Reviewed Final Anesthetic Review NPO: Yes ASA Class: III Final Preanesthetic Review: Meds/Allgs Chart Reviewed, Consent Obtained/Reviewed and Anes Risks/Benef Reviewed Patient Risk: Intermediate Procedure Risk: Low Anesthetic Plan Anesthetic Plan: MAC: Disposition: Standard PACU
[2023-10-22 08:54] VITALS: BP 151/61; PULSE 52; RESP 16; TEMP 36.5; O2SAT 99
[2023-10-22] MEDS: Tetracaine HCl/PF 0.5% Oph Sol 4 ML DROPS 1 DROP EYE-LEFT (08:58)
[2023-10-22] MEDS: Cyclopentolate 1 % Ophth Sol 2 ML DRPBTL 1 DROP EYE-LEFT ×3 (09:01→09:09)
[2023-10-22] MEDS: Tropicamide 1 % Ophth Sol 3 ML BTL 1 DROP EYE-LEFT ×3 (09:02→09:10)
[2023-10-22] MEDS: Lactated Ringers 500 ML 50 ML IV (09:03)
[2023-10-22] MEDS: Ketorolac Tromethamine 0.5% Op 10 ML DROPS 1 DROP EYE-LEFT ×3 (09:03→09:11)
[2023-10-22] MEDS: Phenylephrine HCL 2.5% Oph SoL 2 ML BOTTLE 1 DROP EYE-LEFT ×3 (09:04→09:12)
--- NOTE | 2023-10-22 09:34 | MHC.SHP ---
Pre-Procedural Eval Section A - 24 Hr Update-Section A only Date of Service: 10/22/23 The patient is an INPATIENT: No Changes since office visit: No Cold of Flu in the past 2 weeks, No New Medical Problems, No Changes in Medication and No Patient answered all questions The patient has been examined within 24 hours of the surgical procedure. The History & Physical has been completed within 30 days and I have reviewed it.: Yes Section B - Complete if H&P > 30 days Chief Complaint: Age-related nuclear cataract, left eye Allergies: Allergies Allergy/AdvReac Type Severity Reaction Status Date / Time No Known Allergies Allergy Verified 10/22/23 09:05 [No Known Allergies*] Plan Diagnosis/Plan: Unchanged I have reviewed the history and physical and performed a pertinent physical examination on my patient. No changes have occurred unless specified. Time Spent With Patient Time: Total time managing care of this patient today ____ minutes.
--- NOTE | 2023-10-22 09:35 | HO.PNOPHT ---
Ophthalmology Procedure Procedure Date of Service: 10/22/23 Ophthalmology Viscoelastic: Healon Duet Dual Pack Pro Ophthalmology Lenses: IOL Acrysof MP - MA60AC (25.5) Procedure Notes: PREOPERATIVE DIAGNOSIS: Decreased visual acuity left eye secondary to cataract POSTOPERATIVE DIAGNOSIS: Same PROCEDURE: Left cataract extraction with intraocular lens insertion SURGEON: Rashid Slaughter M.D. ANESTHESIA: Topical/MAC ESTIMATED BLOOD LOSS: None COMPLICATIONS: None After obtaining informed consent, the patient was brought to the operation room suite and placed in the supine position. After adequate sedation per anesthesia, topical drops of Tetracaine were given to the left eye. The eye was then prepped and draped in the usual sterile fashion. The operating room microscope was then positioned over the operative eye and a lid speculum placed. A paracentesis was created. Viscoelastic was then instilled into the anterior chamber. A three plane incision was then created temporally, utilizing a 2.85 mm keratome. Capsulotomy forceps were then utilized to create a circular tear capsulotomy. Hydrodissection and hydrodelineation were carried out until adequate mobilization of the nucleus occurred. Phacoemulsification was then utilized to remove the dense central nucleus followed by removal of the cortical material utilizing the automated aspiration irrigation unit. Viscoat elastic was instilled into the posterior capsular bag followed by placement of a posterior chamber intraocular lens without difficulty. The residual Viscoat elastic was then removed utilizing the automated IA machine. The wound was check and found to be watertight. The patient tolerated the procedure well and the lid speculum was removed. Intracameral injection of Vigamox 0.1 mL followed by a subtenon injection of Kenalog-40 0.2 mL were administered. The patient will be seen in the a.m.
[2023-10-22 10:11] VITALS: BP 152/76; PULSE 47; RESP 18; TEMP 36.6; O2SAT 96
== END 2023-10-22 10:24 | disposition home or self-care (01) ==
PROVIDERS: PCP Internal Medicine; Visit Provider Ophthalmology
PROC: (CPT 66985; principal; 2023-10-22 09:40)
DX: H25.12 Age-related nuclear cataract, left eye (principal); H52.4 Presbyopia; H35.09 Other intraretinal microvascular abnormalities; H18.413 Arcus senilis, bilateral; H11.153 Pinguecula, bilateral; I10 Essential (primary) hypertension; E78.00 Pure hypercholesterolemia, unspecified; D64.9 Anemia, unspecified; C50.919 Malignant neoplasm of unspecified site of unspecified female breast; C79.51 Secondary malignant neoplasm of bone; Z79.811 Long term (current) use of aromatase inhibitors; Z79.899 Other long term (current) drug therapy; Z87.891 Personal history of nicotine dependence
CPT/HCPCS: 66984; J2405; J2704; J3010; J3301; V2630

== ENCOUNTER 2024-06-18 12:50 | Outpatient (REF) | payer MEDICARE, SELFPAY ==
--- NOTE | ~2024-06-18 | CT_ITS ---
EXAMINATION: CT ABDOMEN AND PELVIS WITHOUT CONTRAST CLINICAL INFORMATION: Assessment of response to treatment. Breast cancer. COMPARISON: CT dated September 18, 2022 TECHNIQUE: Multidetector volumetric imaging was performed from the superior aspect of the liver through the pubic symphysis. Sagittal and coronal reformatted images were obtained on the technologist's workstation. This CT examination was performed using dose optimization techniques as appropriate, variously including the following: *Automated exposure control *Adjustment of mA and/or kV according to patient size (this includes techniques or standardized protocols for targeted exams where dose is matched to indication/reason for exam; i.e. extremities or head) *Use of iterative reconstruction technique. Total dose: 669 mGy-cm FINDINGS: Limited examination of the intra-abdominal organs and vascular structures due to lack of IV contrast. LUNG BASES: Patchy pulmonary attenuation, right lung bases, lingula and right middle lobe. Pulmonary nodules, scattered more conspicuous in the lingula and lung bases. LIVER, GALLBLADDER, AND BILIARY TREE: Liver measures 19 cm. Multifocal less than 3 cm hypodense lesions. No pericholecystic fluid collection or gallbladder wall thickening. No intrahepatic or extrahepatic biliary ductal dilatation. PANCREAS: No peripancreatic fluid collection. No main pancreatic ductal dilatation. Punctate calcifications in the body and tail. SPLEEN: 8 cm. ADRENAL GLANDS: No nodular lesions. KIDNEYS AND URETERS: No hydronephrosis or nephrolithiasis. Multifocal round and lobulated hypodense lesions throughout the renal parenchyma, the largest measures 2.8 cm in the upper pole right kidney. BLADDER: Fluid-filled nearly collapsed. GASTROINTESTINAL TRACT: Numerous diverticula throughout the large intestine. Abundant stool. No intestinal obstruction pattern. No ascites. No pneumoperitoneum. No pneumatosis intestinalis. I do not see the appendix. ABDOMINAL WALL: No gross hernia. Calcification in the periumbilical properitoneal fat. LYMPH NODES: Nonspecific mildly prominent lymph nodes, mesenteric and retroperitoneal. VASCULAR: No aneurysm, abdominal aorta. Calcified plaques throughout the abdominal aorta wall and iliac arteries. Calcified plaques in the mesenteric arteries. PELVIC VISCERA: Inadequate evaluation. OSSEOUS STRUCTURES: Numerous and different sizes sclerotic lesions throughout the axial skeleton bony pelvis and included proximal appendicular skeleton. Metallic hardware in the right femoral head neck and proximal diaphysis an intramedullary region and right femur. CT/CT abdomen pelvis wo IV con IMPRESSION: Numerous osseous metastasis axial skeleton, bony pelvis and included appendicular skeleton. Multiple pulmonary nodules. Stable appearance of the peritoneal and retroperitoneal organs and vascular structures. Fleischner guidelines were followed. Electronically signed by: Andres Renee MD 06/18/2024 03:03 PM HALLIE BEAN
--- NOTE | ~2024-06-18 | CT_ITS ---
EXAMINATION: CT CHEST WITHOUT IV CONTRAST INDICATION: Assess response to treatment COMPARISON: Comparison is made with the prior examination dated 09/18/2022. TECHNIQUE: Helical CT scan of the chest was performed without intravenous contrast. Coronal and sagittal reformatted images were generated and reviewed. This CT exam was performed with one or more of the following dose reduction techniques: automated exposure control, adjustment of the mA and/or kV according to patient size, use of iterative reconstruction technique. DLP: 669 mGy-cm CHEST: THYROID: Again seen is a 2.4 cm nodule at the posterior aspect of the left thyroid lobe. LUNGS:There is a stable 3 mm nodule in the right middle lobe (image 34). The previously seen multiple nodules in the right lower lobe have resolved. There is minimal subsegmental atelectasis versus scarring in the lingula. No new pulmonary nodules are identified. MEDIASTINUM: There is no mediastinal lymphadenopathy. LUIS ENRIQUE: Evaluation of the hilar regions is limited by lack of intravenous contrast material. CARDIOVASCULATURE: The heart is enlarged. There is no pericardial effusion. The thoracic aorta is normal in caliber. DEGREE OF CORONARY CALCIFICATION: moderate PLEURA: There is no pleural effusion. No pneumothorax. MAIN AIRWAYS: The mainstem bronchi and proximal branches are patent. AXILLA: There is no axillary lymphadenopathy. BONES AND SOFT TISSUES: There is skin thickening in the right breast likely related to prior radiation therapy. Postsurgical changes are noted in the upper outer quadrant. Again seen is diffuse sclerotic osseous metastatic disease. UPPER ABDOMEN: Again noted is a 1.7 cm cyst in the left lobe of the liver. Additional smaller cysts are also seen. The visualized portions of the spleen and adrenals have an unremarkable appearance. CT/CT chest wo IV con IMPRESSION: 1. Stable 3 mm right middle lobe nodule. The previously seen multiple right lower lobe nodules are no longer identified. 2. Diffuse sclerotic osseous metastatic disease. Electronically signed by: Dawit Hutchins MD 06/18/2024 02:27 PM [facility]
--- OUTSIDE RECORDS SUMMARY | 2024-06-18 12:52 | XMS_ITS | Data Portability ---
Author Organization [facility], Main Office Address [address] [facility] [address] [place] [address] Care Team Providers Care Blocking Machine Operator Name Role Phone RENNY CHRISTIE Primary Care Provider TENZIN MORALES Orthopedic Surgeon [phone] HE ABEBE System Safety Engineer FROYLAN SINGLETARY Medical Oncologist [phone] WARREN YOUNG Subway Conductor BENI SLAUGHTER Mid Level Java Developer RENNY RENE General Surgeon [phone] GRACE DUBON Orthopedic Physician LUZ MARIA CARABALLO Digital Media Associate [phone] JEVON CELAYA Surgical Oncologist [phone] TACO ERNST Referring Provider [phone] Assessment No assessment recorded. Plan of Treatment Reminders Order Date Submit Date Provider Last Modified By Organization Details Last Modified Time Details Appointments [email or web address] 2024 02:20P M Renny reilly MD Not available Not available Not available Lab lipid panel, serum 2022 023 Not available 08/15/2023 10:07:08 lipid panel, serum 2023 024 CHAYITO Not available 08/01/2023 17:13:02 Referral physical therapist referral - At risk for falling 2021 022 CHAYITO Not available 04/28/2022 09:17:27 Procedures cerumen removal (PROC) 2023 024 CHAYITO In-Office Order, Internal Use Only DO Not Attach Compendium DO Not Attach Compendium, Do Not Delete/merge, [id number] 09/27/2023 16:31:14 Surgeries None recorded. Imaging None recorded. Medication Orders None recorded. Patient TargetsNo targets recorded. Patient Instructions Encounter Date Encounter Id Patient Instructions Last Modified By Organization Details Last Modified Time 02/01/2022 [id number] medicare preventive services guide (female 74yrs and under) [email or web address] Not available 02/01/2022 10:49:03 01/17/2023 [id number] high cholesterol: care instructions [email or web address] Not available 01/17/2023 12:45:39 07/31/2023 [id number] medicines to avoid with kidney disease: care instructions [email or web address] Not available 08/01/2023 08:23:55 high cholesterol: care instructions [email or web address] Not available 07/31/2023 11:53:25 preventing falls: care instructions [email or web address] Not available 07/31/2023 11:52:40 medicare preventive services guide (female 74yrs and under) [email or web address] Not available 07/31/2023 11:52:40 09/27/2023 [id number] To call or return for worsening or concerns [email or web address] Not available 09/27/2023 11:48:26 01/16/2024 [id number] medicines to avoid with kidney disease: care instructions [email or web address] Not available 01/16/2024 11:47:54 Reason for Referral Physical Therapist Referral for Adult health examination At risk for falling Referring Physician: Renny Christie, Family Medicine, Encounter Date: 02/01/2022 Results Created Date Observation Date Name Description Value Unit Range Abnormal Flag Note LastModifiedBy Organization Detail LastModifiedTime 01/05/2001/04/2023 CBC w/ auto diff WBC 2.4 Not Available [facility] (Medical Records) [address] [place] [address], [address], 01/18/2023 07:52:43 01/05/20 23 01/04/2023 CBC w/ auto diff RBC 2.52 Not Available [facility] (Medical Records) [address] [place] [address], [address], 01/18/2023 07:52:43 01/05/20 23 01/04/2023 CBC w/ auto diff HGB 9.2 Not Available [facility] (Medical Records) [address] [place], [address], 01/18/2023 07:52:43 01/05/20 23 01/04/2023 CBC w/ auto diff HCT 26.2 Not Available [facility] (Medical Records) [address] [place] [address], [address], 01/18/2023 07:52:43 01/05/20 23 01/04/2023 CBC w/ auto diff plt 169 Not Available [facility] (Medical Records) [address] [place] [address], [address], 01/18/2023 07:52:43 01/05/20 23 01/04/2023 CBC w/ auto diff WBC 2.4 Not Available [facility] (Medical Records) [address] [place] [address], [address], 01/18/2023 07:49:01 01/05/20 23 01/04/2023 CBC w/ auto diff RBC 2.52 Not Available [facility] (Medical Records) [address] [place] [address], [address], 01/18/2023 07:49:01 01/05/20 23 01/04/2023 CBC w/ auto diff HGB 9.2 Not Available [facility] (Medical Records) [address] [place] [address], [address], 01/18/2023 07:49:01 01/05/20 23 01/04/2023 CBC w/ auto diff HCT 26.2 Not Available [facility] (Medical Records) [address] [place] [address], [address], 01/18/2023 07:49:01 01/05/20 23 01/04/2023 CBC w/ auto diff plt 169 Not Available [facility] (Medical Records) [address] [facility] [place], [address], 01/18/2023 07:49:01 08/01/19 24 08/01/2023 LIPID PANEL cholesterol, total 173 mg/dL (<200) Not Available [facility] [address] [place], [address], 08/01/2023 17:13:02 08/01/19 24 08/01/2023 LIPID PANEL triglyceride 100 mg/dL (<150) Not Available [facility] [address] [place], [address], 08/01/2023 17:13:02 08/01/19 24 08/01/2023 LIPID PANEL HDL chol 70 mg/dL (>39) Not Available [facility] [address] [place], [address], 08/01/2023 17:13:02 08/01/19 24 08/01/2023 LIPID PANEL LDL cholesterol, calculated 83 mg/dL (0-130 ) Not Available [facility] [address] [place], [address], 08/01/2023 17:13:02 08/01/19 24 08/01/2023 LIPID PANEL non HDL cholesterol (calc) 103 mg/dL (<160) Not Available [facility] [address] [place], [address], 08/01/2023 17:13:02 09/27/19 24 09/27/2023 cerum en remov al (PROC ) done YW/LW Not Available In-Office Order Internal Use Only DO Not Attach Compendium DO Not Attach Compendium, Do Not Delete/merge, [id number] 09/27/2023 11:51:36 03/22/2003/20/2023 PET-C T, skull base to mid-t high scan No observ ation record ed. [email or web address] [facility] (Medical Records) [address] [facility], [place], [address], 03/26/2023 13:38:05 Result Notes None recorded. Problems Name Problem SNOMED Code Status Onset Date Resolution Date Notes Provider Name and Address Organization Details Recorded Time Anemia 931009936 Active 2013 Probable ACD secondar y to OA/infla mmation. Renny Christie MD [address], [place], [address] , [facility] 0 10:12:38 Primary malignan t neoplasm of labia majora 94940110 Completed 201312/23/2013 RECORDED 10/01/19 14 8:14AM BY LESA HOGAN ON/TRINIDAD Christie MD [address] [facility] [address], [place], [address] , [facility] 6 14:15:17 Knee pain Completed 201212/23/2013 IMPRESSI ON: HAS A F/U WITH DR DHALIWAL AND MAY BE GETTING INJECTIO NS.; RECORDED 01/07/20 13 10:22AM BY LESA HOGAN ON/TRINIDAD Christie MD [address] [facility] [address], [place], [address] , [facility] 6 14:15:17 Screenin g for malignan t neoplasm of breast Completed 201212/23/2013 RECORDED 06/18/19 13 8:11AM BY LESA HOGAN ON/TRINIDAD Christie MD [address], [place], [address] , [facility] 6 14:15:17 Constipa tion 93283306 Completed 201212/23/2013 IMPRESSI ON: ADVISED TO TAKE OTC SENOKOT; RECORDED 06/18/19 13 8:11AM BY LESA HOGAN/TRINIDAD Christie MD [address] [facility] [address], [place], [address] , [facility] 6 14:15:17 Cough 01524226 Completed 201212/23/2013 IMPRESSI ON: SECONDAR Y TO ALLERGIC RHINITIS ; RECORDED 06/18/19 13 8:11AM BY JAIME CRUZ I, SHAKAATI ON/ADDEN DUM Tish Chang [facility] [address] [facility] [address], [place], [address] , [facility] 4 11:48:45 Enthesop athy of knee 52069037 Completed 201212/23/2013 RECORDED 06/18/19 13 8:11AM BY JAIME CRUZ I, ANNOTATI ON/ADDEN DUM Renny Christie MD [address] [facility] [address], [place], [address] , [facility] 6 14:15:17 Influenz a vaccine needed [id number] 06 Completed 200912/23/2013 RECORDED 05/25/20 10 2:08PM BY JAIME CRUZ I, HISTORIC AL SUMMARY Renny Christie MD [address] [facility] [address], [place], [address] , [facility] 6 14:15:17 General examinat ion of patient Completed 200712/23/2013 RECORDED 02/02/20 08 10:51AM BY RENNY ELIZABETH MD, ANNOTATI ON/ADDEN DUM Renny Christie MD [address] [facility] [address], [place], [address] , [facility] 6 14:15:17 Hemorrho ids [id number] Completed 201112/23/2013 RECORDED 12/18/19 12 1:34PM BY RENNY ELIZABETH MD, ANNOTATI ON/ADDEN DUM Renny Christie MD [address] [facility] [address], [place], [address] , [facility] 6 14:15:17 History of malignan t neoplasm of skin excludin g melanoma 196541527 Active 2013 Basal cell carcinom a; followed by Dr Milton Christie MD [address], [place], [address] , [facility] 9 11:15:58 History of malignan t neoplasm of breast 652002314 Active 2007 Right lumpecto my by Dr Gabi maloney. Also radiatio n and 5 years of hormonal therapy. Renny Christie MD [address] [facility] [address], [place], [address] , [facility] 2 07:39:52 Pure hypercho lesterol emia 177262837 Completed 201311/13/2016 working on diet Renny Christie MD [address], [place], [address] , [facility] 7 10:48:27 Hypokale michael [id number] Completed 201112/23/2013 RECORDED 12/18/19 12 1:34PM BY RENNY ELIZABETH MD, ANNOTATI ON/TRINIDAD Christie MD [address] [facility] [address], [place], [address] , [facility] 6 14:15:17 Laborato ry procedur e performe d 401219143 Completed 201212/23/2013 RECORDED 01/22/20 13 9:40AM BY JAIME CRUZ I, ANNOTATI ON/TRINIDAD Christie MD [address] [facility] [address], [place], [address] , 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 FOLLOWED BY DR SINGLETARY. ; RECORDED 10/01/19 14 8:14AM BY JAIME CRUZ I, ANNOTATI ON/ADDEN DUM Renny Christie MD [address] [address], [facility] [place], [address] , [facility] 6 14:15:17 Osteoart hritis of knee 545024503 Active [address] Young and receives injectio ns. Seen by ortho August 2018 and godfrey ramos replace ent. Tana baker, [facility] 9 10:43:48 Tobacco user [id number] Completed 201304/27/2014 RECORDED 10/01/19 14 11:07AM BY JAIME CURZ I, OFFICE VISIT Renny Christie MD [address] [address], [place], [address] , [facility] 6 14:15:17 History of clinical finding in subject 930159139 Completed 201304/27/2014 RECORDED 10/01/19 14 11:07AM BY JAIME CRUZ I, OFFICE VISIT Renny Christie MD [address] [address], [place], [address] , [facility] 6 14:15:17 Pre-surg godfrey evaluati on Completed 201312/23/2013 RECORDED 10/01/19 14 8:13AM BY JAIME CRUZ I, ANNOTATI ON/ADDEN DUM Renny Christie MD [address] [address], [place], [address] , [facility] 6 14:15:17 Joint effusion of ankle AND/OR foot 7621223 Completed 201112/23/2013 RECORDED 12/18/19 12 1:36PM BY RENNY ELIZABETH MD, ANNOTATI ON/ADDEN DUM Renny Christie MD [address] [facility] [address], [place], [address] , [facility] 6 14:15:17 Adult health examinat ion Completed 201304/27/2014 RECORDED 10/01/19 14 11:06AM BY JAIME CRUZ I, OFFICE VISIT Renny Christie MD [address] [facility] [address], [place], [address] , [facility] 6 14:15:17 Adult health examinat ion Completed 201112/23/2013 RECORDED 12/18/19 12 1:35PM BY RENNY ELIZABETH MD, ANNOTATI ON/ADD DUM Renny Christie MD [address] [facility] [address], [place], [address] , [facility] 6 14:15:17 Screenin g for malignan t neoplasm of colon Completed 201304/27/2014 RECORDED 10/08/19 14 1:36PM BY CHEYENNE VALENTE, HISTORIC AL SUMMARY Renny Christie MD [address] [facility] [address], [place], [address] , [facility] 6 14:15:17 Screenin g for malignan t neoplasm of colon Completed 200812/23/2013 RECORDED 06/18/19 09 5:06PM BY RENNY ELIZABETH MD, ANNOTATI ON/ADD DUM Renny Christie MD [address] [facility] [address], [place], [address] , [facility] 6 14:15:17 Administ ration of diphther ia and tetanus vaccine Completed 201212/23/2013 RECORDED 01/07/20 13 10:22AM BY JAIME CRUZ I, ANNOTATI ON/ADDEN DUM Renny Christie MD [address] [facility] [address], [place], [address] , [facility] 6 14:15:17 Primary malignan t neoplasm of labia majora 28606737 Completed 201301/19/2014 RECORDED 10/01/19 14 8:14AM BY LESA HOGAN ON/TRINIDAD Christie MD [address] [facility] [address], [place], [address] , [facility] 6 14:15:17 Knee pain Completed 201201/19/2014 IMPRESSI ON: HAS A F/U WITH DR DHALIWAL AND MAY BE GETTING INJECTIO NS.; RECORDED 01/07/20 13 10:22AM BY LESA HOGAN ON/TRINIDAD Christie MD [address] [facility] [address], [place], [address] , [facility] 6 14:15:17 Screenin g for malignan t neoplasm of breast Completed 201201/19/2014 RECORDED 06/18/19 13 8:11AM BY LESA HOGAN ON/TRINIDAD Christie MD [address] [facility] [address], [place], [address] , [facility] 6 14:15:17 Constipa tion 21677342 Completed 201201/19/2014 IMPRESSI ON: ADVISED TO TAKE OTC SENOKOT; RECORDED 06/18/19 13 8:11AM BY LESA HOGAN ON/TRINIDAD Christie MD [address] [facility] [address], [place], [address] , [facility] 6 14:15:17 Cough 88786043 Completed 201201/19/2014 IMPRESSI ON: SECONDAR Y TO ALLERGIC RHINITIS ; RECORDED 06/18/19 13 8:11AM BY LESA HOGAN/TRINIDAD Chang [facility] [address], [place], [address] , [facility] 4 11:48:45 Enthesop athy of knee 39030728 Completed 201201/19/2014 RECORDED 06/18/19 13 8:11AM BY JAIME CRUZ I, ANNOTATI ON/ADDEN DUM Renny Christie MD [address] [facility] [address], [place], [address] , [facility] 6 14:15:17 Influenz a vaccine needed 43194265182 06 Completed 200901/19/2014 RECORDED 05/25/20 10 2:08PM BY JAIME CRUZ I, HISTORIC AL SUMMARY Renny Christie MD [address] [facility] [address], [place], [address] , [facility] 6 14:15:17 General examinat ion of patient Completed 200701/19/2014 RECORDED 02/02/20 08 10:51AM BY RENNY ELIZABETH MD, ANNOTATI ON/ADDEN DUM Renny Christie MD [address] [facility] [address], [place], [address] , [facility] 6 14:15:17 Hemorrho ids [id number] Completed 201101/19/2014 RECORDED 12/18/19 12 1:34PM BY RENNY ELIZABETH MD, ANNOTATI ON/ADDEN DUM Renny Christie MD [address], [place], [address] , [facility] 6 14:15:17 Hypokale michael [id number] Completed 201101/19/2014 RECORDED 12/18/19 12 1:34PM BY RENNY ELIZABETH MD, ANNOTATI ON/ADDEN DUM Renny Christie MD [address] [facility] [address], [place], [address] , [facility] 6 14:15:17 Laborato ry procedur e performe d 464472878 Completed 201201/19/2014 RECORDED 01/22/20 13 9:40AM BY LESA HOGAN ON/TRINIDAD Christie MD [address] [facility] [address], [place], [address] , 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 FOLLOWED BY DR SINGLETARY. ; RECORDED 10/01/19 14 8:14AM BY LESA HOGAN ON/TRINIDAD Christie MD [address] [facility] [address], [place], [address] , [facility] 6 14:15:17 Pre-surg godfrey evaluati on Completed 201301/19/2014 RECORDED 10/01/19 14 8:13AM BY LESA HOGAN ON/TRINIDAD Christie MD [address] [address], [place], [address] , [facility] 6 14:15:17 Joint effusion of ankle AND/OR foot 9029280 Completed 201101/19/2014 RECORDED 12/18/19 12 1:36PM BY RENNY ELIZABETH MD, LESA ON/TRINIDAD Christie MD [address] [facility] [address], [place], [address] , [facility] 6 14:15:17 Administ ration of diphther ia and tetanus vaccine Completed 201201/19/2014 RECORDED 01/07/20 13 10:22AM BY LESA HOGAN ON/ADDEN DUM Renny Christie MD [address], [place] [place], [address] , [facility] 6 14:15:17 Insomnia 273528386 Active Tana Prater null, [facility] 9 10:43:48 Calculus in urethra 86083813 Active followed by urology Tana Prater null, [facility] 9 10:43:48 Basal cell carcinom a of skin 376402041 Active 2014 ankle, right ear Tana Prater null, [facility] 9 10:43:48 Advance directiv e discusse d with patient 311972032 Active Tana Prater null, [facility] 9 10:43:48 Hearing loss 34983932 Active Tana Prater null, [facility] 9 10:43:48 Hyperlip idemia 16911904 Active 2016 Tana Prater null, [facility] 9 10:43:48 Total knee replacem ent Active 2018 Dr Julio C Fajardo Prater null, [facility] 9 10:43:48 Kidney stone 96518432 Active Tana Prater null, [facility] 9 10:43:48 Strabism 22879063 Active Tana Prater null, [facility] 9 10:43:48 Serum choleste rol above referenc e range 269889048 Active Tana Prater null, [facility] 9 10:43:48 Vitreous floaters 08911914 Active Tana Prater null, [facility] 9 10:43:48 Cataract 271351159 Active Tana Prater null, [facility] 9 10:43:48 Amblyopi a 546481567 Active Tana Prater null, [facility] 9 10:43:48 Tubular adenoma 848945306 Active 2019 PER LILLIAM Xenia England null, [facility] 0 09:19:38 Chronic kidney disease stage 3 466131928 Active 2020 Per Crowder MD null, [facility] 1 10:36:45 Hyperten sive renal disease 22301801 Active 2020 Teresa Dockery null, [facility] 1 16:23:45 Neoplasm of hip region 291132422 Active 2020 Seen by ortho, Dr Lamar. Renny Christie MD [address] [address], [place], [address] , [facility] 1 15:23:23 Metastat ic malignan t neoplasm to female breast 08253207 Active 2020 Mets to bone. Primary breast cancer was in 2005. Started palliati ve treatmen t in April 2021. Renny Christie MD [address] [address], [place], [address] , [facility] 2 07:44:32 Herpes zoster 5349661 Active 2022 on face Renny Christie MD [address] [address], [place], [address] , [facility] 3 08:54:17 Bilatera l cataract s 06324093 Active 2023 Tish Chang [facility] [address] [address], [place], [address] , [facility] 4 11:48:36 Cough 10232631 Active 2023 IMPRESSI ON: SECONDAR Y TO ALLERGIC RHINITIS ; RECORDED 06/18/19 13 8:11AM BY LESA HOGAN ON/ADDEN DUM Tish Chang, [facility] [address], [place], [address] , [facility] 4 11:48:45 Impacted cerumen in right ear 45441357760 28168 Active 2023 Tish Chang, [facility] [address], [place], [address] , 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 4 12:33:41 Notes:Some problems listed i n Document: #[id number] could not be added to this patient's chart. Please review this document and add these problems to the patient's chart manually as needed. Problem Notes None recorded. Procedures Surgical History Date Name Laterality Status Provider Name and Address Organization Details Recorded Time 06/07/20 21 removal of implant from femur completed Tana Prater [facility] 06/08/2021 10:17:01 02/11/20 21 Most Recent Mammogram completed Gabrielle Carrillo MA [facility] 02/01/2022 10:22:35 08/21/19 21 Mammogram Diagnostic Bilateral completed Cindy Hamlin MA [facility] 12/14/2020 12:59:41 12/01/19 20 Six-Item Cognitive Test completed Jaime Horne [facility] 12/01/2019 13:31:07 08/21/19 20 Date of Last Colonoscopy completed Xenia England [facility] 08/21/2019 11:32:29 08/21/19 20 Colonoscopy & polypectomy completed Xenia [place] [facility] 08/29/2019 09:20:00 03/31/20 19 Total knee arthroplasty completed Tana Prater [facility] 04/15/2019 16:17:26 07/17/20 19 renal lithotripsy completed Tana Prater [facility] 01/15/2019 15:36:12 11/27/19 19 Mini-Cog Test completed Jaime Horne [facility] 11/26/2018 13:12:53 10/22/19 19 Knee Surgery completed Tana Prater [facility] 10/30/2018 11:49:05 11/22/19 18 Mini-Cog Test completed Zuleyma Mckeon [facility] 11/21/2017 13:09:40 01/31/20 17 Other completed Sabrina Cruz [facility] 03/30/2017 16:51:14 11/14/19 17 Fall Risk Assessment completed Jaime Horne [facility] 11/13/2016 10:28:15 11/14/19 17 Mini-Cog Test completed Jaime Horne [facility] 11/13/2016 10:28:23 08/12/19 17 Other completed Abby Day [facility] 09/04/2016 15:26:26 10/28/19 16 Fall Risk Assessment completed Jaime Horne [facility] 10/28/2015 14:00:43 10/28/19 16 Mini-Cog Test completed Jaime Horne [facility] 10/28/2015 14:00:43 10/28/19 16 Advanced Care Planning completed Jaime Horne [facility] 10/28/2015 13:52:42 06/09/20 15 Other completed Renny Christie MD [address], [address] 06/13/2015 10:12:27 10/27/19 15 Fall Risk Assessment completed Jaime Horne [facility] 10/26/2014 10:32:53 10/27/19 15 Mini-Cog Test completed Jaime Horne [facility] 10/26/2014 10:32:53 10/07/19 14 Colposcopy completed Uma Shukla MA [facility] 04/27/2014 11:39:55 06/11/19 13 Other completed Renny Christie MD [address] [place] [address], [address], [facility] 04/27/2014 12:48:11 12/09/19 10 Most Recent Bone Density completed Gabrielle Carrillo MA [facility] 02/01/2022 10:23:37 06/11/19 06 Breast Surgery completed Renny Christie MD [address] [facility], [place], [address], [facility] 11/21/2017 13:44:50 06/11/19 04 Appendectomy completed Renny Christie MD [address] [facility] [address] [place] [address], [address], [facility] 11/21/2017 13:45:12 06/11/18 89 Hernia Repair completed Renny Christie MD [address] [place] [address], [address], [facility] 11/21/2017 13:44:26 06/11/18 56 Eye Surgery completed Renny Christie MD [address] [facility], [place], [address], [facility] 11/21/2017 13:43:59 total knee replacement completed Gabrielle Carrillo MA [facility] 02/01/2022 10:34:13 Tonsillectomy completed Renny Christie MD [address] [place] [address], [address], [facility] 04/27/2014 12:48:11 Caesarean Section completed Renny Christie MD [address], [address], [facility] 04/27/2014 12:48:11 Imaging Results Imaging Date Name Status LastModified by [facility] [facility] Details LastModified Time 03/20/2023 PET-CT, skull base to mid-thigh scan completed [facility] (Medical Records) [address] [facility], [place], [address], 03/26/2023 13:38:05 Procedure Notes None recorded. Medical Equipment None Reported. Allergies No known drug allergies Medications Name Sig Start Date Stop Date Status Note LastModified by Organization Details LastModified Time Miralax 17 gram oral powder packet Take 1 packet every day by oral route as directed . 07/19 completed Not Available Not Available Not Available losartan 50 mg tablet TAKE 2 TABLETS BY MOUTH DAILY 08/05 completed Not Available Not Available Not Available amoxicill in 500 mg capsule TAKE 1 CAPSULE BY MOUTH THREE TIMES DAILY UNTIL GONE 01/17 completed Not Available Not Available Not Available acetamino phen 325 mg tablet TK 2 TS PO Q 6 H 04/07 completed Not Available Not Available Not Available gabapenti n 600 mg tablet TAKE 1 TABLET BY MOUTH TWICE DAILY active Not Available Not Available No t Available cefuroxim e axetil 250 mg tablet 11/14 completed Not Available Not Available Not Available atorvasta tin 20 mg tablet TAKE 1 TABLET EVERY DAY DIRECTED active Not Available Not Available No t Available azithromy phil 250 mg tablet 07/06 completed Not Available Not Available Not Available aspirin 325 mg tablet TK 1 T PO BID 11/30 completed Not Available Not Available Not Available valacyclo vir 1 gram tablet TAKE 1 TABLET BY MOUTH THREE TIMES DAILY FOR 7 DAYS. TAKE THE FIRST DOSE AT 8PM TONIGHT 01/17 completed Not Available Not Available Not Available ondansetr on HCl 8 mg tablet 11/14 completed Not Available Not Available Not Available metoprolo l succinate ER 200 mg tablet,ex tended release 24 hr TAKE 1 TABLET TWICE DAILY active Not Available Not Available No t Available ondansetr on HCl 4 mg tablet 11/14 completed Not Available Not Available Not Available betametha sone, augmented 0.05 % topical cream 01/15 completed Not Available Not Available Not Available fluoroura cil 5 % topical cream APPLY TO LEFT LEG LESION DAILY WITH BANDAID FOR 4 WEEKS 09/26 completed Not Available Not Available Not Available ciproflox acin 250 mg tablet active Not Available Not Available No t Available amlodipin e 5 mg tablet TAKE 1 TABLET EVERY DAY 2023 active Not Available Not Available Not Avai lable ciproflox acin 500 mg tablet 11/14 completed Not Available Not Available Not Available sulfameth oxazole 800 mg-trimet hoprim 160 mg tablet 03/20 completed Not Available Not Available Not Available tramadol 50 mg tablet TAKE 1 TABLET BY MOUTH EVERY 8 HOURS NEEDED FOR PAIN 01/17 completed Not Available Not Available Not Available amoxicill in 500 mg tablet TAKE 1 TABLET BY MOUTH TWICE DAILY 09/26 completed Not Available Not Available Not Available ondansetr on 8 mg disintegr ating tablet 11/14 completed Not Available Not Available Not Available oxycodone -acetamin ophen 5 mg-325 mg tablet 01/17 completed Not Available Not Available Not Available tamsulosi n 0.4 mg capsule Take 1 capsule every day by oral route for 15 days. 11/26 completed Not Available Not Available Not Available cephalexi n 500 mg capsule TAKE 1 CAPSULE BY MOUTH TWICE DAILY 02/01 completed Not Available Not Available Not Available dexametha sone 4 mg tablet TAKE 1 TABLET BY MOUTH TWICE DAILY 02/01 completed Not Available Not Available Not Available triamcino lone acetonide 55 mcg nasal spray aerosol EACH NOSTRIL DAILY 01/20 completed RECORDED 01/21/20 13 2:39PM BY LESA MOORE ON/ADD DUM; Not Available Not Available Not Available omeprazol e 20 mg capsule,d elayed release 11/14 completed Not Available Not Available Not Available Arimidex 1 mg tablet DAILY active RECORDED 12/18/19 12 9:02AM BY RENNY ELIZABETH MD, LESA ON/ADDEN DUM;SHE IS TAKING THE GENERIC AND WILL BE ON IT FOR ANOTHER YEAR AND 06/12. Not Available Not Available Not Available prednisol one 15 mg/5 mL oral solution active Not Available Not Available Not Available hydrochlo rothiazid e 25 mg tablet TAKE 1 TABLET EVERY DAY 06/21 completed stopped by oncologi st Not Available Not Available Not Available Cheratuss in AC 10 mg-100 mg/5 mL oral liquid Take 10 mL every 4 hours by oral route. 11/13 completed Not Available Not Available Not Available azithromy phil 200 mg/5 mL oral suspensio n active Not Available Not Available Not Available letrozole 2.5 mg tablet TAKE 1 TABLET BY MOUTH EVERY DAY 01/17 completed Not Available Not Available Not Available losartan 100 mg tablet TAKE 1 TABLET EVERY DAY DIRECTED 2024 active Not Available Not Available Not Avai lable Lovenox 40 mg/0.4 mL subcutane ous syringe Inject 0.4 mL every day by subcutan eous route. 06/23 completed on hold. patient does not want to self inject. Not Available Not Available Not Available Ambien 10 mg tablet Take 1 tablet every day by oral route at bedtime for 30 days. 05/27 completed Not Available Not Available Not Available docusate sodium 100 mg tablet Take 1 tablet twice a day by oral route as directed . 07/19 completed Not Available Not Available Not Available irbesarta n 300 mg tablet TAKE 1 TABLET EVERY DAY 06/21 completed stopped by oncologi st Not Available Not Available Not Available amoxicill in 500 mg-potass ium clavulana te 125 mg tablet 01/15 completed Not Available Not Available Not Available Ventolin HFA 90 mcg/actua tion aerosol inhaler 11/13 completed Not Available Not Available Not Available oxycodone 5 mg tablet Take 1 tablet twice a day by oral route as needed for 7 days. 06/23 completed Not Available Not Available Not Available fulvestra nt 250 mg/5 mL intramusc ular syringe Inject 10 mL every month by intramus cular route. 01/15 completed Not Available Not Available Not Available glucosami ne-chondr oitin 750 mg-600 mg tablet DAILY 01/20 completed RECORDED 01/21/20 13 2:39PM BY LESA MOORE ON/TRINIDAD LICEA; Not Available Not Available Not Available nitrofura ntoin monohydra te/macroc rystals 100 mg capsule Take 1 capsule every 12 hours by oral route for 5 days. 05/28 completed Not Available Not Available Not Available melatonin active Not Available Not Bonnie ilable Not Available Milk of Magnesia use as needed 2021 active Not Available Not Available Not Avai lable calcium carbonate 600 mg with vitamin D 3 , 1 tab daily qod 2021 active Not Available Not Available Not Avai lable ferrous sulfate 1 tablet a day 11/30 completed pt taking one a day with vitamin C Not Available Not Available Not Available multivita min 1 tablet every morning active Not Available Not Available No t Available fulvestra nt 500 ml inject every 4 weeks active inject every; treatmen t of breast cancer Not Available Not Available Not Available cholecalc iferol (vitamin D3) 50 mcg (2,000 unit) capsule Take 1 capsule every day by oral route as directed . 07/19 completed Not Available Not Available Not Available GaviLyte- G 236 gram-22.7 4 gram-6.74 gram-5.86 gram oral solution 11/30 completed Not Available Not Available Not Available Prolia 60 mg/mL subcutane ous syringe Inject 1 mL every month by subcutan eous route. active Not Available Not Available No t Available denosumab 120 mg/1.7 mL (70 mg/mL) subcutane ous solution Inject 1.7 mL every 4 weeks by subcutan eous route. active Not Available Not Available No t Available Xarelto 10 mg tablet Take 1 tablet every day by oral route for 8 days. 07/21 completed will be finishin g on . Not Available Not Available Not Available palbocicl ib 100 mg capsule Take 1 capsule every day by oral route. 01/17 completed 21 days on, 7 days off Not Available Not Available Not Available palbocicl ib 125 mg capsule Take 1 capsule every day by oral route as directed . 02/01 completed 21 days on and 7 days of, then repeat Not Available Not Available Not Available ribocicli b 600 mg/day (200 mg x 3) tablets Take 3 tablets every day by oral route. active 21 days then 7 days off Not Available Not Available Not Available Kisqali 200 mg/day (200 mg x 1) tablet active Not Available Not Available No t Available Fluad 65yr up(PF)45 mcg(15 mcgx3)/0. 5 mL intramusc ular syringe ADM 0.5ML IM UTD 11/30 completed Not Available Not Available Not Available Fluad Quad [id number] (65yr up)(PF) 60 mcg (15 mcg x 4)/0.5mL IM syringe PHARMACY ADMINIST ERED 06/16 completed Not Available Not Available Not Available Vitals Date Recorded Body height Body mass index (BMI) Body weight Heart rate Oxygen saturation Oxygen saturation in Arterial blood by Pulse oximetry Body temperature Systolic blood pressure Diastolic blood pressure Provider Name and Address Organization Details Last Updated DateTime 2 165.74 cm 24.2 kg/m2 06408.2 9 g 64 /min 97 % 97 % 98.1 [degF] 138 mm[Hg] 69 mm[Hg] Gabrielle Carrillo MA [facility] 2 10:40:10 Date Recorded Body height Body mass index (BMI) Body weight Oxygen saturation Oxygen saturation in Arterial blood by Pulse oximetry Heart rate Body temperature Systolic blood pressure Diastolic blood pressure Provider Name and Address Organization Details Last Updated DateTime 3 165.74 cm 26.2 kg/m2 91425.6 9 g 97 % 97 % 68 /min 97.9 [degF] 115 mm[Hg] 61 mm[Hg] Justine Burch MA [facility] 3 11:27:47 Date Recorded Body height Body mass index (BMI) Body weight Heart rate Oxygen saturation Oxygen saturation in Arterial blood by Pulse oximetry Body temperature Systolic blood pressure Diastolic blood pressure Provider Name and Address Organization Details Last Updated DateTime 4 165.74 cm 26.9 kg/m2 93958.5 6 g 68 /min 97 % 97 % 97.5 [degF] 157 mm[Hg] 77 mm[Hg] Masha Reed MA [facility] 4 11:01:37 Date Recorded Body height Body mass index (BMI) Body weight Heart rate Oxygen saturation Oxygen saturation in Arterial blood by Pulse oximetry Body temperature Systolic blood pressure Diastolic blood pressure Provider Name and Address Organization Details Last Updated DateTime 4 165.74 cm 26.3 kg/m2 56613.1 9 g 74 /min 95 % 95 % 98.2 [degF] 126 mm[Hg] 75 mm[Hg] Masha Reed MA [facility] 4 11:31:19 Date Recorded Body height Body mass index (BMI) Body weight Heart rate Oxygen saturation Oxygen saturation in Arterial blood by Pulse oximetry Body temperature Provider Name and Address Organization Details Last Updated DateTime 4 165.74 cm 27.2 kg/m2 80028.7 4 g 64 /min 98 % 98 % 97.6 [degF] Masha Reed MA [facility] 4 11:26:25 Date Recorded Systolic blood pressure Diastolic blood pressure Provider Name and Address Organization Details Last Updated DateTime 01/16/2024 130 mm[Hg] 60 mm[Hg] Renny Christie MD [address] [address], [place], [address], [facility] 01/16/2024 17:53:24 Social History Question Answer Notes LastModified by Organizat ion Details LastModified Time Tobacco Smoking Status Former Smoker stopped 36 years ago BROWN lOivo, [facility] 02/01/2022 10:33:16 Do You Have An Advance Directive? Yes 10/26/2014 [email or web address] Information not available 06/16/2020 What Is Your Level Of Alcohol Consumption? Occasional Socially Information not available 02/01/2022 Is Blood Transfusion Acceptable In An Emergency? Yes [id number] Information not available 04/13/2020 What Is Your Level Of Caffeine Consumption? Moderate Coffee 3 Times A Week Information not available 02/01/2022 How Much Tobacco Do You Chew? None [id number] Information not available 04/13/2020 Are You Currently Employed? No Retired [id number] Information not available 04/13/2020 Are You Deaf Or Do You Have Serious Difficulty Hearing? No [email or web address] Information not available 06/16/2020 What Type Of Diet Are You Following? REGULAR [id number] Information not available 04/13/2020 Which Illicit Or Recreational Drugs Have You Used? None [id number] Information not available 04/13/2020 Do You Or Have You Ever Used E-cigarettes Or Vape? Never Used Electronic Cigarettes [email or web address] Information not available 06/16/2020 What Is Your Occupation? Retired [id number] Information not available 04/13/2020 Live Alone Or With Others? With Others Information not available 10/26/2014 Do You Take Precautions To Prevent Distracted Driving? Yes Information not available 10/28/2015 How Often Do You Need To Have Someone Help You When You Read Instructions, Pamphlets, Or Other Written Material From Your Doctor Or Pharmacy? Never [email or web address] Information not available 10/28/2015 Have You Served In The ? No [email or web address] Information not available 11/13/2016 Have You Or Anyone In Your Household Had Any Of The Following Symptoms In The Last 14 Days: Sore Throat, Cough, Chills, Body Aches For Unknown Reasons, Shortness Of Breath For Unknown Reasons, Loss Of Smell, Loss Of Taste, Fever At Or Greater Than 100 Degrees Fahrenheit? No [email or web address] Information not available 12/14/2020 Are You Or Anyone In Your Household A Health Care Provider Or Emergency Responder? No [email or web address] Information not available 12/14/2020 To The Best Of Your Knowledge Have You Been In Close Proximity To Any Individual Who Tested Positive For COVID-19? No [email or web address] Information not available 12/14/2020 Have You Recently Traveled To A COVID-19 High Risk Area Or Gathering In The Last 10 Days? No [email or web address] Information not available 12/14/2020 What Was The Date Of Your Most Recent Tobacco Screening? 07/31/2023 Information not available 07/31/2023 How Many Children Do You Have? 3 2 Sons And 1 Daughter; 2 GC [id number] Information not available 04/13/2020 Do You Use Protection During Sex? Usually [id number] Information not available 04/13/2020 Difficulty Reading? No Information not available 10/26/2014 Seat Belts Used Routinely Yes Information not available 10/28/2015 Are You Sexually Active? Yes [id number] Information not available 04/13/2020 Smoke Alarm In Home Yes Information not available 10/28/2015 At What Age Did You Start Smoking Tobacco? 13 [id number] Information not available 04/13/2020 Do You Or Have You Ever Used Smokeless Tobacco? Never Used Smokeless Tobacco [email or web address] Information not available 12/14/2020 How Much Tobacco Do You Smoke? 1 PPD [id number] Information not available 04/13/2020 Do You Use Any Illicit Or Recreational Drugs? No Information not available 02/01/2022 Do You Use Sunscreen Routinely? Yes [id number] Information not available 04/13/2020 How Many Years Have You Smoked Tobacco? 22 [id number] Information not available 04/13/2020 Difficulty Watching TV? No [email or web address] Information not available 10/26/2014 Do You Or Have You Ever Used Any Other Forms Of Tobacco Or Nicotine? No Information not available 02/01/2022 Sex: Unknown Functional Status Question Answer Note LastModified by Organizat ion Details LastModified Time Do you have difficulty walking or climbing stairs? Yes Arthritis in her knees [email or web address] Information not available 06/16/2020 Difficulty driving at night? No Information not available 10/26/2014 Are you able to walk? [email or web address] Information not available 02/01/2022 Do you have difficulty doing errands alone? No [email or web address] Information not available 06/16/2020 Are you able to care for yourself? Yes [id number] Information not available 04/13/2020 Do you have difficulty dressing or bathing? No [email or web address] Information not available 06/16/2020 What is your exercise level? Occasional [id number] Information not available 04/13/2020 Mental Status Question Answer Note LastModified by Organization D etails LastModified Time Do you have difficulty concentrating, remembering or making decisions? No [email or web address] Information no t available 06/16/2020 Family History Relationship Description Onset Age of this Age Resolved Age Notes LastModified by Organization Details LastModified Time Mother Old-age 97 [email or web address] Not availabl e 10/28/2015 13:52:42 Mother Osteoarthrit is 97 was ih a wheelc hair the last couple of years of her life. [email or web address] Not available 12/14/2020 14:39:24 Father Myocardial infarction 69 [email or web address] Not available 13:42:23 Maternal Aunt Neoplasm of ovary [email or web address] Not available 11/2020 13:35:57 Maternal Grandmother Malignant neoplasm of liver [email or web address] Not available 11/2020 13:36:16 Medical History No medical history recorded. Gynecological History Statement/Question Response Colposcopy 10/06/2013 Date of Last Pap Smear Date of Last Colonoscopy 08/21/2019 Most Recent Mammogram 02/10/2021 Most Recent Bone Density 12/08/2009 Obstetrics History GPAL:G 0 P 0 0 0 0 Immunizations Vaccine Type Date Status Note Provider Nam e and Address Organization Details Recorded Time pneumococcal polysaccharide PPV23 5 completed Not Available [facility] 02:21:41 Influenza, high-dose, trivalent, PF 7 completed Tana Prater null, [facility] 03/14/2019 10:43:49 Influenza, high-dose, trivalent, PF 8 completed Tana Prater null, [facility] 03/14/2019 10:43:49 Influenza, adjuvanted, trivalent, PF 9 completed Tana Prater null, [facility] 02/01/2022 10:53:47 Influenza, split virus, quadrivalent, preservative 0 completed Tana Prater null, [facility] 02/01/2022 10:53:47 COVID-19, mRNA, LNP-S, PF, 30 mcg/0.3 mL dose 1 completed BROWN Olivo, [facility] 06/21/2021 13:56:21 COVID-19, mRNA, LNP-S, PF, 30 mcg/0.3 mL dose [facility] 13:56:21 Influenza, adjuvanted, quadrivalent, PF 1 completed BROWN Olivo, [facility] 06/21/2021 13:56:21 Influenza, high-dose, trivalent, PF 8 completed BROWN Olivo, [facility] 06/21/2021 13:56:21 Influenza, split virus, quadrivalent, PF 5 completed BROWN Olivo, [facility] 06/21/2021 13:56:21 Influenza, adjuvanted, quadrivalent, PF 0 completed BROWN Olivo, [facility] 06/21/2021 13:56:21 Influenza, high-dose, trivalent, PF 6 completed BROWN Olivo, [facility] 06/21/2021 13:56:21 COVID-19, mRNA, LNP-S, PF, 30 mcg/0.3 mL dose 1 completed BROWN Olivo, [facility] 06/21/2021 13:56:21 Influenza, adjuvanted, quadrivalent, PF 2 completed BROWN García, [facility] 01/17/2023 11:21:07 Pneumococcal conjugate PCV 13 6 completed Not Available [facility] 06/28/2019 02:21:36 Influenza, high-dose, quadrivalent, PF 3 completed BROWN Bob, [facility] 01/16/2024 11:26:31 Td (adult), 2 Lf tetanus toxoid, preservative free, adsorbed 9 completed Tana Prater null, [facility] 03/14/2019 10:43:49 Influenza, split virus, trivalent, preservative 0 completed Tana Prater null, [facility] 03/14/2019 10:43:49 Influenza, split virus, trivalent, PF 2 completed Tana Prater null, [facility] 03/14/2019 10:43:49 Tdap 3 completed Tana Prater null, [facility] [place] 03/14/2019 10:43:49 Td (adult), 2 Lf tetanus toxoid, preservative free, adsorbed 4 completed Renny Christie MD [address] [address], [place], [address], [facility] [place] 08/01/2023 08:20:49 Past Encounters Encounter ID Performer Location Encounter Start Date Encounter Closed Date Diagnosis/Indication Diagnosis SNOMED-CT Code Diagnosis ICD10 Code Diagnosis Note [id number] [facility] [address] [facility] [place] [address] 08/29/2006 00:00:00 [id number] autoEComm erce [address] [facility] [place] [address] 01/08/2006 00:00:00 [id number] autoEComm erce [address] [facility] [place] [address] 11/13/2005 00:00:00 [id number] autoEComm erce [address] [facility] [place] [address] 12/07/2006 00:00:00 [id number] auto[facility]Comm erce [address] [facility] [place] [address] 07/18/2007 00:00:00 [id number] autoEComm erce [address] [facility] [place] [address] 02/26/2008 00:00:00 [id number] auto[facility]Comm erce [address] [facility] [place] [address] 08/25/2008 00:00:00 [id number] autoEComm erce [address] [facility] [place] [address] 03/30/2009 00:00:00 [id number] autoEComm erce [address] [facility] [place] [address] 04/29/2009 00:00:00 [id number] autoEComm erce [address] [facility] [place] [address] 09/28/2009 00:00:00 [id number] [address] [address] [place] [address] 12/29/2009 00:00:00 [id number] autoEComm erce [address] [facility] [address] [place] [address] 05/25/2010 00:00:00 [id number] [address] [place] [address] 12/05/2010 00:00:00 [id number] autoEComm erce [address] [facility] [place] [address] 06/14/2011 00:00:00 [id number] autoEComm erce [address] [facility] [place] [address] 12/18/2011 00:00:00 [id number] autoEComm erce [address] [facility] [place] [address] 01/15/2012 00:00:00 [id number] autoEComm erce [address] [facility] [place] [address] 06/18/2012 00:00:00 [id number] autoEComm erce [address] [facility] [place] [address] 01/06/2013 00:00:00 [id number] autoEComm erce [address] [facility] [place] [address] 01/21/2013 00:00:00 [id number] autoEComm erce [address] [facility] [place] [address] 09/30/2013 00:00:00 [id number] Jaime Horne Main Office [address] [place], [place] [address] 04/27/2014 11:25:58 04/27/2014 12:03:27 Essential hypertension 44824803 Pure hypercholesterolemia 086186342 Varicella vaccination 32104722 Insomnia 852610108 [id number] Main Office [address] [place] [address] 10/26/2014 10:05:17 10/26/2014 11:03:13 Adult health examination 250028667 Administra tion of pneumococcal vaccine 23167666 Pure hypercholesterolemia 659411736 Essential hypertension 71736741 [id number] Renny Christie MD Main Office [address] [address] [place] [address] 04/28/2015 09:45:36 04/28/2015 10:43:03 Essential hypertension 07493378 I10 Anemia 805348931 D64.9 Varicella vaccination 68 029010 Z23 [id number] Renny Christie MD Main Office [address] [address] [place] [address] 10/28/2015 13:32:34 10/28/2015 14:47:32 Adult health examination 083859474 Z00.00 We will update her immination s today. She is UTD with colonoscop y and [facility] care. We discussed the importance of calcium Advance di rective discussed with patient 588410248 Z71.89 Varicella vaccination 68 254107 Z23 Administra tion of pneumococcal vaccine 02747904 Z23 Essential hypertension 08795059 I10 running high today and she will follow it at home; we will call her in a couple of weeks and if it is still running high we will increase her amlodipine from 5 to 10 mg. Pure hypercholesterolemia 847519432 E78.0 Hearing loss 75485106 H9 1.90 Higher frequencie s. Mild. She we try to adjust and we will monitor it. [id number] Renny Christie MD Main Office [address] [address] [place] [address] 05/09/2016 09:44:35 05/09/2016 10:31:26 Essential hypertension 67148338 I10 good control; continue current mgmt. Hyperlipidemia 80750219 E78.5 LDL now at goal with meds which she is tolerating well. [id number] Renny Christie MD Main Office [address] [address] [place] [address] 07/06/2016 10:32:21 07/06/2016 11:25:30 Postviral cough 172877873 R05 She is already using proair and flonase. I also advised an OTC decongesta nt and let her know that this cough can go on for 2-4 weeks and is difficult to treat. Keep room cool at night and may also use honey. [id number] Renny Christie MD Main Office [address] [address] [place] [address] 11/13/2016 10:03:53 11/13/2016 11:06:36 Adult health examination [id number] Z00.00 She is due for a shingles shot. She is UTD with colonoscop y and [facility] care. We discussed the importance of calcium Essential hypertension 41563307 I10 good control; continue current mgmt. Hyperlipidemia 98239504 E78.5 LDL now at goal with meds which she is tolerating well. Varicella vaccination 68 463926 Z23 [id number] Renny Christie MD Main Office [address] [address] [place] [address] 05/17/2017 09:02:51 05/17/2017 09:41:28 Essential hypertension 02391747 I10 good control; continue current mgmt. Hyperlipidemia 87593852 E78.5 LDL now at goal with meds which she is tolerating well. Hypokalemia 16222838 E87 .6 A hand-out was given on foods which are high in potassium. Insomnia 788460615 G47.0 0 doing better; not on meds. [id number] Renny Christie MD Main Office [address] [address] [place] [address] 11/21/2017 12:52:00 11/21/2017 13:49:23 Adult health examination 937904691 Z00.00 She is due for a shingles shot. She is UTD with colonoscop y and [facility] [employer] care. We discussed the importance of calcium Varicella vaccination 68 556628 Z23 Insomnia 504291715 G47.0 0 doing better; not on meds. Hyperlipidemia 38749342 E78.5 LDL now at goal with meds which she is tolerating well. Essential hypertension 24645649 I10 good control; continue current mgmt. [id number] Renny Christie MD Main Office [address] [place] [address] [place] [address] 05/22/2018 12:36:55 05/22/2018 13:25:40 Essential hypertension 27796093 I10 good control; continue current mgmt. Hyperlipidemia 19928156 E78.5 LDL now at goal with meds which she is tolerating well. [id number] Grover Holland PA-C Main Office [address] [facility][1] [address] [place] [address] 10/08/2018 12:44:17 10/08/2018 13:48:20 Pre-surgery evaluation 746663761 Z01.818 Osteoarthr itis of knee 136475487 M17.11 pre-op for R TKR, anticipate doing L TKR ~ 6-8 wks later Essential hypertension 10655069 I10 stable bp and cr - cont meds as dir Hyperlipidemia 93462709 E78.5 Anemia 982969918 D64.9 last h/h in chart 12.4/38.9 on 06.21.16 c ferritin of 37, iron 107, tibc 326, % iron sat 33 last wk advised by anesthesia to take iron qd also rec to take this with 500mg of vit C qd to enhance absorption of iron -- if get constipate d, then take colace 1-2x/day History of polyp of colon 161327638 Z86.010 h/o colon polyps - had nl colon 4.14 - she just rec'd surveillan ce recall notice - she will schedule in near future [id number] Renny Christie MD Main Office [address] [facility][1] [address] [place] [address] 10/29/2018 08:51:29 10/29/2018 10:34:00 [id number] Renny Christie MD Main Office [address] [facility][1] [address] [place] [address] 11/14/2018 11:16:47 11/14/2018 12:04:24 Anemia 673910792 D64.9 CBC from [facility] shows an improvemen t. We will check it again next week to be sure that she is not actively bleeding. Essential hypertension 38113052 I10 good control; continue current mgmt. [id number] Renny Christie MD Main Office [address] [facility][1] [address] [place] [address] 11/26/2018 12:54:46 11/26/2018 13:57:51 Adult health examination 884164597 Z00.00 She is due for a shingles shot. She is UTD with [facility] care. She will be making an appointmen t for a colonoscop y. We discussed the importance of calcium Essential hypertension 79074598 I10 good control; continue current mgmt. Anemia 260099597 D64.9 [id number] Teresa Dockery Main Office [address] [facility][1] [address] [facility] [address] 03/20/2019 09:48:51 03/20/2019 10:55:32 Pre-surgery evaluation 135650682 Z01.818 Patient is at low risk for cardiopulm onary complicati ons with planned procedure based on comorbidit ies, good exertional tolerance and overall procedure risk. Patient advised to avoid aspirin and NSAIDS for 10 days prior. May proceed to scheduled surgery as planned. Guardado 0.2%. Advised to take BP meds except hctz am of surgery with a sip of water. Osteoarthr itis of knee 986728461 M17.12 TKR scheduled [id number] Renny Christie MD Main Office [address] [facility][1] [address] [place] [address] 05/28/2019 10:27:39 05/28/2019 11:21:04 Essential hypertension 14235481 I10 good control; continue current mgmt. Anemia 673317775 D64.9 Currently taking iron supplement s once daily Constipation 75132920 K5 9.00 Has been a problem since taking iron supplement s but under control with eating a prune a night. [id number] Renny Christie MD Telehealt [facility] [facility] [address] [facility] [place] [address] 12/01/2019 12:02:54 12/01/2019 15:09:23 Adult health examination 212259112 Z00.00 She is due for a shingles shot. She is UTD with [facility] care. She will be making an appointmen t for a colonoscop y. We discussed the importance of calcium Essential hypertension 68015374 I10 good control; continue current mgmt. Anemia 831022306 D64.9 Was on iron supplement s in the past. Had a colonoscop y earlier this year which was normal. Hyperlipidemia 63301042 E78.5 LDL at goal with meds which she is tolerating well. [id number] Renny Christie MD Main Office [address] [facility][1] [address] [place] [address] 06/16/2020 10:35:24 06/16/2020 11:35:40 Essential hypertension 84542160 I10 good control; continue current mgmt. Hyperlipidemia 55807979 E78.5 LDL at goal with meds which she is tolerating well. [id number] Teresa Dockery Main Office [address] [address] [place] [address] 12/14/2020 12:50:53 12/14/2020 13:54:54 Adult health examination 111431107 Z00.00 She is due for a shingles shot. She is UTD with [facility] care. She had a colonoscop y done last year and is due again in 2024. We discussed the importance of calcium and weight-alecia ring exercise. Hyperlipidemia 02495493 E78.5 LDL at goal with meds which she is tolerating well. Anemia 142719099 D64.9 Was on iron supplement s in the past. Had a colonoscop y last year which was normal. This is probably ACD from her OA. Chronic ki dney disease stage 3 925673129 N18.30 Hypertensi ve renal disease 10042435 I12.9 good control; continue current mgmt. [id number] Teresa Dockery Main Office [address] [address] [place] [address] 06/21/2021 13:44:45 06/21/2021 15:02:48 Metastatic malignant neoplasm to bone 45596256 C79.51 Admitted for surgery, transferre d to rehab and now home with PT. On DVT prophylaxi s for 1 month. Hypertensi ve renal disease 43802666 I12.9 Good control; continue current mgmt. Hyperlipidemia 74486244 E78.5 LDL at goal with meds which she is tolerating well. Will recheck fasting lipid level next appointmen t. [id number] Renny Christie MD Main Office [address] [address] [place] [address] 06/22/2021 08:21:30 06/22/2021 08:43:34 [id number] Renny Christie MD Main Office [address] [facility][1] [address] [place] [address] 07/19/2021 11:18:41 07/19/2021 12:02:25 Hypertensive renal disease 29107752 I12.9 Good control; continue current mgmt. Chronic ki dney disease stage 3 414595656 N18.31 Metastatic malignant neoplasm to female breast 38414400 C79.81 Currently on palliative chemo and followed by Dr Celaya. Had mets to her hip and had surgery to prevent a hip fracture. Hyperlipidemia 09364042 E78.5 LDL at goal with meds which she is tolerating well. Will recheck fasting lipid level next appointmen t. [id number] Renny Christie MD Main Office [address] [facility][1] [address] [place] [address] 02/01/2022 10:19:32 02/01/2022 11:15:39 Adult health examination 454152615 Z00.00 She is due for a shingles shot. She is UTD with [facility] care. She had a colonoscop y done in [address] Caraballo and is due again in 2024. We discussed the importance of calcium and weight-alecia ring exercise. She has been recovering from her hip surgery done May 2021 and her cancer treatment and just now getting to be more active. Metastatic malignant neoplasm to female breast 87205796 C79.81 Currently on palliative chemo and followed by Dr Celaya. Had mets to her hip and had surgery to prevent a hip fracture. Neoplasm o f hip region 698536938 D49.89 She has surgery done by Dr Lamar May 2021. [id number] Teresa Dockery Main Office [address] [facility][1] [address] [place] [address] 01/17/2023 11:16:36 01/17/2023 12:04:28 Hypertensive renal disease 88755033 I12.9 Good control; continue current mgmt. Metastatic malignant neoplasm to female breast 41331429 C79.81 Currently on palliative chemo and followed by Dr Celaya. Had mets to her hip and had surgery to prevent a hip fracture. Hyperlipidemia 98706995 E78.5 LDL at goal with meds which she is tolerating well. Will recheck fasting lipid level next appointmen t. Alejandrina ki dney disease stage 3A 121207013 N18.31 [id number] Renny Christie MD Main Office [address] [facility][1] [address] [place] [address] 07/31/2023 10:54:18 07/31/2023 11:56:22 Adult health examination 798523361 Z00.00 She is due for a shingles shot. She is UTD with [facility] care. She had a colonoscop y done in [address] Caraballo and is due again in 2024. We discussed the importance of calcium and weight-alecia ring exercise. She has been recovering from her hip surgery done May 2021 and her cancer treatment and just now getting to be more active. Requires a tetanus booster 700773800 Z23 Hyperlipidemia 68409924 E78.5 LDL at goal with meds which she is tolerating well. Will recheck fasting lipid level next appointmen t. Metastatic malignant neoplasm to female breast 06957689 C79.81 Currently on palliative chemo and followed by Dr Celaya. Had mets to her hip and had surgery to prevent a hip fracture. Chronic ki dney disease stage 3 907030079 N18.31 Hypertensi ve renal disease 24806597 I12.9 Good control; continue current mgmt. [id number] YOSEPH Abarca Main Office [address] [facility][1] [address] [place] [address] 09/27/2023 11:17:17 09/27/2023 12:14:35 Pre-surgery evaluation 799913636 Z01.818 Having bilateral cataract surgery with Dr. Slaughter. Right eye 10/07 and left eye 10/21. Low cardiac risk for cataract surgery, labs and EKG were done through her oncologist , will request results. no further work-up necessary, should proceed as scheduled Bilateral cataracts 9572 2004 H26.9 Cough 68354968 R05.9 coughing, started on augmentin x 7 days by her oncologist , LS CTA bilaterall y Chronic ki dney disease stage 3 047268397 N18.31 Metastatic malignant neoplasm to female breast 47756790 C79.81 Impacted c erumen in right ear 0783405884 296850 H61.21 right cerumen impaction. lavage done but unable to fully clear the Canal. Suggest she use drops daily and schedule appt for lavage if sx not improved in the next week or 2. Metastatic malignant neoplasm to bone 69117669 C79.51 [id number] Renny Christie MD Main Office [address] [facility] [address] [facility] [place] [address] 01/16/2024 11:20:26 01/16/2024 11:58:30 Hypertensive renal disease 99017814 I12.9 Good control; continue current mgmt. Chronic ki dney disease stage 3 007217704 N18.31 Metastatic malignant neoplasm to female breast 11542898 C79.81 Currently on palliative chemo and followed by Dr Celaya. Had mets to her hip and had surgery to prevent a hip fracture. Health Concerns Section Related Observation LastModified by Organization Detai ls LastModified Time None Recorded Concern Status LastModified by Organization Details LastModified Time None Recorded Advance Directives Directive Y: 10/26/2014 Payers Encounter Date Sequence Insurance Name Policy Number Policy Casiano Covered Member ID Casiano Member ID Guarantor Name 02/01/2022 2 [employer] OPTION - PLAN F (MEDICARE SUPPLEMENT) Nicolette H Torsten [id number] Nicolette Ronny Torsten 02/01/2022 1 [place] [employer] Nicolette Ronny Torsten [id number] Nicolette Ronny Torsten 01/17/2023 2 [employer] OPTION - PLAN F (MEDICARE SUPPLEMENT) Nicolette H Torsten [id number] Nicolette Ronny Torsten 01/17/2023 1 [place] [employer] Nicolette Ronny Torsten [id number] Nicolette Ronny Torsten 07/31/2023 2 [employer] OPTION - PLAN F (MEDICARE SUPPLEMENT) Nicolette Ronny Torsten [id number] Nicolette Ronny Torsten 07/31/2023 1 [place] [employer] Nicolette Sarmiento [id number] Nicolette Sarmiento 09/27/2023 2 [employer] OPTION - PLAN F (MEDICARE SUPPLEMENT) Nicolette Sarmiento [id number] Nicolette Ronny Torsten 09/27/2023 1 [place] [employer] Nicolette Sarmiento [id number] Nicolette Sarmiento 01/16/2024 2 [employer] HE[employer] OPTION - PLAN F (MEDICARE SUPPLEMENT) Nicolette Sarmiento [id number] Nicolette Sarmiento 01/16/2024 1 [place] [facility] Nicolette Sarmiento [id number] Nicolette Sarmiento Notes Date Note Type Note Provider Name and Address Organization Details Recorded Time 2 text/html Medicare Annual Wellness VisitReported bypatient.Diet and Nutrition:healthy diet; discussed maintaining calcium balance Fracture Risk:history of fractures(mets from breast cancer to right hip) Physical Activity:does not exercise on a regular basis;decreased physical activity;deconditioned due to sedentary lifestyle(has been unable to do much since her cancer dx and hip surgery; just now getting to normal.) Depression Risk:never feels sad, empty, or tearful; no loss of interest in activities; no significant changes in weight; no sleep disturbances or insomnia; no agitation; no loss of energy; no feelings of worthlessness or guilt; no thoughts of suicide; no history of depression; no history of mood disorders Orientation:no disorientation to time; no disorientation to date; no disorientation to place Concentration and Memory:no decreased concentrating ability; no memory lapses or loss; does not forget words 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 Vision:no vision problems Activities of Daily Living:able to bathe with limited or no assistance; able to contol urination and bowels; able to dress with limited or no assistance; able to feed self with limited or no assistance; able to get out of chair or bed with limited or no assistance; able to groom with limited or no assistance; able to toilet with limited or no assistance Instrumental Activities of Daily Living:able to do house work with limited or no assistance; able to grocery shop with limited or no assistance; able to manage medications with limited or no assistance; able to manage money with limited or no assistance; able to prepare meals with limited or no assistance; able to use the phone with limited or no assistance; recently started driving again. She is slow with her activities but able to do for herself now. Falls Risk Assessment:no frequent falls while walkingNotes:She has been dealing with her cancer dx and receiving palliative care from Dr Celaya who she sees monthly. Renny Christie MD [address], [address], [facility] 02/01/2022 12:43:12 3 text/html HyperlipidemiaReported bypatient.Type of hyperlipidemia:hypercholest erolemia Duration:chronic Current Therapy:currently taking: (atorvastatin) Compliance:compliant with diet;does not exercise Complications:no coronary artery disease; no peripheral artery disease; no cardiovascular disease Risk Factors:positive family history of premature arteriosclerotic cardiovascular disease;hypertensionHyperte nsion F/UReported bypatient.Associated Symptoms:no dizziness; no lightheadedness; no chest pain; no shortness of breath; no palpitations; no edema; no calf pain with exertion Lifestyle:limiting/avoiding salt;not exercising regularly Medications:taking medications as directed; no side effects from medication She had a recurrence of her breast cancer and has mets to her right hip. Had surgery to prevent a hip fracture and is currently using a cane for ambulation. Teresa baker, [facility] 01/28/2023 11:44:56 4 text/html Medicare Annual Wellness VisitReported bypatient.Diet and Nutrition:healthy diet; discussed maintaining calcium balance Fracture Risk:history of fractures(mets from breast cancer to right hip) Physical Activity:does not exercise on a regular basis;decreased physical activity;deconditioned due to sedentary lifestyle(has been unable to do much since her cancer dx and hip surgery; just now getting to normal.) Depression Risk:never feels sad, empty, or tearful; no loss of interest in activities; no significant changes in weight; no sleep disturbances or insomnia; no agitation; no loss of energy; no feelings of worthlessness or guilt; no thoughts of suicide; no history of depression; no history of mood disorders Orientation:no disorientation to time; no disorientation to date; no disorientation to place Concentration and Memory:no decreased concentrating ability; no memory lapses or loss; does not forget words 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 Vision:no vision problems Activities of Daily Living:able to bathe with limited or no assistance; able to contol urination and bowels; able to dress with limited or no assistance; able to feed self with limited or no assistance; able to get out of chair or bed with limited or no assistance; able to groom with limited or no assistance; able to toilet with limited or no assistance Instrumental Activities of Daily Living:able to do house work with limited or no assistance; able to grocery shop with limited or no assistance; able to manage medications with limited or no assistance; able to manage money with limited or no assistance; able to prepare meals with limited or no assistance; able to use the phone with limited or no assistance; recently started driving again. She is slow with her activities but able to do for herself now. Falls Risk Assessment:no frequent falls while walkingNotes:She has been dealing with her cancer dx and receiving palliative care from Dr Celaya who she sees regularly Renny Christie MD [address] [address], [place], [address], [facility] 08/01/2023 08:26:13 4 text/html Generic HPI TemplateReported bypatient.Notes:Presents for pre-op visit, having bilateral cataract surgery with Sukhjinder Coronel Right eye 10/07, left eyey 10/21, MAC with topical anesthesia, Her will drive her to and from surgery. She has had surgery in the past without reaction to anesthesia or sedation. Had bloodwork and EKG 2 days ago though her oncologist Dr. Celaya Started augmentin x 7 days yesterday for coughing, will be finished by surgery. YOSEPH Abarca [address] [address], [place], [address], [facility] 09/27/2023 12:34:11 4 text/html Hypertension F/UReported bypatient.Associated Symptoms:no dizziness; no lightheadedness; no chest pain; no shortness of breath; no palpitations; no edema; no calf pain with exertion Lifestyle:limiting/avoiding salt;not exercising regularly Medications:taking medications as directed; no side effects from medication She had a recurrence of her breast cancer and has mets to her right hip. Had surgery to prevent a hip fracture and is currently using a cane for ambulation. Renny Christie MD [address] [address], [place], [address], [facility] 01/16/2024 17:54:31 OBGyn Episode No OBEpisode recorded.
== END 2024-06-18 12:51 | disposition home or self-care (01) ==
LOC: HO.CT 12:50
PROVIDERS: PCP Internal Medicine; Visit Provider Internal Medicine
DX: C50.919 Malignant neoplasm of unspecified site of unspecified female breast (principal); C79.51 Secondary malignant neoplasm of bone
CPT/HCPCS: 71250; 74176

== ENCOUNTER → 2024-06-18 12:51 | Outpatient (BNV) | payer MEDICARE, SELFPAY | PROVIDERS: PCP Internal Medicine; Visit Provider Radiology Diagnostic Radiology | DX: C79.51 Secondary malignant neoplasm of bone (principal) | CPT/HCPCS: 71250 ==

== ENCOUNTER 2024-06-27 10:17 | Outpatient (REF) | payer MEDICARE, SELFPAY ==
--- NOTE | ~2024-06-27 | US_ITS ---
CLINICAL HISTORY: ? liver mets, eval for biopsy US abdomen limited Comparison: None Findings: The visualized pancreas is normal. The aorta and inferior vena cava are normal caliber. The liver is normal in size and echotexture. Multiple simple appearing cysts seen within the left hepatic lobe. Hypoechoic lesion is seen within the subcapsular aspect of the left hepatic lobe, not definitively cystic measuring 8 x 6 mm. There is no intrahepatic bile duct dilatation. The common duct is 3 Mm in diameter. The gallbladder is normal. There is no sonographic Carlton sign. The main portal vein is antegrade. The right kidney is 9.5 cm in length. No ascites. IMPRESSION: 1. Multiple hepatic cysts as well as an additional hypodense lesion in the subcapsular aspect of the left hepatic lobe. This may also be a cyst but is not completely anechoic on the current study. This could be related to technique. CT or MRI of the abdomen with and without contrast recommended to fully characterize. This document has been electronically signed by: Alina Newman MD on 06/28/2024 06:41:12
== END 2024-06-27 10:18 | disposition home or self-care (01) ==
LOC: HO.HMGCX 10:17
PROVIDERS: PCP Internal Medicine; Visit Provider Internal Medicine
DX: C50.919 Malignant neoplasm of unspecified site of unspecified female breast (principal)
CPT/HCPCS: 76705

== ENCOUNTER → 2024-06-27 10:20 | Outpatient (BNV) | payer MEDICARE, SELFPAY | PROVIDERS: PCP Internal Medicine; Visit Provider Radiology Diagnostic Radiology | DX: K76.89 Other specified diseases of liver (principal) | CPT/HCPCS: 76705 ==

== ENCOUNTER → 2024-06-30 10:51 | Outpatient (REF) | payer MEDICARE, SELFPAY ==
--- NOTE | ~2024-06-30 | NM_ITS ---
EXAMINATION: NM BONE SCAN OF THE WHOLE BODY CLINICAL INFORMATION: History of right breast cancer 2006 question response to therapy. COMPARISON: Bone scan 08/09/2022 TECHNIQUE: Multiple gamma scintillation camera images of the whole body were performed 3 hours following the intravenous administration of 25 mCi Tc-99m MDP. FINDINGS: In the head, there is focal areas of increased activity in the right frontal parietal calvarium similar previous study. In the thoracic cage and upper extremities, there are multiple mild focal activity seen throughout the ribs and bilateral proximal and mid humerus and distal left humerus. In the spine, there is diffuse areas of focal activity seen in the cervical, dorsal, lumbar and the sacral spine, similar to previous study. Minimal levoscoliosis middle lumbar spine. In the pelvis, focal abnormal activity seen in the posterior pelvis, right ischium. In the lower extremities, focal abnormalities are seen in the proximal and distal bilateral femur and right proximal tibia. There are bilateral knee prosthesis appearing is photopenic defect No other definite bony abnormalities are noted. The urinary bladder and faint visualization of both kidneys are noted. NM/NM bone scan whole body IMPRESSION: Diffuse metastatic skeletal involvement calvarium, spine, thoracic Scates, upper and lower extremity and pelvis in a similar fashion to last exam 08/09/2022. There are bilateral knee prosthesis noted. Electronically signed by: Sadiq Boswell MD 06/30/2024 03:07 PM HALLIE BEAN
--- OUTSIDE RECORDS SUMMARY | 2024-06-30 11:22 | XMS_ITS | Data Portability ---
Author Organization [facility], Main Office Address [address] [facility] [address] [place] [address] Care Team Providers Care High Speed Printer Operator Name Role Phone RENNY CHRISTIE Primary Care Provider TENZIN MORALES Orthopedic Surgeon [phone] HE ABEBE Activities Counselor FROYLAN SINGLETARY Medical Oncologist [phone] WARREN YOUNG Academic Success Coordinator BENI SLAUGHTER Branch Retail Executive RENNY RENE General Surgeon [phone] GRACE DUBON Operational Test Mechanic LUZ MARIA CARABALLO Painter Sign Maintenance JEVON CELAYA Surgical Oncologist [phone] TACO ERNST Referring Provider [phone] Assessment No assessment recorded. Plan of Treatment [...] DO Not Attach Compendium, Do Not Delete/merge, [id number] 09/27/2023 16:31:14 Surgeries None recorded. Imaging None recorded. Medication Orders None recorded. Patient TargetsNo targets recorded. Patient Instructions Encounter Date Encounter Id Patient Instructions Last Modified By Organization Details Last Modified Time 02/01/2022 [id number] medicare preventive services guide (female 74yrs and under) [email or web address] Not available 02/01/2022 10:49:03 01/17/2023 [id number] high cholesterol: care instructions [email or web address] Not available 01/17/2023 12:45:39 07/31/2023 [id number] medicines to avoid with kidney disease: care instructions [email or web address] Not available 08/01/2023 08:23:55 high cholesterol: care instructions [email or web address] Not available 07/31/2023 11:53:25 preventing falls: care instructions [email or web address] Not available 07/31/2023 11:52:40 medicare preventive services guide (female 74yrs and under) [email or web address] Not available 07/31/2023 11:52:40 09/27/2023 [id number] To call or return for worsening or concerns [email or web address] Not available 09/27/2023 11:48:26 01/16/2024 [id number] medicines to avoid with kidney disease: care instructions [email or web address] Not available 01/16/2024 11:47:54 Reason for Referral Physical Therapist Referral for Adult health examination At risk for falling Referring Physician: Renny Christie, Family Medicine, Encounter Date: 02/01/2022 Results Created Date Observation Date Name Description Value Unit Range Abnormal Flag Note LastModifiedBy Organization Detail LastModifiedTime 01/05/2001/04/2023 CBC w/ auto diff WBC 2.4 Not Available [facility] (Medical Records) [address] [place] [address], [address], 01/18/2023 07:52:43 01/05/20 23 01/04/2023 CBC w/ auto diff RBC 2.52 Not Available [facility] (Medical Records) [address] [place] [address], [address], 01/18/2023 07:52:43 01/05/20 23 01/04/2023 CBC w/ auto diff HGB 9.2 Not Available [facility] (Medical Records) [address] [place], [address], 01/18/2023 07:52:43 01/05/20 23 01/04/2023 CBC w/ auto diff HCT 26.2 Not Available [facility] (Medical Records) [address] [place] [address], [address], 01/18/2023 07:52:43 01/05/20 23 01/04/2023 CBC w/ auto diff plt 169 Not Available [facility] (Medical Records) [address] [place] [address], [address], 01/18/2023 07:52:43 01/05/20 23 01/04/2023 CBC w/ auto diff WBC 2.4 Not Available [facility] (Medical Records) [address] [place] [address], [address], 01/18/2023 07:49:01 01/05/20 23 01/04/2023 CBC w/ auto diff RBC 2.52 Not Available [facility] (Medical Records) [address] [place] [address], [address], 01/18/2023 07:49:01 01/05/20 23 01/04/2023 CBC w/ auto diff HGB 9.2 Not Available [facility] (Medical Records) [address] [place] [address], [address], 01/18/2023 07:49:01 01/05/20 23 01/04/2023 CBC w/ auto diff HCT 26.2 Not Available [facility] (Medical Records) [address] [place] [address], [address], 01/18/2023 07:49:01 01/05/20 23 01/04/2023 CBC w/ auto diff plt 169 Not Available [facility] (Medical Records) [address] [facility] [place], [address], 01/18/2023 07:49:01 08/01/19 24 08/01/2023 LIPID PANEL cholesterol, total 173 mg/dL (<200) Not Available [facility] [address] [place], [address], 08/01/2023 17:13:02 08/01/19 24 08/01/2023 LIPID PANEL triglyceride 100 mg/dL (<150) Not Available [facility] [address] [place], [address], 08/01/2023 17:13:02 08/01/19 24 08/01/2023 LIPID PANEL HDL chol 70 mg/dL (>39) Not Available [facility] [address] [place], [address], 08/01/2023 17:13:02 08/01/19 24 08/01/2023 LIPID PANEL LDL cholesterol, calculated 83 mg/dL (0-130 ) Not Available [facility] [address] [place], [address], 08/01/2023 17:13:02 08/01/19 24 08/01/2023 LIPID PANEL non HDL cholesterol (calc) 103 mg/dL (<160) Not Available [facility] [address] [place], [address], 08/01/2023 17:13:02 09/27/19 24 09/27/2023 cerum en remov al (PROC ) done YW/LW Not Available In-Office Order Internal Use Only DO Not Attach Compendium DO Not Attach Compendium, Do Not Delete/merge, [id number] 09/27/2023 11:51:36 03/22/2003/20/2023 PET-C T, skull base to mid-t high scan No observ ation record ed. [email or web address] [facility] (Medical Records) [address] [facility], [place], [address], 03/26/2023 13:38:05 Result Notes None recorded. Problems Name Problem SNOMED Code Status Onset Date Resolution Date Notes Provider Name and Address Organization Details Recorded Time Anemia 765705402 Active 2013 Probable ACD secondar y to OA/infla mmation. Renny Christie MD [address], [place], [address] , [facility] 0 10:12:38 Primary malignan t neoplasm of labia majora 21223368 Completed 201312/23/2013 RECORDED 10/01/19 14 8:14AM BY LESA HOGAN ON/TRINIDAD Christie MD [address] [facility] [address], [place], [address] , [facility] 6 14:15:17 Knee pain Completed 201212/23/2013 IMPRESSI ON: HAS A F/U WITH DR DHALIWAL AND MAY BE GETTING INJECTIO NS.; RECORDED 01/07/20 13 10:22AM BY LESA HOGAN ON/TRINIDAD Christie MD [address] [facility] [address], [place], [address] , [facility] 6 14:15:17 Screenin g for malignan t neoplasm of breast Completed 201212/23/2013 RECORDED 06/18/19 13 8:11AM BY LESA HOGAN ON/TRINIDAD Christie MD [address], [place], [address] , [facility] 6 14:15:17 Constipa tion 84615351 Completed 201212/23/2013 IMPRESSI ON: ADVISED TO TAKE OTC SENOKOT; RECORDED 06/18/19 13 8:11AM BY LESA HOGAN/TRINIDAD Christie MD [address] [facility] [address], [place], [address] , [facility] 6 14:15:17 Cough 25946159 Completed 201212/23/2013 IMPRESSI ON: SECONDAR Y TO ALLERGIC RHINITIS ; RECORDED 06/18/19 13 8:11AM BY JAIME CRUZ I, SHAKAATI ON/ADDEN DUM Tish Chang [facility] [address] [facility] [address], [place], [address] , [facility] 4 11:48:45 Enthesop athy of knee [id number] Completed 201212/23/2013 RECORDED 06/18/19 13 8:11AM BY JAIME CRUZ I, ANNOTATI ON/ADDEN DUM Renny Christie MD [address] [facility] [address], [place], [address] , [facility] 6 14:15:17 Influenz a vaccine needed [id number] 06 Completed 200912/23/2013 RECORDED 05/25/20 10 2:08PM BY JAIME CRUZ I, HISTORIC AL SUMMARY Renny Christie MD [address] [facility] [address], [place], [address] , [facility] 6 14:15:17 General examinat ion of patient Completed 200712/23/2013 RECORDED 02/02/20 08 10:51AM BY RENNY ELIZABETH MD, ANNOTATI ON/ADDEN DUM Renny Christie MD [address] [facility] [address], [place], [address] , [facility] 6 14:15:17 Hemorrho ids [id number] Completed 201112/23/2013 RECORDED 12/18/19 12 1:34PM BY RENNY ELIZABETH MD, ANNOTATI ON/ADDEN DUM Renny Christie MD [address] [facility] [address], [place], [address] , [facility] 6 14:15:17 History of malignan t neoplasm of skin excludin g melanoma 982739825 Active 2013 Basal cell carcinom a; followed by Dr Milton Christie MD [address], [place], [address] , [facility] 9 11:15:58 History of malignan t neoplasm of breast 515683125 Active 2007 Right lumpecto my by Dr Gabi maloney. Also radiatio n and 5 years of hormonal therapy. Renny Christie MD [address] [facility] [address], [place], [address] , [facility] 2 07:39:52 Pure hypercho lesterol emia 849351805 Completed 201311/13/2016 working on diet Renny Christie MD [address], [place], [address] , [facility] 7 10:48:27 Hypokale michael [id number] Completed 201112/23/2013 RECORDED 12/18/19 12 1:34PM BY RENNY ELIZABETH MD, ANNOTATI ON/TRINIDAD Christie MD [address] [facility] [address], [place], [address] , [facility] 6 14:15:17 Laborato ry procedur e performe d 459149452 Completed 201212/23/2013 RECORDED 01/22/20 13 9:40AM BY JAIME CRUZ I, ANNOTATI ON/TRINIDAD Christie MD [address] [facility] [address], [place], [address] , [facility] 6 14:15:17 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 FOLLOWED BY DR SINGLETARY. ; RECORDED 10/01/19 14 8:14AM BY JAIME CRUZ I, ANNOTATI ON/ADDEN DUM Renny Christie MD [address] [address], [facility] [place], [address] , [facility] 6 14:15:17 Osteoart hritis of knee 205430246 Active [address] Young and receives injectio ns. Seen by ortho August 2018 and godfrey ramos replace ent. Tana baker, [facility] 9 10:43:48 Tobacco user 166558618 Completed 201304/27/2014 RECORDED 10/01/19 14 11:07AM BY JAIME CRUZ I, OFFICE VISIT Renny Christie MD [address] [address], [place], [address] , [facility] 6 14:15:17 History of clinical finding in subject 792314197 Completed 201304/27/2014 RECORDED 10/01/19 14 11:07AM BY JAIME CRUZ I, OFFICE VISIT Renny Christie MD [address] [address], [place], [address] , [facility] 6 14:15:17 Pre-surg godfrey evaluati on Completed 201312/23/2013 RECORDED 10/01/19 14 8:13AM BY JAIME CRUZ I, ANNOTATI ON/ADDEN DUM Renny Christie MD [address] [address], [place], [address] , [facility] 6 14:15:17 Joint effusion of ankle AND/OR foot 9719414 Completed 201112/23/2013 RECORDED 12/18/19 12 1:36PM BY RENNY ELIZABETH MD, ANNOTATI ON/ADDEN DUM Renny Christie MD [address] [facility] [address], [place], [address] , [facility] 6 14:15:17 Adult health examinat ion Completed 201304/27/2014 RECORDED 10/01/19 14 11:06AM BY JAIME CRUZ I, OFFICE VISIT Renny Christie MD [address] [facility] [address], [place], [address] , [facility] 6 14:15:17 Adult health examinat ion Completed 201112/23/2013 RECORDED 12/18/19 12 1:35PM BY RENNY ELIZABETH MD, ANNOTATI ON/ADD DUM Renny Christie MD [address] [facility] [address], [place], [address] , [facility] 6 14:15:17 Screenin g for malignan t neoplasm of colon Completed 201304/27/2014 RECORDED 10/08/19 14 1:36PM BY CHEYENNE VALENTE, HISTORIC AL SUMMARY Renny Christie MD [address] [facility] [address], [place], [address] , [facility] 6 14:15:17 Screenin g for malignan t neoplasm of colon Completed 200812/23/2013 RECORDED 06/18/19 09 5:06PM BY RENNY ELIZABETH MD, ANNOTATI ON/ADD DUM Renny Christie MD [address] [facility] [address], [place], [address] , [facility] 6 14:15:17 Administ ration of diphther ia and tetanus vaccine Completed 201212/23/2013 RECORDED 01/07/20 13 10:22AM BY JAIME CRUZ I, ANNOTATI ON/ADDEN DUM Renny Christie MD [address] [facility] [address], [place], [address] , [facility] 6 14:15:17 Primary malignan t neoplasm of labia majora 95584617 Completed 201301/19/2014 RECORDED 10/01/19 14 8:14AM BY LESA HOGAN ON/TRINIDAD Christie MD [address] [facility] [address], [place], [address] , [facility] 6 14:15:17 Knee pain Completed 201201/19/2014 IMPRESSI ON: HAS A F/U WITH DR DHALIWAL AND MAY BE GETTING INJECTIO NS.; RECORDED 01/07/20 13 10:22AM BY LESA HOGAN ON/TRINIDAD Christie MD [address] [facility] [address], [place], [address] , [facility] 6 14:15:17 Screenin g for malignan t neoplasm of breast Completed 201201/19/2014 RECORDED 06/18/19 13 8:11AM BY LESA HOGAN ON/TRINIDAD Christie MD [address] [facility] [address], [place], [address] , [facility] 6 14:15:17 Constipa tion 27596121 Completed 201201/19/2014 IMPRESSI ON: ADVISED TO TAKE OTC SENOKOT; RECORDED 06/18/19 13 8:11AM BY LESA HOGAN ON/TRINIDAD Christie MD [address] [facility] [address], [place], [address] , [facility] 6 14:15:17 Cough 96494366 Completed 201201/19/2014 IMPRESSI ON: SECONDAR Y TO ALLERGIC RHINITIS ; RECORDED 06/18/19 13 8:11AM BY LESA HOGAN/TRINIDAD Chang [facility] [address], [place], [address] , [facility] 4 11:48:45 Enthesop athy of knee 17753554 Completed 201201/19/2014 RECORDED 06/18/19 13 8:11AM BY JAIME CRUZ I, ANNOTATI ON/ADDEN DUM Renny Christie MD [address] [facility] [address], [place], [address] , [facility] 6 14:15:17 Influenz a vaccine needed [id number] 06 Completed 200901/19/2014 RECORDED 05/25/20 10 2:08PM BY JAIME CRUZ I, HISTORIC AL SUMMARY Renny Christie MD [address] [facility] [address], [place], [address] , [facility] 6 14:15:17 General examinat ion of patient Completed 200701/19/2014 RECORDED 02/02/20 08 10:51AM BY RENNY ELIZABETH MD, ANNOTATI ON/ADDEN DUM Renny Christie MD [address] [facility] [address], [place], [address] , [facility] 6 14:15:17 Hemorrho ids [id number] Completed 201101/19/2014 RECORDED 12/18/19 12 1:34PM BY RENNY ELIZABETH MD, ANNOTATI ON/ADDEN DUM Renny Christie MD [address], [place], [address] , [facility] 6 14:15:17 Hypokale michael [id number] Completed 201101/19/2014 RECORDED 12/18/19 12 1:34PM BY RENNY ELIZABETH MD, ANNOTATI ON/ADDEN DUM Renny Christie MD [address] [facility] [address], [place], [address] , [facility] 6 14:15:17 Laborato ry procedur e performe d 708015571 Completed 201201/19/2014 RECORDED 01/22/20 13 9:40AM BY LESA HOGAN ON/TRINIDAD Christie MD [address] [facility] [address], [place], [address] , [facility] 6 14:15:17 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 FOLLOWED BY DR SINGLETARY. ; RECORDED 10/01/19 14 8:14AM BY LESA HOGAN ON/TRINIDAD Christie MD [address] [facility] [address], [place], [address] , [facility] 6 14:15:17 Pre-surg godfrey evaluati on Completed 201301/19/2014 RECORDED 10/01/19 14 8:13AM BY LESA HOGAN ON/TRINIDAD Christie MD [address] [address], [place], [address] , [facility] 6 14:15:17 Joint effusion of ankle AND/OR foot 8251174 Completed 201101/19/2014 RECORDED 12/18/19 12 1:36PM BY RENNY ELIZABETH MD, LESA ON/TRINIDAD Christie MD [address] [facility] [address], [place], [address] , [facility] 6 14:15:17 Administ ration of diphther ia and tetanus vaccine Completed 201201/19/2014 RECORDED 01/07/20 13 10:22AM BY LESA HOGAN ON/ADDEN DUM Renny Christie MD [address], [facility] [place], [address] , [facility] 6 14:15:17 Insomnia 258699785 Active Tana Prater null, [facility] 9 10:43:48 Calculus in urethra 14312587 Active followed by urology Tana Prater null, [facility] 9 10:43:48 Basal cell carcinom a of skin 389546124 Active 2014 ankle, right ear Tana Prater null, [facility] 9 10:43:48 Advance directiv e discusse d with patient 104656707 Active Tana Prater null, [facility] 9 10:43:48 Hearing loss 45098751 Active Tana Prater null, [facility] 9 10:43:48 Hyperlip idemia 63571524 Active 2016 Tana Prater null, [facility] 9 10:43:48 Total knee replacem ent Active 2018 Dr Julio C Fajardo Prater null, [facility] 9 10:43:48 Kidney stone 75043747 Active Tana Prater null, [facility] 9 10:43:48 Strabism 56619073 Active Tana Prater null, [facility] 9 10:43:48 Serum choleste rol above referenc e range 591498496 Active Tana Prater null, [facility] 9 10:43:48 Vitreous floaters 10096441 Active Tana Prater null, [facility] 9 10:43:48 Cataract 615257654 Active Tana Prater null, [facility] 9 10:43:48 Amblyopi a 395542587 Active Tana Prater null, [facility] 9 10:43:48 Tubular adenoma 435090091 Active 2019 PER LILLIAM Xenia England null, [facility] 0 09:19:38 Chronic kidney disease stage 3 380516399 Active 2020 Per Crowder MD null, [facility] 1 10:36:45 Hyperten sive renal disease 20733328 Active 2020 Teresa Dockery null, [facility] 1 16:23:45 Neoplasm of hip region 260087853 Active 2020 Seen by ortho, Dr Lamar. 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 Primary breast cancer was in 2005. Started palliati ve treatmen t in April 2021. Renny Christie MD [address] [address], [place], [address] , [facility] 2 07:44:32 Herpes zoster 1077126 Active 2022 on face Renny Christie MD [address] [address], [place], [address] , [facility] 3 08:54:17 Bilatera l cataract s 98847118 Active 2023 Tish Chang [facility] [address] [address], [place], [address] , [facility] 4 11:48:36 Cough 33012139 Active 2023 IMPRESSI ON: SECONDAR Y TO ALLERGIC RHINITIS ; RECORDED 06/18/19 13 8:11AM BY LESA HOGAN ON/ADDEN DUM Tish Chang, [facility] [address], [place], [address] , [facility] 4 11:48:45 Impacted cerumen in right ear 40955605503 05059 Active 2023 Tish Chang, [facility] [address], [place], [address] , [facility] 4 11:51:34 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 Please review this document and add these problems to the patient's chart manually as needed. Problem Notes None recorded. Procedures Surgical History Date Name Laterality Status Provider Name and Address Organization Details Recorded Time 06/07/20 21 removal of implant from femur completed Tana Prater [facility] 06/08/2021 10:17:01 02/11/20 21 Most Recent Mammogram completed Gabrielle Carrillo MA [facility] 02/01/2022 10:22:35 08/21/19 21 Mammogram Diagnostic Bilateral completed Cindy Hamlin MA [facility] 12/14/2020 12:59:41 12/01/19 20 Six-Item Cognitive Test completed Jaime Horne [facility] 12/01/2019 13:31:07 08/21/19 20 Date of Last Colonoscopy completed Xenia England [facility] 08/21/2019 11:32:29 08/21/19 20 Colonoscopy & polypectomy completed Xenia England [facility] 08/29/2019 09:20:00 03/31/20 19 Total knee arthroplasty completed Tana Prater [facility] 04/15/2019 16:17:26 07/17/20 19 renal lithotripsy completed Tana Prater [facility] 01/15/2019 15:36:12 11/27/19 19 Mini-Cog Test completed Jaime Horne [facility] 11/26/2018 13:12:53 10/22/19 19 Knee Surgery completed Tana Prater [facility] 10/30/2018 11:49:05 11/22/19 18 Mini-Cog Test completed Zuleyma Mckeon [facility] 11/21/2017 13:09:40 01/31/20 17 Other completed Sabrina Cruz [facility] 03/30/2017 16:51:14 11/14/19 17 Fall Risk Assessment completed Jaime Horne [facility] 11/13/2016 10:28:15 11/14/19 17 Mini-Cog Test completed Jaime Horne [facility] 11/13/2016 10:28:23 08/12/19 17 Other completed Abby Day [facility] 09/04/2016 15:26:26 10/28/19 16 Fall Risk Assessment completed Jaime Horne [facility] 10/28/2015 14:00:43 10/28/19 16 Mini-Cog Test completed Jaime Horne [facility] 10/28/2015 14:00:43 10/28/19 16 Advanced Care Planning completed Jaime Horne [facility] 10/28/2015 13:52:42 06/09/20 15 Other completed Renny Christie MD [address], [address] 06/13/2015 10:12:27 10/27/19 15 Fall Risk Assessment completed Jaime Horne [facility] 10/26/2014 10:32:53 10/27/19 15 Mini-Cog Test completed Jaime Horne [facility] 10/26/2014 10:32:53 10/07/19 14 Colposcopy completed Uma Shukla MA [facility] 04/27/2014 11:39:55 06/11/19 13 Other completed Renny Christie MD [address] [place] [address], [address], [facility] 04/27/2014 12:48:11 12/09/19 10 Most Recent Bone Density completed Gabrielle Carrillo MA [facility] 02/01/2022 10:23:37 06/11/19 06 Breast Surgery completed Renny Christie MD [address] [facility], [place], [address], [facility] 11/21/2017 13:44:50 06/11/19 04 Appendectomy completed Renny Christie MD [address] [facility] [address] [place] [address], [address], [facility] 11/21/2017 13:45:12 06/11/18 89 Hernia Repair completed Renny Christie MD [address] [place] [address], [address], [facility] 11/21/2017 13:44:26 06/11/18 56 Eye Surgery completed Renny Christie MD [address] [facility], [place], [address], [facility] 11/21/2017 13:43:59 total knee replacement completed Gabrielle Carrillo MA [facility] 02/01/2022 10:34:13 Tonsillectomy completed Renny Christie MD [address] [place] [address], [address], [facility] 04/27/2014 12:48:11 Caesarean Section completed Renny Christie MD [address], [address], [facility] 04/27/2014 12:48:11 Imaging Results Imaging Date Name Status LastModified by [facility] Details LastModified Time 03/20/2023 PET-CT, skull base to mid-thigh scan completed [facility] (Medical Records) [address] [facility], [place], [address], 03/26/2023 13:38:05 Procedure Notes None recorded. Medical [...] Available Not Available Not Available Fluad Quad 5836-1677 (65yr up)(PF) 60 mcg (15 mcg x [...] Updated DateTime 2 165.74 cm 24.2 kg/m2 58274.2 9 g 64 /min 97 % 97 % 98.1 [degF] 138 mm[Hg] 69 mm[Hg] Gabrielle Carrillo MA [facility] 2 10:40:10 Date Recorded Body height Body mass index (BMI) Body weight Oxygen saturation Oxygen saturation in Arterial blood by Pulse oximetry Heart rate Body temperature Systolic blood pressure Diastolic blood pressure Provider Name and Address Organization Details Last Updated DateTime 3 165.74 cm 26.2 kg/m2 97459.6 9 g 97 % 97 % 68 /min 97.9 [degF] 115 mm[Hg] 61 mm[Hg] Justine Burch MA [facility] 3 11:27:47 Date Recorded Body height Body mass index (BMI) Body weight Heart rate Oxygen saturation Oxygen saturation in Arterial blood by Pulse oximetry Body temperature Systolic blood pressure Diastolic blood pressure Provider Name and Address Organization Details Last Updated DateTime 4 165.74 cm 26.9 kg/m2 10346.5 6 g 68 /min 97 % 97 % 97.5 [degF] 157 mm[Hg] 77 mm[Hg] Masha Reed MA [facility] 4 11:01:37 Date Recorded Body height Body mass index (BMI) Body weight Heart rate Oxygen saturation Oxygen saturation in Arterial blood by Pulse oximetry Body temperature Systolic blood pressure Diastolic blood pressure Provider Name and Address Organization Details Last Updated DateTime 4 165.74 cm 26.3 kg/m2 00027.1 9 g 74 /min 95 % 95 % 98.2 [degF] 126 mm[Hg] 75 mm[Hg] Masha Reed MA [facility] 4 11:31:19 Date Recorded Body height Body mass index (BMI) Body weight Heart rate Oxygen saturation Oxygen saturation in Arterial blood by Pulse oximetry Body temperature Provider Name and Address Organization Details Last Updated DateTime 4 165.74 cm 27.2 kg/m2 24790.7 4 g 64 /min 98 % 98 % 97.6 [degF] Masha Reed MA [facility] 4 11:26:25 Date Recorded Systolic blood pressure Diastolic blood pressure Provider Name and Address Organization Details Last Updated DateTime 01/16/2024 130 mm[Hg] 60 mm[Hg] Renny Christie MD [address] [address], [place], [address], [facility] 01/16/2024 17:53:24 Social History Question Answer Notes LastModified by Organizat ion Details LastModified Time Tobacco Smoking Status Former Smoker stopped 36 years ago [place] Olivo, [facility] 02/01/2022 10:33:16 Do You Have An Advance Directive? Yes 10/26/2014 [email or web address] Information not available 06/16/2020 What Is Your Level Of Alcohol Consumption? Occasional Socially Information not available 02/01/2022 Is Blood Transfusion Acceptable In An Emergency? Yes [id number] Information not available 04/13/2020 What Is Your Level Of Caffeine Consumption? Moderate Coffee 3 Times A Week Information not available 02/01/2022 How Much Tobacco Do You Chew? None [id number] Information not available 04/13/2020 Are You Currently Employed? No Retired [id number] Information not available 04/13/2020 Are You Deaf Or Do You Have Serious Difficulty Hearing? No [email or web address] Information not available 06/16/2020 What Type Of Diet Are You Following? REGULAR [id number] Information not available 04/13/2020 Which Illicit Or Recreational Drugs Have You Used? None [id number] Information not available 04/13/2020 Do You Or Have You Ever Used E-cigarettes Or Vape? Never Used Electronic Cigarettes [email or web address] Information not available 06/16/2020 What Is Your Occupation? Retired [id number] Information not available 04/13/2020 Live Alone Or [...] Have You Served In The ? No [email or web address] Information not available 11/13/2016 Have You Or Anyone In Your Household Had Any Of The Following Symptoms In The Last 14 Days: Sore Throat, Cough, Chills, Body Aches For Unknown Reasons, Shortness Of Breath For Unknown Reasons, Loss Of Smell, Loss Of Taste, Fever At Or Greater Than 100 Degrees Fahrenheit? No [email or web address] Information not available 12/14/2020 Are You Or Anyone In Your Household A Health Care Provider Or Emergency Responder? No [email or web address] Information not available 12/14/2020 To The Best Of Your Knowledge Have You Been In Close Proximity To Any Individual Who Tested Positive For COVID-19? No [email or web address] Information not available 12/14/2020 Have You Recently Traveled To A COVID-19 High Risk Area Or Gathering In The Last 10 Days? No [email or web address] Information not available 12/14/2020 What Was The Date Of Your Most Recent Tobacco Screening? 07/31/2023 Information not available 07/31/2023 How Many Children Do You Have? 3 2 Sons And 1 Daughter; 2 GC [id number] Information not available 04/13/2020 Do You Use Protection During Sex? Usually [id number] Information not available 04/13/2020 Difficulty Reading? No Information not available 10/26/2014 Seat Belts Used Routinely Yes Information not available 10/28/2015 Are You Sexually Active? Yes [id number] Information not available 04/13/2020 Smoke Alarm In Home Yes Information not available 10/28/2015 At What Age Did You Start Smoking Tobacco? 13 [id number] Information not available 04/13/2020 Do You Or Have You Ever Used Smokeless Tobacco? Never Used Smokeless Tobacco [email or web address] Information not available 12/14/2020 How Much Tobacco Do You Smoke? 1 PPD [id number] Information not available 04/13/2020 Do You Use Any Illicit Or Recreational Drugs? No Information not available 02/01/2022 Do You Use Sunscreen Routinely? Yes [id number] Information not available 04/13/2020 How Many Years Have You Smoked Tobacco? 22 [id number] Information not available 04/13/2020 Difficulty Watching TV? No [email or web address] Information not available 10/26/2014 Do You Or Have You Ever Used Any Other Forms Of Tobacco Or Nicotine? No Information not available 02/01/2022 Sex: Unknown Functional Status Question Answer Note LastModified by Organizat ion Details LastModified Time Do you have difficulty walking or climbing stairs? Yes Arthritis in her knees Information not available 06/16/[address] at night? No Information not available 10/26/2014 Are you able to walk? [email or web address] Information not available 02/01/2022 Do you have difficulty doing errands alone? No [email or web address] Information not available 06/16/2020 Are you able to care for yourself? Yes [id number] Information not available 04/13/2020 Do you have difficulty dressing or bathing? No [email or web address] Information not available 06/16/2020 What is your exercise level? Occasional [id number] Information not available 04/13/2020 Mental Status Question Answer Note LastModified by Organization D etails LastModified Time Do you have difficulty concentrating, remembering or making decisions? No [email or web address] Information no t available 06/16/2020 Family History [...] pneumococcal polysaccharide PPV23 5 completed Not Available [facility] 06/28/2019 02:21:41 Influenza, high-dose, trivalent, PF 7 completed Tana Prater null, [facility] 03/14/2019 10:43:49 Influenza, high-dose, trivalent, PF 8 completed Tana Prater null, [facility] 03/14/2019 10:43:49 Influenza, adjuvanted, trivalent, PF 9 completed Tana Prater null, [facility] 02/01/2022 10:53:47 Influenza, split virus, quadrivalent, preservative 0 completed Tana Prater null, [facility] 02/01/2022 10:53:47 COVID-19, mRNA, LNP-S, PF, 30 mcg/0.3 mL dose 1 completed [place] Olivo, [facility] 06/21/2021 13:56:21 COVID-19, mRNA, LNP-S, PF, 30 mcg/0.3 mL dose [facility] 13:56:21 Influenza, adjuvanted, quadrivalent, PF 1 completed [place] Olivo, [facility] 06/21/2021 13:56:21 Influenza, high-dose, trivalent, PF 8 completed [place] Olivo, [facility] 06/21/2021 13:56:21 Influenza, split virus, quadrivalent, PF 5 completed [place] Olivo, [facility] 06/21/2021 13:56:21 Influenza, adjuvanted, quadrivalent, PF 0 completed BR[place] Olivo, [facility] 06/21/2021 13:56:21 Influenza, high-dose, trivalent, PF 6 completed [place] Olivo, [facility] 06/21/2021 13:56:21 COVID-19, mRNA, LNP-S, PF, 30 mcg/0.3 mL dose 1 completed [place] Olivo, [facility] 06/21/2021 13:56:21 Influenza, adjuvanted, quadrivalent, PF 2 completed BR[place] García, [facility] 01/17/2023 11:21:07 Pneumococcal conjugate PCV 13 6 completed Not Available [facility] 06/28/2019 02:21:36 Influenza, high-dose, quadrivalent, PF 3 completed BR[place] Bob, [facility] 01/16/2024 11:26:31 Td (adult), 2 Lf tetanus toxoid, preservative free, adsorbed 9 completed Tana Prater null, [facility] 03/14/2019 10:43:49 Influenza, split virus, trivalent, preservative 0 completed Tana Prater null, [facility] 03/14/2019 10:43:49 Influenza, split virus, trivalent, PF 2 completed Tana Prater null, [facility] 03/14/2019 10:43:49 Tdap 3 completed Tana Prater null, [facility] [place] 03/14/2019 10:43:49 Td (adult), 2 Lf tetanus toxoid, preservative free, adsorbed 4 completed Renny Christie MD [address] [address], [place], [address], [facility] [place] 08/01/2023 08:20:49 Past Encounters Encounter ID Performer Location Encounter Start Date Encounter Closed Date Diagnosis/Indication Diagnosis SNOMED-CT Code Diagnosis ICD10 Code Diagnosis Note [id number] [facility] [address] [facility] [place] [address] 08/29/2006 00:00:00 [id number] autoEComm erce [address] [facility] [place] [address] 01/08/2006 00:00:00 [id number] autoEComm erce [address] [facility] [place] [address] 11/13/2005 00:00:00 [id number] autoEComm erce [address] [facility] [place] [address] 12/07/2006 00:00:00 [id number] autoEComm erce [address] [facility] [place] [address] 07/18/2007 00:00:00 [id number] autoEComm erce [address] [facility] [place] [address] 02/26/2008 00:00:00 [id number] autoEComm erce [address] [facility] [place] [address] 08/25/2008 00:00:00 [id number] autoEComm erce [address] [facility] [place] [address] 03/30/2009 00:00:00 [id number] autoEComm erce [address] [facility] [place] [address] 04/29/2009 00:00:00 [id number] autoEComm erce [address] [facility] [place] [address] 09/28/2009 00:00:00 [id number] [address] [place] [address] 12/29/2009 00:00:00 [id number] autoEComm erce [address] [place] [address] 05/25/2010 00:00:00 [id number] autoEComm erce [address] [place] [address] 12/05/2010 00:00:00 [id number] autoEComm erce [address] [facility] [place] [address] 06/14/2011 00:00:00 [id number] autoEComm erce [address] [facility] [place] [address] 12/18/2011 00:00:00 [id number] autoEComm erce [address] [facility] [place] [address] 01/15/2012 00:00:00 [id number] autoEComm erce [address] [facility] [place] [address] 06/18/2012 00:00:00 [id number] autoEComm erce [address] [facility] [place] [address] 01/06/2013 00:00:00 [id number] autoEComm erce [address] [facility] [place] [address] 01/21/2013 00:00:00 [id number] autoEComm erce [address] [facility] [place] [address] 09/30/2013 00:00:00 [id number] Jaime Horne Main Office [address] [place], [place] [address] 04/27/2014 11:25:58 04/27/2014 12:03:27 Essential hypertension 98201051 Pure hypercholesterolemia 183547209 Varicella vaccination 80019159 Insomnia 191368830 [id number] Main Office [address] [place] [address] 10/26/2014 10:05:17 10/26/2014 11:03:13 Adult health examination 467687404 Administra tion of pneumococcal vaccine 47615760 Pure hypercholesterolemia 693801089 Essential hypertension 61522146 [id number] Renny Christie MD Main Office [address] [address] [place] [address] 04/28/2015 09:45:36 04/28/2015 10:43:03 Essential hypertension 73713403 I10 Anemia 849805672 D64.9 Varicella vaccination 68 348100 Z23 [id number] Renny Christie MD Main Office [address] [address] [place] [address] 10/28/2015 13:32:34 10/28/2015 14:47:32 Adult health examination 994594610 Z00.00 We will update her immination s today. She is UTD with colonoscop y and FOLDER OPERATOR care. We discussed the importance of calcium Advance di rective discussed with patient 541505462 Z71.89 Varicella vaccination 68 459271 Z23 Administra tion of pneumococcal vaccine 95332418 Z23 Essential hypertension 85675613 I10 running high today and she will follow it at home; we will call her in a couple of weeks and if it is still running high we will increase her amlodipine from 5 to 10 mg. Pure hypercholesterolemia 154350153 E78.0 Hearing loss 38064454 H9 1.90 Higher frequencie s. Mild. She we try to adjust and we will monitor it. [id number] Renny Christie MD Main Office [address] [address] [place] [address] 05/09/2016 09:44:35 05/09/2016 10:31:26 Essential hypertension 54594642 I10 good control; continue current mgmt. Hyperlipidemia 88989933 E78.5 LDL now at goal with meds which she is tolerating well. [id number] Renny Christie MD Main Office [address] [address] [place] [address] 07/06/2016 10:32:21 07/06/2016 11:25:30 Postviral cough 247361509 R05 She is already using proair and flonase. I also advised an OTC decongesta nt and let her know that this cough can go on for 2-4 weeks and is difficult to treat. Keep room cool at night and may also use honey. [id number] Renny Christie MD Main Office [address] [address] [place] [address] 11/13/2016 10:03:53 11/13/2016 11:06:36 Adult health examination 381980102 Z00.00 She is due for a shingles shot. She is UTD with colonoscop y and FOLDER OPERATOR care. We discussed the importance of calcium Essential hypertension 29917648 I10 good control; continue current mgmt. Hyperlipidemia 96246741 E78.5 LDL now at goal with meds which she is tolerating well. Varicella vaccination 68 787540 Z23 [id number] Renny Christie MD Main Office [address] [address] [place] [address] 05/17/2017 09:02:51 05/17/2017 09:41:28 Essential hypertension 21762993 I10 good control; continue current mgmt. Hyperlipidemia 02438093 E78.5 LDL now at goal with meds which she is tolerating well. Hypokalemia 59848765 E87 .6 A hand-out was given on foods which are high in potassium. Insomnia 900904522 G47.0 0 doing better; not on meds. [id number] Renny Christie MD Main Office [address] [address] [place] [address] 11/21/2017 12:52:00 11/21/2017 13:49:23 Adult health examination 201242680 Z00.00 She is due for a shingles shot. She is UTD with colonoscop y and FOLDER OPERATOR care. We discussed the importance of calcium Varicella vaccination 68 019417 Z23 Insomnia 940169267 G47.0 0 doing better; not on meds. Hyperlipidemia 01524383 E78.5 LDL now at goal with meds which she is tolerating well. Essential hypertension 35516436 I10 good control; continue current mgmt. [id number] Renny Christie MD Main Office [address] [place] [address] [place] [address] 05/22/2018 12:36:55 05/22/2018 13:25:40 Essential hypertension 21469935 I10 good control; continue current mgmt. Hyperlipidemia 40168402 E78.5 LDL now at goal with meds which she is tolerating well. [id number] Grover Holland PA-C Main Office [address] [facility] [address] [place] [address] 10/08/2018 12:44:17 10/08/2018 13:48:20 Pre-surgery evaluation 628606127 Z01.818 Osteoarthr itis of knee 638030088 M17.11 pre-op for R TKR, anticipate doing L TKR ~ 6-8 wks later Essential hypertension 45178191 I10 stable bp and cr - cont meds as dir Hyperlipidemia 60975139 E78.5 Anemia 271803034 D64.9 last h/h in chart 12.4/38.9 on 06.21.16 c ferritin of 37, iron 107, tibc 326, % iron sat 33 last wk advised by anesthesia to take iron qd also rec to take this with 500mg of vit C qd to enhance absorption of iron -- if get constipate d, then take colace 1-2x/day History of polyp of colon 707297828 Z86.010 h/o colon polyps - had nl colon 4.14 - she just rec'd surveillan ce recall notice - she will schedule in near future [id number] Renny Christie MD Main Office [address] [facility] [address] [place] [address] 10/29/2018 08:51:29 10/29/2018 10:34:00 [id number] Renny Christie MD Main Office [address] [facility] [address] [place] [address] 11/14/2018 11:16:47 11/14/2018 12:04:24 Anemia 349777480 D64.9 CBC from [facility] shows an improvemen t. We will check it again next week to be sure that she is not actively bleeding. Essential hypertension 33825530 I10 good control; continue current mgmt. [id number] Renny Christie MD Main Office [address] [facility] [address] [place] [address] 11/26/2018 12:54:46 11/26/2018 13:57:51 Adult health examination 551344205 Z00.00 She is due for a shingles shot. She is UTD with FOLDER OPERATOR care. She will be making an appointmen t for a colonoscop y. We discussed the importance of calcium Essential hypertension 06184010 I10 good control; continue current mgmt. Anemia 746537248 D64.9 [id number] Teresa Dockery Main Office [address] [facility] [address] [place] [address] 03/20/2019 09:48:51 03/20/2019 10:55:32 Pre-surgery evaluation 397944304 Z01.818 Patient is at low risk for [...] sip of water. Osteoarthr itis of knee 827315515 M17.12 TKR scheduled [id number] Renny Christie MD Main Office [address] [facility] [address] [place] [address] 05/28/2019 10:27:39 05/28/2019 11:21:04 Essential hypertension 01229600 I10 good control; continue current mgmt. Anemia 523328473 D64.9 Currently taking iron supplement s once daily Constipation 38190046 K5 9.00 Has been a problem since taking iron supplement s but under control with eating a prune a night. [id number] Renny Christie MD Telehealt [address] [facility] [address] [facility] [place] [address] 12/01/2019 12:02:54 12/01/2019 15:09:23 Adult health examination 753288380 Z00.00 She is due for a shingles shot. She is UTD with FOLDER OPERATOR care. She will be making an appointmen t for a colonoscop y. We discussed the importance of calcium Essential hypertension 97477134 I10 good control; continue current mgmt. Anemia 571257063 D64.9 Was on iron supplement s in the past. Had a colonoscop y earlier this year which was normal. Hyperlipidemia 73075070 E78.5 LDL at goal with meds which she is tolerating well. [id number] Renny Christie MD Main Office [address] [facility] [address] [place] [address] 06/16/2020 10:35:24 06/16/2020 11:35:40 Essential hypertension 39345695 I10 good control; continue current mgmt. Hyperlipidemia 50335891 E78.5 LDL at goal with meds which she is tolerating well. [id number] Teresa Dockery Main Office [address] [address] [place] [address] 12/14/2020 12:50:53 12/14/2020 13:54:54 Adult health examination 863493840 Z00.00 She is due for a shingles shot. She is UTD with FOLDER OPERATOR care. She had a colonoscop y done last year and is due again in 2024. We discussed the importance of calcium and weight-alecia ring exercise. Hyperlipidemia 29727994 E78.5 LDL at goal with meds which she is tolerating well. Anemia 107025899 D64.9 Was on iron supplement s in the past. Had a colonoscop y last year which was normal. This is probably ACD from her OA. Chronic ki dney disease stage 3 157250914 N18.30 Hypertensi ve renal disease 91178879 I12.9 good control; continue current mgmt. [id number] Teresa Dockery Main Office [address] [address] [place] [address] 06/21/2021 13:44:45 06/21/2021 15:02:48 Metastatic malignant neoplasm to bone 69850361 C79.51 Admitted for surgery, transferre d to rehab and now home with PT. On DVT prophylaxi s for 1 month. Hypertensi ve renal disease 12104794 I12.9 Good control; continue current mgmt. Hyperlipidemia 50133996 E78.5 LDL at goal with meds which she is tolerating well. Will recheck fasting lipid level next appointmen t. [id number] Renny Christie MD Main Office [address] [address] [place] [address] 06/22/2021 08:21:30 06/22/2021 08:43:34 [id number] Renny Christie MD Main Office [address] [facility] [address] [place] [address] 07/19/2021 11:18:41 07/19/2021 12:02:25 Hypertensive renal disease 09803105 I12.9 Good control; continue current mgmt. Chronic ki dney disease stage 3 084499299 N18.31 Metastatic malignant neoplasm to female breast 99987372 C79.81 Currently on palliative chemo and followed by Dr Celaya. Had mets to her hip and had surgery to prevent a hip fracture. Hyperlipidemia 70331239 E78.5 LDL at goal with meds which she is tolerating well. Will recheck fasting lipid level next appointmen t. [id number] Renny Christie MD Main Office [address] [facility] [address] [place] [address] 02/01/2022 10:19:32 02/01/2022 11:15:39 Adult health examination 440327808 Z00.00 She is due for a shingles shot. She is UTD with FOLDER OPERATOR care. She had a colonoscop y done in [address] Caraballo and is due again in 2024. We discussed the importance of calcium and weight-alecia ring exercise. She has been recovering from her hip surgery done May 2021 and her cancer treatment and just now getting to be more active. Metastatic malignant neoplasm to female breast 03546187 C79.81 Currently on palliative chemo and followed by Dr Celaya. Had mets to her hip and had surgery to prevent a hip fracture. 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 [id number] Teresa Dockery Main Office [address] [facility] [address] [place] [address] 01/17/2023 11:16:36 01/17/2023 12:04:28 Hypertensive renal disease 85412913 I12.9 Good control; continue current mgmt. Metastatic malignant neoplasm to female breast 72923570 C79.81 Currently on palliative chemo and followed by Dr Celaya. Had mets to her hip and had surgery to prevent a hip fracture. Hyperlipidemia 21308063 E78.5 LDL at goal with meds which she is tolerating well. Will recheck fasting lipid level next appointmen t. Alejandrina ki dney disease stage 3A 667412874 N18.31 [id number] Renny Christie MD Main Office [address] [facility] [address] [place] [address] 07/31/2023 10:54:18 07/31/2023 11:56:22 Adult health examination 055166002 Z00.00 She is due for a shingles shot. She is UTD with FOLDER OPERATOR care. She had a colonoscop y done in [address] Caraballo and is due again in 2024. We discussed the importance of calcium and weight-alecia ring exercise. She has been recovering from her hip surgery done May 2021 and her cancer treatment and just now getting to be more active. Requires a tetanus booster 368921074 Z23 Hyperlipidemia 09645155 E78.5 LDL at goal with meds which she is tolerating well. Will recheck fasting lipid level next appointmen t. Metastatic malignant neoplasm to female breast 83704840 C79.81 Currently on palliative chemo and followed by Dr Celaya. Had mets to her hip and had surgery to prevent a hip fracture. Chronic ki dney disease stage 3 977599756 N18.31 Hypertensi ve renal disease 86596462 I12.9 Good control; continue current mgmt. [id number] YOSEPH Abarca Main Office [address] [facility] [address] [place] [address] 09/27/2023 11:17:17 09/27/2023 12:14:35 Pre-surgery evaluation 630319168 Z01.818 Having bilateral cataract surgery with Dr. Slaughter. Right eye 10/07 and left eye 10/21. Low cardiac risk for cataract surgery, labs and EKG were done through her oncologist , will request results. no further work-up necessary, should proceed as scheduled Bilateral cataracts 9572 2004 H26.9 Cough 46844497 R05.9 coughing, started on augmentin x 7 days by her oncologist , LS CTA bilaterall y Chronic ki dney disease stage 3 503581160 N18.31 Metastatic malignant neoplasm to female breast 07790476 C79.81 Impacted c erumen in right ear 7836697791 600989 H61.21 right cerumen impaction. lavage done but unable to fully clear the Canal. Suggest she use drops daily and schedule appt for lavage if sx not improved in the next week or 2. Metastatic malignant neoplasm to bone 24333360 C79.51 [id number] Renny Christie MD Main Office [address] [facility] [address] [facility] [place] [address] 01/16/2024 11:20:26 01/16/2024 11:58:30 Hypertensive renal disease 62464746 I12.9 Good control; continue current mgmt. Chronic ki dney disease stage 3 498585655 N18.31 Metastatic malignant neoplasm to female breast 08597186 C79.81 Currently on palliative chemo and followed [...] PLAN F (MEDICARE SUPPLEMENT) Nicolette H Torsten [id number] Nicolette Ronny Torsten 02/01/2022 1 MEDICARE B-[place]: NATIONAL GOVERNMENT SERVICES Nicolette Ronny Torsten [id number] Nicolette Ronny Torsten 01/17/2023 2 AAR HEALTHCARE OPTION - PLAN F (MEDICARE SUPPLEMENT) Nicolette H Torsten [id number] Nicolette Ronny Torsten 01/17/2023 1 MEDICARE [place]: NATIONAL GOVERNMENT SERVICES Nicolette Ronny Torsten [id number] Nicolette Ronny Torsten 07/31/2023 2 AARP HEALTHCARE OPTION - PLAN F (MEDICARE SUPPLEMENT) Nicolette Ronny Torsten [id number] Nicolette Ronny Torsten 07/31/2023 1 MEDICARE [place]: NATIONAL GOVERNMENT SERVICES Nicolette Sarmiento [id number] Nicolette Sarmiento 09/27/2023 2 AAR HEALTHCARE OPTION - PLAN F (MEDICARE SUPPLEMENT) Nicolette Sarmineto [id number] Nicolette Ronny Torsten 09/27/2023 1 MEDICARE B-[place]: NATIONAL GOVERNMENT SERVICES Nicolette Sarmiento [id number] Nicolette Sarmiento 01/16/2024 2 AARP HEALTHCARE OPTION - PLAN F (MEDICARE SUPPLEMENT) Nicolette Sarmiento [id number] Nicolette Sarmiento 01/16/2024 1 MEDICARE B-[place]: [facility] Nicolette Sarmiento [id number] Nicolette Sarmiento Notes Date Note Type Note [...] she sees monthly. Renny Christie MD [address], [address], [facility] 02/01/2022 12:43:12 3 text/html HyperlipidemiaReported bypatient.Type of [...] using a cane for ambulation. Teresa baker, [facility] 01/28/2023 11:44:56 4 text/html Medicare Annual Wellness [...] she sees regularly Renny Christie MD [address] [address], [place], [address], [facility] 08/01/2023 08:26:13 4 text/html Generic HPI TemplateReported [...] be finished by surgery. YOSEPH Abarca [address] [address], [place], [address], [facility] 09/27/2023 12:34:11 4 text/html Hypertension F/UReported bypatient.Associated [...] cane for ambulation. Renny Christie MD [address] [address], [place], [address], [facility] 01/16/2024 17:54:31 OBGyn Episode No OBEpisode recorded.
== END ==
LOC: HO.NUCMED 10:51
PROVIDERS: PCP Internal Medicine; Visit Provider Internal Medicine
DX: C79.51 Secondary malignant neoplasm of bone (principal)
CPT/HCPCS: 78306; A9503

== ENCOUNTER → 2024-06-30 10:53 | Outpatient (BNV) | payer MEDICARE, SELFPAY | PROVIDERS: PCP Internal Medicine; Visit Provider Radiology Diagnostic Radiology | DX: C79.51 Secondary malignant neoplasm of bone (principal) | CPT/HCPCS: 78306 ==

== ENCOUNTER → 2024-11-12 10:50 | Outpatient (REF) | payer MEDICARE, SELFPAY ==
--- NOTE | ~2024-11-12 | NM_ITS ---
EXAMINATION: NM BONE SCAN OF THE WHOLE BODY CLINICAL INFORMATION: Breast cancer. Bone metastatic lesions. COMPARISON: Bone scan 06/30/2024 TECHNIQUE: Multiple gamma scintillation camera images of the whole body were performed 3 hours following the intravenous administration of 27 mCi Tc-99m MDP. FINDINGS: In the head, punctate focal areas of increased activity in the left parietal and right frontal bone have decreased in intensity. In the thoracic cage and upper extremities, this occlusion is activity seen throughout bilateral ribs similar previous study. The intensity has slightly decreased. In the spine, there is diffuse metastatic disease involving the entire cervical, thoracic and lumbar spine. The intensity is much less. No new lesions seen. In the pelvis, focal activity seen in the posterior pelvis: A previous study. In the lower extremities, focal activity seen in bilateral femurs and right proximal tibia. The intensity is similar to previous exam. There are no new lesions seen No other definite bony abnormalities are noted. The urinary bladder and faint visualization of both kidneys are noted. NM/NM bone scan whole body IMPRESSION: Diffuse bone metastasis throughout the entire skeleton. The intensity in the thoracic spine bilateral ribs and cranium appears slightly improved. No new lesions. Metastatic bone disease involving sacrum, bilateral femur and right proximal tibia is somewhat similar. No new lesions or worsening noted. Electronically signed by: Sadiq Boswell MD 11/13/2024 07:43 AM EDT
--- OUTSIDE RECORDS SUMMARY | 2024-11-12 11:42 | XMS_ITS | Patient Health Record ---
Author Organization [facility] [place] Address [address] [facility] [place] [address] Care Team Providers Care Expanded Duty Dental Assistant Name Role Phone Pratik CALVILLO, Renny Primary Care Provider Unav ailKarin Matias Unavailable [phone] Reason For Referral No Information Medications Medication SIG (Take, Route, Frequency, Duration) Notes Start Date End Date Status Atorvastatin Calcium 20 MG Oral for 90 Active amLODIPine Besylate 5 MG Oral for 90 Active Irbesartan 300 MG Oral for 90 Active hydroCHLOROthiazide 25 MG Oral for 90 Active Metoprolol Succinate ER 200 MG Oral for 90 Active Problems No Known Problems Plan Of Treatment No Information Insurance Providers Payer Name Payer Address Payer Phone Subscriber Number Group Number Insured Name Patient Relationship to Insured Coverage Start Date Coverage End Date Medicare National Govt Svcs Inc [address] [place] [address] [id number] Nicolette Sarmiento Self - patient is the insured 5 AARP Secondary to Medicare [address] [place] [address] [id number] Nicolette Sarmiento Self - patient is the insured 6 Medical (General) History Medical History History ICD Code Anemia osteoarthritis Knee Pain Cholesterol Cancer Hypertension Chicken pox Surgical History Surgery Date(Month/Year) herniated disk repair 07/1988 ovarian surgery 12/2003
== END ==
LOC: HO.NUCMED 10:50
PROVIDERS: Visit Provider Internal Medicine
DX: C79.51 Secondary malignant neoplasm of bone (principal)
CPT/HCPCS: 78306; A9503

== ENCOUNTER → 2024-11-12 12:08 | Outpatient (BNV) | payer MEDICARE, SELFPAY | PROVIDERS: Visit Provider Radiology Diagnostic Radiology | DX: C79.51 Secondary malignant neoplasm of bone (principal) | CPT/HCPCS: 78306 ==

== ENCOUNTER 2024-11-21 07:55 | Outpatient (REF) | payer MEDICARE, SELFPAY ==
--- NOTE | ~2024-11-21 | CT_ITS ---
EXAMINATION: CT CHEST WITH CONTRAST CLINICAL INFORMATION: Cough. Concerning pneumonitis. COMPARISON: June 18, 2024. TECHNIQUE: Multidetector volumetric CT imaging of the chest was obtained after the administration of 65 mL of Omnipaque 350 intravenous contrast without immediate adverse reactions. Axial MIP volume rendering provided. Sagittal and coronal reformatted images were obtained. This CT examination was performed using dose optimization techniques as appropriate, variously including the following: *Automated exposure control *Adjustment of mA and/or kV according to patient size (this includes techniques or standardized protocols for targeted exams where dose is matched to indication/reason for exam; i.e. extremities or head) *Use of iterative reconstruction technique DLP: 146 mGy centimeter. FINDINGS: MANAGER MEDICAL WRITING: Patient's large body habitus. Upper extremities at the both sides of the head. Multilevel spondylosis and a shaped curvature of the thoracolumbar spine. Calcified plaque thoracic aorta. LUNGS: 3.7 mm noncalcified pulmonary nodule,, anterior segment right upper lung lobe. Curvilinear attenuations, lingula, right middle lung lobe and lung bases. Patchy pulmonary groundglass in the periphery of the right lung base. Multiple scattered less than 2 mm calcified pulmonary nodules, right laterally. No gross bronchiectasis. No gross honeycombing. No gross peribronchial septal thickening. MEDIASTINUM: No lymphadenopathy, mediastinum or perihilar. No aneurysm or dissection, thoracic aorta. Calcified plaques throughout the thoracic aorta wall and its main branches, specifically left subclavian artery. Calcified plaques in the coronary arteries. No pneumomediastinum. No hemomediastinum. No hemopericardium. No pericardial effusion. Mild prominent left heart chambers. Hiatal hernia, small volume. 21 mm heterogeneously enhancing predominantly low density nodule in the posterior left thyroid lobe.. PLEURA: Small trace left-sided pleural effusion. No pneumothorax. No hemothorax. No calcified pleural plaques. AXILLA: Vascular clips right axillary region. Skin thickening of the right breast/nipple areola region with the irregular shaped attenuation abnormality is evident dystrophic calcifications in the deep fat planes of the right breast. UPPER ABDOMEN: Hiatal hernia, small size. Multifocal different sized low density lesions throughout the liver parenchyma. Nodular surface of the liver. Decreased enhancement pattern of the hepatic parenchyma and normal enhancement pattern near the gallbladder fossa. Multifocal different sizes cystic lesions throughout the kidneys. Numerous diverticula throughout the large intestine. Mixed plaques throughout the abdominal aorta wall and the origin of the main renal arteries. OSSEOUS STRUCTURES: Numerous of permanently blastic and to a lesser extent lytic lesions throughout the axial skeleton, rib cage, sternum and appendicular. No acute pathologic fracture in the axial skeleton. There is a blastic lesion extending to the ventral epidural compartment at T7-8. CT/CT chest w IV con IMPRESSION: Overall stable appearance of the lungs/chest. Multiple blastic osseous metastasis. Nonspecific multiple hypodense lesions, hepatic. Coronary artery disease and atherosclerosis disease. Fleischner guidelines were followed. Electronically signed by: Andres Renee MD 11/21/2024 09:11 AM EDT
--- OUTSIDE RECORDS SUMMARY | 2024-11-21 07:57 | XMS_ITS | Patient Health Record ---
Author Organization [facility] [place] Address [address] [facility] [place] [address] Care Team Providers Care Jute Bag Clipper Name Role Phone Pratik CALVILLO, Renny Primary Care Provider Unav ailKarin Matias Unavailable [phone] Reason For Referral No Information Medications Medication [...] National Govt [employer] [address] [facility] [place] [place] [address] [id number] Nicolette Sarmiento Self - patient is the insured 5 AARP Secondary to Medicare [address] [place] [address] [id number] Nicolette Sarmiento Self - patient is the insured 6 Medical (General) History Medical History History ICD Code Anemia osteoarthritis Knee Pain Cholesterol Cancer Hypertension Chicken pox Surgical History Surgery Date(Month/Year) herniated disk repair 07/1988 ovarian surgery 12/2003
[2024-11-21] MEDS: iohexoL 350 MG/ML 100 ML INFUS..BTL 65 ML IV (08:45)
== END 2024-11-21 07:56 | disposition home or self-care (01) ==
LOC: HO.CT 07:55
PROVIDERS: PCP Internal Medicine; Visit Provider Internal Medicine
DX: C79.51 Secondary malignant neoplasm of bone (principal)
CPT/HCPCS: 71260; Q9967

== ENCOUNTER → 2024-11-21 07:57 | Outpatient (BNV) | payer MEDICARE, SELFPAY | PROVIDERS: PCP Internal Medicine; Visit Provider Radiology Diagnostic Radiology | DX: R91.1 Solitary pulmonary nodule (principal) | CPT/HCPCS: 71260 ==

== ENCOUNTER → 2025-03-20 09:51 | Outpatient (REF) | payer MEDICARE, SELFPAY ==
--- NOTE | ~2025-03-20 | NM_ITS ---
EXAMINATION: NM BONE SCAN WHOLE BODY HISTORY: Assess response to treatment. TECHNIQUE: A total body bone scan was performed following the intravenous administration of 27 mCi technetium 99m-MDP. COMPARISON: Comparison is made with the prior examination dated 11/12/2024. FINDINGS: Again seen are foci of increased uptake involving the skull, ribs, thoracolumbar spine, sternum, pelvis, bilateral femora, and the proximal right tibia, consistent with metastatic disease. The degree of activity is similar to the prior study. No definite new lesions are identified. Symmetric activity at the shoulders is likely degenerative in nature. There are photopenic defects at both knees consistent with total joint arthroplasties. There is normal bilateral renal uptake. NM/NM bone scan whole body IMPRESSION: Diffuse osseous metastatic disease without significant change from the prior study. Electronically signed by: Dawit Hutchins MD 03/20/2025 03:00 PM EDT
--- OUTSIDE RECORDS SUMMARY | 2025-03-20 10:39 | XMS_ITS | Clinical Summary ---
Author Organization [facility] Address [address] [facility] [address] [place] [address] Phone Care Team Providers Care Bladder Tier Name Role Phone Alia Woods MD [facility] Renny Christie MD Primary Care Provid er Medications atorvastatin (LIPITOR) 20 MG tablet Take 1 tablet by mouth daily. Active hydroCHLOROthiaz howie (HYDRODIURIL) 25 MG tablet Take 1 tablet by mouth daily. Active irbesartan (AVAPRO) 300 MG tablet Take 1 tablet by mouth daily. Active amLODIPine (NORVASC) 5 MG tablet Take 1 tablet by mouth daily. Active metoprolol succinate (TOPROL-XL) 200 MG 24 hr tablet Orally Acti ve Family History Medical History Relation Comments CV disease Father 2 Hypertension Father 2 Cancer Sibling 2 Relation Status Comments Father 1 Father 2 Sibling 1 Sibling 2 Social History Tobacco Use Types Packs/Day Years Used Date Smoking Tobacco: Never Assessed Education Answer Date Recorded Are you interested in more education? Not on johnathan e 10/06/2022 Are you concerned about learning? Not on file 10/06/2022 No 10/06/2022 No 10/06/2022 Digital Access Answer Date Recorded No 11/04/2022 No 11/04/2022 Reliable internet access at home? Not on file 11/04/2022 Device with a working camera? Not on file Comments Unknown Sex and Gender Information Value Date Recorded Sex Assigned at Not on file Legal Sex Female 10:36 PM EDT Gender Identity Not on file Sexual Orientation Not on file Last Filed Vital Signs Vital Sign Reading Time Taken Comments Blood Pressure 132/74 07/12/2016 11:53 AM EST Pulse - - Temperature - - Respiratory Rate - - Oxygen Saturation - - Inhaled Oxygen Concentration - - Weight 90.7 kg (200 lb) 07/12/2016 11:53 AM EST Height 163.8 cm (5' 4.5 ) 07/12/2016 11:53 AM ES T Body Mass Index 33.8 07/12/2016 11:53 AM EST Plan of Treatment Health Maintenance Due Date Last Done Comments Adult Td,Tdap Booster 1950 CREATININE LEVEL 1949 LIPID PANEL 1949 POTASSIUM LEVEL 1949 DEPRESSION SCREENING 1961 SMOKING Hx and SMOKELESS TOBACCO SCREENING 1962 HEPATITIS C SCREENING 1967 COLOGUARD 1994 COLONOSCOPY 1994 COLORECTAL CANCER SCREENING 1994 FIT TEST 1994 FOBT 1994 SIGMOIDOSCOPY 1994 VIRTUAL COLONOSCOPY 1994 PNEUMOCOCCAL VACCINES (50+ years) (1 of 1 - PCV) 1999 ZOSTER VACCINES (1 of 2) 1999 OSTEOPOROSIS SCREENING INITIAL (ONE-TIME) 2014 RSV VACCINE (1 - 1-dose 75+ series) 2024 INFLUENZA VACCINE (#1) 2025 0, 03/01/2020, 03/12/2019, Additional history exists COVID-19 VACCINE ( season) 2025 09/10/2020, 08/20/2020 HEPATITIS A VACCINES Aged Out No long er eligible based on patient's age to complete this topic HIB VACCINES Aged Out No longer eligi ble based on patient's age to complete this topic MENINGOCOCCAL VACCINES (ACWY) Aged Out No longer eligible based on patient's age to complete this topic MENINGOCOCCAL VACCINES (B) Aged Out N o longer eligible based on patient's age to complete this topic Medical Devices Not on file Insurance MEDICARE PART A & B MEDICARE PART A & B MEDICARE PART A & B MEDICARE PART A & B MEDICARE PART A & B MEDICARE PART A & B MEDICARE PART A & B MEDICARE PART A & B MEDICARE PART A & B Care Teams Bladder Tier Relationship Specialty Start Date End Date Renny Christie MD [address] [place] [address] PCP - General 06/14/17 Alia Woods MD [address] [place] [address] Historical LMR Provider 03/29/17 Additional Source Comments The information contained in this document represents components of the legal health record. It is not the complete legal health record.[facility]
--- OUTSIDE RECORDS SUMMARY | 2025-03-20 10:39 | XMS_ITS | Patient Health Record ---
Author Organization [facility] [place] [place] Address [address] [facility] [place] [address] Care Team Providers Care Housing Case Manager Name Role Phone Pratik CALVILLO, Renny Primary Care Provider Unav ailKarin Matias Unavailable [phone] Reason For Referral No Information Medications Medication SIG (Take, Route, Frequency, Duration) Notes Start Date End Date Status Atorvastatin Calcium 20 MG Oral; Duration: 90 Active amLODIPine Besylate 5 MG Oral; Duration: 90 Active Irbesartan 300 MG Oral; Duration: 90 Active hydroCHLOROthiazide 25 MG Oral; Duration: 90 Active Metoprolol Succinate ER 200 MG Oral; Duration: 90 Active Problems No Known Problems Plan Of Treatment No Information Insurance Providers Payer Name Payer Address Payer Phone Subscriber Number Group Number Insured Name Patient Relationship to Insured Coverage Start Date Coverage End Date Medicare National Govt Svcs Inc [address] [facility] [place] [address] [phone] [id number] Nicolette Sarmiento Self - patient is the insured 5 AARP Secondary to Medicare [address] [place] [address] [id number] Nicolette Sarmiento Self - patient is the insured 6 Medical (General) History Medical History History ICD Code Anemia osteoarthritis Knee Pain Cholesterol Cancer Hypertension Chicken pox Surgical History Surgery Date(Month/Year) herniated disk repair 07/1988 ovarian surgery 12/2003
--- OUTSIDE RECORDS SUMMARY | 2025-03-20 10:39 | XMS_ITS | Clinical Summary ---
Author Organization [facility] Address [address] [place] [address] Care Team Providers Care Sales And Operations Trainee Name Role Phone Renny Christie MD Primary Care Provider [phone] Allergies No known active allergies Medications No known medications Active Problems Problem Noted Date Diagnosed Date Malignant neoplasm of overla pping sites of right breast in female, estrogen receptor positive 01/08/2021 Social History Tobacco Use Types Packs/Day Years Used Date Smoking Tobacco: Never Assessed Sex and Gender Information Value Date Recorded Sex Assigned at Not on file Gender Identity Not on file Sexual Orientation Not on file Last Filed Vital Signs Vital Sign Reading Time Taken Comments Blood Pressure 153/75 01/21/2021 10:49 AM EDT Pulse 94 01/21/2021 10:49 AM EDT Temperature 36.8 C (98.2 F) 01/21/2021 10:49 AM EDT Respiratory Rate - - Oxygen Saturation 99% 01/21/2021 10:49 AM EDT Inhaled Oxygen Concentration - - Weight 78 kg (172 lb) 01/21/2021 10:49 AM EDT Height 165.1 cm (5' 5 ) 01/07/2021 3:36 PM EDT Body Mass Index 28.62 01/07/2021 3:36 PM EDT Plan of Treatment Health Maintenance Due Date Last Done Comments Hepatitis C Screening 1949 Depression Screening 1961 Preventative Health Evaluation 1967 Shingrix-Zoster Vaccine (1 of 2) 1968 Colon Cancer Screening (Colonoscopy) 1994 Fall Risk Assessment 2014 Osteoporosis Screening (DEXA Scan) 2014 COVID-19 Vaccine (3 - Pfizer risk series) 10/08/2020 09/10/2020, 08/20/2020 DTap / Tdap / Td (2 - Td or Tdap) 06/18/2022 06/18/2012, 02/21/1999 RSV Adult > 60+ Yrs or (1 - 1-dose 75+ series) 2024 Influenza Vaccine (#1) 2025 0, 03/12/2019, 03/11/2018, Additional history exists Pneumococcal Vaccine Completed 10/28/2015, 10/27/19 15 Hepatitis B Vaccines Aged Out No long er eligible based on patient's age to complete this topic RSV Ped < 20 months Aged Out No longe r eligible based on patient's age to complete this topic Care Teams Sales And Operations Trainee Relationship Specialty Start Date End Date Renny Christie MD [address] [place] [address] PCP - General Internal Medicine 01/07/21
--- OUTSIDE RECORDS SUMMARY | 2025-03-20 10:39 | XMS_ITS | Patient Health Record ---
Author Organization [facility] Address [address] [facility] [address] [place] [address] Care Team Providers Care Rf Technician Name Role Phone Pratik CALVILLO, Renny Primary Care Provider Unav ailable Akiko Choi Unavailable [phone] Reason For Referral No Information Medications Medication SIG (Take, Route, Frequency, Duration) Notes Start Date End Date Status Avapro 300MG 1 ORAL daily; Duration: -3 Ad-MJ 09/26/2011 Active amLODIPine Besylate 5MG 1 ORAL daily; Duration: -3 Ad-MJ 09/26/2011 Active Toprol XL 400MG 1 ORAL daily; Duration: -3 Ad-MJ 012 Active hydroCHLOROthiazide 25mg 1 ORAL daily; Duration: -3 Ad-MJ 09/26/2011 Active Ferrous Sulfate 325MG 1 ORAL twice daily ; Duration: -3 Ad-MJ 09/26/2011 Active Calcium-Carb 600 + D 1 ORAL daily; Duration: -3 Ad-MJ Active Problems Problem Type SNOMED Code ICD Code Onset Dates Problem Status W/U Status Risk Notes Problem Benign neoplasm of colon (99690269) Benign neoplasm of colon (211.3) Active confirmed Major Problem Benign neoplasm of vulva (34953574) Benign neoplasm of vulva (221.2) Active confirmed Diag Problem Essential hypertension (62476285) Unspecified essential hypertension (401.9) Active confirmed Major Problem Gynecological examination normal (452169919329880) Routine gynecological examination (V72.31) Active confirmed Diag Plan Of Treatment No Information Insurance Providers Payer Name Payer Address Payer Phone Subscriber Number Group Number Insured Name Patient Relationship to Insured Coverage Start Date Coverage End Date MEDICARE [address] [facility] [place] [id number] [phone] [id number] JESICA PINTO Self - patient is the insured [facility] [address] [place] [address] [id number] JESICA PINTO Self - patient is the insured Medical (General) History Medical History History ICD Code Polyp of urethra Arthritis basal cell carcinoma left vulva Benign neoplasm of vulva D28.0 Benign neoplasm of colon, unspecified D1 2.6 Essential (primary) hypertension I10 Malignant neoplasm of overlapping sites of right female breast C50.811 Surgical History Surgery Date(Month/Year) c section hernia right oopherectomy left cystectomy appendectomy right breast lumpectomy with XRT Hospitalization History Reason Date(Month/Year) See Surgical Hx
== END ==
LOC: HO.NUCMED 09:51
PROVIDERS: Visit Provider Internal Medicine
DX: C50.919 Malignant neoplasm of unspecified site of unspecified female breast (principal); C79.51 Secondary malignant neoplasm of bone
CPT/HCPCS: 78306; A9503

== ENCOUNTER → 2025-03-20 09:56 | Outpatient (BNV) | payer MEDICARE, SELFPAY | PROVIDERS: Visit Provider Radiology Diagnostic Radiology | DX: C79.51 Secondary malignant neoplasm of bone (principal) | CPT/HCPCS: 78306 ==

== ENCOUNTER 2025-04-29 11:40 | Outpatient (REF) | payer MEDICARE, SELFPAY ==
--- NOTE | ~2025-04-29 | XR_ITS ---
EXAMINATION: XR CHEST 2 VIEWS HISTORY: Orthopnea, edema, eval for pulmonary congestion/CHF COMPARISON: Comparison is made with the prior examination dated 09/25/2023. FINDINGS: PA and lateral views of the chest are submitted. The lungs are expanded and clear. There is no pleural effusion, pneumothorax, or pulmonary vascular congestion. The heart is normal in size. There is prominence of the pulmonary arteries, suggestive of pulmonary arterial hypertension.. There is abnormal sclerosis of upper thoracic vertebral bodies as seen previously, consistent with metastatic disease. There is degenerative disc disease of the spine. There are surgical clips in the right axilla. XR/XR chest 2V IMPRESSION: Findings suggestive of pulmonary arterial hypertension. Sclerotic osseous metastatic disease. No acute cardiopulmonary abnormality. Electronically signed by: Dawit Hutchins MD 04/29/2025 12:29 PM HALLIE
--- OUTSIDE RECORDS SUMMARY | 2025-04-29 22:50 | XMS_ITS | Patient Health Record ---
Author Organization [facility] [place] Address [address] [facility] [place] [address] Care Team Providers Care Anchor Operator Name Role Phone Pratik CALVILLO, Renny Primary Care Provider Unav aKrin Flores Unavailable [phone] Reason For Referral No Information Medications Medication [...] [employer] [address] [place] [address] [phone] [id number] Nicolette Sarmiento Self - patient is the insured 5 AARP Secondary to Medicare [address] [place] [address] [id number] Nicolette Sarmiento Self - patient is the insured 6 Medical (General) History Medical History History ICD Code Anemia osteoarthritis Knee Pain Cholesterol Cancer Hypertension Chicken pox Surgical History Surgery Date(Month/Year) herniated disk repair 07/1988 ovarian surgery 12/2003
--- OUTSIDE RECORDS SUMMARY | 2025-04-29 22:51 | XMS_ITS | Clinical Summary ---
Author Organization [facility] Address [address] [place] [address] Care Team Providers Care Car Seat Coverer Name Role Phone Renny Christie MD Primary Care Provider [phone] Allergies No known active allergies Medications No [...] age to complete this topic Care Teams Car Seat Coverer Relationship Specialty Start Date End Date Renny Christie MD [address] [place] [address] PCP - General Internal Medicine 01/07/21
--- OUTSIDE RECORDS SUMMARY | 2025-04-29 22:51 | XMS_ITS | Clinical Summary ---
Author Organization [facility] Address [address] [facility] [address] [place] [address] Phone Care Team Providers Care Steward/Stewardess Second Name Role Phone Alia Woods MD [facility] Renny Christie MD [...] MEDICARE PART A & B Care Teams Steward/Stewardess Second Relationship Specialty Start Date End Date Renny Christie MD [address] [place] [phone] PCP - General 06/14/17 Alia Woods MD [address] [place] [id number] Historical LMR Provider 03/29/17 Additional Source Comments The information contained in this document represents components of the legal health record. It is not the complete legal health record.[facility]
--- OUTSIDE RECORDS SUMMARY | 2025-04-29 22:51 | XMS_ITS | Clinical Summary ---
Author Organization [facility], Address [address] [place] [address] [place] [address] Phone Care Team Providers Care Manager Cosmetic Name Role Phone Renny Christie MD Primary Care Provider [phone] Social History Tobacco Use Types Packs/Day Years Used Date Smoking Tobacco: Never Assessed Comments Unknown Sex and Gender Information Value Date Recorded Sex Assigned at Not on file Legal Sex Female 2:44 PM EST Gender Identity Not on file Sexual Orientation Not on file Plan of Treatment Health Maintenance Due Date Last Done Comments Breast Cancer Screening 1950 Colorectal Cancer Screening: Annual FOBT 1998 Colorectal Cancer Screening: Colonoscopy 1998 Colorectal Cancer Screening: Sigmoidoscopy 1998 Pneumococcal Vaccine: 50+ Ye ars (1 of 1 - PCV) 1999 Influenza Vaccine (#1) 2025 Hepatitis B Vaccine Aged Out No longe r eligible based on patient's age to complete this topic Insurance Medicare [facility] Care Teams Manager Cosmetic Relationship Specialty Start Date End Date Renny Chirstie MD [address] PCP - General Internal Medicine 08/19/21
--- OUTSIDE RECORDS SUMMARY | 2025-04-29 22:51 | XMS_ITS | Encounter Summary ---
Author Organization [facility] Address [address] [place] [address] Phone Care Team Providers Care Afloat Cryptologic Manager Name Role Phone Renny Christie MD Primary Care Provider Encounter Details Date Type Department Care Team (Late st Contact Info) Description 08/23/2021 Documentation Only [facility], [address] [place] [address] Renny Christie MD [address] [facility] [address] [place] [address] Social History Tobacco Use Types Packs/Day Years Used Date Smoking Tobacco: Never Assessed Comments Unknown Sex and Gender Information Value Date Recorded Sex Assigned at Not on file Legal Sex Female 2:44 PM EST Gender Identity Not on file Sexual Orientation Not on file documented as of this encounter Plan of Treatment Not on file documented as of this encounter Visit Diagnoses Not on filedocumented in this encounter Care Teams Afloat Cryptologic Manager Relationship Specialty Start Date End Date Renny Christie MD [address] PCP - General Internal Medicine 08/19/21 documented as of this encounter
--- OUTSIDE RECORDS SUMMARY | 2025-04-29 22:51 | XMS_ITS | Encounter Summary ---
Author Organization [facility] Address [address] [place] [address] Phone Care Team Providers Care Rn Field Case Manager Name Role Phone Renny Christie MD Primary Care Provider Encounter Details Date Type Department Care Team (Late st Contact Info) Description 08/19/2021 Documentation Only [facility], [address] [place] [address] Renny Christie MD [address] [facility] [address] [place] [address] Social History Tobacco Use Types Packs/Day Years [...] on filedocumented in this encounter Care Teams Rn Field Case Manager Relationship Specialty Start Date End Date Renny Christie MD [address] PCP - General Internal Medicine 08/19/21 documented as of this encounter
--- OUTSIDE RECORDS SUMMARY | 2025-04-29 22:51 | XMS_ITS | Patient Health Record ---
Author Organization [facility] Address [address] [facility] [address] [place] [address] Care Team Providers Care Frame Changer Name Role Phone Pratik CALVILLO, Renny Primary Care Provider Unav ailable Akiko Choi Unavailable [phone] Reason For Referral No Information Medications Medication [...] Risk Notes Problem Benign neoplasm of colon (16214068) Benign neoplasm of colon (211.3) Active confirmed Major Problem Benign neoplasm of vulva (59596609) Benign neoplasm of vulva (221.2) Active confirmed Diag Problem Essential hypertension (77176588) Unspecified essential hypertension (401.9) Active confirmed Major Problem Gynecological examination normal (856963435480580) Routine gynecological examination (V72.31) Active confirmed Diag Plan Of Treatment No Information Insurance Providers Payer Name Payer Address Payer Phone Subscriber Number Group Number Insured Name Patient Relationship to Insured Coverage Start Date Coverage End Date MEDICARE [address] [facility] [place] [id number] [phone] [id number] JESICA PINTO Self - patient is the insured [facility] [address] [place] [address] [phone] [id number] JESICA PINTO Self - patient is the [...]
--- OUTSIDE RECORDS SUMMARY | 2025-04-29 22:51 | XMS_ITS | Data Portability ---
Author Organization [facility], Main Office Address [address] [place] [address] Care Team Providers Care Vice President Of Software Development Name Role Phone RENNY CHRISTIE Primary Care Provider TENZIN MORALES Orthopedic Surgeon [phone] HE ABEBE Yardage Tufting Machine Operator FROYLAN SINGLETARY Medical Oncologist [phone] WARREN YOUNG Advanced Developer BENI SLAUGHTER Insights Manager RENNY RENE General Surgeon [phone] GRACE DUBON Marketing Communications Coordinator LUZ MARIA CARABALLO Wearing Apparel Presser [phone] JEVON CELAYA Surgical Oncologist [phone] TACO ERNST Referring Provider Assessment Encounter Date Assessment Date Assessment LastModified by Organization Details LastModified Time 08/21/2024 08/21/2024 This service was provided using telemedicine. Patient consented to telephone visit Patient was located in the [facility]. Provider was located in the office. No other persons participated in the telemedicine visit except for the patient unless otherwise indicated here. Total time of visit was 30 minutes. raul Not available 08/21/2024 17:37:41 Plan of Treatment Reminders Order Date Submit Date Provider Last Modified By Organization Details Last Modified Time Details Appointments [id number] 2025 01:00P M Renny reilly MD Not available Not available Not available Lab lipid panel, serum 2024 025 CHAYITO [facility] (Centralized Electronic Ordering - All Locations), Patient Can Go To The Location Of Their Choice, [id number] 03/27/2025 06:08:07 CMP, serum or plasma 2024 025 CHAYITO [facility] (Centralized Electronic Ordering - All Locations), Patient Can Go To The Location Of Their Choice, [id number] 03/27/2025 06:08:06 lipid panel, serum 2024 025 [facility], [address] [place] [address], [place], [address], 03/24/2025 09:25:57 lipid panel, serum 2023 024 CHAYITO Not available 08/01/2023 17:13:02 Referral None record ed. Procedures nita caceres (PROC) 2023 024 CAHYITO In-Office Order, Internal Use Only DO Not Attach Compendium DO Not Attach Compendium, Do Not Delete/merge, [id number] 09/27/2023 16:31:14 Surgeries None record ed. Imaging None record ed. Medication Orders None record ed. Patient TargetsNo targets recorded. Patient Instructions Encounter Date Encounter Id Patient Instructions Last Modified By Organization Details Last Modified Time 07/31/2023 [id number] medicines to avoid with kidney disease: care instructions [email or web address] Not available 08/01/2023 08:23:55 high cholesterol: care instructions [email or web address] Not available 07/31/2023 11:53:25 preventing falls: care instructions [email or web address] Not available 07/31/2023 11:52:40 medicare preventive services guide (female 74yrs and under) [email or web address] Not available 07/31/2023 11:52:40 09/27/2023 [id number] To call or return for worsening or concerns [email or web address] Not available 09/27/2023 11:48:26 01/16/2024 [id number] medicines to avoid with kidney disease: care instructions [email or web address] Not available 01/16/2024 11:47:54 08/21/2024 [id number] medicines to avoid with kidney disease: care instructions [email or web address] Not available 08/21/2024 17:38:42 high cholesterol: care instructions [email or web address] Not available 08/21/2024 17:44:01 preventing falls: care instructions [email or web address] Not available 08/21/2024 15:13:37 well visit, over 65: care instructions [email or web address] Not available 08/21/2024 15:13:37 03/10/2025 [id number] medicines to avoid with kidney disease: care instructions [email or web address] Not available 03/10/2025 14:31:17 high cholesterol: care instructions acennerazzo Not available 03/10/2025 14:37:29 Reason for Referral None Reported. Results Created Date Observation Date Name Description Value Unit Range Abnormal Flag Note LastModifiedBy Organization Detail LastModifiedTime 08/01/1908/01/2023 LIPID PANEL cholesterol, total 173 mg/dL (<200) Not Available [facility] (Centralized [facility] Ordering - All Locations) Patient Can Go To The Location Of Their Choice, [id number] 08/01/2023 17:13:02 08/01/1908/01/2023 LIPID PANEL triglyceride 100 mg/dL (<150) Not Available [facility] ([facility] Order[facility] - All Locations) Patient Can Go To The Location Of Their Choice, [id number] 08/01/2023 17:13:02 08/01/1908/01/2023 LIPID PANEL HDL chol 70 mg/dL (>39) Not Available [facility] (Centralized Electronic Ordering - All Locations) Patient Can Go To The Location Of Their Choice, 08/01/2023 17:13:02 08/01/1908/01/2023 LIPID PANEL LDL cholesterol, calculated 83 mg/dL (0-130 ) Not Available [facility] (Centralized Electronic Ordering - All Locations) Patient Can Go To The Location Of Their Choice, [id number] 08/01/2023 17:13:02 08/01/1908/01/2023 LIPID PANEL non HDL cholesterol (calc) 103 mg/dL (<160) Not Available [facility] (Centralized Electronic Ordering - All Locations) Patient Can Go To The Location Of Their Choice, [id number] 08/01/2023 17:13:02 09/27/19 24 09/27/2023 cerum en remov al (PROC ) done YW/LW Not Available In-Office Order Internal Use Only DO Not Attach Compendium DO Not Attach Compendium, Do Not Delete/merge, [id number] 09/27/2023 11:51:36 03/26/2003/26/2025 CMP14 +EGFR glucose 96 mg/dL 70-99 normal Not Available [facility] ([facility]) [address] [facility], [place], [address], 03/27/2025 06:08:06 03/26/2003/26/2025 CMP14 +EGFR BUN 20 mg/dL 8-27 normal Not Available [facility] ([facility]) [address] [facility], [place], [address], 03/27/2025 06:08:06 03/26/2003/26/2025 CMP14 +EGFR creatinine 1.66 mg/dL 0.57-1 .00 above high normal Not Available [facility] ([facility]) [address] [facility], [place], [address], 03/27/2025 06:08:06 03/26/2003/26/2025 CMP14 +EGFR eGFR 32 mL/mi n/1.7 3 >59 below low normal Not Available [facility] ([facility]) [address] [facility], [place], [address], 03/27/2025 06:08:06 03/26/2003/26/2025 CMP14 +EGFR BUN/creatini ne ratio 12 12-28 normal Not Available [facility] ([facility]) [address] [facility], [place], [address], 03/27/2025 06:08:06 03/26/2003/26/2025 CMP14 +EGFR sodium 142 mmol/ L 134-14 4 normal Not Available [facility] ([facility]) [address] [facility], [place], [address], 03/27/2025 06:08:06 03/26/20 25 03/26/2025 CMP14 +EGFR potassium 4.2 mmol/ L 3.5-5. 2 normal Not Available [facility] ([facility]) [address] [facility] [place], [address], 03/27/2025 06:08:06 03/26/2003/26/2025 CMP14 +EGFR chloride 106 mmol/ L 96-106 normal Not Available [facility] ([facility]) [address] [facility] [place], [address], 03/27/2025 06:08:06 03/26/2003/26/2025 CMP14 +EGFR carbon dioxide, total 24 mmol/ L 20-29 normal Not Available [facility] ([facility]) [address] [facility] [place], [address], 03/27/2025 06:08:06 03/26/2003/26/2025 CMP14 +EGFR calcium 9.9 mg/dL 8.7-10 .3 normal Not Available [facility] ([facility]) [address] [facility] [place], [address], 03/27/2025 06:08:06 03/26/2003/26/2025 CMP14 +EGFR protein, total 6.5 g/dL 6.0-8. 5 normal Not Available [facility] ([facility]) [address] [facility] [place], [address], 03/27/2025 06:08:06 03/26/2003/26/2025 CMP14 +EGFR albumin 4.2 g/dL 3.8-4. 8 normal Not Available [facility] ([facility]) [address] [facility] [place], [address], 03/27/2025 06:08:06 03/26/2003/26/2025 CMP14 +EGFR globulin, total 2.3 g/dL 1.5-4. 5 Not Available [facility] ([facility]) [address] [facility] [place], [address], 03/27/2025 06:08:06 03/26/2003/26/2025 CMP14 +EGFR bilirubin, total 0.6 mg/dL 0.0-1. 2 normal Not Available [facility] ([facility]) [address] [facility] [place], [address], 03/27/2025 06:08:06 03/26/2003/26/2025 CMP14 +EGFR alkaline phosphatase 61 IU/L 49-135 normal Not Available [facility] ([facility]) [address] [facility] [place], [address], 03/27/2025 06:08:06 03/26/2003/26/2025 CMP14 +EGFR AST (SGOT) 13 IU/L 0-40 normal Not Available [facility] ([facility]) [address] [place], [address], 03/27/2025 06:08:06 03/26/2003/26/2025 CMP14 +EGFR ALT (SGPT) 7 IU/L 0-32 normal Not Available [facility] ([facility]) [address] [place], [address], 03/27/2025 06:08:06 03/26/20 25 03/26/2025 LIPID PANEL cholesterol, total 202 mg/dL 100-19 9 above high normal Not Available [facility] ([facility]) [address] [place], [address], 03/27/2025 06:08:07 03/26/2003/26/2025 LIPID PANEL triglyceride s 148 mg/dL 0-149 normal Not Available [facility] ([facility]) [address] [place], [address], 03/27/2025 06:08:07 03/26/2003/26/2025 LIPID PANEL HDL cholesterol 67 mg/dL >39 normal Not Available [facility] ([facility]) [address] [place], [address], 03/27/2025 06:08:07 03/26/2003/26/2025 LIPID PANEL VLDL cholesterol radha 26 mg/dL 5-40 Not Available [facility] ([facility]) [address] [facility], [place], [address], 03/27/2025 06:08:07 03/26/2003/26/2025 LIPID PANEL LDL chol calc ([facility]) 109 mg/dL 0-99 above high normal Not Available [facility] ([facility]) [address] [facility], [place], [address], 03/27/2025 06:08:07 03/26/2003/26/2025 LIPID PANEL LDL calc comment: BAR HELPER Not Available [facility] ([facility]) [address] [facility], [place], [address], 03/27/2025 06:08:07 Result Notes None recorded. Problems Name Problem SNOMED Code Status Onset Date Resolution Date Notes Provider Name and Address Organization Details Recorded Time Insomnia 046612295 Active Tana baker [facility] 9 10:43:48 Calculus in urethra Active followed by urology Tana baker [facility] 9 10:43:48 Advance directiv e discusse d with patient 682311787 Active Tnaa baker [facility] 9 10:43:48 Hearing loss 49367782 Active Tanarekha baker [facility] 9 10:43:48 Kidney stone 24642776 Active Tana baker [facility] 9 10:43:48 Strabism 61505952 Active Tana baker [facility] 9 10:43:48 Serum choleste rol above referenc e range 583592248 Active Tana baker [facility] 9 10:43:48 Vitreous floaters 42938525 Active Tana Prater null, [facility] 9 10:43:48 Cataract 861316947 Active Tana Prater null, [facility] 9 10:43:48 Amblyopi a 389095945 Active Tana Gayleilla null, [facility] 9 10:43:48 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 FOLLOWED BY DR SINGLETARY. ; RECORDED 10/01/19 14 8:14AM BY JAIME CRUZ I, LESA ON/TRINIDAD Christie MD [address] 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 FOLLOWED BY DR SINGLETARY. ; RECORDED 10/01/19 14 8:14AM BY LESA HOGAN ON/TRINIDAD Christie MD [address], [facility] [place], [address] , [facility] 6 14:15:17 History of malignan t neoplasm of breast 613911359 Active 2007 Right lumpecto my by Dr Gabi maloney. Also radiatio n and 5 years of hormonal therapy. Renny Christie MD [address] [facility] [address], [facility] [place], [address] , [facility] 2 07:39:52 General examinat ion of patient Completed 200712/23/2013 RECORDED 02/02/20 08 10:51AM BY RENNY ELIZABETH MD, ANNOTATI ON/ADDEN DUM Renny Christie MD [address], [place], [address] , [facility] 6 14:15:17 General examinat ion of patient Completed 200701/19/2014 RECORDED 02/02/20 08 10:51AM BY RENNY ELIZABETH MD, ANNOTATI ON/ADDEN DUM Renny Christie MD [address] [facility] [address], [place], [address] , [facility] 6 14:15:17 Screenin g for malignan t neoplasm of colon Completed 200812/23/2013 RECORDED 06/18/19 09 5:06PM BY RENNY ELIZABETH MD, ANNOTATI ON/ADD DUM Renny Christie MD [address], [place], [address] , [facility] 6 14:15:17 Influenz a vaccine needed 20331579404 06 Completed 200912/23/2013 RECORDED 05/25/20 10 2:08PM BY JAIME CRUZ I, HISTORIC AL SUMMARY Renny Christie MD [address] [facility] [address], [place], [address] , [facility] 6 14:15:17 Influenz a vaccine needed 84741093044 06 Completed 200901/19/2014 RECORDED 05/25/20 10 2:08PM BY JAIME CRUZ I, HISTORIC AL SUMMARY Renny Christie MD [address], [place], [address] , [facility] 6 14:15:17 Hemorrho ids [id number] Completed 201112/23/2013 RECORDED 12/18/19 12 1:34PM BY RENNY ELIZABETH MD, ANNOTATI ON/ADDEN DUM Renny Christie MD [address] [facility] [address], [place], [address] , [facility] 6 14:15:17 Hypokale michael [id number] Completed 201112/23/2013 RECORDED 12/18/19 12 1:34PM BY RENNY ELIZABETH MD, ANNOTATI ON/ADDEN DUM Renny Christie MD [address] [facility] [address], [place], [address] , [facility] 6 14:15:17 Joint effusion of ankle AND/OR foot 3146482 Completed 201112/23/2013 RECORDED 12/18/19 12 1:36PM BY RENNY ELIZABETH MD, ANNOTATI ON/ADDEN DUM Renny Christie MD [address] [address], [place], [address] , [facility] 6 14:15:17 Adult health examinat ion Completed 201112/23/2013 RECORDED 12/18/19 12 1:35PM BY RENNY ELIZABETH MD, ANNOTATI ON/ADDEN DUM Renny Christie MD [address] [address], [place], [address] , [facility] 6 14:15:17 Hemorrho ids [id number] Completed 201101/19/2014 RECORDED 12/18/19 12 1:34PM BY RENNY ELIZABETH MD, ANNOTJOCELYN ON/ADDEN DUM Renny Christie MD [address] [address], [place], [address] , [facility] 6 14:15:17 Hypokale michael [id number] Completed 201101/19/2014 RECORDED 12/18/19 12 1:34PM BY RENNY ELIZABETH MD, ANNOTATI ON/ADDMAX Christie MD [address] [address], [place], [address] , [facility] 6 14:15:17 Joint effusion of ankle AND/OR foot 7875018 Completed 201101/19/2014 RECORDED 12/18/19 12 1:36PM BY RENNY ELIZABETH MD, LESA ON/TRINIDAD Chrsitie MD [address] [facility] [address], [place], [address] , [facility] 6 14:15:17 Screenin g for malignan t neoplasm of breast Completed 201212/23/2013 RECORDED 06/18/19 13 8:11AM BY LESA HOGAN ON/TRINIDAD Christie MD [address] [address], [place], [address] , [facility] 6 14:15:17 Constipa tion 31490889 Completed 201212/23/2013 IMPRESSI ON: ADVISED TO TAKE OTC SENOKOT; RECORDED 06/18/19 13 8:11AM BY LESA HGOAN ON/TRINIDAD Christie MD [address] [address], [place], [address] , [facility] 6 14:15:17 Cough 19954446 Completed 201212/23/2013 IMPRESSI ON: SECONDAR Y TO ALLERGIC RHINITIS ; RECORDED 06/18/19 13 8:11AM BY LESA HOGAN ON/YOSEPH Cadena [address] [address], [place], [address] , [facility] 4 11:48:45 Enthesop athy of knee 71287026 Completed 201212/23/2013 RECORDED 06/18/19 13 8:11AM BY LESA HOGAN ON/TRINIDAD Christie MD [address] [facility] [address], [place], [address] , [facility] 6 14:15:17 Screenin g for malignan t neoplasm of breast Completed 201201/19/2014 RECORDED 06/18/19 13 8:11AM BY LESA HOGAN ON/ADDMAX Christie MD [address] [facility] [address], [place], [address] , [facility] 6 14:15:17 Constipa tion 01951169 Completed 201201/19/2014 IMPRESSI ON: ADVISED TO TAKE OTC SENOKOT; RECORDED 06/18/19 13 8:11AM BY LESA HOGAN ON/TRINIDAD Christie MD [address] [facility] [address], [place], [address] , [facility] 6 14:15:17 Cough 78425120 Completed 201201/19/2014 IMPRESSI ON: SECONDAR Y TO ALLERGIC RHINITIS ; RECORDED 06/18/19 13 8:11AM BY LESA HOGAN ON/SUNG Cadena [address] [facility] [address], [place], [address] , [facility] 4 11:48:45 Enthesop athy of knee 39541192 Completed 201201/19/2014 RECORDED 06/18/19 13 8:11AM BY LESA HOGAN/TRINIDAD Christie MD [address] [facility] [address], [place], [address] , [facility] 6 14:15:17 Knee pain Completed 201212/23/2013 IMPRESSI ON: HAS A F/U WITH DR DHALIWAL AND MAY BE GETTING INJECTIO NS.; RECORDED 01/07/20 13 10:22AM BY LESA HOGAN ON/TIRNIDAD Christie MD [address] [facility] [address], [place], [address] , [facility] 6 14:15:17 Administ ration of diphther ia and tetanus vaccine Completed 201212/23/2013 RECORDED 01/07/20 13 10:22AM BY LESA HOGAN ON/TRINIDAD Christie MD [address] [facility] [address], [place], [address] , [facility] 6 14:15:17 Knee pain Completed 201201/19/2014 IMPRESSI ON: HAS A F/U WITH DR DHALIWAL AND MAY BE GETTING INJECTIO NS.; RECORDED 01/07/20 13 10:22AM BY LESA HOGAN ON/TRINIDAD Christie MD [address] [facility] [address], [place], [address] , [facility] 6 14:15:17 Administ ration of diphther ia and tetanus vaccine Completed 201201/19/2014 RECORDED 01/07/20 13 10:22AM BY LESA HOGAN ON/TRINIDAD Christie MD [address] [facility] [address], [place], [address] , [facility] 6 14:15:17 Laborato ry procedur e performe d 306711279 Completed 201212/23/2013 RECORDED 01/22/20 13 9:40AM BY LESA HOGAN ON/TRINIDAD Christie MD [address] [facility] [address], [place], [address] , [facility] 6 14:15:17 Laborato ry procedur e performe d 476943696 Completed 201201/19/2014 RECORDED 01/22/20 13 9:40AM BY JAIME CRUZ I, ANNOTATI ON/ADDEN DUM Renny Christie MD [address] [address], [place], [address] , [facility] 6 14:15:17 Anemia 919218686 Active 2013 Probable ACD secondar y to OA/infla mmation. Renny Christie MD [address] [address], [place], [address] , [facility] 0 10:12:38 Primary malignan t neoplasm of labia majora 38591947 Completed 201312/23/2013 RECORDED 10/01/19 14 8:14AM BY JAIME CRUZ I, SHAKAATI ON/ADDEN VINAYAK Christie MD [address] [address], [place], [address] , [facility] 6 14:15:17 History of malignan t neoplasm of skin excludin g melanoma 838957933 Active 2013 Basal cell carcinom a; followed by Dr Milton Christie MD [address] [address], [place], [address] , [facility] 9 11:15:58 Pure hypercho lesterol emia 762141025 Completed 201311/13/2016 working on diet Renny Christie MD [address] [address], [place], [address] , [facility] 7 10:48:27 Osteoart hritis of knee 103151171 Active [address] Young and receives injectio ns. Seen by ortho August 2018 and godfrey ramos replace ent. Tana baker, [facility] 9 10:43:48 Tobacco user 786500917 Completed 201304/27/2014 RECORDED 10/01/19 14 11:07AM BY JAIME CRUZ I, OFFICE VISIT Renny Christie MD [address], [place], [address] , [facility] 6 14:15:17 History of clinical finding in subject 227643578 Completed 201304/27/2014 RECORDED 10/01/19 14 11:07AM BY JAIME CRUZ I, OFFICE VISIT Renny Christie MD [address], [place], [address] , [facility] 6 14:15:17 Pre-surg godfrey evaluati on Completed 201312/23/2013 RECORDED 10/01/19 14 8:13AM BY JAIME CRUZ I, ANNOTATI ON/TRINIDAD Christie MD [address], [place], [address] , [facility] 6 14:15:17 Adult health examinat ion Completed 201304/27/2014 RECORDED 10/01/19 14 11:06AM BY JAIME CRUZ I, OFFICE VISIT Renny Christie MD [address], [place], [address] , [facility] 6 14:15:17 Primary malignan t neoplasm of labia majora 61255332 Completed 201301/19/2014 RECORDED 10/01/19 14 8:14AM BY JAIME CRUZ I, ANNOTATI ON/TRINIDAD Christie MD [address], [place], [address] , [facility] 6 14:15:17 Pre-surg godfrey evaluati on Completed 201301/19/2014 RECORDED 10/01/19 14 8:13AM BY JAIME CRUZ I, ANNOTATI ON/TRINIDAD Christie MD [address], [facility] [place], [address] , [facility] 6 14:15:17 Screenin g for malignan t neoplasm of colon Completed 201304/27/2014 RECORDED 10/08/19 14 1:36PM BY CHEYENNE VALENTE HISTORIC AL SUMMARY Renny Christie MD [address] [facility] [address], [place], [address] , [facility] 6 14:15:17 Basal cell carcinom a of skin 680147182 Active 2014 ankle, right ear Tana Prater null, [facility] 9 10:43:48 Hyperlip idemia 31921606 Active 2016 Tanarekha Prater null, [facility] 9 10:43:48 Total knee replacem ent Active 2018 Dr Julio C Prater null, [facility] 9 10:43:48 Tubular adenoma 618379925 Active 2019 PER GI Xeniajanki [place] null, [facility] 0 09:19:38 Chronic kidney disease stage 3 451002075 Active 2020 Per Crowder MD null, [facility] 1 10:36:45 Hyperten sive renal disease 50961575 Active 2020 Teresa Dockery null, [facility] 1 16:23:45 Metastat ic malignan t neoplasm to female breast 81306418 Active 2020 Mets to bone. Primary breast cancer was in 2005. Started palliati ve treatmen t in April 2021. Renny Christie MD [address], [place], [address] , [facility] 2 07:44:32 Neoplasm of hip region 830268781 Active 2020 Seen by ortho, Dr Lamar. Renny Christie MD [address], [place], [address] , [facility] 1 15:23:23 Herpes zoster 2711996 Active 2022 on face Renny Christie MD [address], [place], [address] , [facility] 3 08:54:17 Bilatera l cataract s 86756242 Active 2023 Tish Chang, [facility] [address], [place], [address] , [facility] 4 11:48:36 Cough 16454180 Active 2023 IMPRESSI ON: SECONDAR Y TO ALLERGIC RHINITIS ; RECORDED 06/18/19 13 8:11AM BY LESA HOGAN ON/ADDEN DUM Tish Chang, [facility] [address], [place], [address] , [facility] 4 11:48:45 Impacted cerumen in right ear [id number] 26377 Active 2023 Tish Chang, 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 Please review this document and add these problems to the patient's chart manually as needed. Problem Notes None recorded. Procedures Surgical History Date Name Laterality Status Provider Name and Address Organization Details Recorded Time 06/07/20 21 removal of implant from femur completed Tana Prater [facility] 06/08/2021 10:17:01 02/11/20 21 Most Recent Mammogram completed Gabrielle Carrillo MA [facility] 02/01/2022 10:22:35 08/21/19 21 Mammogram Diagnostic Bilateral completed Cindy Hamlin MA [facility] 12/14/2020 12:59:41 12/01/19 20 Six-Item Cognitive Test completed Jaime Horne [facility] 12/01/2019 13:31:07 08/21/19 20 Date of Last Colonoscopy completed [facility] 08/21/2019 11:32:29 08/21/19 20 Colonoscopy & polypectomy completed [facility] 08/29/2019 09:20:00 03/31/20 19 Total knee arthroplasty completed Tana Prater [facility] 04/15/2019 16:17:26 12/26/19 19 renal lithotripsy completed Tana Prater [facility] 01/15/2019 15:36:12 11/27/19 19 Mini-Cog Test completed Jaime Horne [facility] 11/26/2018 13:12:53 10/22/19 19 Knee Surgery completed Tana Prater [facility] 10/30/2018 11:49:05 11/22/19 18 Mini-Cog Test completed Zuleyma Mckeon [facility] 11/21/2017 13:09:40 01/31/20 17 Other completed Sabrina Cruz [facility] 03/30/2017 16:51:14 11/14/19 17 Fall Risk Assessment completed Jaime Horne [facility] 11/13/2016 10:28:15 11/14/19 17 Mini-Cog Test completed Jaime Horne [facility] 11/13/2016 10:28:23 08/12/19 17 Other completed Suyapa Day [facility] 09/04/2016 15:26:26 10/28/19 16 Fall Risk Assessment completed Jaime Horne [facility] 10/28/2015 14:00:43 10/28/19 16 Mini-Cog Test completed Jaime Horne [facility] 10/28/2015 14:00:43 10/28/19 16 Advanced Care Planning completed Jaime Horne [facility] 10/28/2015 13:52:42 06/09/20 15 Other completed Renny Christie MD [address] [address], [place], [address], [facility] 06/13/2015 10:12:27 10/27/19 15 Fall Risk Assessment completed Jaime Horne [facility] 10/26/2014 10:32:53 10/27/19 15 Mini-Cog Test completed Jaime Horne [facility] 10/26/2014 10:32:53 10/07/19 14 Colposcopy completed Uma Shukla [facility] [place] 04/27/2014 11:39:55 06/11/19 13 Other completed Renny Christie MD [address] [facility] [address] [place] [address], [address], [facility] 04/27/2014 12:48:11 12/09/19 10 Most Recent Bone Density completed Gabrielle Carrillo MA [facility] 02/01/2022 10:23:37 06/11/19 06 Breast Surgery completed Renny Christie MD [address] [address], [place], [address], [facility] 11/21/2017 13:44:50 06/11/19 04 Appendectomy completed Renny Christie MD [address], [address], [facility] 11/21/2017 13:45:12 06/11/18 89 Hernia Repair completed Renny Christie MD [address] [address], [place], [address], [facility] 11/21/2017 13:44:26 06/11/18 56 Eye Surgery completed Renny Christie MD [address], [address], [facility] 11/21/2017 13:43:59 total knee replacement completed Gabrielle Carrillo MA [facility] 02/01/2022 10:34:13 Tonsillectomy completed Renny Christie MD [address], [address], [facility] 04/27/2014 12:48:11 Caesarean Section completed Renny Christie MD [address], [address], [facility] 04/27/2014 12:48:11 Imaging Results None recorded. Procedure Notes None recorded. Medical Equipment None [...] Available Not Available Not Available atorvasta tin 40 mg tablet Take 1 tablet every day by oral route for 90 days. 2024 active Not Available Not Available Not Avai lable acetamino phen 325 mg tablet TK 2 [...] tablet TAKE 1 TABLET EVERY DAY DIRECTED 03/27 completed increase d the dose to 40 mg Not Available Not Available Not Available azithromy phil 250 mg tablet 07/06 [...] 24 hr TAKE 1 TABLET TWICE DAILY 2024 active Not Available Not Available Not Avai lable ondansetr on HCl 4 mg tablet 11/14 [...] mg tablet TAKE 1 TABLET EVERY DAY 2024 active Not Available Not Available Not Avai lable ciproflox acin 500 mg tablet 11/14 completed Not Available Not Available Not Available sulfameth oxazole 800 mg-trimet hoprim 160 mg tablet 03/20 completed Not Available Not Available Not Available doxycycli ne monohydra te 100 mg tablet TAKE 1 TABLET BY MOUTH TWICE DAILY 03/10 completed Not Available Not Available Not Available [...] 01/20 completed RECORDED 01/21/20 13 2:39PM BY SUYAPA DAY, LESA ON/ADDEN DUM; Not Available Not Available Not Available [...] Available Not Available Not Available melatonin active as needed Not Available Not Available Not Available Milk of Magnesia use as [...] mL every month by subcutan eous route. 08/21 completed Not Available Not Available Not Available denosumab 120 mg/1.7 mL (70 mg/mL) subcutane ous solution Inject 1.7 mL every 3 months by subcutan eous route. active Not Available [...] mg/day (200 mg x 3) tablets Take 1 tablet every day by oral route. active 21 days then 7 days off Not Available Not Available Not Available Kisqali 200 mg/day (200 mg x 1) tablet 2 tablets dailyfor a total of 400mgs 21 days on 7 days off 08/21 completed Not Available Not Available Not Available Fluad 65yr up(PF)45 mcg(15 mcgx3)/0. 5 mL intramusc ular syringe ADM 0.5ML IM UTD 11/30 completed Not Available Not Available Not Available Fluad Quad (65yr up)(PF) 60 mcg (15 mcg x 4)/0.5mL IM syringe PHARMACY ADMINIST ERED 06/16 completed Not Available Not Available Not Available Vitals Date Recorded Body height Body mass index (BMI) Body weight Heart rate Oxygen saturation Oxygen saturation in Arterial blood by Pulse oximetry Body temperature Systolic And Diastolic Provider Name and Address Organization Details Last Updated DateTime 4 165.74 cm 26.9 kg/m2 66746.5 6 g 68 /min 97 % 97 % 97.5 [degF] 157/77 mm[Hg] Masha Reed MA [facility] 4 11:01:37 Date Recorded Body height Provider Name an d Address Organization Details Last Updated DateTime 08/21/2024 165.74 cm [facility] 08/21/2024 14:19:50 Date Recorded Body height Body mass index (BMI) Body weight Heart rate Oxygen saturation Oxygen saturation in Arterial blood by Pulse oximetry Body temperature Systolic And Diastolic Provider Name and Address Organization Details Last Updated DateTime 4 165.74 cm 26.3 kg/m2 95617.1 9 g 74 /min 95 % 95 % 98.2 [degF] 126/75 mm[Hg] M[facility] 4 11:31:19 Date Recorded Systolic And Diastolic Provider Name and Address Organization Details Last Updated DateTime 01/16/2024 130/60 mm[Hg] Renny Christie MD [address], [address], [facility] 01/16/2024 17:53:24 Date Recorded Body height Body mass index (BMI) Body weight Heart rate Oxygen saturation Oxygen saturation in Arterial blood by Pulse oximetry Body temperature Provider Name and Address Organization Details Last Updated DateTime 4 165.74 cm 27.2 kg/m2 93811.7 4 g 64 /min 98 % 98 % 97.6 [degF] Masha Reed MA [facility] [place] 4 11:26:25 Date Recorded Body height Body mass index (BMI) Body weight Heart rate Oxygen saturation Oxygen saturation in Arterial blood by Pulse oximetry Body temperature Systolic And Diastolic Systolic And Diastolic Provider Name and Address Organization Details Last Updated DateTime 5 165.74 cm 27.4 kg/m2 02452.3 3 g 60 /min 95 % 95 % 97.4 [degF] 146/74 mm[Hg] 140/80 mm[Hg] Masha Reed [facility] 5 14:17:26 Social History Question Answer Notes LastModified by Organization Details LastModified Time Tobacco Smoking Status Former Smoker stopped 39 years ago Renny Christie MD [address], [address], [facility] 08/21/2024 15:09:58 Do You Have An Advance Directive? Yes 10/26/2014 [email or web address] Information not available 06/16/2020 Is Blood Transfusion Acceptable In An Emergency? Yes [id number] Information not available 04/13/2020 What Is Your Level Of Caffeine Consumption? Moderate Coffee 3 Times A Week Information not available 02/01/2022 How Much Tobacco Do You Chew? None [id number] Information not available 04/13/2020 Are You Deaf Or Do You Have Serious Difficulty Hearing? No [email or web address] Information not available 06/16/2020 What Type Of Diet Are You Following? REGULAR [id number] Information not available 04/13/2020 Which Illicit Or Recreational Drugs Have You Used? None [id number] Information not available 04/13/2020 Live Alone Or With Others? With Others [email or web address] Information not available 10/26/2014 Do You Take Precautions To Prevent Distracted Driving? Yes Greenhouse Appski Information not available 10/28/2015 How Often Do You Need To Have Someone Help You When You Read Instructions, Pamphlets, Or Other Written Material From Your Doctor Or Pharmacy? Never EzLike Information not available 10/28/2015 Have You Served In The ? No EzLike Information not available 11/13/2016 Have You Or Anyone In Your Household Had Any Of The Following Symptoms In The Last 14 Days: Sore Throat, Cough, Chills, Body Aches For Unknown Reasons, Shortness Of Breath For Unknown Reasons, Loss Of Smell, Loss Of Taste, Fever At Or Greater Than 100 Degrees Fahrenheit? No [email or web address] Information not available 12/14/2020 Are You Or Anyone In Your Household A Health Care Provider Or Emergency Responder? No Information not available 12/14/2020 To The Best Of Your Knowledge Have You Been In Close Proximity To Any Individual Who Tested Positive For COVID-19? No [email or web address] Information not available 12/14/2020 Have You Recently Traveled To A COVID-19 High Risk Area Or Gathering In The Last 10 Days? No [email or web address] Information not available 12/14/2020 What Was The Date Of Your Most Recent Tobacco Screening? 07/31/2023 [email or web address] Information not available 07/31/2023 How Many Children Do You Have? 3 2 Sons And 1 Daughter; 2 Granddaughters [email or web address] Information not available 08/21/2024 Do You Use Protection During Sex? Usually [id number] Information not available 04/13/2020 Difficulty Reading? No [email or web address] Information not available 10/26/2014 Seat Belts Used Routinely Yes [email or web address] Information not available 10/28/2015 Are You Sexually Active? Yes [id number] Information not available 04/13/2020 Smoke Alarm In Home Yes TeacherTubeultzki Information not available 10/28/2015 At What Age Did You Start Smoking Tobacco? 13 [id number] Information not available 04/13/2020 How Much Tobacco Do You Smoke? 1 PPD [id number] Information not available 04/13/2020 Do You Use Sunscreen Routinely? Yes [id number] Information not available 04/13/2020 How Many Years Have You Smoked Tobacco? 22 [id number] Information not available 04/13/2020 Difficulty Watching TV? No [email or web address] Information not available 10/26/2014 Do You Have Difficulty Walking Or Climbing Stairs? Yes Arthritis In Her Knees [email or web address] Information not available 06/16/2020 Sex: Unknown Functional Status Question Answer Note LastModified by Organizat ion Details LastModified Time Do you or have you ever used smokeless tobacco? Never used smokeless tobacco Information not available 12/14/2020 Are you currently employed? No Retired [id number] Information not available 04/13/2020 Difficulty driving at night? No [facility] Information no t available 10/26/2014 Are you able to care for yourself independently? Yes [id number] Information not available 04/13/2020 Do you have difficulty dressing, bathing, grooming, or toileting? No [email or web address] Information not available 06/16/2020 Do you or have you ever used e-cigarettes or vape? Never used electronic cigarettes [email or web address] Information not available 06/16/2020 What is your exercise level? Occasional [id number] Information not available 04/13/2020 Do you use any illicit or recreational drugs? No Information not available 02/01/2022 Do you or have you ever used any other forms of tobacco or nicotine? No Information not available 02/01/2022 What is your level of alcohol consumption? Occasional socially Information not available 02/01/2022 Are you able to walk independently without assistance or assistive devices? [email or web address] Information not available 02/01/2022 Do you have difficulty doing errands alone? No [email or web address] Information not available 06/16/2020 What is your occupation? retired [email or web address] Information not available 11/21/2017 Mental Status Question Answer Note LastModified by Organization D etails LastModified Time Do you have difficulty concentrating, remembering or making decisions? No [email or web address] Information no t available 06/16/2020 Family History Relationship Description Onset Age of this Age Resolved Age Notes LastModified by Organization Details LastModified Time Mother Old-age 97 [email or web address] Not availabl e 10/28/2015 13:52:42 Mother Osteoarthrit is 97 was ih a wheelc hair the last couple of years of her life. [email or web address] Not available 12/14/2020 14:39:24 Father Myocardial infarction 69 [email or web address] Not available 13:42:23 Maternal Aunt Neoplasm of [...] Immunizations Vaccine Type Date Status Note Provider Ayush vasquez and Address Organization Details Recorded Time pneumococcal polysaccharide PPV23 5 completed Not Available [facility] 06/28/2019 02:21:41 Influenza, high-dose, trivalent, PF 7 completed Tana Prater [facility] 03/14/2019 10:43:49 Influenza, high-dose, trivalent, PF 8 completed Tana Prater null, [facility] 03/14/2019 10:43:49 Influenza, adjuvanted, trivalent, PF 9 completed Tana Prater null, [facility] 02/01/2022 10:53:47 Influenza, split virus, quadrivalent, preservative 0 completed Tana Prater null, [facility] 02/01/2022 10:53:47 COVID-19, mRNA, LNP-S, PF, 30 mcg/0.3 mL dose 1 completed BROWN Olivo, [facility] 06/21/2021 13:56:21 COVID-19, mRNA, LNP-S, PF, 30 mcg/0.3 mL dose 1 completed [place] Olivo, [facility] 06/21/2021 13:56:21 Influenza, adjuvanted, quadrivalent, PF 1 completed BROWN Olivo, [facility] 06/21/2021 13:56:21 Influenza, high-dose, trivalent, PF 8 completed BROWN Olivo, [facility] 06/21/2021 13:56:21 Influenza, split virus, quadrivalent, PF 5 completed BR[place] Olivo, [facility] 06/21/2021 13:56:21 Influenza, adjuvanted, quadrivalent, PF 0 completed BROWN Olivo, [facility] 06/21/2021 13:56:21 Influenza, high-dose, trivalent, PF 6 completed BROWN Olivo, [facility] 06/21/2021 13:56:21 COVID-19, mRNA, LNP-S, PF, 30 mcg/0.3 mL dose 1 completed [place] Olivo, [facility] 06/21/2021 13:56:21 Influenza, adjuvanted, quadrivalent, PF 2 completed BROWN García, [facility] 01/17/2023 11:21:07 Pneumococcal conjugate PCV 13 6 completed Not Available [facility] 06/28/2019 02:21:36 Influenza, high-dose, quadrivalent, PF 3 completed BROWN García, [facility] 08/21/2024 14:18:47 COVID-19, mRNA, LNP-S, PF, 50 mcg/0.5 mL 4 completed BROWN García, [facility] 08/21/2024 14:18:47 Influenza, high-dose, trivalent, PF 4 completed BROWN García, [facility] 08/21/2024 14:18:47 Td (adult), 2 Lf tetanus toxoid, preservative free, adsorbed 9 completed Tana Prater null, [facility] 03/14/2019 10:43:49 Influenza, split virus, trivalent, preservative 0 completed Tana Prater null, [facility] 03/14/2019 10:43:49 Influenza, split virus, trivalent, PF 2 completed Tana Prater null, [facility] 03/14/2019 10:43:49 Tdap 3 completed Tana Prater null, [facility] 03/14/2019 10:43:49 Td (adult), 2 Lf tetanus toxoid, preservative free, adsorbed 4 completed Renny Christie MD [address] [address], [place], [address], [facility] 08/01/2023 08:20:49 Influenza, high-dose, trivalent, PF 5 completed BROWN Bob, [facility] 03/10/2025 14:14:19 Past Encounters Encounter ID Performer Location Encounter Start Date Encounter Closed Date Diagnosis/Indication Diagnosis SNOMED-CT Code Diagnosis ICD10 Code Diagnosis IMO Codes Diagnosis Note [id number] [address] [place] [address] 08/29/2006 00:00:00 [id number] autoEComm erce [address] [facility] [place] [address] 01/08/2006 00:00:00 [id number] autoEComm erce [address] [facility] [address] [place] [address] 11/13/2005 00:00:00 [id number] autoEComm erce [address] [facility] [address] [place] [address] 12/07/2006 00:00:00 [id number] autoEComm erce [address] [facility] [place] [address] 07/18/2007 00:00:00 [id number] auto[facility]Comm erce [address] [facility],[address] [place] [address] 02/26/2008 00:00:00 [id number] autoEComm erce [address] [facility] [address] [place] [address] 08/25/2008 00:00:00 [id number] autoEComm erce [address] [facility] [place] [address] 03/30/2009 00:00:00 [id number] autoEComm erce [address] [facility] [place] [address] 04/29/2009 00:00:00 [id number] autoEComm erce [address] [facility] [address] [place] [address] 09/28/2009 00:00:00 [id number] autoEComm erce [address] [facility] [place] [address] 12/29/2009 00:00:00 [id number] auto[facility]Comm erce [address] [place] [address] 05/25/2010 00:00:00 [id number] autoEComm erce [address] [facility] [address] [place] [address] 12/05/2010 00:00:00 [id number] autoEComm erce [address] [facility] [place] [address] 06/14/2011 00:00:00 [id number] autoEComm erce [address] [facility] [place] [address] 12/18/2011 00:00:00 [id number] autoEComm erce [address] [facility] [place] [address] 01/15/2012 00:00:00 [id number] autoEComm erce [address] [facility] [place] [address] 06/18/2012 00:00:00 [id number] autoEComm erce [address] [facility] [place] [address] 01/06/2013 00:00:00 [id number] autoEComm erce [address] [facility] [place] [address] 01/21/2013 00:00:00 [id number] autoEComm erce [address] [facility] [place] [address] 09/30/2013 00:00:00 [id number] Renny Christie MD Main Office [address] [address] [place], [place] [address] 04/27/2014 11:25:58 04/27/2014 12:03:27 Essential hypertension 15142708 Pure hypercholesterolemia 996799234 Varicella vaccination 13862593 Insomnia 933621127 [id number] Renny Christie MD Main Office [address] [address] [place], [place] [address] 10/26/2014 10:05:17 10/26/2014 11:03:13 Adult health examination 467121995 Administra tion of pneumococcal vaccine 85535791 Pure hypercholesterolemia 577263752 Essential hypertension 97801714 [id number] Renny Christie MD Main Office [address] [facility] [address] [place] [address] 04/28/2015 09:45:36 04/28/2015 10:43:03 Essential hypertension 29345822 I10 Anemia 083041386 D64.9 Varicella vaccination 68 934416 Z23 [id number] Renny Christie MD Main Office [address] [address] [place] [address] 10/28/2015 13:32:34 10/28/2015 14:47:32 Adult health examination 935634099 Z00.00 We will update her immination s today. She is UTD with colonoscop y and TAP OUT OPERATOR care. We discussed the importance of calcium Advance di rective discussed with patient 860135701 Z71.89 Varicella vaccination 68 405273 Z23 Administra tion of pneumococcal vaccine 10620558 Z23 Essential hypertension 38011848 I10 running high today and she will follow it at home; we will call her in a couple of weeks and if it is still running high we will increase her amlodipine from 5 to 10 mg. Pure hypercholesterolemia 776349671 E78.0 Hearing loss 33515852 H9 1.90 Higher frequencie s. Mild. She we try to adjust and we will monitor it. [id number] Renny Christie MD Main Office [address] [address] [place] [address] 05/09/2016 09:44:35 05/09/2016 10:31:26 Essential hypertension 65579381 I10 good control; continue current mgmt. Hyperlipidemia 90384160 E78.5 LDL now at goal with meds which she is tolerating well. [id number] Renny Christie MD Main Office [address] [facility] [address] [place] [address] 07/06/2016 10:32:21 07/06/2016 11:25:30 Postviral cough 448819783 R05 She is already using proair and flonase. I also advised an OTC decongesta nt and let her know that this cough can go on for 2-4 weeks and is difficult to treat. Keep room cool at night and may also use honey. [id number] Renny Christie MD Main Office [address] [place] [address] 11/13/2016 10:03:53 11/13/2016 11:06:36 Adult health examination 998429731 Z00.00 She is due for a shingles shot. She is UTD with colonoscop y and TAP OUT OPERATOR care. We discussed the importance of calcium Essential hypertension 95211958 I10 good control; continue current mgmt. Hyperlipidemia 22456347 E78.5 LDL now at goal with meds which she is tolerating well. Varicella vaccination 68 364162 Z23 [id number] Renny Christie MD Main Office [address] [address] [place] [address] 05/17/2017 09:02:51 05/17/2017 09:41:28 Essential hypertension 47058056 I10 good control; continue current mgmt. Hyperlipidemia 83274488 E78.5 LDL now at goal with meds which she is tolerating well. Hypokalemia 08236689 E87 .6 A hand-out was given on foods which are high in potassium. Insomnia 977909891 G47.0 0 doing better; not on meds. [id number] Renny Christie MD Main Office [address] [place] [address] 11/21/2017 12:52:00 11/21/2017 13:49:23 Adult health examination 454711580 Z00.00 She is due for a shingles shot. She is UTD with colonoscop y and TAP OUT OPERATOR care. We discussed the importance of calcium Varicella vaccination 68 658713 Z23 Insomnia 529223533 G47.0 0 doing better; not on meds. Hyperlipidemia 21647818 E78.5 LDL now at goal with meds which she is tolerating well. Essential hypertension 74989660 I10 good control; continue current mgmt. [id number] Renny Christie MD Main Office [address] [place] [address] 05/22/2018 12:36:55 05/22/2018 13:25:40 Essential hypertension 27744412 I10 good control; continue current mgmt. Hyperlipidemia 72822046 E78.5 LDL now at goal with meds which she is tolerating well. [id number] Gordon Phillips MD Main Office [address] [place] [address] 10/08/2018 12:44:17 10/08/2018 13:48:20 Pre-surgery evaluation 980493891 Z01.818 Osteoarthr itis of knee 734045893 M17.11 pre-op for R TKR, anticipate doing L TKR ~ 6-8 wks later Essential hypertension 21903748 I10 stable bp and cr - cont meds as dir Hyperlipidemia 35120119 E78.5 Anemia 199138913 D64.9 last h/h in chart 12.4/38.9 on 06.21.16 c ferritin of 37, iron 107, tibc 326, % iron sat 33 last wk advised by anesthesia to take iron qd also rec to take this with 500mg of vit C qd to enhance absorption of iron -- if get constipate d, then take colace 1-2x/day History of polyp of colon 505648629 Z86.010 h/o colon polyps - had nl colon 4.14 - she just rec'd surveillan ce recall notice - she will schedule in near future [id number] Renny Christie MD Main Office [address] [address] [place] [address] 10/29/2018 08:51:29 10/29/2018 10:34:00 [id number] Renny Christie MD Main Office [address] [address] [place] [address] 11/14/2018 11:16:47 11/14/2018 12:04:24 Anemia 366320016 D64.9 CBC from [facility] shows an improvemen t. We will check it again next week to be sure that she is not actively bleeding. Essential hypertension 10496755 I10 good control; continue current mgmt. [id number] Renny Christie MD Main Office [address] [address] [place] [address] 11/26/2018 12:54:46 11/26/2018 13:57:51 Adult health examination 201975977 Z00.00 She is due for a shingles shot. 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 She will be making an appointmen t for a colonoscop y. We discussed the importance of calcium Essential hypertension 64727470 I10 good control; continue current mgmt. Anemia 582668224 D64.9 [id number] Gordon Phillips MD Main Office [address] [address] [place] [address] 03/20/2019 09:48:51 03/20/2019 10:55:32 Pre-surgery evaluation 080757496 Z01.818 Patient is at low risk for [...] sip of water. Osteoarthr itis of knee 111709618 M17.12 TKR scheduled [id number] Renny Christie MD Main Office [address] [address] [place] [address] 05/28/2019 10:27:39 05/28/2019 11:21:04 Essential hypertension 46857588 I10 good control; continue current mgmt. Anemia 895250810 D64.9 Currently taking iron supplement s once daily Constipation 03343089 K5 9.00 Has been a problem since taking iron supplement s but under control with eating a prune a night. [id number] [facility] [address] [address] [place] [address] 12/01/2019 12:02:54 12/01/2019 15:09:23 Adult health examination 813090048 Z00.00 She is due for a shingles shot. 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 She will be making an appointmen t for a colonoscop y. We discussed the importance of calcium Essential hypertension 88514019 I10 good control; continue current mgmt. Anemia 279656128 D64.9 Was on iron supplement s in the past. Had a colonoscop y earlier this year which was normal. Hyperlipidemia 67629682 E78.5 LDL at goal with meds which she is tolerating well. [id number] Renny Christie MD Main Office [address] [address] [place] [address] 06/16/2020 10:35:24 06/16/2020 11:35:40 Essential hypertension 47978171 I10 good control; continue current mgmt. Hyperlipidemia 57436987 E78.5 LDL at goal with meds which she is tolerating well. [id number] Renny Christie MD Main Office [address] [facility] [address] [place] [address] 12/14/2020 12:50:53 12/14/2020 13:54:54 Adult health examination 846633571 Z00.00 She is due for a shingles shot. 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 She had a colonoscop y done last year and is due again in 2024. We discussed the importance of calcium and weight-alecia ring exercise. Hyperlipidemia 21736679 E78.5 LDL at goal with meds which she is tolerating well. Anemia 507868808 D64.9 Was on iron supplement s in the past. Had a colonoscop y last year which was normal. This is probably ACD from her OA. Chronic ki dney disease stage 3 578114829 N18.30 Hypertensi ve renal disease 18863639 I12.9 good control; continue current mgmt. [id number] Renny Christie MD Main Office [address] [facility] [address] [place] [address] 06/21/2021 13:44:45 06/21/2021 15:02:48 Metastatic malignant neoplasm to bone 38300627 C79.51 Admitted for surgery, transferre d to rehab and now home with PT. On DVT prophylaxi s for 1 month. Hypertensi ve renal disease 77016054 I12.9 Good control; continue current mgmt. Hyperlipidemia 49671256 E78.5 LDL at goal with meds which she is tolerating well. Will recheck fasting lipid level next appointmen t. [id number] eRnny Christie MD Main Office [address] [facility] [address] [place] [address] 06/22/2021 08:21:30 06/22/2021 08:43:34 [id number] Renny Christie MD Main Office [address] [facility] [address] [place] [address] 07/19/2021 11:18:41 07/19/2021 12:02:25 Hypertensive renal disease 65711662 I12.9 Good control; continue current mgmt. Chronic ki dney disease stage 3 200379886 N18.31 Metastatic malignant neoplasm to female breast 91781631 C79.81 Currently on palliative chemo and followed by Dr Celaya. Had mets to her hip and had surgery to prevent a hip fracture. Hyperlipidemia 94339146 E78.5 LDL at goal with meds which she is tolerating well. Will recheck fasting lipid level next appointmen t. [id number] Renny Christie MD Main Office [address] [facility] [address] [facility] [place] [address] 02/01/2022 10:19:32 02/01/2022 11:15:39 Adult health examination 107198995 Z00.00 She is due for a shingles shot. 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 She had a colonoscop y done in [address] Caraballo and is due again in 2024. We discussed the importance of calcium and weight-alecia ring exercise. She has been recovering from her hip surgery done May 2021 and her cancer treatment and just now getting to be more active. Metastatic malignant neoplasm to female breast 95378796 C79.81 Currently on palliative chemo and followed by Dr Celaya. Had mets to her hip and had surgery to prevent a hip fracture. 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 [id number] Renny Christie MD Main Office [address] [facility] [address] [facility] [place] [address] 01/17/2023 11:16:36 01/17/2023 12:04:28 Hypertensive renal disease 76307216 I12.9 Good control; continue current mgmt. Metastatic malignant neoplasm to female breast 36052542 C79.81 Currently on palliative chemo and followed by Dr Celaya. Had mets to her hip and had surgery to prevent a hip fracture. Hyperlipidemia 28715811 E78.5 LDL at goal with meds which she is tolerating well. Will recheck fasting lipid level next appointmen t. Chronic ki dney disease stage 3A 809862005 N18.31 [id number] Renny Christie MD Main Office [address] [facility] [address] [place] [address] 07/31/2023 10:54:18 07/31/2023 11:56:22 Adult health examination 648199466 Z00.00 She is due for a shingles shot. 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 She had a colonoscop y done in [address] Caraballo and is due again in 2024. We discussed the importance of calcium and weight-alecia ring exercise. She has been recovering from her hip surgery done May 2021 and her cancer treatment and just now getting to be more active. Requires a tetanus booster 599509590 Z23 Hyperlipidemia 20444212 E78.5 LDL at goal with meds which she is tolerating well. Will recheck fasting lipid level next appointmen t. Metastatic malignant neoplasm to female breast 48459911 C79.81 Currently on palliative chemo and followed by Dr Celaya. Had mets to her hip and had surgery to prevent a hip fracture. Chronic ki dney disease stage 3 438380833 N18.31 Hypertensi ve renal disease 29376412 I12.9 Good control; continue current mgmt. [id number] Renny Christie MD Main Office [address] [facility] [address] [facility] [place] [address] 09/27/2023 11:17:17 09/27/2023 12:14:35 Pre-surgery evaluation 014988230 Z01.818 Having bilateral cataract surgery with Dr. Slaughter. Right eye 10/07 and left eye 10/21. Low cardiac risk for cataract surgery, labs and EKG were done through her oncologist , will request results. no further work-up necessary, should proceed as scheduled Bilateral cataracts 9572 2004 H26.9 Cough 66892027 R05.9 coughing, started on augmentin x 7 days by her oncologist , LS CTA bilaterall y Chronic ki dney disease stage 3 822574363 N18.31 Metastatic malignant neoplasm to female breast 43869193 C79.81 Impacted c erumen in right ear 4998355968 737748 H61.21 right cerumen impaction. lavage done but unable to fully clear the Canal. Suggest she use drops daily and schedule appt for lavage if sx not improved in the next week or 2. Metastatic malignant neoplasm to bone 32968216 C79.51 [id number] Renny Christie MD Main Office [address] [facility] [address] [place] [address] 01/16/2024 11:20:26 01/16/2024 11:58:30 Hypertensive renal disease 86397471 I12.9 Good control; continue current mgmt. Chronic ki dney disease stage 3 498462749 N18.31 Metastatic malignant neoplasm to female breast 94670351 C79.81 Currently on palliative chemo and followed by Dr Celaya. Had mets to her hip and had surgery to prevent a hip fracture. [id number] Renny Christie MD [facility] [address] [facility] [address] [place] [address] 08/21/2024 13:01:04 08/22/2024 16:24:26 Adult health examination 975642319 Z00.00 She is due for a shingles shot. 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 She had a colonoscop y done in [address] Caraballo and is due again in 2024. We discussed the importance of calcium and weight-alecia ring exercise. She has been recovering from her hip surgery done May 2021 and her cancer treatment and just now getting to be more active. Chronic ki dney disease stage 3 499028082 N18.31 Post-herpe tic polyneuropathy 66385483 B02.23 On the right side of her face helped by gabapentin . Metastatic malignant neoplasm to bone 45217913 C79.51 Had surgery and does not have any pain in the area. Gait is normal. Malignant neoplasm of breast 084189356 C50.919 Hyperlipidemia 01271290 E78.5 LDL at goal with meds which she is tolerating well. Will recheck fasting lipid level. Hypertensi ve renal disease 30084744 I12.9 Good control; continue current mgmt. [id number] Renny Christie MD Main Office [address] [facility] [address] [place] [address] 03/10/2025 14:05:36 03/10/2025 14:55:25 Influenza vaccine needed 9047069899 106 Z23 65 YEARS AND OLDER Hypertensi ve renal disease 22152678 I12.9 Running a little high. Generally running well when she sees her oncologist monthly. Chronic ki dney disease stage 3 847260754 N18.31 Secondary to chronic HTN. Hyperlipidemia 47931498 E78.5 LDL at goal with meds which she is tolerating well. Will recheck fasting lipid level. Health Concerns Section Related Observation LastModified by Organization Detai ls LastModified Time None Recorded Concern Status LastModified by Organization Details LastModified Time None Recorded Advance Directives Directive Y: 10/26/2014 Payers Insurance Date Sequence Insurance Name Policy Number Policy Casiano Covered Member ID Casiano Member ID Guarantor Name 03/27/2025 2 [employer] (MEDICARE SUPPLEMENT) Nicolette Sarmiento [id number] Nicolette Jefferson Torsten 03/10/2025 1 MEDICARE B-[place]: [employer] Nicolette Sarmiento [id number] Nicolette Jefferson Torsten 03/10/2025 2 [id number] Nicolette Jefferson Sarmiento [id number] Nicolette H Torsten Notes Date Note Type Note Provider Name and Address Organization Details Recorded Time 4 text/html Medicare Annual Wellness VisitReported by PatientSocial/Behavioral HistoryFor fracture risk, patient reportshistory of fractures (mets from breast cancer to right hip). For physical activity, patient reportsdoes not exercise on a regular basis,decreased physical activity, anddeconditioned due to sedentary lifestyle (has been unable to do much since her cancer dx and hip surgery; just now getting to normal.). For diet and nutrition, patient reportshealthy dietanddiscussed maintaining calcium balance.Mental Status:For depression risk, patient reportsnever feels sad, empty, or tearful,no loss of interest in activities,no significant changes in weight,no sleep disturbances or insomnia,no agitation,no loss of energy,no feelings of worthlessness or guilt,no thoughts of suicide,no history of depression, andno history of mood disorders. For orientation, patient reportsno disorientation to time,no disorientation to date, andno disorientation to place. For concentration and memory, patient reportsno decreased concentrating ability,no memory lapses or loss, anddoes not forget words.Functional AbilityFor hearing, patient reportsloss of hearing: in both ears. For vision, patient reportsno vision problems. For activities of daily living, patient reportsable to bathe with limited or no assistance,able to contol urination and bowels,able to dress with limited or no assistance,able to feed self with limited or no assistance,able to get out of chair or bed with limited or no assistance,able to groom with limited or no assistance, andable to toilet with limited or no assistance. For instrumental activities of daily living, patient reportsable to do house work with limited or no assistance,able to grocery shop with limited or no assistance,able to manage medications with limited or no assistance,able to manage money with limited or no assistance,able to prepare meals with limited or no assistance, andable to use the phone with limited or no assistance(recently started driving again. she is slow with her activities but able to do for herself now.). For falls risk assessment, patient reportsno frequent falls while walking.She has been dealing with her cancer dx and receiving palliative care from Dr Celaya who she sees regularlyROS as noted in the HPI Renny Christie MD [address] [facility] [address], [place], [address], [facility] 08/01/2023 08:26:13 4 text/html Generic HPI TemplateReported by PatientPresents for pre-op visit, having bilateral cataract surgery [...] be finished by surgery. YOSEPH Abarca [address] [facility] [address], [place], [address], [facility] 09/27/2023 12:34:11 4 text/html Hypertension F/UReported by PatientHPIFor lifestyle, patient reportsnot exercising regularlybut reportslimiting/avoiding salt. For associated symptoms, patient reportsno dizziness,no lightheadedness,no chest pain,no shortness of breath,no palpitations,no edema, andno calf pain with exertion. For medications, patient reportstaking medications as directedandno side effects from medication.ROS as noted in the HPI She had a recurrence of her breast cancer and has mets to her right hip. Had surgery to prevent a hip fracture and is currently using a cane for ambulation. Renny Christie MD [address] [address], [place], [address], [facility] 01/16/2024 17:54:31 5 text/html Medicare Annual Wellness VisitReported by PatientSocial/Behavioral HistoryFor fracture risk, patient reportshistory of fractures (mets from breast cancer to right hip). For physical activity, patient reportsdoes not exercise on a regular basis,decreased physical activity, anddeconditioned due to sedentary lifestyle (has been unable to do much since her cancer dx and hip surgery; just now getting to normal.). For diet and nutrition, patient reportshealthy dietanddiscussed maintaining calcium balance.Mental Status:For depression risk, patient reportsnever feels sad, empty, or tearful,no loss of interest in activities,no significant changes in weight,no sleep disturbances or insomnia,no agitation,no loss of energy,no feelings of worthlessness or guilt,no thoughts of suicide,no history of depression, andno history of mood disorders. For orientation, patient reportsno disorientation to time,no disorientation to date, andno disorientation to place. For concentration and memory, patient reportsno decreased concentrating ability,no memory lapses or loss, anddoes not forget words.Functional AbilityFor hearing, patient reportsloss of hearing: in both ears (we discussed an evaluation for hearing aids and she feels that it is not at that point.). For vision, patient reportsno vision problems. For activities of daily living, patient reportsable to bathe with limited or no assistance,able to contol urination and bowels,able to dress with limited or no assistance,able to feed self with limited or no assistance,able to get out of chair or bed with limited or no assistance,able to groom with limited or no assistance, andable to toilet with limited or no assistance. For instrumental activities of daily living, patient reportsable to do house work with limited or no assistance,able to grocery shop with limited or no assistance,able to manage medications with limited or no assistance,able to manage money with limited or no assistance,able to prepare meals with limited or no assistance, andable to use the phone with limited or no assistance(she is driving and not reporting any problems.). For falls risk assessment, patient reportsno frequent falls while walking.She has been dealing with her cancer dx and receiving palliative care from Dr Celaya who she sees regularly. She recently had a full body scan 2 months ago and was told that there was no advancement of her cancer. An US of her liver was done showing a small spot of unclear significance that will be followed.ROS as noted in the HPI She had shingles on the right side of her face a couple of years ago and continues to have some pain which is getting better slowly. She gets some help from gabapentin. Renny Christie MD [address] [address], [place], [address], [facility] 08/21/2024 18:01:11 5 text/html Hypertension F/UReported by PatientHPIFor lifestyle, patient reportsnot exercising regularlybut reportslimiting/avoiding salt. For associated symptoms, patient reportsno dizziness,no lightheadedness,no chest pain,no shortness of breath,no palpitations,no edema, andno calf pain with exertion. For medications, patient reportstaking medications as directedandno side effects from medication. HyperlipidemiaReported by PatientHPIFor type of hyperlipidemia, patient reportshypercholesterole michael. For compliance, patient reportsdoes not exercisebut reportscompliant. For risk factors, patient reportshypertension. For current therapy, patient reportscurrently taking: (atorvastatin). For complications, patient reportsno coronary artery disease,no peripheral artery disease, andno cardiovascular disease.ROS as noted in the HPI She had a recurrence of her breast cancer and has mets to her right hip. Had surgery to prevent a hip fracture and is currently using a cane for ambulation. Followed regularly by oncology. Renny Christie MD [address] [address], [place], [address], [facility] 03/10/2025 18:07:26 OBGyn Episode No OBEpisode recorded.
== END 2025-04-29 11:41 | disposition home or self-care (01) ==
LOC: HO.XRAY 11:40
PROVIDERS: PCP Internal Medicine; Visit Provider Nurse Practitioner Family
DX: R06.01 Orthopnea (principal); R60.9 Edema, unspecified
CPT/HCPCS: 71046

== ENCOUNTER → 2025-04-29 11:48 | Outpatient (BNV) | payer MEDICARE, SELFPAY | PROVIDERS: PCP Internal Medicine; Visit Provider Radiology Diagnostic Radiology | DX: R06.01 Orthopnea (principal); C79.51 Secondary malignant neoplasm of bone; R60.9 Edema, unspecified | CPT/HCPCS: 71046 ==

== ENCOUNTER → 2025-04-30 08:53 | Outpatient (REF) | payer MEDICARE, SELFPAY ==
--- NOTE | 2025-04-30 08:55 | CA_ITS ---
Transthoracic Echocardiogram Patient (Last, First, Middle): Nicolette Sarmiento H Gender: Female Date of : 1950 Age: 74 Procedure Date: 04/30/2025 Procedure Type: Transthoracic Echocardiogram Location: OP Height: 165. cm Weight: 75. kg BSA: 1.82 m2 Heart Rate: bpm BP: 164 / 70 mmHg [employer] Router: BRIGETTE Referring MD: Whitney Herrera NP Symptoms: eval for CHF Study Quality: Adequate ECG Rhythm: Sinus Conclusions: - The left ventricular systolic function is normal. The calculated ejection fraction is 56% by biplane method. - The basal inferior and mid inferior segments are hypokinetic. - There is an interatrial septal aneurysm seen bowing to the right. - No obvious valvular pathology seen on this study. - Mild pulmonary hypertension is present. Findings Left Ventricle Normal left ventricular cavity size. There is normal left ventricular wall thickness. The left ventricular systolic function is normal. The calculated ejection fraction is 56% by biplane method. Evidence suggests grade I (mild) diastolic dysfunction. LV peak GLS -17%. Wall Motion Rest Echo Findings The basal inferior and mid inferior segments are hypokinetic. Right Ventricle Mildly increased right ventricular cavity size. There is normal right ventricular systolic function. Atria The left atrium is moderately dilated. There is an interatrial septal aneurysm seen bowing to the right. Interatrial shunt cannot be excluded. The right atrium is normal in size. Aortic Valve There is a normal trileaflet aortic valve. There is mild calcification of the aortic valve. There is no aortic valve stenosis. There is no aortic valve regurgitation. Mitral Valve There is mild mitral annular calcification. There is trace mitral valve regurgitation. There is no mitral valve stenosis. Pulmonic Valve There is trace pulmonic valve regurgitation. Tricuspid Valve There is mild tricuspid valve regurgitation. Mild pulmonary hypertension is present. Great Vessels The asc aorta is normal in size. Small plaque is seen in the sino tubular ridge. Venous The inferior vena cava is normal in size and collapses greater than 50% with inspiration. Pericardium/Pleural There is no evidence of pericardial effusion. Prior Study Comparison No prior study available for comparison. Recommendations, Care & Conclusions No obvious valvular pathology seen on this study. Measurements 2D Linear Measurements IVSd: 0.96 0.6-0.9/0.6-1.0 cm LVIDd: 5.05 3.9-5.3/4.2-5.9 cm LVIDd Index: 2.77 2.4-3.2/2.2-3.1 cm/m2 LVIDs: 3.25 2.0-3.6 cm LVPWd: 0.87 0.7-1.1 cm LA Diam: 4.30 2.7-3.8/3.0-4.0 cm LAIDs Index: 2.36 1.5-2.3 cm/m2 LV Mass: 204.60 67-162/88-224 g LV Mass Index: 112.42 43-95/49-115 g/m2 LVOT Diam: 2.00 3.0+(-)1.3 cm 2D Systolic Function EF 4C: 53.90 >55% EF 2C: 60.00 >55% EF BiP: 55.80 >55% Mitral Valve MV Pk E: 0.71 MV PK A: 1.17 MV Decel Time: 382.00 E/A: 0.60 E'Lateral: 4.24 E'Medial: 3.81 E/E' Med: 18.60 E/E' Lat: 16.70 PHT: 112.00 MVA PHT: 1.96 Decel Lyon: 1.85 Aortic Valve AoV Pk Scott: 1.60 AoV Mn Scott: 1.06 AoV VTI: 0.41 AoV Pk Grad: 10.00 Aov Mn Grad: 5.00 SURAJ Cont.VTI: 1.77 LVOT LVOT Pk Scott: 0.92 LVOT Mn Scott: 0.61 LVOT VTI: 0.23 LVOT Pk Grad: 3.00 LVOT Mn Grad: 2.00 LVOT Diam: 2.00 LVOT Area: 3.14 Diastolic Function MV Pk E: 0.71 MV Pk A: 1.17 E/A: 0.60 E'Medial: 3.81 E/E' Med: 18.60 E' Laterial: 4.24 E/E' Lat: 16.70 Right Ventricle TAPSE (mm): 24.20 TVS' Scott: 13.60 Tricuspid Valve TR Pk Scott: 3.26 TR Pk Grad: 43.00 RA Press: 3.00 RVSP: 46.00 Great Vessels Aorta Sinus of Valsalva: 3.50 2.0-3.[address] Ridge: 2.36 1.7-3.4 cm Ao Asc: 3.80 2.1-3.4 cm Updated in Other Vendor System with Status of Final Darren Carey MD electronically signed on 05/02/2025 10:25:10 AM with status of Final
--- OUTSIDE RECORDS SUMMARY | 2025-04-30 10:38 | XMS_ITS | Encounter Summary ---
Author Organization [facility] Address [address] [place] [address] Phone Care Team Providers Care Equipment Installation Professional Name Role Phone Renny Christie MD Primary Care Provider Encounter Details Date Type Department Care Team (Late st Contact Info) Description 08/19/2021 Documentation Only [facility] [place], [address] [place] [address] Renny Christie MD [address] [facility] [address] [place] [address] Social History Tobacco Use Types Packs/Day Years [...] on filedocumented in this encounter Care Teams Equipment Installation Professional Relationship Specialty Start Date End Date Renny Christie MD [address] PCP - General Internal Medicine 08/19/21 documented as of this encounter
--- OUTSIDE RECORDS SUMMARY | 2025-04-30 10:38 | XMS_ITS | Clinical Summary ---
Author Organization [facility] Address [address] [place] [address] Care Team Providers Care Pari Mutuel Clerk Name Role Phone Renny Christie MD Primary Care Provider [phone] Allergies No known active allergies Medications No [...] age to complete this topic Care Teams Pari Mutuel Clerk Relationship Specialty Start Date End Date Renny Christie MD [address] [place] [address] PCP - General Internal Medicine 01/07/21
--- OUTSIDE RECORDS SUMMARY | 2025-04-30 10:38 | XMS_ITS | Clinical Summary ---
Author Organization [facility], Address [address] [place] [address] [place] [address] Phone Care Team Providers Care Irs Agent Name Role Phone Renny Christie MD Primary Care Provider [phone] Social History Tobacco Use Types Packs/Day Years [...] age to complete this topic Insurance Medicare [facility] Care Teams Irs Agent Relationship Specialty Start Date End Date Renny Christie MD [address] PCP - General Internal Medicine 08/19/21
--- OUTSIDE RECORDS SUMMARY | 2025-04-30 10:38 | XMS_ITS | Clinical Summary ---
Author Organization [facility] Address [address] [facility] [address] [place] [phone] Phone Care Team Providers Care Director Of First Impressions Name Role Phone Alia Woods MD [facility] Renny Christie MD Primary Care Provid er [...] MEDICARE PART A & B Care Teams Director Of First Impressions Relationship Specialty Start Date End Date Renny Christie MD [address] [place] [id number] PCP - General 06/14/17 Alia Woods MD [address] [place] [id number] Historical LMR Provider 03/29/17 Additional Source Comments The information contained in this document represents components of the legal health record. It is not the complete legal health record.[facility]
--- OUTSIDE RECORDS SUMMARY | 2025-04-30 10:38 | XMS_ITS | Continuity of Care Document ---
Author Organization [facility], Main Office Address [address] [facility] [facility] [address] [place] [address] Care Team Providers Care Cinnamon Grinder Name Role Phone RENNY CHRISTIE Primary Care Provider TENZIN MORALES Orthopedic Surgeon [phone] HE ABEBE Sampler Ovens FROYLAN SINGLETARY Medical Oncologist [phone] WARREN YOUNG Land Commissioner BENI PACE Optometry Teacher RENNY RENE General Surgeon [phone] GRACE DUBON Plumbing And Heating Mechanic LUZ MARIA VITALE Health Counselor [phone] JEVON CELAYA Surgical Oncologist [phone] TACO ERNST Referring Provider [phone] Assessment No assessment recorded. Plan of Treatment Reminders Order Date Submit Date Provider Last Modified By Organization Details Last Modified Time Details Appointments [id number] 2025 01:00P M Renny reilly MD Not available Not available Not available Lab lipid panel, serum 2024 025 CHAYITO [facility] (Centralized Electronic Ordering - All Locations), Patient Can Go To The Location Of Their Choice, [id number] 03/27/2025 06:08:07 CMP, serum or plasma 2024 025 CHAYITO [facility] (Centralized Electronic Ordering - All Locations), Patient Can Go To The Location Of Their Choice, [id number] 03/27/2025 06:08:06 Referral None recorded . Procedures None recorded . Surgeries None recorded . Imaging None recorded . Medication Orders None recorded . Patient TargetsNo targets recorded. Patient Instructions Encounter Date Encounter Id Patient Instructions Last Modified By Organization Details Last Modified Time 03/10/2025 [id number] medicines to avoid with kidney disease: care instructions [email or web address] Not available 03/10/2025 14:31:17 high cholesterol: care instructions [email or web address] Not available 03/10/2025 14:37:29 Reason for Referral None Reported. Results Created Date Observation Date Name Description Value Unit Range Abnormal Flag Note LastModifiedBy Organization Detail LastModifiedTime 03/26/2003/26/2025 CMP14 +EGFR glucose 96 mg/dL 70-99 normal Not Available [facility] ([facility]) [address] [place], [address], 03/27/2025 06:08:06 03/26/2003/26/2025 CMP14 +EGFR BUN 20 mg/dL 8-27 normal Not Available [facility] ([facility]) [address] [place], [address], 03/27/2025 06:08:06 03/26/2003/26/2025 CMP14 +EGFR creatinine 1.66 mg/dL 0.57-1 .00 above high normal Not Available [facility] ([facility]) [address] [place], [address], 03/27/2025 06:08:06 03/26/2003/26/2025 CMP14 +EGFR eGFR 32 mL/mi n/1.7 3 >59 below low normal Not Available [facility] ([facility]) [address] [place], [address], 03/27/2025 06:08:06 03/26/2003/26/2025 CMP14 +EGFR BUN/creatini ne ratio 12 12-28 normal Not Available [facility] ([facility]) [address] [place], [address], 03/27/2025 06:08:06 03/26/2003/26/2025 CMP14 +EGFR sodium 142 mmol/ L 134-14 4 normal Not Available [facility] ([facility]) [address] [facility] [place] [place], [address], 03/27/2025 06:08:06 03/26/2003/26/2025 CMP14 +EGFR potassium 4.2 mmol/ L 3.5-5. 2 normal Not Available [facility] ([facility]) [address] [place], [address], 03/27/2025 06:08:06 03/26/2003/26/2025 CMP14 +EGFR chloride 106 mmol/ L 96-106 normal Not Available [facility] ([facility]) [address] [place], [address], 03/27/2025 06:08:06 03/26/2003/26/2025 CMP14 +EGFR carbon dioxide, total 24 mmol/ L 20-29 normal Not Available [facility] ([facility]) [address] [place], [address], 03/27/2025 06:08:06 03/26/2003/26/2025 CMP14 +EGFR calcium 9.9 mg/dL 8.7-10 .3 normal Not Available [facility] ([facility]) [address] [place], [address], 03/27/2025 06:08:06 03/26/2003/26/2025 CMP14 +EGFR protein, total 6.5 g/dL 6.0-8. 5 normal Not Available [facility] ([facility]) [address] [place], [address], 03/27/2025 06:08:06 03/26/2003/26/2025 CMP14 +EGFR albumin 4.2 g/dL 3.8-4. 8 normal Not Available [facility] ([facility]) [address] [place], [address], 03/27/2025 06:08:06 03/26/2003/26/2025 CMP14 +EGFR globulin, total 2.3 g/dL 1.5-4. 5 Not Available [facility] ([facility]) [address] [facility] [place], [address], 03/27/2025 06:08:06 03/26/2003/26/2025 CMP14 +EGFR bilirubin, total 0.6 mg/dL 0.0-1. 2 normal Not Available [facility] ([facility]) [address] [facility] [place], [address], 03/27/2025 06:08:06 03/26/2003/26/2025 CMP14 +EGFR alkaline phosphatase 61 IU/L 49-135 normal Not Available [facility] ([facility]) [address] [facility] [place] [place], [address], 03/27/2025 06:08:06 03/26/2003/26/2025 CMP14 +EGFR AST (SGOT) 13 IU/L 0-40 normal Not Available [facility] ([facility]) [address] [facility] [place] [place], [address], 03/27/2025 06:08:06 03/26/2003/26/2025 CMP14 +EGFR ALT (SGPT) 7 IU/L 0-32 normal Not Available [facility] ([facility]) [address] [facility] [place] [place], [address], 03/27/2025 06:08:06 03/26/2003/26/2025 LIPID PANEL cholesterol, total 202 mg/dL 100-19 9 above high normal Not Available [facility] ([facility]) [address] [facility] [place] [place], [address], 03/27/2025 06:08:07 03/26/20 25 03/26/2025 LIPID PANEL triglyceride s 148 mg/dL 0-149 normal Not Available [facility] ([facility]) [address] [facility], [place], [address], 03/27/2025 06:08:07 03/26/2003/26/2025 LIPID PANEL HDL cholesterol 67 mg/dL >39 normal Not Available [facility] ([facility]) [address] [facility], [place], [address], 03/27/2025 06:08:07 03/26/2003/26/2025 LIPID PANEL VLDL cholesterol radha 26 mg/dL 5-40 Not Available [facility] ([facility]) [address] [facility], [place], [address], 03/27/2025 06:08:07 03/26/2003/26/2025 LIPID PANEL LDL chol calc ([facility]) 109 mg/dL 0-99 above high normal Not Available [facility] ([facility]) [address] [facility], [place], [address], 03/27/2025 06:08:07 03/26/2003/26/2025 LIPID PANEL 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 Problems Name Problem SNOMED Code Status Onset Date Resolution Date Notes Provider Name and Address Organization Details Recorded Time Insomnia 814721195 Active Tana baker [facility] 9 10:43:48 Calculus in urethra 44443733 Active followed by urology Tana baker [facility] 9 10:43:48 Advance directiv e discusse d with patient 005690531 Active Tana baker [facility] 9 10:43:48 Hearing loss 81082589 Active Tana baker [facility] 9 10:43:48 Kidney stone 10570241 Active Tana baker [facility] 9 10:43:48 Strabism us 56229060 Active Tana Prater null, [facility] 9 10:43:48 Serum choleste rol above referenc e range 593915720 Active Tana Prater null, [facility] 9 10:43:48 Vitreous floaters 26491416 Active Tana Prater null, [facility] 9 10:43:48 Cataract 428194973 Active Tana Prater null, [facility] 9 10:43:48 Amblyopi a 415496113 Active Tana Prater null, [facility] 9 10:43:48 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 FOLLOWED BY DR SINGLETARY. 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 FOLLOWED BY DR SINGLETARY. ; RECORDED 10/01/19 14 8:14AM BY LESA HOGAN/TRINIDAD Christie MD [address] [address], [place], [address] , [facility] 6 14:15:17 History of malignan t neoplasm of breast 153697916 Active 2007 Right lumpecto my by Dr Gabi maloney. Also radiatio n and 5 years of hormonal therapy. Renny Christie MD [address] [facility] [address], [place], [address] , [facility] 2 07:39:52 General examinat ion of patient Completed 200712/23/2013 RECORDED 02/02/20 08 10:51AM BY RENNY ELIZABETH MD, ANNOTATI ON/ADDEN DUM Renny Christie MD [address] [facility] [address], [place], [address] , [facility] 6 14:15:17 General examinat ion of patient Completed 200701/19/2014 RECORDED 02/02/20 08 10:51AM BY RENNY ELIZABETH MD, ANNOTATI ON/ADDEN DUM Renny Christie MD [address] [facility] [address], [place], [address] , [facility] 6 14:15:17 Screenin g for malignan t neoplasm of colon Completed 200812/23/2013 RECORDED 06/18/19 09 5:06PM BY RENNY ELIZABETH MD, ANNOTATI ON/ADDEN DUM Renny Christie MD [address] [facility] [address], [place], [address] , [facility] 6 14:15:17 Influenz a vaccine needed [id number] 06 Completed 200912/23/2013 RECORDED 05/25/20 10 2:08PM BY JAIME CRUZ I, HISTORIC AL SUMMARY Renny Christie MD [address] [facility] [address], [place], [address] , [facility] 6 14:15:17 Influenz a vaccine needed 96800160008 06 Completed 200901/19/2014 RECORDED 05/25/20 10 2:08PM BY JAIME CRUZ I, HISTORIC AL SUMMARY Renny Christie MD [address] [facility] [address], [place], [address] , [facility] 6 14:15:17 Hemorrho ids [id number] Completed 201112/23/2013 RECORDED 12/18/19 12 1:34PM BY RENNY ELIZABETH MD, ANNOTATI ON/ADDEN DUM Renny Christie MD [address] [facility] [address], [place], [address] , [facility] 6 14:15:17 Hypokale michael [id number] Completed 201112/23/2013 RECORDED 12/18/19 12 1:34PM BY RENNY ELIZABETH MD, ANNOTATI ON/ADDEN DUM Renny Christie MD [address] [address], [place], [address] , [facility] 6 14:15:17 Joint effusion of ankle AND/OR foot 4872804 Completed 201112/23/2013 RECORDED 12/18/19 12 1:36PM BY RENNY ELIZABETH MD, ANNOTATI ON/ADDEN VINAYAK Christie MD [address] [address], [place], [address] , [facility] 6 14:15:17 Adult health examinat ion Completed 201112/23/2013 RECORDED 12/18/19 12 1:35PM BY RENNY ELIZABETH MD, ANNOTATI ON/ADDEN DUM Renny Christie MD [address] [address], [place], [address] , [facility] 6 14:15:17 Hemorrho ids [id number] Completed 201101/19/2014 RECORDED 12/18/19 12 1:34PM BY RENNY ELIZABETH MD, ANNOTATI ON/ADDMAX Christie MD [address] [facility] [address], [place], [address] , [facility] 6 14:15:17 Hypokale michael [id number] Completed 201101/19/2014 RECORDED 12/18/19 12 1:34PM BY RENNY ELIZABETH MD, ANNOTATI ON/ADDEN DUM Renny Christie MD [address] [facility] [address], [place], [address] , [facility] 6 14:15:17 Joint effusion of ankle AND/OR foot 0134035 Completed 201101/19/2014 RECORDED 12/18/19 12 1:36PM BY RENNY ELIZABEHT MD, ANNOTATI ON/ADDEN DUM Renny Christie MD [address] [address], [place], [address] , [facility] 6 14:15:17 Screenin g for malignan t neoplasm of breast Completed 201212/23/2013 RECORDED 06/18/19 13 8:11AM BY LESA HOGAN ON/ADDEN VINAYAK Christie MD [address] [address], [place], [address] , [facility] 6 14:15:17 Constipa tion 67213789 Completed 201212/23/2013 IMPRESSI ON: ADVISED TO TAKE OTC SENOKOT; RECORDED 06/18/19 13 8:11AM BY LESA HOGAN ON/ADDEN VINAYAK Christie MD [address] [address], [place], [address] , [facility] 6 14:15:17 Cough 80935208 Completed 201212/23/2013 IMPRESSI ON: SECONDAR Y TO ALLERGIC RHINITIS ; RECORDED 06/18/19 13 8:11AM BY LESA HOGAN ON/ADDMAX Chang, [facility] [address] [address], [place], [address] , [facility] 4 11:48:45 Enthesop athy of knee 10650864 Completed 201212/23/2013 RECORDED 06/18/19 13 8:11AM BY LESA HOGAN ON/TRINIDAD Christie MD [address] [facility] [address], [place], [address] , [facility] 6 14:15:17 Screenin g for malignan t neoplasm of breast Completed 201201/19/2014 RECORDED 06/18/19 13 8:11AM BY LESA HOGAN ON/TRINIDAD Christie MD [address] [facility] [address], [place], [address] , [facility] 6 14:15:17 Constipa tion 92988260 Completed 201201/19/2014 IMPRESSI ON: ADVISED TO TAKE OTC SENOKOT; RECORDED 06/18/19 13 8:11AM BY LESA HOGAN ON/TRINIDAD Christie MD [address] [facility] [address], [place], [address] , [facility] 6 14:15:17 Cough 16537975 Completed 201201/19/2014 IMPRESSI ON: SECONDAR Y TO ALLERGIC RHINITIS ; RECORDED 06/18/19 13 8:11AM BY LESA HOGAN ON/TRINIDAD Chang, [facility] [address] [address], [place], [address] , [facility] 4 11:48:45 Enthesop athy of knee 84902824 Completed 201201/19/2014 RECORDED 06/18/19 13 8:11AM BY LESA HOGAN ON/TRINIDAD Christie MD [address] [facility] [address], [place], [address] , [facility] 6 14:15:17 Knee pain Completed 201212/23/2013 IMPRESSI ON: HAS A F/U WITH DR DHALIWAL AND MAY BE GETTING INJECTIO NS.; RECORDED 01/07/20 13 10:22AM BY LESA HOGAN ON/TRINIDAD Christie MD [address] [facility] [address], [place], [address] , [facility] 6 14:15:17 Administ ration of diphther ia and tetanus vaccine Completed 201212/23/2013 RECORDED 01/07/20 13 10:22AM BY LESA HOGAN ON/TRINIDAD Christie MD [address] [address], [place], [address] , [facility] 6 14:15:17 Knee pain Completed 201201/19/2014 IMPRESSI ON: HAS A F/U WITH DR DHALIWAL AND MAY BE GETTING INJECTIO NS.; RECORDED 01/07/20 13 10:22AM BY LESA HOGAN ON/TRINIDAD Christie MD [address] [address], [place], [address] , [facility] 6 14:15:17 Administ ration of diphther ia and tetanus vaccine Completed 201201/19/2014 RECORDED 01/07/20 13 10:22AM BY LESA HOGAN/TRINIDAD Christie MD [address] [facility] [address], [place], [address] , [facility] 6 14:15:17 Laborato ry procedur e performe d 841587299 Completed 201212/23/2013 RECORDED 01/22/20 13 9:40AM BY LESA HOGAN ON/ADDEN DUM Renny Christie MD [address], [place], [address] , [facility] 6 14:15:17 Laborato ry procedur e performe d 613644571 Completed 201201/19/2014 RECORDED 01/22/20 13 9:40AM BY JAIME CRUZ I, SHAKAATI ON/ADDEN DUM Renny Christie MD [address], [place], [address] , [facility] 6 14:15:17 Anemia 281718689 Active 2013 Probable ACD secondar y to OA/infla mmation. Renny Christie MD [address], [place], [address] , [facility] 0 10:12:38 Primary malignan t neoplasm of labia majora 89663622 Completed 201312/23/2013 RECORDED 10/01/19 14 8:14AM BY LESA HOGAN ON/ADD DUM Renny Christie MD [address], [place], [address] , [facility] 6 14:15:17 History of malignan t neoplasm of skin excludin g melanoma 848479407 Active 2013 Basal cell carcinom a; followed by Dr Milton Christie MD [address], [place], [address] , [facility] 9 11:15:58 Pure hypercho lesterol emia 248466427 Completed 201311/13/2016 working on diet Renny Christie MD [address], [place], [address] , [facility] 7 10:48:27 Osteoart hritis of knee 427133535 Active [address] Young and receives injectio ns. Seen by ortho August 2018 and godfrey vernon ent. Tana baker, [facility] 9 10:43:48 Tobacco user 101029298 Completed 201304/27/2014 RECORDED 10/01/19 14 11:07AM BY JAIME CRUZ I, OFFICE VISIT Renny Christie MD [address] [facility] [address], [place], [address] , [facility] 6 14:15:17 History of clinical finding in subject 686317251 Completed 201304/27/2014 RECORDED 10/01/19 14 11:07AM BY JAIME CRUZ I, OFFICE VISIT Renny Christie MD [address] [address], [place], [address] , [facility] 6 14:15:17 Pre-surg godfrey evaluati on Completed 201312/23/2013 RECORDED 10/01/19 14 8:13AM BY JAIME CRUZ I, ANNOTATI ON/TRINIDAD Christie MD [address] [address], [place], [address] , [facility] 6 14:15:17 Adult health examinat ion Completed 201304/27/2014 RECORDED 10/01/19 14 11:06AM BY JAIME CRUZ I, OFFICE VISIT Renny Christie MD [address] [facility] [address], [place], [address] , [facility] 6 14:15:17 Primary malignan t neoplasm of labia majora 95788168 Completed 201301/19/2014 RECORDED 10/01/19 14 8:14AM BY JAIME CRUZ I, ANNOTATI ON/ADDMAX Christie MD [address] [address], [place], [address] , [facility] 6 14:15:17 Pre-surg godfrey evaluati on Completed 201301/19/2014 RECORDED 10/01/19 14 8:13AM BY LESA HOGAN ON/ADDEN DUM Renny Christie MD [address], [place], [address] , [facility] 6 14:15:17 Screenin g for malignan t neoplasm of colon Completed 201304/27/2014 RECORDED 10/08/19 14 1:36PM BY CHEYENNE VALENTE, HISTORIC AL SUMMARY Renny Christie MD [address], [place], [address] , [facility] 6 14:15:17 Basal cell carcinom a of skin 737858406 Active 2014 ankle, right ear Tana baker, [facility] 9 10:43:48 Hyperlip idemia 71918381 Active 2016 Tana baker, [facility] 9 10:43:48 Total knee replacem ent Active 2018 Dr Julio C Prater null, [facility] 9 10:43:48 Tubular adenoma 539331085 Active 2019 PER GI Xenia Tomás null, [facility] 0 09:19:38 Chronic kidney disease stage 3 332240073 Active 2020 Per Crowder MD null, [facility] 1 10:36:45 Hyperten sive renal disease 76059230 Active 2020 Teresa Dockery null, [facility] 1 16:23:45 Metastat ic malignan t neoplasm to female breast 73426829 Active 2020 Mets to bone. Primary breast cancer was in 2005. Started palliati ve treatmen t in April 2021. Renny Christie MD [address], [place], [address] , [facility] 2 07:44:32 Neoplasm of hip region 372257289 Active 2020 Seen by ortho, Dr Lamar. Renny Christie MD [address], [place], [address] , [facility] 1 15:23:23 Herpes zoster 5033816 Active 2022 on face Renny Christie MD [address], [place], [address] , [facility] 3 08:54:17 Bilatera l cataract s 51998504 Active 2023 Tish Chang, [facility] [address], [place], [address] , [facility] 4 11:48:36 Cough 90353148 Active 2023 IMPRESSI ON: SECONDAR Y TO ALLERGIC RHINITIS ; RECORDED 06/18/19 13 8:11AM BY LESA HOGAN ON/ADDEN DUM Tish Chang, [facility] [address], [place], [address] , [facility] 4 11:48:45 Impacted cerumen in right ear 84919902038 33594 Active 2023 Tish Chang, [facility] [address], [place], [address] , [facility] 4 11:51:34 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 Please review this document and add these problems to the patient's chart manually as needed. Problem Notes None recorded. Procedures Surgical History Date Name Laterality Status Provider Name and Address Organization Details Recorded Time 06/07/20 21 removal of implant from femur completed Tana Prater [facility] 06/08/2021 10:17:01 02/11/20 21 Most Recent Mammogram completed Gabrielle Carrillo MA [facility] 02/01/2022 10:22:35 08/21/19 21 Mammogram Diagnostic Bilateral completed Cindy Hamlin MA [facility] 12/14/2020 12:59:41 12/01/19 20 Six-Item Cognitive Test completed Jaime Horne [facility] 12/01/2019 13:31:07 08/21/19 20 Date of Last Colonoscopy completed Xeniajanki England [facility] 08/21/2019 11:32:29 08/21/19 20 Colonoscopy & polypectomy completed Xenia England [facility] 08/29/2019 09:20:00 03/31/20 19 Total knee arthroplasty completed Tanarekha Prater [facility] 04/15/2019 16:17:26 12/26/19 19 renal lithotripsy completed Tanarekha Prater [facility] 01/15/2019 15:36:12 11/27/19 19 Mini-Cog Test completed Jaime Horne [facility] 11/26/2018 13:12:53 10/22/19 19 Knee Surgery completed Tanarekha Prater [facility] 10/30/2018 11:49:05 11/22/19 18 Mini-Cog Test completed Zuleyma Mckeon [facility] 11/21/2017 13:09:40 01/31/20 17 Other completed Sabrina Cruz [facility] 03/30/2017 16:51:14 11/14/19 17 Fall Risk Assessment completed Jaime Horne [facility] 11/13/2016 10:28:15 11/14/19 17 Mini-Cog Test completed Jaime Horne [facility] 11/13/2016 10:28:23 08/12/19 17 Other completed Abby Day [facility] 09/04/2016 15:26:26 10/28/19 16 Fall Risk Assessment completed Jaime Horne [facility] 10/28/2015 14:00:43 10/28/19 16 Mini-Cog Test completed Jaimevladimir Horne [facility] 10/28/2015 14:00:43 10/28/19 16 [facility] Planning completed Jaime Horne [facility] 10/28/2015 13:52:42 06/09/20 15 Other completed Renny Christie MD [address], [address], [facility] 06/13/2015 10:12:27 10/27/19 15 Fall Risk Assessment completed Jaime Horne [facility] 10/26/2014 10:32:53 10/27/19 15 Mini-Cog Test completed Jaime [email or web address] [facility] 10/26/2014 10:32:53 10/07/19 14 Colposcopy completed [facility] 04/27/2014 11:39:55 06/11/19 13 Other completed Renny Christie MD [address] [address], [place], [address], [facility] 04/27/2014 12:48:11 12/09/19 10 Most Recent Bone Density completed Gabrielle Carrillo MA [facility] 02/01/2022 10:23:37 06/11/19 06 Breast Surgery completed Renny Christie MD [address] [facility], [place], [address], [facility] 11/21/2017 13:44:50 06/11/19 04 Appendectomy completed Renny Christie MD [address] [facility], [place], [address], [facility] 11/21/2017 13:45:12 06/11/18 89 Hernia Repair completed Renny Christie MD [address] [facility] [address] [facility], [place], [address], [facility] 11/21/2017 13:44:26 06/11/18 56 Eye Surgery completed Renny Christie MD [address] [facility] [address] [facility], [place], [address], [facility] 11/21/2017 13:43:59 total knee replacement completed Gabrielle Carrillo MA [facility] 02/01/2022 10:34:13 Tonsillectomy completed Renny Christie MD [address] [facility] [address] [facility], [place], [address], [facility] 04/27/2014 12:48:11 Caesarean Section completed Renny Christie MD [address], [address], [facility] 04/27/2014 12:48:11 Imaging Results None recorded. Procedure [...] RECORDED 01/21/20 13 2:39PM BY LESA MOORE ON/ADDEN DUM; Not Available Not Available Not [...] 01/21/20 13 2:39PM BY LESA MOORE ON/TRINIDAD DUM; Not Available Not Available Not Available nitrofura [...] (BMI) Body weight Heart rate Oxygen saturation Body temperature Systolic And Diastolic Systolic And Diastolic Provider Name and Address Organization Details Last Updated DateTime 5 165.74 cm 27.4 kg/m2 78746.3 3 g 60 /min 95 % 97.4 [degF] 146/74 mm[Hg] 140/80 mm[Hg] Masha Reed MA [facility] [place] 5 14:17:26 Social History Question Answer Notes LastModified by Organization Details LastModified Time Tobacco Smoking Status Former Smoker stopped 39 years ago Renny Christie MD [address] [facility] [address], [place], [address], [facility] [place] 08/21/2024 15:09:58 Do You Have An Advance Directive? Yes 10/26/2014 [email or web address] Information not available 06/16/2020 Is Blood Transfusion Acceptable In An Emergency? Yes [id number] Information not available 04/13/2020 What Is Your Level Of Caffeine Consumption? Moderate Coffee 3 Times A Week Information not available 02/01/2022 How Much Tobacco Do You Chew? None [id number] Information not available 04/13/2020 Are You Deaf Or Do You Have Serious Difficulty Hearing? No [email or web address] Information not available 06/16/2020 What Type Of Diet Are You Following? REGULAR [id number] Information not available 04/13/2020 Which Illicit Or Recreational Drugs Have You Used? None [id number] Information not available 04/13/2020 Live Alone Or With Others? With Others [email or web address] Information not available 10/26/2014 Do You Take Precautions To Prevent Distracted Driving? Yes Information not available 10/28/2015 How Often Do You Need To Have Someone Help You When You Read Instructions, Pamphlets, Or Other Written Material From Your Doctor Or Pharmacy? Never Information not available 10/28/2015 Have You Served In The ? No [email or web address] Information not available 11/13/2016 Have You Or Anyone In Your Household Had Any Of The Following Symptoms In The Last 14 Days: Sore Throat, Cough, Chills, Body Aches For Unknown Reasons, Shortness Of Breath For Unknown Reasons, Loss Of Smell, Loss Of Taste, Fever At Or Greater Than 100 Degrees Fahrenheit? No [email or web address] Information not available 12/14/2020 Are You Or Anyone In Your Household A Health Care Provider Or Emergency Responder? No [email or web address] Information not available 12/14/2020 To The Best Of Your Knowledge Have You Been In Close Proximity To Any Individual Who Tested Positive For COVID-19? No [email or web address] Information not available 12/14/2020 Have You Recently Traveled To A COVID-19 High Risk Area Or Gathering In The Last 10 Days? No [email or web address] Information not available 12/14/2020 What Was The Date Of Your Most Recent Tobacco Screening? 07/31/2023 [email or web address] Information not available 07/31/2023 How Many Children Do You Have? 3 2 Sons And 1 Daughter; 2 Granddaughters [email or web address] Information not available 08/21/2024 Do You Use Protection During Sex? Usually [id number] Information not available 04/13/2020 Difficulty Reading? No [email or web address] Information not available 10/26/2014 Seat Belts Used Routinely Yes [employer] [email or web address] Information not available 10/28/2015 Are You Sexually Active? Yes [id number] Information not available 04/13/2020 Smoke Alarm In Home Yes [email or web address] Information not available 10/28/2015 At What Age Did You Start Smoking Tobacco? 13 [id number] Information not available 04/13/2020 How Much Tobacco Do You Smoke? 1 PPD [id number] Information not available 04/13/2020 Do You Use Sunscreen Routinely? Yes [id number] Information not available 04/13/2020 How Many Years Have You Smoked Tobacco? 22 [id number] Information not available 04/13/2020 Difficulty Watching TV? No [email or web address] Information not available 10/26/2014 Do You Have Difficulty Walking Or Climbing Stairs? Yes Arthritis In Her Knees [email or web address] Information not available 06/16/2020 Sex: Unknown Functional Status Question Answer Note LastModified by Organizat ion Details LastModified Time Do you or have you ever used smokeless tobacco? Never used smokeless tobacco Information not available 12/14/2020 Are you currently employed? No Retired [id number] Information not available 04/13/2020 Difficulty driving at night? No Emgo Information no t available 10/26/2014 Are you able to care for yourself independently? Yes [id number] Information not available 04/13/2020 Do you have difficulty dressing, bathing, grooming, or toileting? No [email or web address] Information not available 06/16/2020 Do you or have you ever used e-cigarettes or vape? Never used electronic cigarettes [email or web address] Information not available 06/16/2020 What is your exercise level? Occasional [id number] Information not available 04/13/2020 Do you use [...] you have difficulty doing errands alone? No [email or web address] Information not available 06/16/2020 What is your occupation? retired [email or web address] Information not available 11/21/2017 Mental Status Question Answer Note LastModified by Organization D etails LastModified Time Do you have difficulty concentrating, remembering or making decisions? No [email or web address] Information no t available 06/16/2020 Family History Relationship Description Onset Age of this Age Resolved Age Notes LastModified by Organization Details LastModified Time Mother Old-age 97 [email or web address] Not availabl e 10/28/2015 13:52:42 Mother Osteoarthrit [...] polysaccharide PPV23 5 completed Not Available [facility] 06/28/2019 02:21:41 Influenza, high-dose, trivalent, PF 7 completed Tana Prater null, [facility] 03/14/2019 10:43:49 Influenza, high-dose, trivalent, PF 8 completed Tana Prater null, [facility] 03/14/2019 10:43:49 Influenza, adjuvanted, trivalent, PF 9 completed Tana Prater [facility], [facility] 02/01/2022 10:53:47 Influenza, split virus, quadrivalent, preservative 0 completed Tana Prater [facility] 02/01/2022 10:53:47 COVID-19, mRNA, LNP-S, PF, 30 mcg/0.3 mL dose 1 [facility]21[facility]2021 13:56:21 COVID-19, mRNA, LNP-S, PF, 30 mcg/0.3 mL dose 1 [facility] 06/21/2021 13:56:21 Influenza, adjuvanted, quadrivalent, PF 1 [facility] 06/21/2021 13:56:21 Influenza, high-dose, trivalent, PF 8 [facility] 06/21/2021 13:56:21 Influenza, split virus, quadrivalent, PF 5 completed [facility] 06/21/2021 13:56:21 Influenza, adjuvanted, quadrivalent, PF 0 completed BROWN Olivo, [facility] 06/21/2021 13:56:21 Influenza, high-dose, trivalent, PF 6 completed BROWN Olivo, [facility] 06/21/2021 13:56:21 COVID-19, mRNA, LNP-S, PF, 30 mcg/0.3 mL dose 1 completed BROWN Olivo, [facility] 06/21/2021 13:56:21 Influenza, adjuvanted, quadrivalent, PF 2 completed [facility] 01/17/2023 11:21:07 Pneumococcal conjugate PCV 13 6 completed Not Available [facility] 06/28/2019 02:21:36 Influenza, high-dose, quadrivalent, PF 3 completed BROWN García, [facility] 08/21/2024 14:18:47 COVID-19, mRNA, LNP-S, PF, 50 mcg/0.5 mL 4 completed BROWN García, [facility] 08/21/2024 14:18:47 Influenza, high-dose, trivalent, PF 4 completed [facility] 08/21/2024 14:18:47 Td (adult), 2 Lf tetanus toxoid, preservative free, adsorbed 9 completed Tana Prater null, [facility] 03/14/2019 10:43:49 Influenza, split virus, trivalent, preservative 0 completed Tana Prater null, [facility] 03/14/2019 10:43:49 Influenza, split virus, trivalent, PF 2 completed Tana Prater null, [facility] 03/14/2019 10:43:49 Tdap 3 completed Tana Prater null, [facility] 03/14/2019 10:43:49 Td (adult), 2 Lf tetanus toxoid, preservative free, adsorbed 4 completed Renny Christie MD [address] [address], [place], [address], [facility] 08/01/2023 08:20:49 Influenza, high-dose, trivalent, PF 5 completed BROWN Bob, [facility] 03/10/2025 14:14:19 Past Encounters Encounter ID Performer Location Encounter Start Date Encounter Closed Date Diagnosis/Indication Diagnosis SNOMED-CT Code Diagnosis ICD10 Code Diagnosis IMO Codes Diagnosis Note [id number] Renny Christie MD Main Office [address] [address] 03/10/2025 14:05:36 03/10/2025 14:55:25 Influenza vaccine needed 1685604606 106 Z23 65 YEARS AND OLDER Hypertensi ve renal disease 91939367 I12.9 Running a little high. Generally running well when she sees her oncologist monthly. Chronic ki dney disease stage 3 275319677 N18.31 Secondary to chronic HTN. Hyperlipidemia 14852086 E78.5 LDL at goal with meds which she is tolerating well. Will recheck fasting lipid level. Health Concerns Section Related Observation LastModified by Organization Detai ls LastModified Time None Recorded Concern Status LastModified by Organization Details LastModified Time None Recorded Payers Encounter Date Sequence Insurance Name Policy Number Policy Casiano Covered Member ID Casiano Member ID Guarantor Name 03/10/2025 1 [place] [employer] Nicolette Sarmiento [id number] Nicolette Sarmiento 03/10/2025 2 AARP (MEDICARE SUPPLEMENT) Nicolette Sarmiento [id number] Nicolette Sarmiento Notes Date Note Type Note Provider Name and Address Organization Details Recorded Time 5 text/html Hypertension F/UReported by PatientHPIFor lifestyle, [...] Followed regularly by oncology. Renny Christie MD [address] [address], [place], [address], [facility] 03/10/2025 18:07:26 OBGyn Episode No OBEpisode recorded.
--- OUTSIDE RECORDS SUMMARY | 2025-04-30 10:39 | XMS_ITS | Encounter Summary ---
Author Organization [facility] Address [address] [place] [address] Phone Care Team Providers Care Extermination Inspector Name Role Phone Renny Christie MD Primary Care Provider Encounter Details Date Type Department Care Team (Late st Contact Info) Description 08/23/2021 Documentation Only [facility], [address] [place] [address] Renny Christie MD [address] [facility] [address] [place] [address] Social History Tobacco Use Types Packs/Day Years [...] on filedocumented in this encounter Care Teams Extermination Inspector Relationship Specialty Start Date End Date Renny Christie MD [address] PCP - General Internal Medicine 08/19/21 documented as of this encounter
== END ==
LOC: HO.CARD 08:53
PROVIDERS: Visit Provider Nurse Practitioner Family
DX: R06.01 Orthopnea (principal); R60.0 Localized edema; R09.89 Other specified symptoms and signs involving the circulatory and respiratory systems
CPT/HCPCS: 93306

== ENCOUNTER → 2025-04-30 08:55 | Outpatient (BNV) | payer MEDICARE, SELFPAY | PROVIDERS: Visit Provider Internal Medicine | DX: I27.20 Pulmonary hypertension, unspecified (principal); I51.89 Other ill-defined heart diseases; I25.3 Aneurysm of heart | CPT/HCPCS: 93306; 93356 ==

== ENCOUNTER 2025-06-01 14:53 | Outpatient (AMB) | payer MEDICARE, SELFPAY ==
--- NOTE | 2025-06-01 14:57 | MHC.OFFVIS ---
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 The patient's primary complaint is new-onset ankle swelling that began approximately one month ago. Although she has had intermittent swelling in the past that would typically resolve, the current swelling is more persistent and does not completely go down. The swelling is worse during the daytime and improves in the morning but does not fully resolve. She reports getting tired very easily but denies any chest pain or gasping for breath. The patient has a history of cancer and quit smoking in 1985. She has no prior history of heart attack, stents, or pacemakers. She has taken amlodipine for a long time and previously had a one-week trial of furosemide, which provided minimal improvement. 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 Extraction of tooth needed Zoster conjunctivitis HLD (hyperlipidemia) COVID-19 vaccine series completed Cancer, metastatic to bone Arthritis Anemia Kidney stones On beta vanessa at home Elevated cholesterol HTN (hypertension) Breast cancer Surgical History Hx of eye surgery H/O colonoscopy History of surgery on lower extremity Hx of section History of vulvectomy History of tonsillectomy and adenoidectomy History of lithotripsy History of appendectomy History of umbilical hernia repair History of total left knee replacement History of total right knee replacement (TKR) Hx of hernia repair History of ovarian resection History of partial mastectomy Family History Maternal Aunt Ovarian cancer Father Heart attack Maternal Aunt Stroke Social History Household Members: Spouse Housing: House Are you a primary nurse wound care to a significant other at home: No Do you presently have visiting nurse or other home services: No Alcohol intake: current Alcohol intake frequency: holidays/special occasions only Patient Tobacco Use Status: Former Tobacco user Tobacco use type: Cigarette Cigarette Packs Per Day: 1 service: No 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al status: retired 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: Right Handed Review of Systems Const Denies weakness ENT Denies dizziness Card Denies chest pain, Denies chest pain with activity, Denies syncope, Denies rapid heart rate, Denies pedal edema, Denies edema, Denies leg edema, Denies lightheadedness, Denies palpitations, Denies dyspnea, Denies dyspnea on exertion and Denies orthopnea Resp Denies cough, Denies dyspnea and Denies dyspnea on exertion GI Denies hematochezia and Denies change in stool character Musc Denies abnormal gait, Denies muscle cramps, Denies muscle weakness, Denies numbness, Denies radiating pain into limb and Denies tingling Neuro Denies abnormal gait, Denies dizziness, Denies syncope, Denies numbness, Denies tingling and Denies weakness Endo Denies palpitations Physical Exam Vital Signs: Last Vital Signs Pulse 64 06/01/25 14:58 BP 130/66 06/01/25 14:58 BMI result Body Mass Index 27.9 Const General: comfortable and no acute distress Orientation/consciousness: patient oriented x3 HEENT Other: Unremarkable Head: Yes normal to inspection Neck Neck: Yes normal visual inspection Chest Chest palpation & inspection: normal inspection of the chest Resp Auscultation: clear to auscultation bilaterally Cardio Palpation: normal PMI Heart sounds: S1 normal heart sound present, S2 normal heart sound present, no gallops, no murmurs and no rubs GI Palpation (GI): Soft to palpation Back/Spine/Pelvis Other: unremarkable Skin General skin exam: no rashes or lesions noted Neuro General: patient oriented x3 Extrem Other: 2+ swelling, b/l LE. General: Yes normal to inspection Psych Mental Status: mental status grossly normal Office Procedures EKG Details: EKG with sinus rhythm at 64/Min; supraventricular ectopy; nonspecific ST-T changes; rightward axis; [place]. [id number], Complete Assessment & Plan Assessment & Plan (1) Leg edema: Code(s): R60.0 - Localized edema Category: Medical (2) HTN (hypertension): Code(s): I10 - Essential (primary) hypertension Category: Medical (3) Breast cancer: Code(s): C50.919 - Malignant neoplasm of unspecified site of unspecified female breast Category: Medical (4) Bone metastases: Code(s): C79.51 - Secondary malignant neoplasm of bone Category: Medical Plan In the echocardiogram, LVEF 56%. Basal to mid inferior hypokinesis. Interatrial septal aneurysm. No significant valvular findings. Mild pulmonary hypertension. IVC normal in size with normal respiratory variation. NT pro BNP is slightly abnormal at 1221. Elevated baseline creatinine at 1.45 which seems to be around her baseline. In the chest x-ray, suggestion of pulmonary arterial hypertension. No acute findings. Overall, leg swelling could be related to venous insufficiency. Less likely cardiac etiology as IVC is of normal size/respiratory variation. Even though the NT proBNP is slightly elevated, it is within acceptable limits for her age. She can try foot elevation, compression stockings as the main strategy. Okay to try Lasix as needed but there is also history of CKD and hence we will need to be cautious. We discussed about this today. We will get a venous ultrasound for further evaluation. If indeed there is significant reflux disease, then may need vascular evaluation. Discussion Notes: I explained to the patient that her leg swelling could be from several causes, but her heart is pumping well, making it a less likely source. I discussed that the most likely reason is venous insufficiency, where the veins in her legs have trouble pumping blood back up to the heart, causing fluid to pool in her ankles due to gravity. I also mentioned that her long-term medication, amlodipine, can contribute to swelling. I recommended conservative treatments, including elevating her legs frequently and using compression stockings, though I acknowledged the difficulty she has with them. We discussed using a diuretic (water pill), and I explained the risk of worsening her pre-existing abnormal kidney function. She agreed to a trial, and I will send a prescription for 30 pills to be used sparingly. The plan is to proceed with a venous ultrasound of her legs to further investigate the cause of the swelling. Patient was informed and verbally consented to the use of an ambient scribe for clinic note documentation during this visit. Orders: Orders US venous insuf brenna Today I87.2 - Venous insufficiency (chronic) (peripheral) Medications: New furosemide (Lasix) 20 mg PO DAILY 30 tabs 0RF Patient Instructions: - We will schedule an ultrasound of the veins in your legs to better understand the cause of the swelling. - Keep your feet elevated as much as you can, especially when sitting down. - Try using compression stockings to help with the swelling. - I have sent a prescription for a water pill. - Please use this medication sparingly and not every day, as it can be hard on your kidneys. Coding Level of Care Code New Pt Level 4 (70916) Add On Problem Visit Only Diagnoses Leg edema R60.0 HTN (hypertension) I10 Breast cancer C50.919 Bone metastases C79.51 CPT Codes EKG - CPT: 42616-Usudqjgguznwbldzq, Complete ([id number])
[2025-06-01 14:58] VITALS: BP 130/66; PULSE 64; BMI 27.9
--- OUTSIDE RECORDS SUMMARY | 2025-06-01 18:07 | XMS_ITS | Patient Health Record ---
Author Organization [facility] Address [address] [place] [id number] Care Team Providers Care Supervisor Hot Dip Tinning Name Role Phone Pratik CALVILLO, Renny Primary Care Provider Unav Karin Flores Unavailable [phone] Reason For Referral No Information Medications Medication [...] National [employer] [address] [facility] [place] [address] [phone] [id number] Nicolette Sarmiento Self - patient is the insured 5 AARP Secondary to Medicare [address] [place] [address] [id number] Nicolette Sarmiento Self - patient is the insured 6 Medical (General) History Medical History History ICD Code Anemia osteoarthritis Knee Pain Cholesterol Cancer Hypertension Chicken pox Surgical History Surgery Date(Month/Year) herniated disk repair 07/1988 ovarian surgery 12/2003
--- OUTSIDE RECORDS SUMMARY | 2025-06-01 18:07 | XMS_ITS | Clinical Summary ---
Author Organization [facility], Address [address] [place] [address] [place] [address] Phone Care Team Providers Care Well Driller Helper Name Role Phone Renny Christie MD Primary Care Provider Social History Tobacco Use Types Packs/Day Years [...] age to complete this topic Insurance Medicare [facility] Care Teams Well Driller Helper Relationship Specialty Start Date End Date Renny Christie MD [address] PCP - General Internal Medicine 08/19/21
--- OUTSIDE RECORDS SUMMARY | 2025-06-01 18:07 | XMS_ITS | Clinical Summary ---
Author Organization [facility] Address [address] [place] [id number] Phone Care Team Providers Care Back End Web Developer Name Role Phone Alia Woods MD [facility] Renny Christie MD Primary Care Provid er [...] MEDICARE PART A & B Care Teams Back End Web Developer Relationship Specialty Start Date End Date Renny Christie MD [address] [place] [phone] PCP - General 06/14/17 Alia Woods MD [address] [place] [id number] Historical LMR Provider 03/29/17 Additional Source Comments The information contained in this document represents components of the legal health record. It is not the complete legal health record.[facility]
--- OUTSIDE RECORDS SUMMARY | 2025-06-01 18:07 | XMS_ITS | Patient Health Record ---
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.2) Active confirmed Diag Problem Essential hypertension (52360676) Unspecified essential hypertension (401.9) Active confirmed Major Problem Gynecological examination normal (187023782638494) Routine gynecological examination (V72.31) Active confirmed Diag Plan Of Treatment No Information Insurance Providers Payer Name Payer Address Payer Phone Subscriber Number Group Number Insured Name Patient Relationship to Insured Coverage Start Date Coverage End Date MEDICARE [address] [facility] [place] [id number] JESICA PINTO Self - patient is the insured [facility] [address] [place] [address] [id number] JESICA PINTO Self - patient is the [...]
--- OUTSIDE RECORDS SUMMARY | 2025-06-01 18:08 | XMS_ITS | Encounter Summary ---
Author Organization [facility] Address [address] [place] [address] Phone Care Team Providers Care Letter Of Credit Clerk Name Role Phone Renny Christie MD Primary Care Provider Encounter Details Date Type Department Care Team (Late st Contact Info) Description 08/19/2021 Documentation Only [facility], [address] [place] [address] Renny Christie MD [address] [phone] Social History Tobacco Use Types Packs/Day Years [...] on filedocumented in this encounter Care Teams Letter Of Credit Clerk Relationship Specialty Start Date End Date Renny Christie MD [address] PCP - General Internal Medicine 08/19/21 documented as of this encounter
--- OUTSIDE RECORDS SUMMARY | 2025-06-01 18:08 | XMS_ITS | Data Portability ---
Author Organization [facility], Main Office Address [address] [facility] [address] [place] [address] Care Team Providers Care Triple Valve Tester Name Role Phone RENNY CHRISTIE Primary Care Provider TENZIN MORALES Orthopedic Surgeon [phone] HE ABEBE Moss Picker FROYLAN SINGLETARY Medical Oncologist [phone] WARREN YOUNG Oil Transport Driver BENI SLAUGHTER Cylinder Die Machine Operator RENNY RENE General Surgeon [phone] GRACE DUBON Financial Assistance Specialist LUZ MARIA CARABALLO Cad Draftsman [phone] JEVON CELAYA Surgical Oncologist [phone] TACO ERNST Referring Provider [phone] Assessment Encounter Date Assessment Date Assessment LastModified by Organization Details LastModified Time 08/21/2024 08/21/2024 This service was provided using telemedicine. Patient consented to telephone visit Patient was located in the [facility]. Provider was located in the office. [...] Go To The Location Of Their Choice, [id number] 03/27/2025 06:08:07 CMP, serum or plasma 2024 025 CHAYITO [facility] (Centralized Electronic Ordering - All Locations), Patient Can Go To The Location Of Their Choice, [id number] 03/27/2025 06:08:06 lipid panel, serum 2024 025 [facility], [address] [place] [address], [place], [address], 03/24/2025 09:25:57 lipid panel, serum 2023 024 CHAYITO Not available 08/01/2023 17:13:02 Referral None record ed. Procedures nita caceres (PROC) 2023 024 CHAYITO In-Office Order, Internal Use Only DO Not Attach Compendium DO Not Attach Compendium, Do Not Delete/merge, [id number] 09/27/2023 16:31:14 Surgeries None record ed. Imaging None record ed. Medication Orders None record ed. Patient TargetsNo targets recorded. Patient Instructions Encounter Date Encounter Id Patient Instructions Last Modified By Organization Details Last Modified Time 07/31/2023 [id number] medicines to avoid with kidney disease: care instructions [email or web address] Not available 08/01/2023 08:23:55 high cholesterol: care instructions [email or web address] Not available 07/31/2023 11:53:25 preventing falls: care instructions [email or web address] Not available 07/31/2023 11:52:40 medicare preventive services guide (female 74yrs and under) [email or web address] Not available 07/31/2023 11:52:40 09/27/2023 [id number] To call or return for worsening or concerns [email or web address] Not available 09/27/2023 11:48:26 01/16/2024 [id number] medicines to avoid with kidney disease: care instructions [email or web address] Not available 01/16/2024 11:47:54 08/21/2024 [id number] medicines to avoid with kidney disease: care instructions [email or web address] Not available 08/21/2024 17:38:42 high cholesterol: care instructions [email or web address] Not available 08/21/2024 17:44:01 preventing falls: care instructions [email or web address] Not available 08/21/2024 15:13:37 well visit, over 65: care instructions [email or web address] Not available 08/21/2024 15:13:37 03/10/2025 [id number] medicines to avoid with kidney disease: care [...] Go To The Location Of Their Choice, [id number] 08/01/2023 17:13:02 08/01/1908/01/2023 LIPID PANEL triglyceride 100 mg/dL (<150) Not Available [facility] (Centralized Electronic Ordering - All Locations) Patient Can Go To The Location Of Their Choice, [id number] 08/01/2023 17:13:02 08/01/1908/01/2023 LIPID PANEL HDL chol 70 mg/dL (>39) Not Available [facility] (Centralized Electronic Ordering - All Locations) Patient Can Go To The Location Of Their Choice, 08/01/2023 17:13:02 08/01/1908/01/2023 LIPID PANEL LDL cholesterol, calculated 83 mg/dL (0-130 ) Not Available [facility] (Centralized Electronic Ordering - All Locations) Patient Can Go To The Location Of Their Choice, [id number] 08/01/2023 17:13:02 08/01/1908/01/2023 LIPID PANEL non HDL cholesterol (calc) 103 mg/dL (<160) Not Available [facility] (Centralized Electronic Ordering - All Locations) Patient Can Go To The Location Of Their Choice, [id number] 08/01/2023 17:13:02 09/27/19 24 09/27/2023 cerum en remov al (PROC ) done YW/LW Not Available In-Office Order Internal Use Only DO Not Attach Compendium DO Not Attach Compendium, Do Not Delete/merge, [id number] 09/27/2023 11:51:36 03/26/2003/26/2025 CMP14 +EGFR glucose 96 mg/dL 70-99 normal Not Available [facility] ([facility]) [address] [facility], [place], [address], 03/27/2025 06:08:06 03/26/2003/26/2025 CMP14 +EGFR BUN 20 mg/dL 8-27 normal Not Available [facility] ([facility]) [address] [facility], [place], [address], 03/27/2025 06:08:06 03/26/2003/26/2025 CMP14 +EGFR creatinine 1.66 mg/dL 0.57-1 .00 above high normal Not Available [facility] ([facility]) [address] [facility], [place], [address], 03/27/2025 06:08:06 03/26/2003/26/2025 CMP14 +EGFR eGFR 32 mL/mi n/1.7 3 >59 below low normal Not Available [facility] ([facility]) [address] [facility], [place], [address], 03/27/2025 06:08:06 03/26/2003/26/2025 CMP14 +EGFR BUN/creatini ne ratio 12 12-28 normal Not Available [facility] ([facility]) [address] [facility], [place], [address], 03/27/2025 06:08:06 03/26/2003/26/2025 CMP14 +EGFR sodium 142 mmol/ L 134-14 4 normal Not Available [facility] ([facility]) [address] [facility], [place], [address], 03/27/2025 06:08:06 03/26/20 25 03/26/2025 CMP14 +EGFR potassium 4.2 mmol/ L 3.5-5. 2 normal Not Available [facility] ([facility]) [address] [facility] [place], [address], 03/27/2025 06:08:06 03/26/2003/26/2025 CMP14 +EGFR chloride 106 mmol/ L 96-106 normal Not Available [facility] ([facility]) [address] [facility] [place], [address], 03/27/2025 06:08:06 03/26/2003/26/2025 CMP14 +EGFR carbon dioxide, total 24 mmol/ L 20-29 normal Not Available [facility] ([facility]) [address] [facility] [place], [address], 03/27/2025 06:08:06 03/26/2003/26/2025 CMP14 +EGFR calcium 9.9 mg/dL 8.7-10 .3 normal Not Available [facility] ([facility]) [address] [facility] [place], [address], 03/27/2025 06:08:06 03/26/2003/26/2025 CMP14 +EGFR protein, total 6.5 g/dL 6.0-8. 5 normal Not Available [facility] ([facility]) [address] [facility] [place], [address], 03/27/2025 06:08:06 03/26/2003/26/2025 CMP14 +EGFR albumin 4.2 g/dL 3.8-4. 8 normal Not Available [facility] ([facility]) [address] [facility] [place], [address], 03/27/2025 06:08:06 03/26/2003/26/2025 CMP14 +EGFR globulin, total 2.3 g/dL 1.5-4. 5 Not Available [facility] ([facility]) [address] [facility] [place], [address], 03/27/2025 06:08:06 03/26/2003/26/2025 CMP14 +EGFR bilirubin, total 0.6 mg/dL 0.0-1. 2 normal Not Available [facility] ([facility]) [address] [facility] [place], [address], 03/27/2025 06:08:06 03/26/2003/26/2025 CMP14 +EGFR alkaline phosphatase 61 IU/L 49-135 normal Not Available [facility] ([facility]) [address] [facility] [place], [address], 03/27/2025 06:08:06 03/26/2003/26/2025 CMP14 +EGFR AST (SGOT) 13 IU/L 0-40 normal Not Available [facility] ([facility]) [address] [place], [address], 03/27/2025 06:08:06 03/26/2003/26/2025 CMP14 +EGFR ALT (SGPT) 7 IU/L 0-32 normal Not Available [facility] ([facility]) [address] [place], [address], 03/27/2025 06:08:06 03/26/20 25 03/26/2025 LIPID PANEL cholesterol, total 202 mg/dL 100-19 9 above high normal Not Available [facility] ([facility]) [address] [place], [address], 03/27/2025 06:08:07 03/26/2003/26/2025 LIPID PANEL triglyceride s 148 mg/dL 0-149 normal Not Available [facility] ([facility]) [address] [place], [address], 03/27/2025 06:08:07 03/26/2003/26/2025 LIPID PANEL HDL cholesterol 67 mg/dL >39 normal Not Available [facility] ([facility]) [address] [place], [address], 03/27/2025 06:08:07 03/26/2003/26/2025 LIPID PANEL VLDL cholesterol radha 26 mg/dL 5-40 Not Available [facility] ([facility]) [address] [facility], [place], [address], 03/27/2025 06:08:07 03/26/2003/26/2025 LIPID PANEL LDL chol calc ([facility]) 109 mg/dL 0-99 above high normal Not Available [facility] ([facility]) [address] [facility], [place], [address], 03/27/2025 06:08:07 03/26/2003/26/2025 LIPID PANEL LDL calc comment: RECORD PRESS OPERATOR Not Available [facility] ([facility]) [address] [facility], [place], [address], 03/27/2025 06:08:07 Result Notes None recorded. Problems Name Problem SNOMED Code Status Onset Date Resolution Date Notes Provider Name and Address Organization Details Recorded Time Insomnia 004458713 Active Tana baker [facility] 9 10:43:48 Calculus in urethra Active followed by urology Tana baker [facility] 9 10:43:48 Advance directiv e discusse d with patient 968011724 Active Tana baker [facility] 9 10:43:48 Hearing loss 71861075 Active Tanarekha baker [facility] 9 10:43:48 Kidney stone 75271197 Active Tana baker [facility] 9 10:43:48 Strabism 79382856 Active Tana baker [facility] 9 10:43:48 Serum choleste rol above referenc e range 399623112 Active Tana baker [facility] 9 10:43:48 Vitreous floaters 36481534 Active Tana Prater null, [facility] 9 10:43:48 Cataract 290184909 Active Tana Prater null, [facility] 9 10:43:48 Amblyopi a 389874402 Active Tana Gayleilla null, [facility] 9 10:43:48 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 FOLLOWED BY DR SINGLETARY. 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 FOLLOWED BY DR SINGLETARY. ; RECORDED 10/01/19 14 8:14AM BY LESA HOGAN ON/TRINIDAD Christie MD [address], [place], [address] , [facility] 6 14:15:17 History of malignan t neoplasm of breast 896183971 Active 2007 Right lumpecto my by Dr Gabi maloney. Also radiatio n and 5 years of hormonal therapy. Renny Christie MD [address] [facility] [address], [place], [address] , [facility] 2 07:39:52 General examinat ion of patient Completed 200712/23/2013 RECORDED 02/02/20 08 10:51AM BY RENNY ELIZABETH MD, ANNOTATI ON/ADDEN DUM Renny Christie MD [address], [place], [address] , [facility] 6 14:15:17 General examinat ion of patient Completed 200701/19/2014 RECORDED 02/02/20 08 10:51AM BY RENNY ELIZABETH MD, ANNOTATI ON/ADDEN DUM Renny Christie MD [address] [facility] [address], [place], [address] , [facility] 6 14:15:17 Screenin g for malignan t neoplasm of colon Completed 200812/23/2013 RECORDED 06/18/19 09 5:06PM BY RENNY ELIZABETH MD, ANNOTATI ON/ADD DUM Renny Christie MD [address] [facility] [address], [place], [address] , [facility] 6 14:15:17 Influenz a vaccine needed 85884772659 06 Completed 200912/23/2013 RECORDED 05/25/20 10 2:08PM BY JAIME CRUZ I, HISTORIC AL SUMMARY Renny Christie MD [address] [facility] [address], [place], [address] , [facility] 6 14:15:17 Influenz a vaccine needed [id number] 06 Completed 200901/19/2014 RECORDED 05/25/20 10 2:08PM BY JAIME CRUZ I, HISTORIC AL SUMMARY Renny Christie MD [address] [facility] [address], [place], [address] , [facility] 6 14:15:17 Hemorrho ids [id number] Completed 201112/23/2013 RECORDED 12/18/19 12 1:34PM BY RENNY ELIZABETH MD, ANNOTATI ON/ADDEN DUM Renny Christie MD [address] [facility] [address], [place], [address] , [facility] 6 14:15:17 Hypokale michael 09385658 Completed 201112/23/2013 RECORDED 12/18/19 12 1:34PM BY RENNY ELIZABETH MD, ANNOTATI ON/ADDEN DUM Renny Christie MD [address] [facility] [address], [place], [address] , [facility] 6 14:15:17 Joint effusion of ankle AND/OR foot 9696110 Completed 201112/23/2013 RECORDED 12/18/19 12 1:36PM BY RENNY ELIZABETH MD, ANNOTATI ON/ADDEN DUM Renny Christie MD [address] [address], [place], [address] , [facility] 6 14:15:17 Adult health examinat ion Completed 201112/23/2013 RECORDED 12/18/19 12 1:35PM BY RENNY ELIZABETH MD, ANNOTATI ON/ADDEN DUM Renny Christie MD [address] [address], [place], [address] , [facility] 6 14:15:17 Hemorrho ids [id number] Completed 201101/19/2014 RECORDED 12/18/19 12 1:34PM BY RENNY ELIZABETH MD, ANNOTJOCELYN ON/ADDEN DUM Renny Christie MD [address] [address], [place], [address] , [facility] 6 14:15:17 Hypokale michael [id number] Completed 201101/19/2014 RECORDED 12/18/19 12 1:34PM BY RENNY ELIZABETH MD, ANNOTATI ON/ADDMAX Christie MD [address] [address], [place], [address] , [facility] 6 14:15:17 Joint effusion of ankle AND/OR foot 6494930 Completed 201101/19/2014 RECORDED 12/18/19 12 1:36PM BY RENNY ELIZABETH MD, LESA ON/TRINIDAD Christie MD [address] [facility] [address], [place], [address] , [facility] 6 14:15:17 Screenin g for malignan t neoplasm of breast Completed 201212/23/2013 RECORDED 06/18/19 13 8:11AM BY LESA HOGAN ON/TRINIDAD Christie MD [address] [address], [place], [address] , [facility] 6 14:15:17 Constipa tion 56571813 Completed 201212/23/2013 IMPRESSI ON: ADVISED TO TAKE OTC SENOKOT; RECORDED 06/18/19 13 8:11AM BY LESA HOGAN ON/TRINIDAD Christie MD [address] [address], [place], [address] , [facility] 6 14:15:17 Cough 25800656 Completed 201212/23/2013 IMPRESSI ON: SECONDAR Y TO ALLERGIC RHINITIS ; RECORDED 06/18/19 13 8:11AM BY LESA HOGAN ON/YOSEPH Cadena [address] [address], [place], [address] , [facility] 4 11:48:45 Enthesop athy of knee 39926302 Completed 201212/23/2013 RECORDED 06/18/19 13 8:11AM BY LESA HOGAN ON/TRINIDAD Christie MD [address] [facility] [address], [place], [address] , [facility] 6 14:15:17 Screenin g for malignan t neoplasm of breast Completed 201201/19/2014 RECORDED 06/18/19 13 8:11AM BY LESA HOGAN ON/ADDMAX Christie MD [address] [facility] [address], [place], [address] , [facility] 6 14:15:17 Constipa tion 97084034 Completed 201201/19/2014 IMPRESSI ON: ADVISED TO TAKE OTC SENOKOT; RECORDED 06/18/19 13 8:11AM BY LESA HOGAN ON/TRINIDAD Christie MD [address] [facility] [address], [place], [address] , [facility] 6 14:15:17 Cough 99022601 Completed 201201/19/2014 IMPRESSI ON: SECONDAR Y TO ALLERGIC RHINITIS ; RECORDED 06/18/19 13 8:11AM BY LESA HOGAN ON/SUNG Cadena [address] [facility] [address], [place], [address] , [facility] 4 11:48:45 Enthesop athy of knee 09260118 Completed 201201/19/2014 RECORDED 06/18/19 13 8:11AM BY LESA HOGAN/TRINIDAD Christie MD [address] [facility] [address], [place], [address] , [facility] 6 14:15:17 Knee pain Completed 201212/23/2013 IMPRESSI ON: HAS A F/U WITH DR DHALIWAL AND MAY BE GETTING INJECTIO NS.; RECORDED 01/07/20 13 10:22AM BY LESA HOGAN ON/TRINIDAD Christie MD [address] [facility] [address], [place], [address] , [facility] 6 14:15:17 Administ ration of diphther ia and tetanus vaccine Completed 201212/23/2013 RECORDED 01/07/20 13 10:22AM BY LESA HOGAN ON/TRINIDAD Christie MD [address] [facility] [address], [place], [address] , [facility] 6 14:15:17 Knee pain Completed 201201/19/2014 IMPRESSI ON: HAS A F/U WITH DR DHALIWAL AND MAY BE GETTING INJECTIO NS.; RECORDED 01/07/20 13 10:22AM BY LESA HOGAN ON/TRINIDAD Christie MD [address] [facility] [address], [place], [address] , [facility] 6 14:15:17 Administ ration of diphther ia and tetanus vaccine Completed 201201/19/2014 RECORDED 01/07/20 13 10:22AM BY LESA HOGAN ON/TRINIDAD Christie MD [address] [facility] [address], [place], [address] , [facility] 6 14:15:17 Laborato ry procedur e performe d 991600011 Completed 201212/23/2013 RECORDED 01/22/20 13 9:40AM BY LESA HOGAN ON/TRINIDAD Christie MD [address] [facility] [address], [place], [address] , [facility] 6 14:15:17 Laborato ry procedur e performe d 556198141 Completed 201201/19/2014 RECORDED 01/22/20 13 9:40AM BY JAIME CRUZ I, ANNOTATI ON/ADDEN DUM Renny Christie MD [address] [address], [place], [address] , [facility] 6 14:15:17 Anemia 739004502 Active 2013 Probable ACD secondar y to OA/infla mmation. Renny Christie MD [address] [address], [place], [address] , [facility] 0 10:12:38 Primary malignan t neoplasm of labia majora 41376780 Completed 201312/23/2013 RECORDED 10/01/19 14 8:14AM BY JAIME CRUZ I, SHAKAATI ON/ADDEN VINAYAK Christie MD [address] [address], [place], [address] , [facility] 6 14:15:17 History of malignan t neoplasm of skin excludin g melanoma 825242532 Active 2013 Basal cell carcinom a; followed by Dr Milton Christie MD [address] [address], [place], [address] , [facility] 9 11:15:58 Pure hypercho lesterol emia 006794898 Completed 201311/13/2016 working on diet Renny Christie MD [address] [address], [place], [address] , [facility] 7 10:48:27 Osteoart hritis of knee 670059537 Active [address] Young and receives injectio ns. Seen by ortho August 2018 and godfrey ramos replace ent. Tana baker, [facility] 9 10:43:48 Tobacco user 845952208 Completed 201304/27/2014 RECORDED 10/01/19 14 11:07AM BY JAIME CRUZ I, OFFICE VISIT Renny Christie MD [address], [place], [address] , [facility] 6 14:15:17 History of clinical finding in subject 667810336 Completed 201304/27/2014 RECORDED 10/01/19 14 11:07AM BY JAIME CRUZ I, OFFICE VISIT Renny Christie MD [address], [place], [address] , [facility] 6 14:15:17 Pre-surg godfrey evaluati on Completed 201312/23/2013 RECORDED 10/01/19 14 8:13AM BY JAIME CRUZ I, ANNOTATI ON/TRINIDAD Christie MD [address] [facility] [address], [place], [address] , [facility] 6 14:15:17 Adult health examinat ion Completed 201304/27/2014 RECORDED 10/01/19 14 11:06AM BY JAIME CRUZ I, OFFICE VISIT Renny Christie MD [address] [facility] [address], [place], [address] , [facility] 6 14:15:17 Primary malignan t neoplasm of labia majora 15979770 Completed 201301/19/2014 RECORDED 10/01/19 14 8:14AM BY JAIME CRUZ I, ANNOTATI ON/TRINIDAD Christie MD [address] [facility] [address], [place], [address] , [facility] 6 14:15:17 Pre-surg godfrey evaluati on Completed 201301/19/2014 RECORDED 10/01/19 14 8:13AM BY JAIME CRUZ I, ANNOTATI ON/TRINIDAD Christie MD [address], [place], [address] , [facility] 6 14:15:17 Screenin g for malignan t neoplasm of colon Completed 201304/27/2014 RECORDED 10/08/19 14 1:36PM BY CHEYENNE VALENTE HISTORIC AL SUMMARY Renny Christie MD [address] [facility] [address], [place], [address] , [facility] 6 14:15:17 Basal cell carcinom a of skin 748414870 Active 2014 ankle, right ear Tana Prater null, [facility] 9 10:43:48 Hyperlip idemia 30226133 Active 2016 Tanarekha Prater null, [facility] 9 10:43:48 Total knee replacem ent Active 2018 Dr Julio C Prater null, [facility] 9 10:43:48 Tubular adenoma 502462733 Active 2019 PER GI Xeniajanki England null, [facility] 0 09:19:38 Chronic kidney disease stage 3 964806411 Active 2020 Per Crowder MD null, [facility] 1 10:36:45 Hyperten sive renal disease 32975382 Active 2020 Teresa Dockery null, [facility] 1 16:23:45 Metastat ic malignan t neoplasm to female breast 98494001 Active 2020 Mets to bone. Primary breast cancer was in 2005. Started palliati ve treatmen t in April 2021. Renny Christie MD [address] [facility] [address], [place], [address] , [facility] 2 07:44:32 Neoplasm of hip region 691126112 Active 2020 Seen by ortho, Dr Lamar. Renny Christie MD [address], [place], [address] , [facility] 1 15:23:23 Herpes zoster 6436637 Active 2022 on face Renny Christie MD [address], [place], [address] , [facility] 3 08:54:17 Bilatera l cataract s 61418694 Active 2023 Tish Chang, [facility] [address], [place], [address] , [facility] 4 11:48:36 Cough 47567524 Active 2023 IMPRESSI ON: SECONDAR Y TO ALLERGIC RHINITIS ; RECORDED 06/18/19 13 8:11AM BY LESA HOGAN ON/ADDEN DUM Tish Chang, [facility] [address], [place], [address] , [facility] 4 11:48:45 Impacted cerumen in right ear 18328835358 63599 Active 2023 Tish Chang, [facility] [address], [place], [address] , [facility] 4 11:51:34 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 Please review this document and add these problems to the patient's chart manually as needed. Problem Notes None recorded. Procedures Surgical History Date Name Laterality Status Provider Name and Address Organization Details Recorded Time 06/07/20 21 removal of implant from femur completed Tana Prater [facility] 06/08/2021 10:17:01 02/11/20 21 Most Recent Mammogram completed Gabrielle Carrillo MA [facility] 02/01/2022 10:22:35 08/21/19 21 Mammogram Diagnostic Bilateral completed Cindy Hamlin MA [facility] 12/14/2020 12:59:41 12/01/19 20 Six-Item Cognitive Test completed Jaime Horne [facility] 12/01/2019 13:31:07 08/21/19 20 Date of Last Colonoscopy completed [facility] 08/21/2019 11:32:29 08/21/19 20 Colonoscopy & polypectomy completed [facility] 08/29/2019 09:20:00 03/31/20 19 Total knee arthroplasty completed Tana Prater [facility] 04/15/2019 16:17:26 12/26/19 19 renal lithotripsy completed Tana Prater [facility] 01/15/2019 15:36:12 11/27/19 19 Mini-Cog Test completed Jaime Horne [facility] 11/26/2018 13:12:53 10/22/19 19 Knee Surgery completed Tana Prater [facility] 10/30/2018 11:49:05 11/22/19 18 Mini-Cog Test completed Zuleyma Mckeon [facility] 11/21/2017 13:09:40 01/31/20 17 Other completed Sabrina Cruz [facility] 03/30/2017 16:51:14 11/14/19 17 Fall Risk Assessment completed Jaime Horne [facility] 11/13/2016 10:28:15 11/14/19 17 Mini-Cog Test completed Jaime Horne [facility] 11/13/2016 10:28:23 08/12/19 17 Other completed Suyapa Day [facility] 09/04/2016 15:26:26 10/28/19 16 Fall Risk Assessment completed Jaime Horne [facility] 10/28/2015 14:00:43 10/28/19 16 Mini-Cog Test completed Jaime Horne [facility] 10/28/2015 14:00:43 10/28/19 16 Advanced Care Planning completed Jaime Horne [facility] 10/28/2015 13:52:42 06/09/20 15 Other completed Renny Christie MD [address] [address], [place], [address], [facility] 06/13/2015 10:12:27 10/27/19 15 Fall Risk Assessment completed Jaime Horne [facility] 10/26/2014 10:32:53 10/27/19 15 Mini-Cog Test completed Jaime Horne [facility] 10/26/2014 10:32:53 10/07/19 14 Colposcopy completed Uma Shukla [facility] 04/27/2014 11:39:55 06/11/19 13 Other completed Renny Christie MD [address] [facility] [address] [place] [address], [address], [facility] 04/27/2014 12:48:11 12/09/19 10 Most Recent Bone Density completed Gabrielle Carrillo MA [facility] 02/01/2022 10:23:37 06/11/19 06 Breast Surgery completed Renny Christie MD [address] [address], [place], [address], [facility] 11/21/2017 13:44:50 06/11/19 04 Appendectomy completed Renny Christie MD [address], [address], [facility] 11/21/2017 13:45:12 06/11/18 89 Hernia Repair completed Renny Christie MD [address] [address], [place], [address], [facility] 11/21/2017 13:44:26 06/11/18 56 Eye Surgery completed Renny Christie MD [address], [address], [facility] 11/21/2017 13:43:59 total knee replacement completed Gabrielle Carrillo MA [facility] 02/01/2022 10:34:13 Tonsillectomy completed Renny Christie MD [address], [address], [facility] 04/27/2014 12:48:11 Caesarean Section completed Renny Christie MD [address], [address], [facility] 04/27/2014 12:48:11 Imaging Results None recorded. Procedure [...] Oxygen saturation Body temperature Systolic And Diastolic Provider Name and Address Organization Details Last Updated DateTime 4 165.74 cm 26.9 kg/m2 37083.5 6 g 68 /min 97 % 97.5 [degF] 157/77 mm[Hg] Masha Reed MA [facility] [place] 4 11:01:37 Date Recorded Body height Provider Name an d Address Organization Details Last Updated DateTime 08/21/2024 165.74 cm Justine Burch MA [facility] 08/21/2024 14:19:50 Date Recorded Body height Body mass index (BMI) Body weight Heart rate Oxygen saturation Body temperature Systolic And Diastolic Provider Name and Address Organization Details Last Updated DateTime 4 165.74 cm 26.3 kg/m2 48740.1 9 g 74 /min 95 % 98.2 [degF] 126/75 mm[Hg] Masha Reed MA [facility] 4 11:31:19 Date Recorded Systolic And Diastolic Provider Name and Address Organization Details Last Updated DateTime 01/16/2024 130/60 mm[Hg] Renny Christie MD [address], [address], [facility] 01/16/2024 17:53:24 Date Recorded Body height Body mass index (BMI) Body weight Heart rate Oxygen saturation Body temperature Provider Name and Address Organization Details Last Updated DateTime 4 165.74 cm 27.2 kg/m2 92465.7 4 g 64 /min 98 % 97.6 [degF] Masha Reed [facility] 4 11:26:25 Date Recorded Body height Body mass index (BMI) Body weight Heart rate Oxygen saturation Body temperature Systolic And Diastolic Systolic And Diastolic Provider Name and Address Organization Details Last Updated DateTime 5 165.74 cm 27.4 kg/m2 73774.3 3 g 60 /min 95 % 97.4 [degF] 146/74 mm[Hg] 140/80 mm[Hg] Masha Reed MA [facility] 5 14:17:26 Social History Question Answer Notes LastModified by Organization Details LastModified Time Tobacco Smoking Status Former Smoker stopped 39 years ago Renny Christie MD [address], [address], [facility] [place] 08/21/2024 15:09:58 Do You Have An Advance Directive? Yes 10/26/2014 [email or web address] Information not available 06/16/2020 Is Blood Transfusion Acceptable In An Emergency? Yes [id number] Information not available 04/13/2020 What Is Your Level Of Caffeine Consumption? Moderate Coffee 3 Times A Week Information not available 02/01/2022 How Much Tobacco Do You Chew? None [id number] Information not available 04/13/2020 Are You Deaf Or Do You Have Serious Difficulty Hearing? No [email or web address] Information not available 06/16/2020 What Type Of Diet Are You Following? REGULAR [id number] Information not available 04/13/2020 Which Illicit Or Recreational Drugs Have You Used? None [id number] Information not available 04/13/2020 Live Alone Or With Others? With Others [email or web address] Information not available 10/26/2014 Do You Take Precautions To Prevent Distracted Driving? Yes [email or web address] Information not available 10/28/2015 How Often Do You Need To Have Someone Help You When You Read Instructions, Pamphlets, Or Other Written Material From Your Doctor Or Pharmacy? Never [email or web address] Information not available 10/28/2015 Have You Served In The ? No [email or web address] Information not available 11/13/2016 Have You Or Anyone In Your Household Had Any Of The Following Symptoms In The Last 14 Days: Sore Throat, Cough, Chills, Body Aches For Unknown Reasons, Shortness Of Breath For Unknown Reasons, Loss Of Smell, Loss Of Taste, Fever At Or Greater Than 100 Degrees Fahrenheit? No [email or web address] Information not available 12/14/2020 Are You Or Anyone In Your Household A Health Care Provider Or Emergency Responder? No Information not available 12/14/2020 To The Best Of Your Knowledge Have You Been In Close Proximity To Any Individual Who Tested Positive For COVID-19? No [email or web address] Information not available 12/14/2020 Have You Recently Traveled To A COVID-19 High Risk Area Or Gathering In The Last 10 Days? No [email or web address] Information not available 12/14/2020 What Was The Date Of Your Most Recent Tobacco Screening? 07/31/2023 [email or web address] Information not available 07/31/2023 How Many Children Do You Have? 3 2 Sons And 1 Daughter; 2 Granddaughters [email or web address] Information not available 08/21/2024 Do You Use Protection During Sex? Usually [id number] Information not available 04/13/2020 Difficulty Reading? No Information not available 10/26/2014 Seat Belts Used Routinely Yes Information not available 10/28/2015 Are You Sexually Active? Yes [id number] Information not available 04/13/2020 Smoke Alarm In Home Yes [email or web address] Information not available 10/28/2015 At What Age Did You Start Smoking Tobacco? 13 [id number] Information not available 04/13/2020 How Much Tobacco Do You Smoke? 1 PPD [id number] Information not available 04/13/2020 Do You Use Sunscreen Routinely? Yes [id number] Information not available 04/13/2020 How Many Years Have You Smoked Tobacco? 22 [id number] Information not available 04/13/2020 Difficulty Watching TV? No [email or web address] Information not available 10/26/2014 Do You Have Difficulty Walking Or Climbing Stairs? Yes Arthritis In Her Knees [email or web address] Information not available 06/16/2020 Sex: Unknown Functional Status Question Answer Note LastModified by [email or web address] ion Details LastModified Time Do you or have you ever used smokeless tobacco? Never used smokeless tobacco [email or web address] Information not available 12/14/2020 Are you currently employed? No Retired [id number] Information not available 04/13/2020 Difficulty driving at night? No [email or web address] Information no t available 10/26/2014 Are you able to care for yourself independently? Yes [id number] Information not available 04/13/2020 Do you have difficulty dressing, bathing, grooming, or toileting? No [email or web address] Information not available 06/16/2020 Do you or have you ever used e-cigarettes or vape? Never used electronic cigarettes [email or web address] Information not available 06/16/2020 What is your exercise level? Occasional [id number] Information not available 04/13/2020 Do you use [...] you have difficulty doing errands alone? No [email or web address] Information not available 06/16/2020 What is your occupation? retired [email or web address] Information not available 11/21/2017 Mental Status Question Answer Note LastModified by Organization D etails LastModified Time Do you have difficulty concentrating, remembering or making decisions? No [email or web address] Information no t available 06/16/2020 Family History Relationship Description Onset Age of this Age Resolved Age Notes LastModified by Organization Details LastModified Time Mother Old-age 97 [email or web address] Not availabl e 10/28/2015 13:52:42 Mother Osteoarthrit [...] Influenza, high-dose, trivalent, PF 7 completed Tana baker [facility] 03/14/2019 10:43:49 Influenza, high-dose, trivalent, PF 8 completed Tana baker [facility] 03/14/2019 10:43:49 Influenza, adjuvanted, trivalent, PF 9 completed Tana Prater null, [facility] 02/01/2022 10:53:47 Influenza, split virus, quadrivalent, preservative 0 completed Tana Prater null, [facility] 02/01/2022 10:53:47 COVID-19, mRNA, LNP-S, PF, 30 mcg/0.3 mL dose 1 completed BROWN Olivo, [facility] 06/21/2021 13:56:21 COVID-19, mRNA, LNP-S, PF, 30 mcg/0.3 mL dose 1 completed BROWN Olivo, [facility] 06/21/2021 13:56:21 Influenza, adjuvanted, quadrivalent, PF 1 completed BROWN Olivo, [facility] 06/21/2021 13:56:21 Influenza, high-dose, trivalent, PF 8 completed BROWN Olivo, [facility] 06/21/2021 13:56:21 Influenza, split virus, quadrivalent, PF 5 completed BROWN Olivo, [facility] 06/21/2021 13:56:21 Influenza, adjuvanted, quadrivalent, PF 0 completed BROWN Olivo, [facility] 06/21/2021 13:56:21 Influenza, high-dose, trivalent, PF 6 completed BROWN Olivo, [facility] 06/21/2021 13:56:21 COVID-19, mRNA, LNP-S, PF, 30 mcg/0.3 mL dose 1 completed BROWN Olivo, [facility] 06/21/2021 13:56:21 Influenza, adjuvanted, quadrivalent, PF 2 completed BROWN García, [facility] 01/17/2023 11:21:07 Pneumococcal conjugate PCV 13 6 completed Not Available [facility] 06/28/2019 02:21:36 Influenza, high-dose, quadrivalent, PF 3 completed BROWN García, [facility] 08/21/2024 14:18:47 COVID-19, mRNA, LNP-S, PF, 50 mcg/0.5 mL 4 completed BROWN García, [facility] 08/21/2024 14:18:47 Influenza, high-dose, trivalent, PF 4 completed BROWN García, [facility] 08/21/2024 14:18:47 Td (adult), 2 Lf tetanus toxoid, preservative free, adsorbed 9 completed Tana Praterrekha baker, [facility] 03/14/2019 10:43:49 Influenza, split virus, trivalent, preservative 0 completed Tana Prater null, [facility] 03/14/2019 10:43:49 Influenza, split virus, trivalent, PF 2 completed Tana Prater null, [facility] 03/14/2019 10:43:49 Tdap 3 completed Tana Prater null, [facility] 03/14/2019 10:43:49 Td (adult), 2 Lf tetanus toxoid, preservative free, adsorbed 4 completed Renny Christie MD [address] [facility] [address], [place], [address], [facility] 08/01/2023 08:20:49 Influenza, high-dose, trivalent, PF 5 completed BROWN Bob, [facility] 03/10/2025 14:14:19 Past Encounters Encounter ID Performer Location Encounter Start Date Encounter Closed Date Diagnosis/Indication Diagnosis SNOMED-CT Code Diagnosis ICD10 Code Diagnosis IMO Codes Diagnosis Note [id number] [place] [address] 08/29/2006 00:00:00 [id number] [facility] [address] [address] [place] [address] 01/08/2006 00:00:00 [id number] auto[employer] erce [address] [facility] [address] [place] [address] 11/13/2005 00:00:00 [id number] [employer] [facility] [address] [facility] [address] [place] [address] 12/07/2006 00:00:00 [id number] [employer] erce [address] [facility] [address] [place] [address] 07/18/2007 00:00:00 [id number] [employer] erce [address] [facility] [place] [address] 02/26/2008 00:00:00 [id number] auto[employer] erce [address] [facility] [place] [address] 08/25/2008 00:00:00 [id number] auto[employer] erce [address] [facility] [address] [place] [address] 03/30/2009 00:00:00 [id number] auto[employer] erce [address] [facility] [address] [place] [address] 04/29/2009 00:00:00 [id number] auto[employer] erce [address] [facility] [address] [place] [address] 09/28/2009 00:00:00 [id number] auto[employer] erce [address] [facility] [address] [place] [address] 12/29/2009 00:00:00 [id number] auto[employer]Comm erce [address] [facility] [place] [address] 05/25/2010 00:00:00 [id number] [employer] [address]ce [address] [place] [address] 12/05/2010 00:00:00 [id number] [address] [address] [place] [address] 06/14/2011 00:00:00 [id number] [facility] [facility]ce [address] [place] [address] 12/18/2011 00:00:00 [id number] [employer] erce [address] [facility] [address] [place] [address] 01/15/2012 00:00:00 [id number] [employer] erce [address] [facility] [address] [place] [address] 06/18/2012 00:00:00 [id number] auto[employer] erce [address] [facility] [place] [address] 01/06/2013 00:00:00 [id number] auto[employer]Comm erce [address] [facility] [place] [address] 01/21/2013 00:00:00 [id number] auto[employer]Comm erce [address] [facility] [place] [address] 09/30/2013 00:00:00 [id number] Renny Christie MD Main Office [address] [address] [place] [address] 04/27/2014 11:25:58 04/27/2014 12:03:27 Essential hypertension 16434816 Pure hypercholesterolemia 519453472 Varicella vaccination 83105690 [facility] [id number] Renny Christie MD Main Office [address] [address] [place] [address] 10/26/2014 10:05:17 10/26/2014 11:03:13 Adult health examination 373531094 Administra tion of pneumococcal vaccine 18243647 Pure hypercholesterolemia 298469049 Essential hypertension 19122337 [id number] Renny Christie MD Main Office [address] [address] [place] [address] 04/28/2015 09:45:36 04/28/2015 10:43:03 Essential hypertension 93710113 I10 Anemia 389290795 D64.9 Varicella vaccination 68 903160 Z23 [id number] Renny Christie MD Main Office [address] [address] [place] [address] 10/28/2015 13:32:34 10/28/2015 14:47:32 Adult health examination 254464508 Z00.00 We will update her immination s today. She is UTD with colonoscop y and GLASS [employer] TECHNICIAN care. We discussed the importance of calcium Advance di rective discussed with patient 221781779 Z71.89 Varicella vaccination 68 986441 Z23 Administra tion of pneumococcal vaccine 07838906 Z23 Essential hypertension 04504888 I10 running high today and she will follow it at home; we will call her in a couple of weeks and if it is still running high we will increase her amlodipine from 5 to 10 mg. Pure hypercholesterolemia 052604677 E78.0 Hearing loss 22772598 H9 1.90 Higher frequencie s. Mild. She we try to adjust and we will monitor it. [id number] Renny Christie MD Main Office [address] [address] [place] [address] 05/09/2016 09:44:35 05/09/2016 10:31:26 Essential hypertension 78174063 I10 good control; continue current mgmt. Hyperlipidemia 31862936 E78.5 LDL now at goal with meds which she is tolerating well. [id number] Renny Christie MD Main Office [address] [address] [place] [address] 07/06/2016 10:32:21 07/06/2016 11:25:30 Postviral cough 736421930 R05 She is already using proair and flonase. I also advised an OTC decongesta nt and let her know that this cough can go on for 2-4 weeks and is difficult to treat. Keep room cool at night and may also use honey. [id number] Renny Christie MD Main Office [address] [address] [place] [address] 11/13/2016 10:03:53 11/13/2016 11:06:36 Adult health examination 296133636 Z00.00 She is due for a shingles shot. She is UTD with colonoscop y and GLASS [employer]ER TECHNICIAN care. We discussed the importance of calcium Essential hypertension 82619342 I10 good control; continue current mgmt. Hyperlipidemia 85352600 E78.5 LDL now at goal with meds which she is tolerating well. Varicella vaccination 68 104102 Z23 [id number] Renny Christie MD Main Office [address] [address] 05/17/2017 09:02:51 05/17/2017 09:41:28 Essential hypertension 79119424 I10 good control; continue current mgmt. Hyperlipidemia 93160135 E78.5 LDL now at goal with meds which she is tolerating well. Hypokalemia 36527537 E87 .6 A hand-out was given on foods which are high in potassium. Insomnia 778452675 G47.0 0 doing better; not on meds. [id number] Renny Christie MD Main Office [address] [address] 11/21/2017 12:52:00 11/21/2017 13:49:23 Adult health examination 786963061 Z00.00 She is due for a shingles shot. She is UTD with colonoscop y and [employer] TECHNICIAN care. We discussed the importance of calcium Varicella vaccination 68 459936 Z23 Insomnia 498014251 G47.0 0 doing better; not on meds. Hyperlipidemia 83779481 E78.5 LDL now at goal with meds which she is tolerating well. Essential hypertension 06567343 I10 good control; continue current mgmt. [id number] Renny Christie MD Main Office [address] [address] 05/22/2018 12:36:55 05/22/2018 13:25:40 Essential hypertension 20371235 I10 good control; continue current mgmt. Hyperlipidemia 22330382 E78.5 LDL now at goal with meds which she is tolerating well. [id number] Gordon Phillips MD Main Office [address] [address] 10/08/2018 12:44:17 10/08/2018 13:48:20 Pre-surgery evaluation 222913411 Z01.818 Osteoarthr itis of knee 858380107 M17.11 pre-op for R TKR, anticipate doing L TKR ~ 6-8 wks later Essential hypertension 40915390 I10 stable bp and cr - cont meds as dir Hyperlipidemia 46452191 E78.5 Anemia 245546444 D64.9 last h/h in chart 12.4/38.9 on 06.21.16 c ferritin of 37, iron 107, tibc 326, % iron sat 33 last wk advised by anesthesia to take iron qd also rec to take this with 500mg of vit C qd to enhance absorption of iron -- if get constipate d, then take colace 1-2x/day History of polyp of colon 062272445 Z86.010 h/o colon polyps - had nl colon 4.14 - she just rec'd surveillan ce recall notice - she will schedule in near future [id number] Renny Christie MD Main Office [address] [address] [place] [address] 10/29/2018 08:51:29 10/29/2018 10:34:00 [id number] Renny Christie MD Main Office [address] [place] [address] [place] [address] 11/14/2018 11:16:47 11/14/2018 12:04:24 Anemia 695613974 D64.9 CBC from [facility] shows an improvemen t. We will check it again next week to be sure that she is not actively bleeding. Essential hypertension 12940618 I10 good control; continue current mgmt. [id number] Renny Christie MD Main Office [facility] [address] [place] [address] 11/26/2018 12:54:46 11/26/2018 13:57:51 Adult health examination 274301332 Z00.00 She is due for a shingles shot. She is UTD with GLASS [employer] TECHNICIAN care. She will be making an appointmen t for a colonoscop y. We discussed the importance of calcium Essential hypertension 51144085 I10 good control; continue current mgmt. Anemia 304861206 D64.9 [id number] Gordon Phillips MD Main Office [facility] [address] [place] [address] 03/20/2019 09:48:51 03/20/2019 10:55:32 Pre-surgery evaluation 433653517 Z01.818 Patient is at low risk for [...] sip of water. Osteoarthr itis of knee 406414995 M17.12 TKR scheduled [id number] Renny Christie MD Main Office [address] [facility] [address] [facility] [place] [address] 05/28/2019 10:27:39 05/28/2019 11:21:04 Essential hypertension 09430373 I10 good control; continue current mgmt. Anemia 349536920 D64.9 Currently taking iron supplement s once daily Constipation 71496594 K5 9.00 Has been a problem since taking iron supplement s but under control with eating a prune a night. [id number] Renny Christie MD Telehealt [address] [facility] [address] [facility] [place] [address] 12/01/2019 12:02:54 12/01/2019 15:09:23 Adult health examination 407339330 Z00.00 She is due for a shingles shot. She is UTD with GLASS INST[employer]ER TECHNICIAN care. She will be making an appointmen t for a colonoscop y. We discussed the importance of calcium Essential hypertension 58529706 I10 good control; continue current mgmt. Anemia 830186374 D64.9 Was on iron supplement s in the past. Had a colonoscop y earlier this year which was normal. Hyperlipidemia 44482851 E78.5 LDL at goal with meds which she is tolerating well. [id number] Renny Christie MD Main Office [address] [facility] [address] [facility] [place] [address] 06/16/2020 10:35:24 06/16/2020 11:35:40 Essential hypertension 68538417 I10 good control; continue current mgmt. Hyperlipidemia 37189567 E78.5 LDL at goal with meds which she is tolerating well. [id number] Renny Christie MD Main Office [address] [address] [place] [address] 12/14/2020 12:50:53 12/14/2020 13:54:54 Adult health examination 506413899 Z00.00 She is due for a shingles shot. She is UTD with GLASS INST[employer]ER TECHNICIAN care. She had a colonoscop y done last year and is due again in 2024. We discussed the importance of calcium and weight-alecia ring exercise. Hyperlipidemia 32327988 E78.5 LDL at goal with meds which she is tolerating well. Anemia 174190567 D64.9 Was on iron supplement s in the past. Had a colonoscop y last year which was normal. This is probably ACD from her OA. Chronic ki dney disease stage 3 686798831 N18.30 Hypertensi ve renal disease 98994960 I12.9 good control; continue current mgmt. [id number] Renny Christie MD Main Office [address] [address] [place] [address] 06/21/2021 13:44:45 06/21/2021 15:02:48 Metastatic malignant neoplasm to bone 29829976 C79.51 Admitted for surgery, transferre d to rehab and now home with PT. On DVT prophylaxi s for 1 month. Hypertensi ve renal disease 60224200 I12.9 Good control; continue current mgmt. Hyperlipidemia 57247529 E78.5 LDL at goal with meds which she is tolerating well. Will recheck fasting lipid level next appointmen t. [id number] Renny Christie MD Main Office [address] [address] [place] [address] 06/22/2021 08:21:30 06/22/2021 08:43:34 [id number] Renny Christie MD Main Office [address] [address] [place] [address] 07/19/2021 11:18:41 07/19/2021 12:02:25 Hypertensive renal disease 44806218 I12.9 Good control; continue current mgmt. Chronic ki dney disease stage 3 679952385 N18.31 Metastatic malignant neoplasm to female breast 99102460 C79.81 Currently on palliative chemo and followed by Dr Celaya. Had mets to her hip and had surgery to prevent a hip fracture. Hyperlipidemia 69456344 E78.5 LDL at goal with meds which she is tolerating well. Will recheck fasting lipid level next appointmen fernando [id number] Renny Christie MD Main Office [address] [facility] [address] [facility] [place] [address] 02/01/2022 10:19:32 02/01/2022 11:15:39 Adult health examination 919940956 Z00.00 She is due for a shingles shot. She is UTD with GLASS INST[employer]ER TECHNICIAN care. She had a colonoscop y done in [address] Caraballo and is due again in 2024. We discussed the importance of calcium and weight-alecia ring exercise. She has been recovering from her hip surgery done May 2021 and her cancer treatment and just now getting to be more active. Metastatic malignant neoplasm to female breast 42160686 C79.81 Currently on palliative chemo and followed by Dr Celaya. Had mets to her hip and had surgery to prevent a hip fracture. 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 [id number] Renny Christie MD Main Office [address] [facility] [address] [facility] [place] [address] 01/17/2023 11:16:36 01/17/2023 12:04:28 Hypertensive renal disease 43121163 I12.9 Good control; continue current mgmt. Metastatic malignant neoplasm to female breast 28893125 C79.81 Currently on palliative chemo and followed by Dr Celaya. Had mets to her hip and had surgery to prevent a hip fracture. Hyperlipidemia 91656773 E78.5 LDL at goal with meds which she is tolerating well. Will recheck fasting lipid level next appointmen nava. Alejandrina ki dney disease stage 3A [id number] N18.31 [id number] Renny Christie MD Main Office [address] [facility] [address] [place] [address] 07/31/2023 10:54:18 07/31/2023 11:56:22 Adult health examination [id number] Z00.00 She is due for a shingles shot. She is UTD with [employer] care. She had a colonoscop y done in [address] Caraballo and is due again in 2024. We discussed the importance of calcium and weight-alecia ring exercise. She has been recovering from her hip surgery done May 2021 and her cancer treatment and just now getting to be more active. Requires a tetanus booster [id number] Z23 Hyperlipidemia 11136280 E78.5 LDL at goal with meds which she is tolerating well. Will recheck fasting lipid level next appointmen t. Metastatic malignant neoplasm to female breast 02101229 C79.81 Currently on palliative chemo and followed by Dr Celaya. Had mets to her hip and had surgery to prevent a hip fracture. Chronic ki dney disease stage 3 146814029 N18.31 Hypertensi ve renal disease 92515466 I12.9 Good control; continue current mgmt. [id number] Renny Christie MD Main Office [address] [facility] [place] [address] 09/27/2023 11:17:17 09/27/2023 12:14:35 Pre-surgery evaluation [id number] Z01.818 Having bilateral cataract surgery with Dr. Slaughter. Right eye 10/07 and left eye 10/21. Low cardiac risk for cataract surgery, labs and EKG were done through her oncologist , will request results. no further work-up necessary, should proceed as scheduled Bilateral cataracts 9572 2004 H26.9 Cough 66186122 R05.9 coughing, started on augmentin x 7 days by her oncologist , LS CTA bilaterall y Chronic ki dney disease stage 3 895055477 N18.31 Metastatic malignant neoplasm to female breast 87503590 C79.81 Impacted c erumen in right ear [id number] 812183 H61.21 right cerumen impaction. lavage done but unable to fully clear the Canal. Suggest she use drops daily and schedule appt for lavage if sx not improved in the next week or 2. Metastatic malignant neoplasm to bone 19422506 C79.51 [id number] Renny Christie MD Main Office [address] [facility] [place] [address] 01/16/2024 11:20:26 01/16/2024 11:58:30 Hypertensive renal disease 37084455 I12.9 Good control; continue current mgmt. Chronic maik dney disease stage 3 366792756 N18.31 Metastatic malignant neoplasm to female breast 13977358 C79.81 Currently on palliative chemo and followed by Dr Celaya. Had mets to her hip and had surgery to prevent a hip fracture. [id number] Renny [facility] MD [facility] [address] [facility] [address] [facility] [place] [address] 08/21/2024 13:01:04 08/22/2024 16:24:26 Adult health examination 430636151 Z00.00 She is due for a shingles shot. She is UTD with [employer] care. She had a colonoscop y done in [address] Caraballo and is due again in 2024. We discussed the importance of calcium and weight-alecia ring exercise. She has been recovering from her hip surgery done May 2021 and her cancer treatment and just now getting to be more active. Chronic maik dney disease stage 3 499098268 N18.31 Post-herpe tic polyneuropathy 91358016 B02.23 On the right side of her face helped by gabapentin . Metastatic malignant neoplasm to bone 58370097 C79.51 Had surgery and does not have any pain in the area. Gait is normal. Malignant neoplasm of breast 167175448 C50.919 Hyperlipidemia 69076130 E78.5 LDL at goal with meds which she is tolerating well. Will recheck fasting lipid level. Hypertensi ve renal disease 97936263 I12.9 Good control; continue current mgmt. [id number] Renny Christie MD Main Office [address] [facility] [address] [facility] [place] [address] 03/10/2025 14:05:36 03/10/2025 14:55:25 Influenza vaccine needed [id number] 106 Z23 65 YEARS AND OLDER Hypertensi ve renal disease 20990423 I12.9 Running a little high. Generally running well when she sees her oncologist monthly. Chronic maik dney disease stage 3 801037985 N18.31 Secondary to chronic HTN. Hyperlipidemia 92844398 E78.5 LDL at goal with meds which she is tolerating well. Will recheck fasting lipid level. Health Concerns Section Related Observation LastModified by Organization Count Includes [facility] ls LastModified Time None Recorded Concern Status LastModified by Organization Details LastModified Time None Recorded Advance Directives Directive Y: 10/26/2014 Payers Insurance Date Sequence Insurance Name Policy Number Policy Casiano Covered Member ID Casiano Member ID Guarantor Name 03/27/2025 2 [employer] (MEDICARE SUPPLEMENT) Nicolette Sarmiento [id number] Nicolette Sarmiento 03/10/2025 1 MEDICARE [place]: [facility] [employer] Nicolette Sarmiento [id number] Nicolette Sarmiento 03/10/2025 2 [id number] Nicolette Sarmiento [id number] Nicolette Sarmiento Notes Date Note Type Note [...] in the HPI Renny Christie MD [address] [address], [place], [address], [facility] 08/01/2023 08:26:13 4 text/html Generic HPI [...] be finished by surgery. YOSEPH Abarca [address] [address], [place], [address], [facility] 09/27/2023 12:34:11 4 text/html Hypertension F/UReported by [...] a cane for ambulation. Renny Christie MD [address] [facility] [address], [place], [address], [facility] 01/16/2024 17:54:31 5 text/html Medicare Annual Wellness [...] help from gabapentin. Renny Christie MD [address] [facility] [address], [place], [address], [facility] 08/21/2024 18:01:11 5 text/html Hypertension F/UReported [...] regularly by oncology. Renny Christie MD [address] [facility] [address], [place], [address], [facility] 03/10/2025 18:07:26 OBGyn Episode No OBEpisode recorded.
--- OUTSIDE RECORDS SUMMARY | 2025-06-01 18:08 | XMS_ITS | Clinical Summary ---
Author Organization [facility] Prior to 11/08/24 Address [address] [place] [address] Care Team Providers Care Major Account Representative Name Role Phone Renny Christie MD Primary Care Provider [phone] Allergies No known active allergies Medications No [...] age to complete this topic Care Teams Major Account Representative Relationship Specialty Start Date End Date Renny Christei MD [address] [place] [address] PCP - General Internal Medicine 01/07/21
--- OUTSIDE RECORDS SUMMARY | 2025-06-01 18:08 | XMS_ITS | Encounter Summary ---
Author Organization [facility] Address [address] [place] [address] Phone Care Team Providers Care Packing Supervisor Name Role Phone Renny Christie MD Primary Care Provider Encounter Details Date Type Department Care Team (Late st Contact Info) Description 08/23/2021 Documentation Only [facility], [address] [place] [address] Renny Christie MD [address] [facility] [address] [place] [address] Social History Tobacco Use Types Packs/Day Years [...] on filedocumented in this encounter Care Teams Packing Supervisor Relationship Specialty Start Date End Date Renny Christie MD [address] PCP - General Internal Medicine 08/19/21 documented as of this encounter
--- OUTSIDE RECORDS SUMMARY | 2025-06-01 18:08 | XMS_ITS | Continuity of Care Document ---
Author Organization [facility], Main Office Address [address] [place] [address] Care Team Providers Care Knotter Hand Name Role Phone RENNY CHRISTIE Primary Care Provider TENZIN MORALES Orthopedic Surgeon [phone] HE ABEBE Senior Attorney FROYLAN SINGLETARY Medical Oncologist [phone] WARREN YOUNG Membership Director BENI PACE Poultry Raiser RENNY RENE General Surgeon [phone] GRACE DUBON Solar Tech LUZ MARIA VITALE Neuropsychology Medical Consultant JEVON CELAYA Surgical Oncologist [phone] TACO ERNST Referring Provider [phone] Assessment No assessment recorded. Plan of Treatment Reminders Order Date Submit Date Provider Last Modified By Organization Details Last Modified Time Details Appointments [id number] 2025 01:00P M Renny reilly MD Not available Not available Not available Lab lipid panel, serum 2024 025 CHAYITO [facility] (Centralized Electronic Ordering - All Locations), Patient Can Go To The Location Of Their Choice, [id number] 03/27/2025 06:08:07 CMP, serum or plasma 2024 025 CHAYITO [facility] (Centralized Electronic Ordering - All Locations), Patient Can Go To The Location Of Their Choice, [id number] 03/27/2025 06:08:06 Referral None recorded . Procedures None recorded . Surgeries None recorded . Imaging None recorded . Medication Orders None recorded . Patient TargetsNo targets recorded. Patient Instructions Encounter Date Encounter Id Patient Instructions Last Modified By Organization Details Last Modified Time 03/10/2025 [id number] medicines to avoid with kidney disease: care instructions [email or web address] Not available 03/10/2025 14:31:17 high cholesterol: care instructions [email or web address] Not available 03/10/2025 14:37:29 Reason for Referral None Reported. Results Created Date Observation Date Name Description Value Unit Range Abnormal Flag Note LastModifiedBy Organization Detail LastModifiedTime 03/26/2003/26/2025 CMP14 +EGFR glucose 96 mg/dL 70-99 normal Not Available [facility] ([facility]) [address] [place], [address], 03/27/2025 06:08:06 03/26/2003/26/2025 CMP14 +EGFR BUN 20 mg/dL 8-27 normal Not Available [facility] ([facility]) [address] [place], [address], 03/27/2025 06:08:06 03/26/2003/26/2025 CMP14 +EGFR creatinine 1.66 mg/dL 0.57-1 .00 above high normal Not Available [facility] ([facility]) [address] [place], [address], 03/27/2025 06:08:06 03/26/2003/26/2025 CMP14 +EGFR eGFR 32 mL/mi n/1.7 3 >59 below low normal Not Available [facility] ([facility]) [address] [place], [address], 03/27/2025 06:08:06 03/26/2003/26/2025 CMP14 +EGFR BUN/creatini ne ratio 12 12-28 normal Not Available [facility] ([facility]) [address] [place], [address], 03/27/2025 06:08:06 03/26/2003/26/2025 CMP14 +EGFR sodium 142 mmol/ L 134-14 4 normal Not Available [facility] ([facility]) [address] [place], [address], 03/27/2025 06:08:06 03/26/2003/26/2025 CMP14 +EGFR potassium 4.2 mmol/ L 3.5-5. 2 normal Not Available [facility] ([facility]) [address] [place], [address], 03/27/2025 06:08:06 03/26/2003/26/2025 CMP14 +EGFR chloride 106 mmol/ L 96-106 normal Not Available [facility] ([facility]) [address] [place], [address], 03/27/2025 06:08:06 03/26/2003/26/2025 CMP14 +EGFR carbon dioxide, total 24 mmol/ L 20-29 normal Not Available [facility] ([facility]) [address] [place], [address], 03/27/2025 06:08:06 03/26/2003/26/2025 CMP14 +EGFR calcium 9.9 mg/dL 8.7-10 .3 normal Not Available [facility] ([facility]) [address] [place], [address], 03/27/2025 06:08:06 03/26/2003/26/2025 CMP14 +EGFR protein, total 6.5 g/dL 6.0-8. 5 normal Not Available [facility] ([facility]) [address] [place], [address], 03/27/2025 06:08:06 03/26/2003/26/2025 CMP14 +EGFR albumin 4.2 g/dL 3.8-4. 8 normal Not Available [facility] ([facility]) [address] [place], [address], 03/27/2025 06:08:06 03/26/2003/26/2025 CMP14 +EGFR globulin, total 2.3 g/dL 1.5-4. 5 Not Available [facility] ([facility]) [address] [place], [address], 03/27/2025 06:08:06 03/26/2003/26/2025 CMP14 +EGFR bilirubin, total 0.6 mg/dL 0.0-1. 2 normal Not Available [facility] ([facility]) [address] [place], [address], 03/27/2025 06:08:06 03/26/2003/26/2025 CMP14 +EGFR alkaline phosphatase 61 IU/L 49-135 normal Not Available [facility] ([facility]) [address] [place], [address], 03/27/2025 06:08:06 03/26/2003/26/2025 CMP14 +EGFR AST (SGOT) 13 IU/L 0-40 normal Not Available [facility] ([facility]) [address] [place], [address], 03/27/2025 06:08:06 03/26/2003/26/2025 CMP14 +EGFR ALT (SGPT) 7 IU/L 0-32 normal Not Available [facility] ([facility]) [address] [place], [address], 03/27/2025 06:08:06 03/26/2003/26/2025 LIPID PANEL cholesterol, total 202 mg/dL 100-19 9 above high normal Not Available [facility] ([facility]) [address] [place], [address], 03/27/2025 06:08:07 03/26/20 25 03/26/2025 LIPID PANEL triglyceride s 148 mg/dL 0-149 normal Not Available [facility] ([facility]) [address] [facility], [place], [address], 03/27/2025 06:08:07 03/26/2003/26/2025 LIPID PANEL HDL cholesterol 67 mg/dL >39 normal Not Available [facility] ([facility]) [address] [facility], [place], [address], 03/27/2025 06:08:07 03/26/2003/26/2025 LIPID PANEL VLDL cholesterol radha 26 mg/dL 5-40 Not Available [facility] ([facility]) [address] [facility], [place], [address], 03/27/2025 06:08:07 03/26/2003/26/2025 LIPID PANEL LDL chol calc ([facility]) 109 mg/dL 0-99 above high normal Not Available [facility] ([facility]) [address] [facility], [place], [address], 03/27/2025 06:08:07 03/26/2003/26/2025 LIPID PANEL LDL calc comment: [employer]LL OPERATOR Not Available [facility] ([facility]) [address] [facility], [place], [address], 03/27/2025 06:08:07 Result Notes None recorded. Problems Name Problem SNOMED Code Status Onset Date Resolution Date Notes Provider Name and Address Organization Details Recorded Time Insomnia 038400185 Active Tana baker [facility] 9 10:43:48 Calculus in urethra 27312067 Active followed by urology Tana baker [facility] 9 10:43:48 Advance directiv e discusse d with patient 482980492 Active Tana baker [facility] 9 10:43:48 Hearing loss 38069082 Active Tana baker [facility] 9 10:43:48 Kidney stone 07374543 Active Tana baker [facility] 9 10:43:48 Strabism us 89869035 Active Tana Prater null, [facility] 9 10:43:48 Serum choleste rol above referenc e range 686530775 Active Tana Prater null, [facility] 9 10:43:48 Vitreous floaters 99338571 Active Tana Prater null, [facility] 9 10:43:48 Cataract 915114361 Active Tana Prater null, [facility] 9 10:43:48 Amblyopi a 467032648 Active Tana Prater null, [facility] 9 10:43:48 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 FOLLOWED BY DR SINGLETARY. ; RECORDED 10/01/19 14 8:14AM BY LESA HOGAN ON/TRINIDAD Christie MD [address] [address], [place], [address] , 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 FOLLOWED BY DR SINGLETARY. ; RECORDED 10/01/19 14 8:14AM BY LESA HOGAN/TRINIDAD Christie MD [address] [address], [place], [address] , [facility] 6 14:15:17 History of malignan t neoplasm of breast 070728850 Active 2007 Right lumpecto my by Dr Gabi maloney. Also radiatio n and 5 years of hormonal therapy. Renny Christie MD [address], [place], [address] , [facility] 2 07:39:52 General examinat ion of patient Completed 200712/23/2013 RECORDED 02/02/20 08 10:51AM BY RENNY ELIZABETH MD, ANNOTATI ON/ADDEN DUM Renny Christie MD [address], [place], [address] , [facility] 6 14:15:17 General examinat ion of patient Completed 200701/19/2014 RECORDED 02/02/20 08 10:51AM BY RENNY ELIZABETH MD, ANNOTATI ON/ADDEN DUM Renny Christie MD [address], [place], [address] , [facility] 6 14:15:17 Screenin g for malignan t neoplasm of colon Completed 200812/23/2013 RECORDED 06/18/19 09 5:06PM BY RENNY ELIZABETH MD, ANNOTATI ON/ADDEN DUM Renny Christie MD [address], [place], [address] , [facility] 6 14:15:17 Influenz a vaccine needed 74569220646 06 Completed 200912/23/2013 RECORDED 05/25/20 10 2:08PM BY JAIME CRUZ I, HISTORIC AL SUMMARY Renny Christie MD [address], [place], [address] , [facility] 6 14:15:17 Influenz a vaccine needed 03276125585 06 Completed 200901/19/2014 RECORDED 05/25/20 10 2:08PM BY JAIME CRUZ I, HISTORIC AL SUMMARY Renny Christie MD [address], [place], [address] , [facility] 6 14:15:17 Hemorrho ids [id number] Completed 201112/23/2013 RECORDED 12/18/19 12 1:34PM BY RENNY ELIZABETH MD, ANNOTATI ON/ADDEN DUM Renny Christie MD [address], [place], [address] , [facility] 6 14:15:17 Hypokale michael [id number] Completed 201112/23/2013 RECORDED 12/18/19 12 1:34PM BY RENNY ELIZABETH MD, ANNOTATI ON/ADDEN DUM Renny Christie MD [address] [address], [place], [address] , [facility] 6 14:15:17 Joint effusion of ankle AND/OR foot 4897498 Completed 201112/23/2013 RECORDED 12/18/19 12 1:36PM BY RENNY ELIZABETH MD, ANNOTATI ON/ADDEN VINAYAK Christie MD [address] [address], [place], [address] , [facility] 6 14:15:17 Adult health examinat ion Completed 201112/23/2013 RECORDED 12/18/19 12 1:35PM BY RENNY ELIZABETH MD, ANNOTATI ON/ADDEN DUM Renny Christie MD [address] [address], [place], [address] , [facility] 6 14:15:17 Hemorrho ids [id number] Completed 201101/19/2014 RECORDED 12/18/19 12 1:34PM BY RENNY ELIZABETH MD, ANNOTATI ON/ADDMAX Christie MD [address], [place], [address] , [facility] 6 14:15:17 Hypokale michael 80582053 Completed 201101/19/2014 RECORDED 12/18/19 12 1:34PM BY RENNY ELIZABETH MD, ANNOTATI ON/ADDEN DUM Renny Christie MD [address], [place], [address] , [facility] 6 14:15:17 Joint effusion of ankle AND/OR foot 9041807 Completed 201101/19/2014 RECORDED 12/18/19 12 1:36PM BY RENNY ELIZABETH MD, ANNOTATI ON/ADDEN DUM Renny Christie MD [address] [address], [place], [address] , [facility] 6 14:15:17 Screenin g for malignan t neoplasm of breast Completed 201212/23/2013 RECORDED 06/18/19 13 8:11AM BY LESA HOGAN ON/ADDEN VINAYAK Christie MD [address] [address], [place], [address] , [facility] 6 14:15:17 Constipa tion 13924060 Completed 201212/23/2013 IMPRESSI ON: ADVISED TO TAKE OTC SENOKOT; RECORDED 06/18/19 13 8:11AM BY LESA HOGAN ON/ADDEN VINAYAK Christie MD [address] [address], [place], [address] , [facility] 6 14:15:17 Cough 54969342 Completed 201212/23/2013 IMPRESSI ON: SECONDAR Y TO ALLERGIC RHINITIS ; RECORDED 06/18/19 13 8:11AM BY LESA HOGAN ON/ADDMAX [facility], [facility] [address], [place], [address] , [facility] 4 11:48:45 Enthesop athy of knee 73300671 Completed 201212/23/2013 RECORDED 06/18/19 13 8:11AM BY LESA HOGAN ON/TRINIDAD Christie MD [address], [place], [address] , [facility] 6 14:15:17 Screenin g for malignan t neoplasm of breast Completed 201201/19/2014 RECORDED 06/18/19 13 8:11AM BY LESA HOGAN ON/TRINIDAD Christie MD [address], [place], [address] , [facility] 6 14:15:17 Constipa tion 77592400 Completed 201201/19/2014 IMPRESSI ON: ADVISED TO TAKE OTC SENOKOT; RECORDED 06/18/19 13 8:11AM BY LESA HOGAN ON/TRINIDAD Christie MD [address], [place], [address] , [facility] 6 14:15:17 Cough 62463790 Completed 201201/19/2014 IMPRESSI ON: SECONDAR Y TO ALLERGIC RHINITIS ; RECORDED 06/18/19 13 8:11AM BY LESA HOGAN ON/TRINIDAD Chang, [facility] [address], [place], [address] , [facility] 4 11:48:45 Enthesop athy of knee 90724150 Completed 201201/19/2014 RECORDED 06/18/19 13 8:11AM BY LESA HOGAN ON/TRINIDAD Christie MD [address], [place], [address] , [facility] 6 14:15:17 Knee pain Completed 201212/23/2013 IMPRESSI ON: HAS A F/U WITH DR DHALIWAL AND MAY BE GETTING INJECTIO NS.; RECORDED 01/07/20 13 10:22AM BY LESA HOGAN ON/TRINIDAD Christie MD [address], [place], [address] , [facility] 6 14:15:17 Administ ration of diphther ia and tetanus vaccine Completed 201212/23/2013 RECORDED 01/07/20 13 10:22AM BY LESA HOGAN ON/TRINIDAD Christie MD [address] [address], [place], [address] , [facility] 6 14:15:17 Knee pain Completed 201201/19/2014 IMPRESSI ON: HAS A F/U WITH DR DHALIWAL AND MAY BE GETTING INJECTIO NS.; RECORDED 01/07/20 13 10:22AM BY LESA HOGAN ON/TRINIDAD Christie MD [address] [address], [place], [address] , [facility] 6 14:15:17 Administ ration of diphther ia and tetanus vaccine Completed 201201/19/2014 RECORDED 01/07/20 13 10:22AM BY LESA HOGAN/TRINIDAD Christie MD [address], [place], [address] , [facility] 6 14:15:17 Laborato ry procedur e performe d 155639565 Completed 201212/23/2013 RECORDED 01/22/20 13 9:40AM BY LESA HOGAN ON/ADDEN DUM Renny Christie MD [address], [place], [address] , [facility] 6 14:15:17 Laborato ry procedur e performe d 471592419 Completed 201201/19/2014 RECORDED 01/22/20 13 9:40AM BY JAIME CRUZ I, SHAKAATI ON/ADDEN DUM Renny Christie MD [address], [place], [address] , [facility] 6 14:15:17 Anemia 857397826 Active 2013 Probable ACD secondar y to OA/infla mmation. Renny Christie MD [address], [place], [address] , [facility] 0 10:12:38 Primary malignan t neoplasm of labia majora 87548773 Completed 201312/23/2013 RECORDED 10/01/19 14 8:14AM BY LESA HOGAN ON/ADD DUM Renny Christie MD [address], [place], [address] , [facility] 6 14:15:17 History of malignan t neoplasm of skin excludin g melanoma 038510769 Active 2013 Basal cell carcinom a; followed by Dr Milton Christie MD [address], [place], [address] , [facility] [place] 9 11:15:58 Pure hypercho lesterol emia 787342123 Completed 201311/13/2016 working on diet Renny Christie MD [address], [place], [address] , [facility] [place] 7 10:48:27 Osteoart hritis of knee 853054202 Active [address] Young and receives injectio ns. Seen by ortho August 2018 and godfrey vernon ent. Tana baker, [facility] 9 10:43:48 Tobacco user 977067240 Completed 201304/27/2014 RECORDED 10/01/19 14 11:07AM BY JAIME CRUZ I, OFFICE VISIT Renny Christie MD [address] [facility] [address], [place], [address] , [facility] 6 14:15:17 History of clinical finding in subject 520426659 Completed 201304/27/2014 RECORDED 10/01/19 14 11:07AM BY JAIME CRUZ I, OFFICE VISIT Renny Christie MD [address] [address], [place], [address] , [facility] 6 14:15:17 Pre-surg godfrey evaluati on Completed 201312/23/2013 RECORDED 10/01/19 14 8:13AM BY JAIME CRUZ I, ANNOTATI ON/TRINIDAD Christie MD [address] [address], [place], [address] , [facility] 6 14:15:17 Adult health examinat ion Completed 201304/27/2014 RECORDED 10/01/19 14 11:06AM BY JAIME CRUZ I, OFFICE VISIT Renny Christie MD [address] [facility] [address], [place], [address] , [facility] 6 14:15:17 Primary malignan t neoplasm of labia majora 25735010 Completed 201301/19/2014 RECORDED 10/01/19 14 8:14AM BY JAIME CRUZ I, ANNOTATI ON/ADDMAX Christie MD [address] [address], [place], [address] , [facility] 6 14:15:17 Pre-surg godfrey evaluati on Completed 201301/19/2014 RECORDED 10/01/19 14 8:13AM BY LESA HOGAN ON/ADDEN DUM Renny Christie MD [address], [place], [address] , [facility] 6 14:15:17 Screenin g for malignan t neoplasm of colon Completed 201304/27/2014 RECORDED 10/08/19 14 1:36PM BY CHEYENNE VALENTE, HISTORIC AL SUMMARY Renny Christie MD [address], [place], [address] , [facility] 6 14:15:17 Basal cell carcinom a of skin 429290150 Active 2014 ankle, right ear Tana baker, [facility] 9 10:43:48 Hyperlip idemia 90961263 Active 2016 Tana baker, [facility] 9 10:43:48 Total knee replacem ent Active 2018 Dr Julio C Prater null, [facility] 9 10:43:48 Tubular adenoma 121922159 Active 2019 PER GI Xenia Tomás null, [facility] 0 09:19:38 Chronic kidney disease stage 3 169043637 Active 2020 Per Crowder MD null, [facility] 1 10:36:45 Hyperten sive renal disease 45625396 Active 2020 Teresa Dockery null, [facility] 1 16:23:45 Metastat ic malignan t neoplasm to female breast 21620916 Active 2020 Mets to bone. Primary breast cancer was in 2005. Started palliati ve treatmen t in April 2021. Renny Christie MD [address], [place], [address] , [facility] 2 07:44:32 Neoplasm of hip region 344803620 Active 2020 Seen by ortho, Dr Lamar. Renny Christie MD [address], [place], [address] , [facility] 1 15:23:23 Herpes zoster 4708001 Active 2022 on face Renny Christie MD [address], [place], [address] , [facility] 3 08:54:17 Bilatera l cataract s 31276787 Active 2023 Tish Chang, [facility] [address], [place], [address] , [facility] 4 11:48:36 Cough 27960607 Active 2023 IMPRESSI ON: SECONDAR Y TO ALLERGIC RHINITIS ; RECORDED 06/18/19 13 8:11AM BY LESA HOGAN ON/ADDEN DUM Tish Chang, [facility] [address], [place], [address] , [facility] 4 11:48:45 Impacted cerumen in right ear 76209911967 83098 Active 2023 Tish Chang, [facility] [address], [place], [address] , 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 4 12:33:41 Malignan t neoplasm of breast 859377358 Active 2024 Renny Christie MD [address] [facility] [address], [place], [address] , [facility] 5 17:42:52 Notes:Some problems listed i n Document: #[id number] could not be added to this patient's chart. Please review this document and add these problems to the patient's chart manually as needed. Problem Notes None recorded. Procedures Surgical History Date Name Laterality Status Provider Name and Address Organization Details Recorded Time 06/07/20 21 removal of implant from femur completed Tana Prater [facility] 06/08/2021 10:17:01 02/11/20 21 Most Recent Mammogram completed Gabrielle Carrillo MA [facility] 02/01/2022 10:22:35 08/21/19 21 Mammogram Diagnostic Bilateral completed Cindy Hamlin MA [facility] 12/14/2020 12:59:41 12/01/19 20 Six-Item Cognitive Test completed Jaime Horne [facility] 12/01/2019 13:31:07 08/21/19 20 Date of Last Colonoscopy completed Xeniajanki [facility] 08/21/2019 11:32:29 08/21/19 20 Colonoscopy & polypectomy completed Xenia [facility] 08/29/2019 09:20:00 03/31/20 19 Total knee arthroplasty completed Tanarekha Prater [facility] 04/15/2019 16:17:26 12/26/19 19 renal lithotripsy completed Tanarekha Prater [facility] 01/15/2019 15:36:12 11/27/19 19 Mini-Cog Test completed Jaime Horne [facility] 11/26/2018 13:12:53 10/22/19 19 Knee Surgery completed Tanarekha Prater [facility] 10/30/2018 11:49:05 11/22/19 18 Mini-Cog Test completed Zuleyma Mckeon [facility] 11/21/2017 13:09:40 01/31/20 17 Other completed Sabrina Cruz [facility] 03/30/2017 16:51:14 11/14/19 17 Fall Risk Assessment completed Jaime Horne [facility] 11/13/2016 10:28:15 11/14/19 17 Mini-Cog Test completed Jaime Horne [facility] 11/13/2016 10:28:23 08/12/19 17 Other completed Abby Day [facility] 09/04/2016 15:26:26 10/28/19 16 Fall Risk Assessment completed Jaime Horne [facility] 10/28/2015 14:00:43 10/28/19 16 Mini-Cog Test completed Jaimevladimir Horne [facility] 10/28/2015 14:00:43 10/28/19 16 Advanced Care Planning completed Jaime Horne [facility] 10/28/2015 13:52:42 06/09/20 15 Other completed Renny Christie MD [address], [address], [facility] 06/13/2015 10:12:27 10/27/19 15 Fall Risk Assessment completed Jaime Horne [facility] 10/26/2014 10:32:53 10/27/19 15 Mini-Cog Test completed Jaime Downsgurpreetmaik [facility] 10/26/2014 10:32:53 10/07/19 14 Colposcopy completed Uma Shukla [facility] 04/27/2014 11:39:55 06/11/19 13 Other completed Renny Christie MD [address] [address], [place], [address], [facility] 04/27/2014 12:48:11 12/09/19 10 Most Recent Bone Density completed Gabrielle Carrillo [place] [facility] 02/01/2022 10:23:37 06/11/19 06 Breast Surgery completed Renny Christie MD [address] [facility], [place], [address], [facility] [place] 11/21/2017 13:44:50 06/11/19 04 Appendectomy completed Renny Christie MD [address] [facility], [place], [address], [facility] [place] 11/21/2017 13:45:12 06/11/18 89 Hernia Repair completed Renny Christie MD [address] [facility] [address] [facility], [place], [address], [facility] [place] 11/21/2017 13:44:26 06/11/18 56 Eye Surgery completed Renny Christie MD [address] [facility] [address] [facility], [place], [address], [facility] 11/21/2017 13:43:59 total knee replacement completed Gabrielle Carrillo MA [facility] 02/01/2022 10:34:13 Tonsillectomy completed Renny Christie MD [address] [facility] [address] [facility], [place], [address], [facility] 04/27/2014 12:48:11 Caesarean Section completed Renny Christie MD [address], [address], [facility] 04/27/2014 12:48:11 Imaging Results None recorded. [...] Updated DateTime 5 165.74 cm 27.4 kg/m2 76833.3 3 g 60 /min 95 % 97.4 [degF] 146/74 mm[Hg] 140/80 mm[Hg] Masha Reed MA [facility] [place] 5 14:17:26 Social History Question Answer Notes LastModified by Organization Details LastModified Time Tobacco Smoking Status Former Smoker stopped 39 years ago Renny Christie MD [address] [facility] [address], [place], [address], [place] [facility] [place], [place] 08/21/2024 15:09:58 Do You Have An Advance Directive? Yes 10/26/2014 [email or web address] Information not available 06/16/2020 Is Blood Transfusion Acceptable In An Emergency? Yes [id number] Information not available 04/13/2020 What Is Your Level Of Caffeine Consumption? Moderate Coffee 3 Times A Week Information not available 02/01/2022 How Much Tobacco Do You Chew? None [id number] Information not available 04/13/2020 Are You Deaf Or Do You Have Serious Difficulty Hearing? No [email or web address] Information not available 06/16/2020 What Type Of Diet Are You Following? REGULAR [id number] Information not available 04/13/2020 Which Illicit Or Recreational Drugs Have You Used? None [id number] Information not available 04/13/2020 Live Alone Or [...] Or Greater Than 100 Degrees Fahrenheit? No [email or web address] Information not available 12/14/2020 Are You Or Anyone In Your Household A Health Care Provider Or Emergency Responder? No [email or web address] Information not available 12/14/2020 To The Best Of Your Knowledge Have You Been In Close Proximity To Any Individual Who Tested Positive For COVID-19? No [email or web address] Information not available 12/14/2020 Have You Recently Traveled To A COVID-19 High Risk Area Or Gathering In The Last 10 Days? No [email or web address] Information not available 12/14/2020 What Was The Date Of Your Most Recent Tobacco Screening? 07/31/2023 [email or web address] Information not available 07/31/2023 How Many Children Do You Have? 3 2 Sons And 1 Daughter; 2 Granddaughters [email or web address] Information not available 08/21/2024 Do You Use Protection During Sex? Usually [id number] Information not available 04/13/2020 Difficulty Reading? No [employer] Information not available 10/26/2014 Seat Belts Used Routinely Yes [email or web address] Information not available 10/28/2015 Are You Sexually Active? Yes [id number] Information not available 04/13/2020 Smoke Alarm In Home Yes [employer] Information not available 10/28/2015 At What Age Did You Start Smoking Tobacco? 13 [id number] Information not available 04/13/2020 How Much Tobacco Do You Smoke? 1 PPD [id number] Information not available 04/13/2020 Do You Use Sunscreen Routinely? Yes [id number] Information not available 04/13/2020 How Many Years Have You Smoked Tobacco? 22 [id number] Information not available 04/13/2020 Difficulty Watching TV? No [employer] Information not available 10/26/2014 Do You Have Difficulty Walking Or Climbing Stairs? Yes Arthritis In Her Knees [email or web address] Information not available 06/16/2020 Sex: Unknown Functional Status Question Answer Note LastModified by Organizat ion Details LastModified Time Do you or have you ever used smokeless tobacco? Never used smokeless tobacco [email or web address] Information not available 12/14/2020 Are you currently employed? No Retired [id number] Information not available 04/13/2020 Difficulty driving at night? No Friendly Score Information no t available 10/26/2014 Are you able to care for yourself independently? Yes [id number] Information not available 04/13/2020 Do you have difficulty dressing, bathing, grooming, or toileting? No [email or web address] Information not available 06/16/2020 Do you or have you ever used e-cigarettes or vape? Never used electronic cigarettes Information not available 06/16/2020 What is your exercise level? Occasional [id number] Information not available 04/13/2020 Do you use [...] you have difficulty doing errands alone? 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 No [email or web address] Information no t available 06/16/2020 Family History [...] pneumococcal polysaccharide PPV23 5 completed [facility] 02:21:41 Influenza, high-dose, trivalent, PF 7 completed Tana Prater null, [facility] 03/14/2019 10:43:49 Influenza, high-dose, trivalent, PF 8 completed Tana Prater null, [facility] 03/14/2019 10:43:49 Influenza, adjuvanted, trivalent, PF 9 completed Tana Prater [facility], [facility] 02/01/2022 10:53:47 Influenza, split virus, quadrivalent, preservative 0 completed Tana Prater [facility] 02/01/2022 10:53:47 COVID-19, mRNA, LNP-S, PF, 30 mcg/0.3 mL dose 1 [facility] 13:56:21 COVID-19, mRNA, LNP-S, PF, 30 mcg/0.3 mL dose 1 [facility] 13:56:21 Influenza, adjuvanted, quadrivalent, PF 1 [facility] 13:56:21 Influenza, high-dose, trivalent, PF 8 [facility] 13:56:21 Influenza, split virus, quadrivalent, PF 5 [facility] 13:56:21 Influenza, adjuvanted, quadrivalent, PF 0 completed BROWN Olivo, [facility] 06/21/2021 13:56:21 Influenza, high-dose, trivalent, PF 6 completed BROWN Olivo, [facility] 06/21/2021 13:56:21 COVID-19, mRNA, LNP-S, PF, 30 mcg/0.3 mL dose 1 completed BROWN Olivo, [facility] 06/21/2021 13:56:21 Influenza, adjuvanted, quadrivalent, PF 2 [facility] 11:21:07 Pneumococcal conjugate PCV 13 6 completed Not [facility] 02:21:36 Influenza, high-dose, quadrivalent, PF 3 completed BROWN García, [facility] 08/21/2024 14:18:47 COVID-19, mRNA, LNP-S, PF, 50 mcg/0.5 mL 4 completed BROWN García, [facility] 08/21/2024 14:18:47 Influenza, high-dose, trivalent, PF 4 [facility] 14:18:47 Td (adult), 2 Lf tetanus toxoid, preservative free, adsorbed 9 completed Tana Prater null, [facility] 03/14/2019 10:43:49 Influenza, split virus, trivalent, preservative 0 completed Tana Prater null, [facility] 03/14/2019 10:43:49 Influenza, split virus, trivalent, PF 2 completed Tana Prater null, [facility] 03/14/2019 10:43:49 Tdap 3 completed Tana Prater null, [facility] 03/14/2019 10:43:49 Td (adult), 2 Lf tetanus toxoid, preservative free, adsorbed 4 completed Renny Christie MD [address] [address], [place], [address], [facility] 08/01/2023 08:20:49 Influenza, high-dose, trivalent, PF 5 completed BROWN Bob, [facility] 03/10/2025 14:14:19 Past Encounters Encounter ID Performer Location Encounter Start Date Encounter Closed Date Diagnosis/Indication Diagnosis SNOMED-CT Code Diagnosis ICD10 Code Diagnosis IMO Codes Diagnosis Note [id number] Renny Christie MD Main Office [address] [address] 03/10/2025 14:05:36 03/10/2025 14:55:25 Influenza vaccine needed [id number] 106 Z23 65 YEARS AND OLDER Hypertensi ve renal disease 48551941 I12.9 Running a little high. Generally running well when she sees her oncologist monthly. Chronic ki dney disease stage 3 [id number] N18.31 Secondary to chronic HTN. Hyperlipidemia 53355874 E78.5 LDL at goal with meds which she is tolerating well. Will recheck fasting lipid level. Health Concerns Section Related Observation LastModified by Organization Detai ls LastModified Time None Recorded Concern Status LastModified by Organization Details LastModified Time None Recorded Payers Encounter Date Sequence Insurance Name Policy Number Policy Casiano Covered Member ID Casiano Member ID Guarantor Name 03/10/2025 1 [place] [employer] Nicolette Sarmiento [id number] Nicolette Sarmiento 03/10/2025 2 [employer] (MEDICARE SUPPLEMENT) Nicolette Sarmiento [id number] Nicolette Sarmiento Notes Date Note Type Note [...] Followed regularly by oncology. Renny Christie MD [address] [address], [place], [address], [facility] 03/10/2025 18:07:26 OBGyn Episode No OBEpisode recorded.
== END 2025-06-01 15:29 | disposition home or self-care (01) ==
LOC: HO.HCS 14:54
PROVIDERS: Visit Provider Internal Medicine
DX: R60.0 Localized edema (principal); I10 Essential (primary) hypertension; C50.919 Malignant neoplasm of unspecified site of unspecified female breast; C79.51 Secondary malignant neoplasm of bone
CPT/HCPCS: 93010; 99214; G2211

== ENCOUNTER → 2025-06-01 14:53 | Outpatient (BNVA) | payer MEDICARE, SELFPAY | PROVIDERS: Visit Provider Internal Medicine | DX: R60.0 Localized edema (principal); I10 Essential (primary) hypertension; C50.919 Malignant neoplasm of unspecified site of unspecified female breast; C79.51 Secondary malignant neoplasm of bone | CPT/HCPCS: 93005; 99212 ==